=== PATIENT | female | born 1960 | race Hispanic/Latino ===

== ENCOUNTER 2017-02-20 12:07 | Emergency (ER) | payer MEDICARE ==
[2017-02-20 12:29] VITALS: BP 139/80; PULSE 104; RESP 20; TEMP 98.5; O2SAT 95
--- NOTE | 2017-02-20 13:13 | ED PDOC ---
HPI: Abdomen Time Seen by Provider: 02/20/17 12:33 Chief Complaint (Nursing): Fever Chief Complaint (Provider): Abdominal Pain History Per: Patient History/Exam Limitations: no limitations Onset/Duration Of Symptoms: Waxing/Waning (for 2 weeks) Outside of [place] travel?: No Current Symptoms Are (Timing): Gone Now Severity: None Pain Scale Rating Of: 0 Location Of Pain/Discomfort: Other (currently none, but otherwise located at epigastric) Quality Of Discomfort: Sharp Associated Symptoms: Fever, Vomiting, Diarrhea. denies: Chills, Nausea, Urinary Symptoms Alleviating Factors: Other (Morphine, Tylenol, Ibuprofen) Last Bowel Movement: Yesterday Additional Complaint(s): 56 yo F w PMHx of Essential Thrombocythemia, Portal Vein Thrombosis, Anxiety, Trigeminal Neuralgia, and Chronic Migraines presents to ER due to headache and abdominal pain. She had woken up this morning w severe complaints of both, took Morphine, Tylenol, and Ibuprofen to control them, and called her PMD Dr Robins. She was subsequently instructed to head to the [facility], where she now states that her pain has resolved. Two weeks prior to the ER visit, she had seen GI Dr Russell for upper endoscopy and was diagnosed with a stomach ulcer. Following that visit, she has experienced intermittent fevers w Tmax of 101.5F, occasional vomiting, and diarrhea x1 yesterday. On her own accord, she stopped taking her normal regimen of Warfarin and Hydroxyurea in fear of the ulcer and switched to Lovenox. However, the Lovenox was a stockpile that she had a small supply of, and was not observed under any physician's direction. She currently denies any fevers/chills, headaches, aura, blurriness, spots, reduced visual lowery, nausea, or vomiting. She also denies chest pain, SOB, dyspnea, cough, abdominal pain, hematuria, dysuria, or other myalgias. PMD: Dr Robins Hem/Onc: Dr Frazier / Dr Cowart GI: Dr Russell Abnormal Vaginal Bleeding: No Past Medical History Vital Signs: Last Vital Signs Temp 98.5 F 02/20/17 12:25 Pulse 104 H 02/20/17 12:25 Resp 20 02/20/17 12:25 BP 139/80 02/20/17 12:25 Pulse Ox 95 02/20/17 14:54 - Medical History PMH: Denies: Chronic Kidney Disease - Family History Family History: States: Unknown Family Hx - Home Medications Home Medications: Ambulatory Orders Medication Instructions Recorded ALPRAZolam [Xanax] 0.25 mg PO HS 02/02/15 Hydroxyurea [Hydrea] 500 mg PO DAILY 02/02/15 Morphine Sulfate [Msir] 30 mg PO TID 02/02/15 Warfarin Sodium [Coumadin] 4 mg PO DAILY 02/02/15 Amoxicillin/Clavulanate Pota 1 tab PO BID #20 tab 02/03/15 [Augmentin 875 mg-125 mg] Lactulose [Enulose] 20 gm PO DAILY #1 udc 06/28/16 - Allergies Allergies/Adverse Reactions: Allergies Allergy/AdvReac Type Severity Reaction Status Date / Time lansoprazole [From Prevacid] Allergy anxiety, Verified 02/20/17 12:25 shaking ranitidine [From Zantac] Allergy anxiety, Verified 02/20/17 12:25 shaking Review of Systems ROS Statement: Except As Marked, All Systems Reviewed And Found Negative (see HPI) Physical Exam - Reviewed Nursing Documentation Reviewed: Yes Vital Signs Reviewed: Yes - Physical Exam Appears: Positive for: Non-toxic, No Acute Distress Head Exam: Positive for: ATRAUMATIC, NORMOCEPHALIC Skin: Positive for: Normal Color, Warm, Dry Eye Exam: Positive for: Normal appearance, EOMI, PERRL ENT: Positive for: Normal ENT Inspection Neck: Positive for: Normal, Painless ROM, Supple Cardiovascular/Chest: Positive for: Regular Rate, Rhythm. Negative for: Edema Respiratory: Positive for: Normal Breath Sounds. Negative for: Stridor, Wheezing, Respiratory Distress Gastrointestinal/Abdominal: Positive for: Normal Exam, Bowel Sounds, Soft. Negative for: Tenderness (throughout) Extremity: Positive for: Normal ROM. Negative for: Pedal Edema, Calf Tenderness Neurologic/Psych: Positive for: Alert, general store manager II-XII, Oriented - Laboratory Results Result Diagrams: 02/20/17 13:05 02/20/17 13:05 - ECG O2 Sat by Pulse Oximetry: 95 - Progress ED Course And Treament: 56 yo F w PMHx of Essential Thrombocythemia, Portal Vein Thrombosis, Anxiety, Trigeminal Neuralgia, and Chronic Migraines presents to ER due to headache and abdominal pain -When offered, patient denied medication for nausea, vomiting, diarrhea, and her pain -CBC -CMP -PT/PTT -Spoke w Dr Frazier, Hematology, who suggested that the patient see her in the office later today or tomorrow for anticoagulation management. Update: --Upon resulted CBC 40.2 > 13.1/43.8 < 1765 --her Elementary School Music Teacher suggested she be observed to r/o acute infection. Once completed, she should follow up tomorrow at the Elementary School Music Teacher's office. -As per Dr Frazier: ---her platelets were 600 in December and her WBC was 14.5 two weeks prior to today ---resume Hydrea therapy when discharged and follow up w Dr Frazier for anticoagulation management and evaluation for Myeloproliferative Disorder, including a bone marrow aspirate w flow cytometry Update: -No pain appreciated -Blood Cx -Urine Cx -Abdominal U/S -CXR -C Diff Toxin Re-evaluation Time: 13:30 Condition: Re-examined, Unchanged Disposition - Clinical Impression Clinical Impression: Essential thrombocythemia - Disposition Disposition Time: 14:54 Condition: STABLE
[2017-02-20] MEDS ORDERED: Sodium Chloride 0.9% 1,000 ML IV SCH (13:15)
[2017-02-20 13:16] LABS: EOS # 0.4 K/uL (0.0-0.7); LYMPH # 0.9 K/uL (1.0-4.3); MONO # 3.2 K/uL (0.0-0.8)
[2017-02-20 13:24] LABS: PLATELET COUNT 1765 K/uL (130-400); WHITE BLOOD COUNT 40.2 K/uL (4.8-10.8)
[2017-02-20 13:26] LABS: ALB/GLOB RATIO 1.1 (1.0-2.1); ALKALINE PHOSPHATASE 281 U/L (38-126); ALT/SGPT 52 U/L (9-52); AST/SGOT 117 U/L (14-36); BILIRUBIN,TOTAL 1.6 mg/dl (0.2-1.3); BLOOD UREA NITROGEN 12 mg/dl (7-17); CALCIUM 8.9 mg/dL (8.4-10.2); CARBON DIOXIDE 27 mmol/L (22-30); CHLORIDE 103 mmol/L (98-107); GFR AFRICAN-AMERICAN > 60; GLUCOSE,RANDOM 89 mg/dL (65-105); LIPASE 15 U/L (23-300); POTASSIUM 4.4 MMOL/L (3.6-5.0); SODIUM 139 mmol/l (132-148); TOTAL PROTEIN 6.9 G/DL (6.3-8.2)
[2017-02-20 14:01] LABS: BASO # 0.5 K/uL (0.0-0.2); BASO % 1.2 % (0.0-2.0); HEMATOCRIT 43.8 % (34.0-47.0); LYMPH % 2.1 % (20.0-40.0); MEAN CELL VOLUME 93.2 fl (81.0-99.0); MEAN CORPUSCULAR HEMOGLOBIN 27.9 pg (27.0-31.0); MEAN PLATELET VOLUME 10.3 fl (7.2-11.7); MONO % 7.8 % (0.0-10.0); NEUT # 35.7 K/uL (1.8-7.0); NEUT % 87.9 % (50.0-75.0); NRBC % 5.9 % (0.0-0.0); RED CELL DISTRIBUTION WIDTH 22.7 % (11.5-14.5)
[2017-02-20 14:13] LABS: PARTIAL THROMBOPLASTIN TIME 43.8 Seconds (25.6-37.1)
[2017-02-20 14:37] LABS: NEUTROPHIL 96 % (42-75); NUCLEATED RED BLOOD CELL 9 % (0-0); TOTAL CELLS COUNTED 100
--- NOTE | 2017-02-20 15:59 | RAD ---
HISTORY: cough, elevated wbc COMPARISON: 07/29/2014. FINDINGS: LUNGS: No discrete infiltrates. Pulmonary vascular congestion similar to that seen on the prior study. PLEURA: Bilateral pleural effusions again identified CARDIOVASCULAR: Cardiomegaly slack CHF. OSSEOUS STRUCTURES: No significant abnormalities. VISUALIZED UPPER ABDOMEN: Stable postoperative findings, surgical clips left upper quadrant OTHER FINDINGS: None. IMPRESSION: Cardiomegaly, pulmonary vascular congestion/ CHF. No discrete, focal pulmonary infiltrates.
--- NOTE | 2017-02-20 16:44 | US ---
HISTORY: abdominal pain COMPARISON: None. TECHNIQUE: Sonographic evaluation of the abdomen. FINDINGS: LIVER: Measures 16.5 cm. Normal echogenicity of the liver parenchyma. No mass. No intrahepatic bile duct dilatation. GALLBLADDER: Unremarkable. No gallstones. COMMON BILE DUCT: Measures 7 mm. No stones. No dilatation. PANCREAS: Poorly visualized due to overlying bowel gas obscuring the region of interest RIGHT KIDNEY: Measures 12.7cm. Normal echogenicity. No calculus, mass, or hydronephrosis. LEFT KIDNEY: Measures 11.4cm. Normal echogenicity. No calculus, mass, or hydronephrosis. SPLEEN: Status post splenectomy AORTA: No aneurysmal dilatation. IVC: Unremarkable. OTHER FINDINGS: None. IMPRESSION: Status post splenectomy. Pancreas poorly visualized. Otherwise unremarkable examination.
[2017-02-20] MEDS ORDERED: Enoxaparin 60 mg Syringe SC STA (16:51)
[2017-02-20] MEDS ORDERED: Enoxaparin 40 mg Syringe SC STA (16:58)
--- NOTE | 2017-02-20 17:39 | ED PDOC ---
- Laboratory Results Result Diagrams: 02/20/17 13:05 02/20/17 13:05 - ECG O2 Sat by Pulse Oximetry: 95 - Progress ED Course And Treament: [address] Mclean. Pt with known thrombocytosis and noncompliant with meds. Screed Person contacted who reviewed labs and pt to be worked up common infection. If negative, can f/u with power transformer repair supervisor tomorrow. Pending US. 1700 Pt's US unremarkable. Pt given IV morhpine, zofran, and IVF in ER. Dose of lovenox as well. STable for DC and mandatory f/u power transformer repair supervisor in AM Disposition - Clinical Impression Clinical Impression: Essential thrombocythemia, Abdominal pain - POA Present On Arrival: None - Disposition Referrals: Amina Robins MD [Medical Doctor] - Freddie,Zhane Cameron MD [Medical Doctor] - Arjun Russell MD [Staff Provider] - Disposition: Routine/Home Disposition Time: 15:00 Condition: STABLE Additional Instructions: Resulted labs / imaging included w discharge papers. Follow up with Hematology tomorrow morning (Wednesday 02/21) at 10am w Dr Frazier / Dr Cowart. -Patient must resume Hydrea therapy immediately. -Patient will be optimized for Warfarin by Hematology, as per Dr Frazier. -Patient will be monitored for Myeloproliferative Disorder, as per Dr Frazier. Follow up w PMD Dr Robins within 2 - 3 days of discharge. Follow up w GI Dr Russell within 3 - 4 days of discharge. ER precautions discussed and given to patient.
== END 2017-02-20 17:37 | disposition home or self-care (01) ==
LOC: H.ER 12:07
DX: D47.3 Essential (hemorrhagic) thrombocythemia (principal); R50.9 Fever, unspecified; R11.10 Vomiting, unspecified; R19.7 Diarrhea, unspecified
CPT/HCPCS: 71010; 76700; 80053; 83690; 85025; 85610; 85730; 87040; 87086; 96361; 96372; 96374; 96375; 99283; J1650; J2270; J2405; J7040

== ENCOUNTER 2017-03-13 10:54 | Inpatient (IN) | payer MEDICARE ==
[2017-03-13 12:35] LABS: VENOUS BLOOD GAS BASE EXCESS 1.5 mmol/L (0.0-2.0); VENOUS BLOOD GAS PCO2 46 mmHg (40-60); VENOUS BLOOD GAS PO2 29 mm/Hg (30-55); VENOUS BLOOD PH 7.38 (7.32-7.43)
[2017-03-13 12:38] LABS: HEMOGLOBIN 11.9 g/dL (12.0-16.0); MEAN PLATELET VOLUME 10.5 fl (7.2-11.7)
[2017-03-13 12:47] LABS: BASO # 0.3 K/uL (0.0-0.2); BASO % 0.6 % (0.0-2.0); EOS # 0.9 K/uL (0.0-0.7); LYMPH # 0.7 K/uL (1.0-4.3); LYMPH % 1.5 % (20.0-40.0); MEAN CELL VOLUME 91.7 fl (81.0-99.0); MEAN CORPUSCULAR HEMOGLOBIN 26.8 pg (27.0-31.0); MEAN CORPUSCULAR HGB CONC 29.2 g/dL (33.0-37.0); MONO # 1.6 K/uL (0.0-0.8); MONO % 3.7 % (0.0-10.0); NEUT % 92.2 % (50.0-75.0); NRBC % 14.6 % (0.0-0.0); RBC 4.44 Mil/uL (3.80-5.20); RED CELL DISTRIBUTION WIDTH 23.5 % (11.5-14.5)
[2017-03-13 12:55] LABS: PLATELET COUNT 1592 K/uL (130-400); WHITE BLOOD COUNT 44.4 K/uL (4.8-10.8)
[2017-03-13] MEDS ORDERED: Vancomycin 1 g Inj ONE (13:13)
--- NOTE | 2017-03-13 13:13 | ED PDOC ---
HPI: General Adult Time Seen by Provider: 03/13/17 11:05 Chief Complaint (Nursing): Shortness Of Breath History Per: Patient Additional Complaint(s): Pt. states for the month she's been having intermittent chest pain, SOB, and palpitations. Reports symptoms began after she started taking Cipro for an unknown infection started by Dr. Guevara her radiology equipment servicer. Further reports that both her legs have been swollen and red and believes her cellulitis has returned. Swelling and redness began after taking Cipro. Reports a hx of PE in the past. Has also been having intermittent fevers. Denies trauma, hemoptysis, previous CAD, abdominal pain. Past Medical History Reviewed: Historical Data, Nursing Documentation, Vital Signs Vital Signs: Last Vital Signs Temp 98.7 F 03/13/17 18:45 Pulse 108 H 03/13/17 18:45 Resp 20 03/13/17 18:45 BP 155/84 H 03/13/17 18:45 Pulse Ox 97 03/13/17 19:30 - Medical History PMH: Denies: Chronic Kidney Disease Other PMH: Diffuse thromycytosis - Surgical History Other surgeries: spleenectomy - Family History Family History: States: No Known Family Hx - Home Medications Home Medications: Ambulatory Orders Medication Instructions Recorded Hydroxyurea [Hydrea] 1,500 mg PO DAILY 02/02/15 Alprazolam [Xanax] 0.25 mg PO BID PRN 03/13/17 Morphine [Morphine Immediate 30 mg PO TID 03/13/17 Release Tab] Ondansetron HCl [Zofran] 8 mg PO Q12H PRN 03/13/17 Polyethylene Glycol 3350 [Miralax] 17 gm PO DAILY PRN 03/13/17 Warfarin [Coumadin] 4 mg PO Q48H 03/13/17 Warfarin [Coumadin] 5 mg PO Q48H 03/13/17 - Allergies Allergies/Adverse Reactions: Allergies Allergy/AdvReac Type Severity Reaction Status Date / Time lansoprazole [From Prevacid] Allergy anxiety, Verified 03/13/17 10:56 shaking ranitidine [From Zantac] Allergy anxiety, Verified 03/13/17 10:56 shaking Review of Systems ROS Statement: Except As Marked, All Systems Reviewed And Found Negative Cardiovascular: Positive for: Chest Pain, Palpitations Respiratory: Positive for: Shortness of Breath, Pleuritic Pain Musculoskeletal: Positive for: Leg Pain Physical Exam - Reviewed Nursing Documentation Reviewed: Yes Vital Signs Reviewed: Yes - Physical Exam Appears: Positive for: Well, Non-toxic, No Acute Distress Head Exam: Positive for: ATRAUMATIC, NORMAL INSPECTION, NORMOCEPHALIC Skin: Positive for: Normal Color, Warm, DRY Eye Exam: Positive for: EOMI, Normal appearance, PERRL ENT: Positive for: Normal ENT Inspection Neck: Positive for: Normal, Painless ROM Cardiovascular/Chest: Positive for: Regular Rate, Rhythm Respiratory: Positive for: CNT, Normal Breath Sounds Pulses-Dorsalis Pedis (L): 2+ Pulses-Dorsalis Pedis (R): 2+ Gastrointestinal/Abdominal: Positive for: Normal Exam, Bowel Sounds, Soft. Negative for: Tenderness Back: Positive for: Normal Inspection Extremity: Positive for: Normal ROM, Other (b/l lower legs with moderate circumferential erythema and edema ) Neurologic/Psych: Positive for: Alert, Oriented. Negative for: Aphasia, Facial Droop - Laboratory Results Result Diagrams: 03/13/17 12:20 03/13/17 13:46 - ECG O2 Sat by Pulse Oximetry: 97 - Radiology X-Ray: Interpreted by Me (CXR) X-Ray Interpretation: No Acute Disease - Progress ED Course And Treament: Labs ordered. Blood culture x 2 ordered. Zosyn IV, Vancomycin IV given. CTA chest and duplex b/l lower extremities ordered. Case d/w Dr. Kaminski, pt.'s radiology equipment servicer, who states that on 03/06/17 pt. had WBC of 28K. CTA chest: 1. No CT evidence for acute pulmonary embolism. 2. Interstitial pulmonary edema and moderate bilateral pleural effusions, larger on the left in conjunction with mild cardiomegaly are most compatible with congestive heart failure. Duplex b/l lower extremities: negative for DVT. Pt. states she is scheduled to have her daily Morphine. Morphine 4mg IV given. BNP elevated. Repeat BP: 174/104. Lasix 20mg IV given. Case d/w Dr. Chavez and arrangements made for admission. Case d/w Dr. Iverson V, radiology equipment servicer, who agrees with care and will see patient in hospital. Disposition - Clinical Impression Clinical Impression: CHF (congestive heart failure), Cellulitis, Sepsis - Patient ED Disposition Is Patient to be Admitted: Yes - Disposition Disposition Time: 17:45 Condition: STABLE
[2017-03-13] MEDS ORDERED: Piperacillin/Tazobact 3.375 GM in Sodium Chloride 0.9% 100 ML IVPB STA (13:14)
--- NOTE | 2017-03-13 13:21 | RAD ---
HISTORY: chest pain COMPARISON: 02/18/2017. TECHNIQUE: Chest PA and lateral FINDINGS: LUNGS: The lungs are hyperinflated. There is persistent pulmonary venous congestion and pulmonary edema. No focal consolidation. PLEURA: There are small pleural effusions. No pneumothorax. CARDIOVASCULAR: There is persistent mild cardiomegaly and prominent central vasculature OSSEOUS STRUCTURES: No significant abnormalities. VISUALIZED UPPER ABDOMEN: Normal. OTHER FINDINGS: None. IMPRESSION: No significant interval change in mild congestive heart failure. COPD.
--- NOTE | 2017-03-13 13:50 | US ---
PROCEDURE: Bilateral lower extremity venous duplex Doppler. HISTORY: b/l lower leg swelling COMPARISON: None available. TECHNIQUE: Bilateral common femoral, superficial femoral, popliteal and posterior tibial veins were evaluated. Flow was assessed with color Doppler, compressibility, assessment of phasic flow and augmentation response. FINDINGS: COMMON FEMORAL VEIN: Right CFV: Normal flow and compressibility. Left CFV: Normal flow and compressibility. SUPERFICIAL FEMORAL VEIN: Right SFV: Normal flow and compressibility. Left SFV: Normal flow and compressibility. POPLITEAL VEIN: Right Popliteal: Normal flow and compressibility. Left Popliteal: Normal flow and compressibility. POSTERIOR TIBIAL VEIN: Right PTV: Normal flow and compressibility. Left PTV: Normal flow and compressibility. OTHER FINDINGS: None. IMPRESSION: No evidence of deep venous thrombosis.
[2017-03-13 14:06] LABS: URINE BACTERIA RARE (<OCC); URINE BILIRUBIN NEGATIVE (NEGATIVE); URINE BLOOD NEGATIVE (NEGATIVE); URINE CLARITY CLEAR (Clear); URINE COLOR STRAW (YELLOW); URINE GLUCOSE (UA) NEG (Normal); URINE LEUKOCYTE ESTERASE NEG Leu/uL (Negative); URINE NITRATE NEGATIVE (NEGATIVE); URINE PROTEIN 30 mg/dL (NEGATIVE); URINE UROBILINOGEN 0.2-1.0 mg/dL (0.2-1.0)
[2017-03-13 14:23] LABS: ALB/GLOB RATIO 1.1 (1.0-2.1); ALBUMIN 3.8 g/dL (3.5-5.0); ALT/SGPT 46 U/L (9-52); AST/SGOT 80 U/L (14-36); BLOOD UREA NITROGEN 7 mg/dl (7-17); CALCIUM 9.2 mg/dL (8.4-10.2); GFR AFRICAN-AMERICAN > 60; GFR NON-AFRICAN AMERICAN > 60
[2017-03-13 14:28] LABS: BANDS 3 % (0-2); LYMPHOCYTE 3 % (20-50); MONOCYTE 5 % (0-10); NEUTROPHIL 89 % (42-75); NUCLEATED RED BLOOD CELL 13 % (0-0); PLATELET ESTIMATE MARKEDLY INCREASED (NORMAL); TOTAL CELLS COUNTED 100
[2017-03-13 14:29] LABS: ANISOCYTOSIS MODERATE; POIKILOCYTOSIS SLIGHT
[2017-03-13 14:30] LABS: HYPOCHROMIC MODERATE; MICROCYTOSIS SLIGHT; OVALOCYTES MODERATE; TARGET CELLS SLIGHT; TEARDROP CELLS MODERATE
[2017-03-13 14:31] LABS: LARGE PLATELETS PRESENT; PLATELET CLUMPS PRESENT
[2017-03-13 15:01] LABS: INR 1.2 (0.9-1.2); PARTIAL THROMBOPLASTIN TIME 36.5 Seconds (25.6-37.1); PROTHROMBIN TIME 13.9 Seconds (9.8-13.1)
[2017-03-13] MEDS ORDERED: Sodium Chloride 0.9% 50 ML IV ONE (15:20)
[2017-03-13] MEDS ORDERED: Iodixanol 320 MG/ML 100 ML BOTTLE IV ONE (15:20)
--- NOTE | 2017-03-13 16:48 | CT ---
PROCEDURE: CT Chest with contrast (Pulmonary Angiogram) HISTORY: tachycardic, SOB, hx of PE COMPARISON: Plain radiographs performed the same day. TECHNIQUE: Axial computed tomography images were obtained of the chest in the pulmonary arterial phase of enhancement. Coronal and sagittal reformatted images were created and reviewed. Intravenous contrast dose: 75 mL Visipaque 320 Radiation dose: Total exam DLP = 211.54 mGy-cm. This CT exam was performed using one or more of the following dose reduction techniques: Automated exposure control, adjustment of the mA and/or kV according to patient size, and/or use of iterative reconstruction technique. FINDINGS: PULMONARY ARTERIES: There are no filling defects in the pulmonary arteries to suggest acute pulmonary embolism. AORTA: The aorta is normal in caliber. No evidence of aortic aneurysm or dissection. LUNGS: There is mild interlobular septal thickening. There is subsegmental atelectasis in the lingula, medial segment of the right middle lobe and compressive atelectasis in both lower lobes. There is also confluent airspace disease in the posterior basal segment of the left lower lobe. There are no endobronchial lesions. There is mild centrilobular emphysema especially in the posterior lungs. PLEURAL SPACES: There are moderate bilateral pleural effusions, larger on the left. Or pneumothorax. HEART: There is mild cardiomegaly. No pericardial effusion. LYMPH NODES: Subcentimeter mediastinal lymph nodes are likely reactive in etiology. BONES, CHEST WALL: Within normal limits for the patient's age. No fracture or destructive lesion OTHER FINDINGS: Unremarkable. IMPRESSION: 1. No CT evidence for acute pulmonary embolism. 2. Interstitial pulmonary edema and moderate bilateral pleural effusions, larger on the left in conjunction with mild cardiomegaly are most compatible with congestive heart failure.
[2017-03-14 02:48] LABS: ALB/GLOB RATIO 1.1 (1.0-2.1); ALBUMIN 3.4 g/dL (3.5-5.0); ALT/SGPT 46 U/L (9-52); AST/SGOT 59 U/L (14-36); BLOOD UREA NITROGEN 8 mg/dl (7-17); CALCIUM 8.7 mg/dL (8.4-10.2); GFR AFRICAN-AMERICAN > 60; GFR NON-AFRICAN AMERICAN > 60; HDL CHOLESTEROL 31 MG/DL (30-70)
[2017-03-14 02:59] LABS: LDL CHOLESTEROL 87 mg/dL (0-129)
[2017-03-14] MEDS ORDERED: Piperacillin/Tazobact 3.375 GM in Sodium Chloride 0.9% 100 ML IVPB STA (06:48)
[2017-03-14 07:12] LABS: HEMOGLOBIN 10.9 g/dL (12.0-16.0); MEAN CELL VOLUME 91.3 fl (81.0-99.0); MEAN CORPUSCULAR HEMOGLOBIN 26.5 pg (27.0-31.0); RBC 4.1 Mil/uL (3.80-5.20); RED CELL DISTRIBUTION WIDTH 23.9 % (11.5-14.5)
[2017-03-14 08:02] LABS: WHITE BLOOD COUNT 47.9 K/uL (4.8-10.8)
[2017-03-14] MEDS: Enoxaparin 40 mg Syringe SC SCH (08:28)
[2017-03-14] MEDS: Potassium Chloride 20 mEq ER Tab PO SCH ×2 (08:29→16:48)
--- NOTE | 2017-03-14 08:48 | CP.PCM.CON ---
History of Present Illness - History of Present Illness History of Present Illness: This is a 56 yrs old female who was diagnosed with essential thrombosis in 1998. She had been started on hydroxyuerea, and she did well until 2 yrs ago when she started having some leg edema. She was not very regular with the hydrea , and her counts have been a little high. In she was found to have an ulcer in the stomach so she stopped the hydrea for a while. But was then given cipro for an infection, but she doesnt know where. Both her lower extremities got swollen as a reaction, she started to get shortness of breath and was brought to the ER , She had a ct scan which did not show a PE, but she had a pleural effusion with an enlarged heart, She was admitted for CHF. Her WBC however was 44.0 and platelets were 1.5 mill. She has been off the hydrea since 1 month. She had gene testing done and found to be negative for the NICOLE 2 mutation,She was also found to be hypertensive. 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 Past Patient History - Infectious Disease Hx of Infectious Diseases: None - Tetanus Immunizations Tetanus Immunization: Unknown - Past Medical History & Family History Past Medical History?: Yes - Past Social History Smoking Status: Former Smoker - CARDIAC Hx Cardiac Disorders: No - PULMONARY Hx Respiratory Disorders: Yes Hx Emphysema: Yes (per patient "mild emphysema") - NEUROLOGICAL Hx Neurological Disorder: No - HEENT Hx HEENT Problems: No - RENAL Hx Chronic Kidney Disease: No - ENDOCRINE/METABOLIC Hx Endocrine Disorders: No - HEMATOLOGICAL/ONCOLOGICAL Hx Blood Disorders: Yes Other/Comment: Essential Thrombocythemia - INTEGUMENTARY Hx Dermatological Problems: No - MUSCULOSKELETAL/RHEUMATOLOGICAL Hx Musculoskeletal Disorders: No Hx Falls: No - GASTROINTESTINAL Hx Gastrointestinal Disorders: Yes Hx Esophageal Varices: Yes (2003) Other/Comment: PORTAL VEIN HYPERTENSION, PORTAL VEIN THROMBOSES - GENITOURINARY/GYNECOLOGICAL Hx Genitourinary Disorders: No - PSYCHIATRIC Hx Psychophysiologic Disorder: No Hx Substance Use: No - SURGICAL HISTORY Hx Surgeries: Yes Hx Splenectomy: Yes Hx Tonsillectomy: Yes - ANESTHESIA Hx Anesthesia: Yes Hx Anesthesia Reactions: No Meds Allergies/Adverse Reactions: Allergies Allergy/AdvReac Type Severity Reaction Status Date / Time lansoprazole [From Prevacid] Allergy anxiety, Verified 03/13/17 10:56 shaking ranitidine [From Zantac] Allergy anxiety, Verified 03/13/17 10:56 shaking - Medications Medications: Current Medications Acetaminophen (Tylenol 325mg Tab) 650 mg PO Q4 PRN PRN Reason: Fever >100.4 F Alprazolam (Xanax) 0.25 mg PO Q12 PRN PRN Reason: Anxiety Stop: 03/20/17 23:28 Last Admin: 03/14/17 00:23 Dose: 0.25 mg Enoxaparin Sodium (Lovenox) 40 mg SC DAILY [facility] PRN Reason: Protocol Furosemide (Lasix) 40 mg IVP BID [facility] Isosorbide Mononitrate (Imdur) 30 mg PO DAILY [facility] Morphine Sulfate (Morphine) 2 mg IVP Q8 PRN PRN Reason: Pain, severe (8-10) Last Admin: 03/14/17 00:23 Dose: 2 mg Ondansetron HCl (Zofran Inj) 4 mg IVP Q6 PRN PRN Reason: Nausea/Vomiting Last Admin: 03/14/17 01:13 Dose: 4 mg Potassium Chloride (K-Dur 20 Meq Er Tab) 20 meq PO BID [facility] Physical Exam - Additional Findings Additional findings: Physical exam; Pt is alert, well oriented in no acute distress Nech; Supple, no adenopathy Chest; Air entry poor bilaterally, right more viridiana left Heart; RSR, no murmur Abd; Soft, no mass, no hepatomegaly. spleen 1 cm below left costal margin. Lower extremities are swollen and a little red Results - Vital Signs Recent Vital Signs: Last Vital Signs Temp 98.4 F 03/14/17 08:12 Pulse 88 03/14/17 08:12 Resp 20 03/14/17 08:12 BP 107/64 03/14/17 08:12 Pulse Ox 94 L 03/14/17 08:12 - Labs Result Diagrams: 03/14/17 05:05 03/14/17 02:32 Labs: Laboratory Results - last 24 hr 03/14/17 03/14/17 03/14/17 02:32 02:32 05:05 WBC 47.9 H* RBC 4.10 Hgb 10.9 L Hct 37.4 MCV 91.3 MCH 26.5 L MCHC 29.0 L RDW 23.9 H Plt Count 1409 H* Sodium 141 Potassium 3.9 Chloride 107 Carbon Dioxide 21 L Anion Gap 17 BUN 8 Creatinine 0.5 L Est GFR ( Amer) > 60 Est GFR (Non-Af Amer) > 60 Random Glucose 99 Calcium 8.7 Total Bilirubin 0.8 AST 59 H D ALT 46 Alkaline Phosphatase 271 H Troponin I 0.0150 0.0240 Total Protein 6.5 Albumin 3.4 L Globulin 3.0 Albumin/Globulin Ratio 1.1 Triglycerides 113 Cholesterol 157 LDL Cholesterol Direct 87 HDL Cholesterol 31 TSH 3rd Generation 0.91 Assessment & Plan - Assessment and Plan (Free Text) Assessment: Impression; Pt with a h/o essential thrombocytosis is here for Eleveted WBC and platelets.? polycythemia vera. Plan: Plan; Will give her another try with hydroxyurea to rapidly decrease the counts. If she starts to get any side effects will stop will give allopurinol to prevent hyperuricemia. Pt is on lovenox already - Date & Time Date: 03/14/17 Time: 08:57
--- NOTE | 2017-03-14 10:15 | CP.PCM.HP ---
Past Patient History - Infectious Disease Hx of Infectious Diseases: None - Tetanus Immunizations Tetanus Immunization: Unknown - Past Medical History & Family History Past Medical History?: Yes - Past Social History Smoking Status: Former Smoker - CARDIAC Hx Cardiac Disorders: No - PULMONARY Hx Respiratory Disorders: Yes Hx Emphysema: Yes (per patient "mild emphysema") - NEUROLOGICAL Hx Neurological Disorder: No - HEENT Hx HEENT Problems: No - RENAL Hx Chronic Kidney Disease: No - ENDOCRINE/METABOLIC Hx Endocrine Disorders: No - HEMATOLOGICAL/ONCOLOGICAL Hx Blood Disorders: Yes Other/Comment: Essential Thrombocythemia - INTEGUMENTARY Hx Dermatological Problems: No - MUSCULOSKELETAL/RHEUMATOLOGICAL Hx Musculoskeletal Disorders: No Hx Falls: No - GASTROINTESTINAL Hx Gastrointestinal Disorders: Yes Hx Esophageal Varices: Yes (2003) Other/Comment: PORTAL VEIN HYPERTENSION, PORTAL VEIN THROMBOSES - GENITOURINARY/GYNECOLOGICAL Hx Genitourinary Disorders: No - PSYCHIATRIC Hx Psychophysiologic Disorder: No Hx Substance Use: No - SURGICAL HISTORY Hx Surgeries: Yes Hx Splenectomy: Yes Hx Tonsillectomy: Yes - ANESTHESIA Hx Anesthesia: Yes Hx Anesthesia Reactions: No Meds Allergies/Adverse Reactions: Allergies Allergy/AdvReac Type Severity Reaction Status Date / Time lansoprazole [From Prevacid] Allergy anxiety, Verified 03/13/17 10:56 shaking ranitidine [From Zantac] Allergy anxiety, Verified 03/13/17 10:56 shaking Results - Vital Signs Recent Vital Signs: Last Vital Signs Temp 36.9 C 03/14/17 08:12 Pulse 88 03/14/17 09:00 Resp 20 03/14/17 08:12 BP 107/64 03/14/17 08:12 Pulse Ox 94 L 03/14/17 08:12 - Labs Result Diagrams: 03/14/17 05:05 03/14/17 02:32 Labs: Laboratory Results - last 24 hr 03/14/17 03/14/17 03/14/17 02:32 02:32 05:05 WBC 47.9 H* RBC 4.10 Hgb 10.9 L Hct 37.4 MCV 91.3 MCH 26.5 L MCHC 29.0 L RDW 23.9 H Plt Count 1409 H* Sodium 141 Potassium 3.9 Chloride 107 Carbon Dioxide 21 L Anion Gap 17 BUN 8 Creatinine 0.5 L Est GFR ( Amer) > 60 Est GFR (Non-Af Amer) > 60 Random Glucose 99 Calcium 8.7 Total Bilirubin 0.8 AST 59 H D ALT 46 Alkaline Phosphatase 271 H Troponin I 0.0150 0.0240 Total Protein 6.5 Albumin 3.4 L Globulin 3.0 Albumin/Globulin Ratio 1.1 Triglycerides 113 Cholesterol 157 LDL Cholesterol Direct 87 HDL Cholesterol 31 TSH 3rd Generation 0.91
[2017-03-14] MEDS: Morphine 30 mg Immediate Release Tab PO PRN ×2 (12:59→18:41)
--- NOTE | 2017-03-14 14:45 | CP.PCM.CON ---
History of Present Illness - History of Present Illness History of Present Illness: referred for ID eval- leukocytosis r/o infectious etiology - came in with leg swelling , ? cellulitis, r/o CHF 56 yrs old female who was diagnosed with essential thrombosis in 1998. She had been started on hydroxyuerea, and she did well until 2 yrs ago when she started having some leg edema. She was not very regular with the hydrea, and her counts have been a little high. In she was found to have an ulcer in the stomach so she stopped the hydrea for a while. But was then given cipro for an infection, but she doesnt know where. Both her lower extremities got swollen as a reaction , she started to get shortness of breath and was brought to the ER, She had a ct scan which did not show a PE, but she had a pleural effusion with an enlarged heart, She was admitted for CHF. Her WBC however was 44.0 and platelets were 1.5 mill. She has been off the hydrea since 1 month. She had gene testing done and found to be negative for the NICOLE 2 mutation,She was also found to be hypertensive. 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 Review of Systems - Constitutional Constitutional: As Per HPI - EENT Eyes: absent: As Per HPI, Blind Spots, Blurred Vision, Change in Vision, Decreased Night Vision, Diplopia, Discharge, Dry Eye, Exophthalmos, Floaters, Irritation, Itchy Eyes, Loss of Peripheral Vision, Pain, Photophobia, Requires Corrective Lenses, Sees Flashes, Spots in Vision, Tunnel Vision, Other Visual Disturbances, Loss of Vision, Other Ears: absent: As Per HPI, Decreased Hearing, Ear Discharge, Ear Pain, Tinnitus, Abnormal Hearing, Disequilibrium, Dizziness, Other Nose/Mouth/Throat: absent: As Per HPI, Epistaxis, Nasal Congestion, Nasal Discharge, Nasal Obstruction, Nasal Trauma, Nose Pain, Post Nasal Drip, Sinus Pain, Sinus Pressure, Bleeding Gums, Change in Voice, Dental Pain, Dry Mouth, Dysphagia, Halitosis, Hoarsness, Lip Swelling, Mouth Lesions, Mouth Pain, Odynophagia, Sore Throat, Throat Swelling, Tongue Swelling, Facial Pain, Neck Pain, Neck Mass, Other - Breasts Breasts: absent: As Per HPI, Change in Shape, Mass, Pain, Nipple Discharge, Nipple Inversion, Skin Changes, Swelling, Other - Cardiovascular Cardiovascular: absent: As Per HPI, Acrocyanosis, Chest Pain, Chest Pain at Rest , Chest Pain with Activity, Claudication, Diaphoresis, Dyspnea, Dyspnea on Exertion, Edema, Irregular Heart Rhythm, Pain Radiating to Arm/Neck/Jaw, Leg Edema, Leg Ulcers, Lightheadedness, Orthopnea, Palpitations, Paroxysmal Nocturnal Dyspnea, Pedal Edema, Radiating Pain, Rapid Heart Rate, Slow Heart Rate, Syncope, Other - Respiratory Respiratory: As Per HPI, Cough, Dyspnea. absent: Hemoptysis - Gastrointestinal Gastrointestinal: As Per HPI. absent: Abdominal Pain, Belching, Bloating, Change in Bowel Habits, Change in Stool Character, Coffee Ground Emesis, Constipation, Cramping, Diarrhea, Dyspepsia, Dysphagia, Early Satiety, Excessive Flatus, Fecal Incontinence, Heartburn, Hematemesis, Hematochezia, Loose Stools, Melena, Nausea, Odynophagia, Temesmus, Vomiting, Other - Genitourinary Genitourinary: absent: As Per HPI, Change in Urinary Stream, Difficulty Urinating, Dysuria, Flank Pain, Hematuria, Pyuria, Nocturia, Urinary Incontinence, Urinary Frequency, Urinary Hesitance, Urinary Urgency, Voiding Freq/Small Amts, Freq UTI, Hx Renal/Bladder Calculi, Hx /Renal Surgery, Bladder Distension, Other - Reproductive: Female Reproductive:Female: absent: As Per HPI, Amenorrhea, Amenorrhea/ Control, Currently Menstual, Cycle <21 Days, Cycle >35 Days, Cycle Variable, Menses 1-7 Days, Menses >/= 8 Days, Menses Variable, Cycle > 4 Weeks Between, No Menses for 6 Months, Heavy Menses, Light Menses, Normal Menses, Spotting Between Cycles , S/P Hysterectomy, Menopausal, Post Menopausal, Premenarche, Abnormal Vaginal Bleeding, Dysmenorrhea, Dyspareunia, Genital Lesions, Genital Pruritis, Pelvic Pain, Prolapse Symptoms, Sexual Dysfunction, Vaginal Discharge, Vaginal Dryness , Vaginal Odor, Vaginal Pruritis, Other - Menstruation Menstruation: absent: As Per HPI, Amenorrhea, Amenorrhea/ Control, Currently Menstual, Cycle <21 Days, Cycle >35 Days, Cycle Variable, Menses 1-7 Days, Menses >/= 8 Days, Menses Variable, Cycle > 4 Weeks Between, No Menses for 6 Months, Heavy Menses, Light Menses, Normal Menses, Spotting Between Cycles , S/P Hysterectomy, Menopausal, Post Menopausal, Premenarche, Abnormal Vaginal Bleeding, Dysmenorrhea, Other - Musculoskeletal Musculoskeletal: As Per HPI - Integumentary Integumentary: As Per HPI - Neurological Neurological: absent: As Per HPI, Abnormal Gait, Abnormal Hearing, Abnormal Movements, Abnormal Speech, Behavioral Changes, Burning Sensations, Confusion, Convulsions, Disequilibrium, Dizziness, Numbness, Focal Weakness, Frequent Falls , Headaches, Lack of Coordination, Loss of Vision, Memory Loss, Paresthesias, Radicular Pain, Restless Legs, Sensory Deficit, Syncope, Tingling, Tremor, Vertigo, Weakness, Other Visual Disturbances, Other - Psychiatric Psychiatric: absent: As Per HPI, Abnormal Sleep Pattern, Anhedonia, Anxiety, Auditory Hallucinations, Behavioral Changes, Change in Appetite, Change in Libido, Confusion, Depression, Difficulty Concentrating, Hallucinations, Homicidal Ideation, Hopelessness, Irritability, Memory Loss, Mood Swings, Panic Attacks, Paranoia, Suicidal Ideation, Visual Hallucinations, Tactile Hallucinations, Other - Endocrine Endocrine: absent: As Per HPI, Change in Body Appearance, Change in Libido, Cold Intolorance, Deepening of Voice, Excessive Sweating, Fatigue, Flushing, Heat Intolorance, Increase in Ring/Shoe/Hat Size, Palpitations, Polydipsia, Polyphagia, Polyuria, Other - Hematologic/Lymphatic Hematologic: absent: As Per HPI, Easy Bleeding, Easy Bruising, Lymphadenopathy, Other Past Patient History - Infectious Disease Hx of Infectious Diseases: None - Tetanus Immunizations Tetanus Immunization: Unknown - Past Medical History & Family History Past Medical History?: Yes - Past Social History Smoking Status: Former Smoker - CARDIAC Hx Cardiac Disorders: No - PULMONARY Hx Respiratory Disorders: Yes Hx Emphysema: Yes (per patient "mild emphysema") - NEUROLOGICAL Hx Neurological Disorder: No - HEENT Hx HEENT Problems: No - RENAL Hx Chronic Kidney Disease: No - ENDOCRINE/METABOLIC Hx Endocrine Disorders: No - HEMATOLOGICAL/ONCOLOGICAL Hx Blood Disorders: Yes Other/Comment: Essential Thrombocythemia - INTEGUMENTARY Hx Dermatological Problems: No - MUSCULOSKELETAL/RHEUMATOLOGICAL Hx Musculoskeletal Disorders: No Hx Falls: No - GASTROINTESTINAL Hx Gastrointestinal Disorders: Yes Hx Esophageal Varices: Yes (2003) Other/Comment: PORTAL VEIN HYPERTENSION, PORTAL VEIN THROMBOSES - GENITOURINARY/GYNECOLOGICAL Hx Genitourinary Disorders: No - PSYCHIATRIC Hx Psychophysiologic Disorder: No Hx Substance Use: No - SURGICAL HISTORY Hx Surgeries: Yes Hx Splenectomy: Yes Hx Tonsillectomy: Yes - ANESTHESIA Hx Anesthesia: Yes Hx Anesthesia Reactions: No Meds Allergies/Adverse Reactions: Allergies Allergy/AdvReac Type Severity Reaction Status Date / Time lansoprazole [From Prevacid] Allergy anxiety, Verified 03/13/17 10:56 shaking ranitidine [From Zantac] Allergy anxiety, Verified 03/13/17 10:56 shaking - Medications Medications: Current Medications Acetaminophen (Tylenol 325mg Tab) 650 mg PO Q4 PRN PRN Reason: Fever >100.4 F Allopurinol (Zyloprim) 100 mg PO DAILY [facility] Last Admin: 03/14/17 10:50 Dose: 100 mg Alprazolam (Xanax) 0.25 mg PO Q12 PRN PRN Reason: Anxiety Stop: 03/20/17 23:28 Last Admin: 03/14/17 14:31 Dose: 0.25 mg Enoxaparin Sodium (Lovenox) 40 mg SC DAILY [facility] PRN Reason: Protocol Last Admin: 03/14/17 08:28 Dose: 40 mg Furosemide (Lasix) 40 mg IVP BID [facility] Last Admin: 03/14/17 12:34 Dose: 40 mg Hydroxyurea (Hydrea) 500 mg PO TID [facility] Last Admin: 03/14/17 12:35 Dose: 500 mg Isosorbide Mononitrate (Imdur) 30 mg PO DAILY [facility] Last Admin: 03/14/17 08:28 Dose: 30 mg Morphine Sulfate (Morphine) 2 mg IVP Q8 PRN PRN Reason: Pain, severe (8-10) Last Admin: 03/14/17 00:23 Dose: 2 mg Morphine Sulfate (Morphine Immediate Release Tab) 30 mg PO TID PRN PRN Reason: Pain, severe (8-10) Last Admin: 03/14/17 12:59 Dose: 30 mg Ondansetron HCl (Zofran Inj) 4 mg IVP Q6 PRN PRN Reason: Nausea/Vomiting Last Admin: 03/14/17 14:22 Dose: 4 mg Potassium Chloride (K-Dur 20 Meq Er Tab) 20 meq PO BID [facility] Last Admin: 03/14/17 08:29 Dose: 20 meq Physical Exam - Constitutional Appears: Non-toxic, Cachectic, Chronically Ill - Head Exam Head Exam: NORMOCEPHALIC - Eye Exam Eye Exam: PERRL. absent: Scleral icterus - ENT Exam ENT Exam: Mucous Membranes Dry, Normal External Ear Exam - Neck Exam Neck exam: Negative for: Lymphadenopathy - Respiratory Exam Respiratory Exam: Decreased Breath Sounds, Clear to Auscultation Bilateral - Cardiovascular Exam Cardiovascular Exam: REGULAR RHYTHM, +S1, +S2 - GI/Abdominal Exam GI & Abdominal Exam: Diminished Bowel Sounds, Distended, Soft. absent: Tenderness - Rectal Exam Rectal Exam: Deferred - Exam Exam: NORMAL INSPECTION - Extremities Exam Extremities exam: Positive for: pedal edema, pedal pulses present. Negative for : calf tenderness, tenderness - Back Exam Back exam: absent: CVA tenderness (L), CVA tenderness (R) - Neurological Exam Neurological exam: Alert, CN II-XII Intact, Oriented x3, Reflexes Normal - Psychiatric Exam Psychiatric exam: Normal Mood - Skin Skin Exam: Dry, Intact Results - Vital Signs Recent Vital Signs: Last Vital Signs Temp 98.7 F 03/14/17 12:21 Pulse 94 H 03/14/17 12:21 Resp 18 03/14/17 12:21 BP 108/56 L 03/14/17 12:34 Pulse Ox 93 L 03/14/17 12:21 - Labs Result Diagrams: 03/14/17 05:05 03/14/17 02:32 Labs: Laboratory Results - last 24 hr 03/14/17 03/14/17 03/14/17 02:32 02:32 05:05 WBC 47.9 H* RBC 4.10 Hgb 10.9 L Hct 37.4 MCV 91.3 MCH 26.5 L MCHC 29.0 L RDW 23.9 H Plt Count 1409 H* ESR 31 H Sodium 141 Potassium 3.9 Chloride 107 Carbon Dioxide 21 L Anion Gap 17 BUN 8 Creatinine 0.5 L Est GFR ( Amer) > 60 Est GFR (Non-Af Amer) > 60 Random Glucose 99 Calcium 8.7 Total Bilirubin 0.8 AST 59 H D ALT 46 Alkaline Phosphatase 271 H Troponin I 0.0150 0.0240 Total Protein 6.5 Albumin 3.4 L Globulin 3.0 Albumin/Globulin Ratio 1.1 Triglycerides 113 Cholesterol 157 LDL Cholesterol Direct 87 HDL Cholesterol 31 TSH 3rd Generation 0.91 Assessment & Plan - Assessment and Plan (Free Text) Assessment: leukocytosis r/o myeloproliferative disorder hx of thrombocytosis may need BM Bx IV antibiotics pending cultures check echo
[2017-03-14 15:30] VITALS: BMI 22.1
--- NOTE | 2017-03-14 17:01 | CARD ---
APPROVED REPORT EXAM: Two-dimensional and M-mode echocardiogram with Doppler and color Doppler. Other Information Quality : GoodRhythm : NSR INDICATION Congestive Heart Failure 2D DIMENSIONS IVSd0.91 (0.7-1.1cm)LVDd4.76 (3.9-5.9cm) LVOT Diameter1.75 (1.8-2.4cm)PWd0.80 (0.7-1.1cm) IVSs1.07 (0.8-1.2cm)LVDs2.78 (2.5-4.0cm) FS (%) 41.5 %PWs1.55 (0.8-1.2cm) M-Mode DIMENSIONS Left Atrium (MM)4.41 (2.5-4.0cm)IVSd0.85 (0.7-1.1cm) Aortic Root2.56 (2.2-3.7cm)LVDd5.21 (4.0-5.6cm) Aortic Cusp Exc.1.85 (1.5-2.0cm)PWd1.09 (0.7-1.1cm) IVSs1.71 cmFS (%) 46 % LVDs2.82 (2.0-3.8cm)PWs1.50 cm Mitral Valve MV E Vuzwmzlz997.1cm/sMV DECEL [id number] A Nmtvlptf02.4cm/s MV ZRO45mcP/A ratio2.1MVA (PHT)4.11cm2 TDI Lateral E' Peak V11.08cm/sMedial E' Peak V11.65cm/sE/Lateral E'9.5 E/Medial E'9.0 Tricuspid Valve TR Peak Oprzayjf067ch/sRAP [id number] Peak Gr.40mmHg [id number] LEFT VENTRICLE The left ventricle is normal size. There is normal left ventricular wall thickness. The left ventricular function is normal. The left ventricular ejection fraction is 60-65% There is normal LV segmental wall motion. Transmitral Doppler flow pattern is Grade II-pseudonormal filling dynamics. No left ventricle thrombus noted on this study. There is no ventricular septal defect visualized. There is no left ventricular aneurysm. There is no mass noted in the left ventricle. RIGHT VENTRICLE The right ventricle is normal size. There is normal right ventricular wall thickness. The right ventricular systolic function is normal. ATRIA The left atrium is moderately dilated. The right atrium is moderately dilated. The interatrial septum is intact with no evidence for an atrial septal defect. AORTIC VALVE The aortic valve is normal in structure and function. No aortic regurgitation is present. There is no aortic valvular stenosis. There is no aortic valvular vegetation. MITRAL VALVE The mitral valve is normal in structure and function. There is no evidence of mitral valve prolapse. There is no mitral valve stenosis. Mitral regurgitation is moderate. TRICUSPID VALVE The tricuspid valve is normal in structure and function. There is moderate tricuspid regurgitation. Right ventricular systolic pressure is estimated at 30-40 mmHg. There is no tricuspid valve prolapse or vegetation. There is no tricuspid valve stenosis. PULMONIC VALVE The pulmonary valve is normal in structure and function. There is no pulmonic valvular regurgitation. There is no pulmonic valvular stenosis. GREAT VESSELS The aortic root is normal in size. The ascending aorta is normal in size. The IVC is normal in size and collapses >50% with inspiration. PERICARDIAL EFFUSION The pericardium appears normal. There is no pleural effusion. <Conclusion> Normal LV systolic function LVEF 60-65% Moderate Mitral Regurgitation Moderate Tricuspid Regurgitation with normal PAP
--- NOTE | 2017-03-14 17:10 | CARD ---
APPROVED REPORT EKG Measurement Heart [id number] <Conclusion> Normal sinus rhythm Possible Left atrial enlargement Nonspecific T wave abnormality Prolonged QT Abnormal ECG
--- NOTE | 2017-03-14 17:22 | CARD ---
APPROVED REPORT EKG Measurement Heart [id number] <Conclusion> Sinus tachycardia Possible Left atrial enlargement Borderline ECG
[2017-03-14] MEDS ORDERED: POLYETHYLENE GLYCOL 3350 17 GM/Dose PACKET PO PRN (19:38)
[2017-03-14 22:12] LABS: HEPATITIS B SURFACE AG NEGATIVE (NEGATIVE)
[2017-03-14 22:17] LABS: HEPATITIS A IGM NEGATIVE (NEGATIVE)
[2017-03-14 22:18] LABS: HEPATITIS B CORE AB NEGATIVE (NEGATIVE)
[2017-03-14 22:30] LABS: HEPATITIS C ANTIBODY NEGATIVE (NEGATIVE)
[2017-03-15] MEDS: Morphine 30 mg Immediate Release Tab PO PRN ×2 (04:31→14:24)
[2017-03-15 07:33] LABS: BASO # 0.3 K/uL (0.0-0.2); BASO % 0.6 % (0.0-2.0); EOS # 1.1 K/uL (0.0-0.7); EOS % 2.3 % (0.0-4.0); HEMOGLOBIN 11.4 g/dL (12.0-16.0); LYMPH # 1.1 K/uL (1.0-4.3); LYMPH % 2.3 % (20.0-40.0); MEAN CELL VOLUME 90.6 fl (81.0-99.0); MEAN CORPUSCULAR HEMOGLOBIN 26.2 pg (27.0-31.0); MEAN CORPUSCULAR HGB CONC 28.9 g/dL (33.0-37.0); MEAN PLATELET VOLUME 10.5 fl (7.2-11.7); MONO # 1.6 K/uL (0.0-0.8); MONO % 3.3 % (0.0-10.0); NEUT # 43.6 K/uL (1.8-7.0); NEUT % 91.5 % (50.0-75.0); NRBC % 15.3 % (0.0-0.0); RBC 4.37 Mil/uL (3.80-5.20); RED CELL DISTRIBUTION WIDTH 24.3 % (11.5-14.5)
[2017-03-15 07:34] LABS: BLOOD UREA NITROGEN 16 mg/dl (7-17); CALCIUM 8.6 mg/dL (8.4-10.2); GFR AFRICAN-AMERICAN > 60; GFR NON-AFRICAN AMERICAN > 60
[2017-03-15 08:39] LABS: PLATELET COUNT 1502 K/uL (130-400); WHITE BLOOD COUNT 47.7 K/uL (4.8-10.8)
[2017-03-15] MEDS ORDERED: Enoxaparin 40 mg Syringe ONE (09:00)
[2017-03-15] MEDS ORDERED: Morphine 30 mg Immediate Release Tab ONE (09:00)
[2017-03-15] MEDS ORDERED: Potassium Chloride 20 mEq ER Tab PO ONE (09:00)
[2017-03-15] MEDS: Potassium Chloride 20 mEq ER Tab PO SCH ×2 (09:17→20:56)
[2017-03-15] MEDS: Enoxaparin 40 mg Syringe SC SCH (09:17)
--- NOTE | 2017-03-15 09:42 | CP.PCM.PN ---
Subjective - Date & Time of Evaluation Date of Evaluation: 03/15/17 Time of Evaluation: 09:33 - Subjective Subjective: Pt is afebrile in no acute distress. I started her back on hydroxyurea, and it will take another 2 days before we see a change in her count Pt had recently had a bone marrow done by her oncologist who told her that she did not have any shift to the left and there was no sign of leukemia. Since her respiratory status has improved, I feel she can be discharged when cleared by Dr Chavez, and she will continue the hydrea at home, and will see Dr miranda in the office on friday Objective - Vital Signs/Intake and Output Vital Signs (last 24 hours): Temp Pulse Resp BP Pulse Ox 97.8 F 87 18 108/62 92 L 03/15/17 08:00 03/15/17 08:00 03/15/17 08:00 03/15/17 09:18 03/15/17 08:00 - Medications Medications: Current Medications Acetaminophen (Tylenol 325mg Tab) 650 mg PO Q4 PRN PRN Reason: Fever >100.4 F Acetaminophen (Tylenol 325mg Tab) 650 mg PO ONCE ONE Stop: 03/15/17 09:27 Allopurinol (Zyloprim) 100 mg PO DAILY [facility] Last Admin: 03/15/17 09:17 Dose: 100 mg Alprazolam (Xanax) 0.25 mg PO Q12 PRN PRN Reason: Anxiety Stop: 03/20/17 23:28 Last Admin: 03/14/17 14:31 Dose: 0.25 mg Enoxaparin Sodium (Lovenox) 40 mg SC DAILY [facility] PRN Reason: Protocol Last Admin: 03/15/17 09:17 Dose: 40 mg Furosemide (Lasix) 40 mg IVP BID [facility] Last Admin: 03/15/17 09:18 Dose: 40 mg Hydroxyurea (Hydrea) 500 mg PO TID [facility] Last Admin: 03/15/17 09:17 Dose: 500 mg Isosorbide Mononitrate (Imdur) 30 mg PO DAILY [facility] Last Admin: 03/15/17 09:17 Dose: 30 mg Morphine Sulfate (Morphine) 2 mg IVP Q8 PRN PRN Reason: Pain, severe (8-10) Last Admin: 03/14/17 00:23 Dose: 2 mg Morphine Sulfate (Morphine Immediate Release Tab) 30 mg PO TID PRN PRN Reason: Pain, severe (8-10) Last Admin: 03/15/17 04:31 Dose: 30 mg Ondansetron HCl (Zofran Inj) 4 mg IVP Q6 PRN PRN Reason: Nausea/Vomiting Last Admin: 03/14/17 14:22 Dose: 4 mg Polyethylene Glycol (Miralax) 17 gm PO DAILY [facility] PRN Reason: Constipation Potassium Chloride (K-Dur 20 Meq Er Tab) 20 meq PO BID [facility] Last Admin: 03/15/17 09:17 Dose: 20 meq Sucralfate (Carafate Tab) 1 gm PO BID [facility] Warfarin Sodium (Coumadin) 5 mg PO QD5 [facility] PRN Reason: Protocol Stop: 03/15/17 17:01 - Labs Labs: 03/15/17 06:30 03/15/17 06:30 PT 13.9 Seconds (9.8-13.1) H 03/13/17 13:46 INR 1.2 (0.9-1.2) 03/13/17 13:46 APTT 36.5 Seconds (25.6-37.1) 03/13/17 13:46
[2017-03-15 11:33] LABS: BANDS 2 % (0-2); BASOPHIL 1 % (0-2); EOSINOPHIL 1 % (0-7); LYMPHOCYTE 2 % (20-50); MONOCYTE 4 % (0-10); MYELOCYTE 1 % (0-0); NEUTROPHIL 89 % (42-75); NUCLEATED RED BLOOD CELL 24 % (0-0); TOTAL CELLS COUNTED 100
[2017-03-15 11:38] LABS: ANISOCYTOSIS MODERATE; POIKILOCYTOSIS SLIGHT
[2017-03-15 11:43] LABS: LARGE PLATELETS PRESENT
[2017-03-15 11:44] LABS: GIANT PLATELETS PRESENT; HYPOCHROMIC SLIGHT; OVALOCYTES SLIGHT
[2017-03-15 11:46] LABS: PLATELET ESTIMATE MARKEDLY INCREASED (NORMAL)
[2017-03-15 11:48] LABS: TEARDROP CELLS SLIGHT
[2017-03-15 12:10] LABS: INR 1.3 (0.9-1.2); PROTHROMBIN TIME 14.8 Seconds (9.8-13.1)
[2017-03-16] MEDS: Morphine 30 mg Immediate Release Tab PO PRN ×3 (00:26→19:22)
[2017-03-16 08:23] LABS: HEMOGLOBIN 11.2 g/dL (12.0-16.0); MEAN CELL VOLUME 89.9 fl (81.0-99.0); MEAN CORPUSCULAR HEMOGLOBIN 26.4 pg (27.0-31.0); MEAN CORPUSCULAR HGB CONC 29.3 g/dL (33.0-37.0); RBC 4.25 Mil/uL (3.80-5.20); RED CELL DISTRIBUTION WIDTH 23.3 % (11.5-14.5)
[2017-03-16 08:35] LABS: PLATELET COUNT 1409 K/uL (130-400); WHITE BLOOD COUNT 46.3 K/uL (4.8-10.8)
[2017-03-16 08:40] LABS: ALB/GLOB RATIO 1.1 (1.0-2.1); ALBUMIN 3.1 g/dL (3.5-5.0); ALT/SGPT 40 U/L (9-52); AST/SGOT 103 U/L (14-36); BLOOD UREA NITROGEN 17 mg/dl (7-17); CALCIUM 8.7 mg/dL (8.4-10.2); GFR AFRICAN-AMERICAN > 60; GFR NON-AFRICAN AMERICAN > 60
[2017-03-16 08:42] LABS: B-TYPE NATRIURETIC PEPTIDE 684 pg/ml (0-900)
[2017-03-16 08:45] LABS: INR 1.3 (0.9-1.2); PARTIAL THROMBOPLASTIN TIME 35.2 Seconds (25.6-37.1); PROTHROMBIN TIME 14.5 Seconds (9.8-13.1)
[2017-03-16] MEDS: Potassium Chloride 20 mEq ER Tab PO SCH ×2 (09:08→16:29)
[2017-03-16] MEDS: Enoxaparin 40 mg Syringe SC SCH (09:09)
[2017-03-16 09:49] LABS: ANISOCYTOSIS SLIGHT; BANDS 2 % (0-2); EOSINOPHIL 1 % (0-7); LYMPHOCYTE 1 % (20-50); MONOCYTE 4 % (0-10); NEUTROPHIL 92 % (42-75); PLATELET ESTIMATE MARKEDLY INCREASED (NORMAL); TOTAL CELLS COUNTED 100
[2017-03-16 09:50] LABS: GIANT PLATELETS PRESENT; LARGE PLATELETS PRESENT; POIKILOCYTOSIS SLIGHT
[2017-03-16 09:53] LABS: SCHISTOCYTES SLIGHT; TARGET CELLS SLIGHT; TEARDROP CELLS SLIGHT
--- NOTE | 2017-03-16 12:23 | CP.PCM.PN ---
Subjective - Date & Time of Evaluation Date of Evaluation: 03/16/17 Time of Evaluation: 09:00 - Subjective Subjective: events noted cultures and serologies neg Objective - Vital Signs/Intake and Output Vital Signs (last 24 hours): Temp Pulse Resp BP Pulse Ox 98.7 F 94 H 20 135/80 93 L 03/16/17 08:00 03/16/17 08:00 03/16/17 08:00 03/16/17 09:07 03/16/17 08:00 - Medications Medications: Current Medications Acetaminophen (Tylenol 325mg Tab) 650 mg PO Q4 PRN PRN Reason: Fever >100.4 F Allopurinol (Zyloprim) 100 mg PO DAILY [facility] Last Admin: 03/16/17 09:09 Dose: 100 mg Alprazolam (Xanax) 0.25 mg PO Q12 PRN PRN Reason: Anxiety Stop: 03/20/17 23:28 Last Admin: 03/14/17 14:31 Dose: 0.25 mg Enoxaparin Sodium (Lovenox) 40 mg SC DAILY [facility] PRN Reason: Protocol Last Admin: 03/16/17 09:09 Dose: 40 mg Furosemide (Lasix) 40 mg PO BID [facility] Last Admin: 03/16/17 09:07 Dose: 40 mg Hydroxyurea (Hydrea) 500 mg PO TID [facility] Last Admin: 03/16/17 12:10 Dose: 500 mg Isosorbide Mononitrate (Imdur) 30 mg PO DAILY [facility] Last Admin: 03/16/17 09:09 Dose: 30 mg Morphine Sulfate (Morphine) 2 mg IVP Q8 PRN PRN Reason: Pain, severe (8-10) Last Admin: 03/15/17 18:45 Dose: 2 mg Morphine Sulfate (Morphine Immediate Release Tab) 30 mg PO TID PRN PRN Reason: Pain, severe (8-10) Last Admin: 03/16/17 09:18 Dose: 30 mg Ondansetron HCl (Zofran Inj) 4 mg IVP Q6 PRN PRN Reason: Nausea/Vomiting Last Admin: 03/16/17 12:11 Dose: 4 mg Polyethylene Glycol (Miralax) 17 gm PO DAILY PR[facility] PRN Reason: Constipation Last Admin: 03/16/17 09:13 Dose: 17 gm Potassium Chloride (K-Dur 20 Meq Er Tab) 20 meq PO BID [facility] Last Admin: 03/16/17 09:08 Dose: 20 meq Sucralfate (Carafate Tab) 1 gm PO BID [facility] Last Admin: 03/16/17 09:08 Dose: 1 gm - Labs Labs: 03/16/17 06:30 03/16/17 06:30 PT 14.5 Seconds (9.8-13.1) H 03/16/17 06:30 INR 1.3 (0.9-1.2) H 03/16/17 06:30 APTT 35.2 Seconds (25.6-37.1) 03/16/17 06:30 - Constitutional Appears: Non-toxic, Cachectic, Chronically Ill - Head Exam Head Exam: NORMAL INSPECTION, NORMOCEPHALIC - Eye Exam Eye Exam: PERRL. absent: Scleral icterus - ENT Exam ENT Exam: Mucous Membranes Dry, Normal External Ear Exam - Neck Exam Neck Exam: absent: Lymphadenopathy - Respiratory Exam Respiratory Exam: Decreased Breath Sounds, Clear to Ausculation Bilateral - Cardiovascular Exam Cardiovascular Exam: REGULAR RHYTHM - GI/Abdominal Exam GI & Abdominal Exam: Distended, Soft - Rectal Exam Rectal Exam: Deferred - Exam Exam: NORMAL INSPECTION - Extremities Exam Extremities Exam: absent: Pedal Edema - Back Exam Back Exam: absent: CVA tenderness (L), CVA tenderness (R) - Neurological Exam Neurological Exam: Alert, Awake, Oriented x3 Assessment and Plan - Assessment and Plan (Free Text) Plan: follow up with dr matthews as out pt
[2017-03-17] MEDS: Morphine 30 mg Immediate Release Tab PO PRN ×2 (03:50→09:34)
[2017-03-17 05:13] VITALS: RESP 18
[2017-03-17 06:40] LABS: BASO # 0.2 K/uL (0.0-0.2); BASO % 0.5 % (0.0-2.0); EOS # 1.4 K/uL (0.0-0.7); EOS % 2.6 % (0.0-4.0); HEMOGLOBIN 12.3 g/dL (12.0-16.0); LYMPH # 3.5 K/uL (1.0-4.3); LYMPH % 6.8 % (20.0-40.0); MEAN CELL VOLUME 91.3 fl (81.0-99.0); MEAN CORPUSCULAR HEMOGLOBIN 26.2 pg (27.0-31.0); MEAN CORPUSCULAR HGB CONC 28.7 g/dL (33.0-37.0); MEAN PLATELET VOLUME 10.6 fl (7.2-11.7); MONO # 2.6 K/uL (0.0-0.8); NEUT # 43.6 K/uL (1.8-7.0); NEUT % 85.1 % (50.0-75.0); NRBC % 21.1 % (0.0-0.0); RBC 4.67 Mil/uL (3.80-5.20); RED CELL DISTRIBUTION WIDTH 24.1 % (11.5-14.5)
[2017-03-17 06:47] LABS: ALB/GLOB RATIO 1.2 (1.0-2.1); ALBUMIN 3.9 g/dL (3.5-5.0); ALT/SGPT 39 U/L (9-52); AST/SGOT 78 U/L (14-36); BLOOD UREA NITROGEN 19 mg/dl (7-17); CALCIUM 9.5 mg/dL (8.4-10.2); GFR AFRICAN-AMERICAN > 60; GFR NON-AFRICAN AMERICAN > 60; URIC ACID 7.7 mg/Dl (2.2-7.5)
[2017-03-17 07:10] LABS: PROTHROMBIN TIME 16.8 Seconds (9.8-13.1)
[2017-03-17 07:11] LABS: INR 1.5 (0.9-1.2)
[2017-03-17 07:26] LABS: WHITE BLOOD COUNT 51.3 K/uL (4.8-10.8)
[2017-03-17 08:25] VITALS: PULSE 86; TEMP 97.8; O2SAT 95
[2017-03-17] MEDS: Potassium Chloride 20 mEq ER Tab PO SCH (09:18)
[2017-03-17 09:19] VITALS: BP 111/66
[2017-03-17] MEDS ORDERED: Morphine 4 MG/ML VIAL IVP ONE (09:49)
--- NOTE | 2017-03-17 10:13 | CP.PCM.PN ---
Subjective - Date & Time of Evaluation Date of Evaluation: 03/17/17 Time of Evaluation: 10:06 - Subjective Subjective: Pt's WBC and platelets continue to be elevated. I have increased the hydrea to 4 times a day/. She wants to be discharged and will follow with Dr Cowart as an outpatient. Objective - Vital Signs/Intake and Output Vital Signs (last 24 hours): Temp Pulse Resp BP Pulse Ox 97.8 F 86 18 111/66 95 03/17/17 08:00 03/17/17 09:00 03/17/17 08:00 03/17/17 09:18 03/17/17 08:00 Intake and Output: 03/17/17 03/17/17 06:59 18:59 Intake Total 1080 Balance 1080 - Medications Medications: Current Medications Acetaminophen (Tylenol 325mg Tab) 650 mg PO Q4 PRN PRN Reason: Fever >100.4 F Allopurinol (Zyloprim) 100 mg PO DAILY [facility] Last Admin: 03/16/17 09:09 Dose: 100 mg Furosemide (Lasix) 40 mg PO BID [facility] Last Admin: 03/17/17 09:18 Dose: 40 mg Hydroxyurea (Hydrea) 500 mg PO QID [facility] Last Admin: 03/17/17 09:17 Dose: 500 mg Isosorbide Mononitrate (Imdur) 30 mg PO DAILY [facility] Last Admin: 03/17/17 09:17 Dose: 30 mg Morphine Sulfate (Morphine Immediate Release Tab) 30 mg PO TID PRN PRN Reason: Pain, severe (8-10) Last Admin: 03/17/17 09:34 Dose: 30 mg Ondansetron HCl (Zofran Inj) 4 mg IVP Q6 PRN PRN Reason: Nausea/Vomiting Last Admin: 03/17/17 09:39 Dose: 4 mg Polyethylene Glycol (Miralax) 17 gm PO DAILY PRN PRN Reason: Constipation Last Admin: 03/16/17 09:13 Dose: 17 gm Potassium Chloride (K-Dur 20 Meq Er Tab) 20 meq PO BID [facility] Last Admin: 03/17/17 09:18 Dose: 20 meq Sucralfate (Carafate Tab) 1 gm PO BID [facility] Last Admin: 03/17/17 09:16 Dose: 1 gm - Labs Labs: 03/17/17 05:00 03/17/17 05:00 PT 16.8 Seconds (9.8-13.1) H 03/17/17 05:00 INR 1.5 (0.9-1.2) H 03/17/17 05:00 APTT 35.2 Seconds (25.6-37.1) 03/16/17 06:30
--- NOTE | 2017-03-17 12:40 | CP.PCM.PCO ---
Assessment/Plan - Assessment/Plan Assessment (Free Text): Patient seen and examined with Dr Chavez Pt for discharge today, vital signs stable, leg edema has resolved. 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 - Problems Patient Problems: Problem List (Active/Current) Problem Status Onset Code CHF (congestive heart failure) Acute I50.9 Cellulitis Acute L03.90 Leukocytosis Acute D72.829 Sepsis Acute A41.9
--- NOTE | 2017-03-17 13:09 | CP.PCM.PN ---
Subjective - Date & Time of Evaluation Date of Evaluation: 03/17/17 Time of Evaluation: 07:00 - Subjective Subjective: discussed on rounds IV rx to switch to po for cellulitis of legs Objective - Vital Signs/Intake and Output Vital Signs (last 24 hours): Temp Pulse Resp BP Pulse Ox 97.8 F 86 18 111/66 95 03/17/17 08:00 03/17/17 09:00 03/17/17 08:00 03/17/17 09:18 03/17/17 08:00 Intake and Output: 03/17/17 03/17/17 06:59 18:59 Intake Total 1080 Balance 1080 - Medications Medications: Current Medications Acetaminophen (Tylenol 325mg Tab) 650 mg PO Q4 PRN PRN Reason: Fever >100.4 F Allopurinol (Zyloprim) 100 mg PO DAILY [facility] Last Admin: 03/16/17 09:09 Dose: 100 mg Cephalexin Monohydrate (Keflex) 500 mg PO Q6 [facility] Furosemide (Lasix) 40 mg PO BID [facility] Last Admin: 03/17/17 09:18 Dose: 40 mg Hydroxyurea (Hydrea) 500 mg PO QID [facility] Last Admin: 03/17/17 09:17 Dose: 500 mg Isosorbide Mononitrate (Imdur) 30 mg PO DAILY [facility] Last Admin: 03/17/17 09:17 Dose: 30 mg Morphine Sulfate (Morphine Immediate Release Tab) 30 mg PO TID PRN PRN Reason: Pain, severe (8-10) Last Admin: 03/17/17 09:34 Dose: 30 mg Ondansetron HCl (Zofran Inj) 4 mg IVP Q6 PRN PRN Reason: Nausea/Vomiting Last Admin: 03/17/17 09:39 Dose: 4 mg Polyethylene Glycol (Miralax) 17 gm PO DAILY PRN PRN Reason: Constipation Last Admin: 03/16/17 09:13 Dose: 17 gm Potassium Chloride (K-Dur 20 Meq Er Tab) 20 meq PO BID [facility] Last Admin: 03/17/17 09:18 Dose: 20 meq Sucralfate (Carafate Tab) 1 gm PO BID [facility] Last Admin: 03/17/17 09:16 Dose: 1 gm - Labs Labs: 03/17/17 05:00 03/17/17 05:00 PT 16.8 Seconds (9.8-13.1) H 07/03/17 05:00 INR 1.5 (0.9-1.2) H 03/17/17 05:00 APTT 35.2 Seconds (25.6-37.1) 03/16/17 06:30 - Constitutional Appears: Non-toxic - Head Exam Head Exam: NORMOCEPHALIC - Eye Exam Eye Exam: PERRL - ENT Exam ENT Exam: Mucous Membranes Dry - Neck Exam Neck Exam: absent: Lymphadenopathy - Respiratory Exam Respiratory Exam: Decreased Breath Sounds, Clear to Ausculation Bilateral - Cardiovascular Exam Cardiovascular Exam: REGULAR RHYTHM Assessment and Plan - Assessment and Plan (Free Text) Plan: cont keflex po
--- NOTE | 2017-03-17 13:14 | CP.PCM.PN ---
Subjective - Date & Time of Evaluation Date of Evaluation: 03/15/17 Time of Evaluation: 09:40 - Subjective Subjective: Patient has slight SOB but no chest pain She continues to have elevated WBC Hematology was called. Has no fever. Objective - Vital Signs/Intake and Output Vital Signs (last 24 hours): Temp Pulse Resp BP Pulse Ox 97.8 F 86 18 111/66 95 03/17/17 08:00 03/17/17 09:00 03/17/17 08:00 03/17/17 09:18 03/17/17 08:00 Intake and Output: 03/17/17 03/17/17 06:59 18:59 Intake Total 1080 Balance 1080 - Medications Medications: Current Medications Acetaminophen (Tylenol 325mg Tab) 650 mg PO Q4 PRN PRN Reason: Fever >100.4 F Allopurinol (Zyloprim) 100 mg PO DAILY [facility] Last Admin: 03/16/17 09:09 Dose: 100 mg Cephalexin Monohydrate (Keflex) 500 mg PO Q6 [facility] Furosemide (Lasix) 40 mg PO BID [facility] Last Admin: 03/17/17 09:18 Dose: 40 mg Hydroxyurea (Hydrea) 500 mg PO QID [facility] Last Admin: 03/17/17 09:17 Dose: 500 mg Isosorbide Mononitrate (Imdur) 30 mg PO DAILY [facility] Last Admin: 03/17/17 09:17 Dose: 30 mg Morphine Sulfate (Morphine Immediate Release Tab) 30 mg PO TID PRN PRN Reason: Pain, severe (8-10) Last Admin: 03/17/17 09:34 Dose: 30 mg Ondansetron HCl (Zofran Inj) 4 mg IVP Q6 PRN PRN Reason: Nausea/Vomiting Last Admin: 03/17/17 09:39 Dose: 4 mg Polyethylene Glycol (Miralax) 17 gm PO DAILY PRN PRN Reason: Constipation Last Admin: 03/16/17 09:13 Dose: 17 gm Potassium Chloride (K-Dur 20 Meq Er Tab) 20 meq PO BID [facility] Last Admin: 03/17/17 09:18 Dose: 20 meq Sucralfate (Carafate Tab) 1 gm PO BID [facility] Last Admin: 03/17/17 09:16 Dose: 1 gm - Labs Labs: 03/17/17 05:00 03/17/17 05:00 PT 16.8 Seconds (9.8-13.1) H 03/17/17 05:00 INR 1.5 (0.9-1.2) H 03/17/17 05:00 APTT 35.2 Seconds (25.6-37.1) 03/16/17 06:30 - Eye Exam Eye Exam: Normal appearance - ENT Exam ENT Exam: Mucous Membranes Moist - Respiratory Exam Respiratory Exam: Clear to Ausculation Bilateral - Cardiovascular Exam Cardiovascular Exam: REGULAR RHYTHM - GI/Abdominal Exam GI & Abdominal Exam: Normal Bowel Sounds - Neurological Exam Neurological Exam: CN II-XII Intact, Oriented x3 Assessment and Plan (1) Leukocytosis Status: Acute (2) CHF (congestive heart failure) Status: Acute (3) Essential thrombocythemia Status: Acute - Assessment and Plan (Free Text) Plan: contmeds cont monitor cbc lasix low salt diet rechecklabs in am.
--- NOTE | 2017-03-17 13:16 | CP.PCM.PN ---
Subjective - Date & Time of Evaluation Date of Evaluation: 03/16/17 Time of Evaluation: 09:35 - Subjective Subjective: Patient feels a lot better. Still with some pain on the chest wall but tolerable. No SOB Still with elevated WBC. Objective - Vital Signs/Intake and Output Vital Signs (last 24 hours): Temp Pulse Resp BP Pulse Ox 97.8 F 86 18 111/66 95 03/17/17 08:00 03/17/17 09:00 03/17/17 08:00 03/17/17 09:18 03/17/17 08:00 Intake and Output: 03/17/17 03/17/17 06:59 18:59 Intake Total 1080 Balance 1080 - Medications Medications: Current Medications Acetaminophen (Tylenol 325mg Tab) 650 mg PO Q4 PRN PRN Reason: Fever >100.4 F Allopurinol (Zyloprim) 100 mg PO DAILY [facility] Last Admin: 03/16/17 09:09 Dose: 100 mg Cephalexin Monohydrate (Keflex) 500 mg PO Q6 [facility]S AT [facility] Furosemide (Lasix) 40 mg PO BID [facility] 234 B[facility]S AT [facility] Last Admin: 03/17/17 09:18 Dose: 40 mg Hydroxyurea (Hydrea) 500 mg PO QID [facility] 234 B[facility]S AT [facility] Last Admin: 03/17/17 09:17 Dose: 500 mg Isosorbide Mononitrate (Imdur) 30 mg PO DAILY [facility] 234 B[facility]S AT [facility] Last Admin: 03/17/17 09:17 Dose: 30 mg Morphine Sulfate (Morphine Immediate Release Tab) 30 mg PO TID PRN PRN Reason: Pain, severe (8-10) Last Admin: 03/17/17 09:34 Dose: 30 mg Ondansetron HCl (Zofran Inj) 4 mg IVP Q6 PRN PRN Reason: Nausea/Vomiting Last Admin: 03/17/17 09:39 Dose: 4 mg Polyethylene Glycol (Miralax) 17 gm PO DAILY PRN PRN Reason: Constipation Last Admin: 03/16/17 09:13 Dose: 17 gm Potassium Chloride (K-Dur 20 Meq Er Tab) 20 meq PO BID [facility] 234 B[facility]S AT [facility] Last Admin: 03/17/17 09:18 Dose: 20 meq Sucralfate (Carafate Tab) 1 gm PO BID [facility] 234 [facility]S AT [facility] Last Admin: 03/17/17 09:16 Dose: 1 gm - Labs Labs: 03/17/17 05:00 03/17/17 05:00 PT 16.8 Seconds (9.8-13.1) H 03/17/17 05:00 INR 1.5 (0.9-1.2) H 03/17/17 05:00 APTT 35.2 Seconds (25.6-37.1) 03/16/17 06:30 Assessment and Plan (1) Leukocytosis Status: Acute (2) CHF (congestive heart failure) Status: Acute (3) Essential thrombocythemia Status: Acute
--- NOTE | 2017-03-17 13:18 | CP.PCM.DIS ---
Provider - Provider Date of Admission: 03/13/17 17:03 Attending physician: Jesus Alberto Chavez MD Diagnosis - Discharge Diagnosis (1) Leukocytosis Status: Acute (2) CHF (congestive heart failure) Status: Acute (3) Essential thrombocythemia Status: Acute Hospital Course - Lab Results Lab Results: Most Recent Lab Values WBC 51.3 K/uL (4.8-10.8) H* 03/17/17 05:00 RBC 4.67 Mil/uL (3.80-5.20) 03/17/17 05:00 Hgb 12.3 g/dL (12.0-16.0) 03/17/17 05:00 Hct 42.7 % (34.0-47.0) 03/17/17 05:00 MCV 91.3 fl (81.0-99.0) 03/17/17 05:00 MCH 26.2 pg (27.0-31.0) L 03/17/17 05:00 MCHC 28.7 g/dL (33.0-37.0) L 03/17/17 05:00 RDW 24.1 % (11.5-14.5) H 03/17/17 05:00 Plt Count 1439 K/uL (130-400) H* 03/17/17 05:00 MPV 10.6 fl (7.2-11.7) 03/17/17 05:00 Neut % (Auto) 85.1 % (50.0-75.0) H 03/17/17 05:00 Lymph % (Auto) 6.8 % (20.0-40.0) L 03/17/17 05:00 [place] % (Auto) 5.0 % (0.0-10.0) 03/17/17 05:00 Eos % (Auto) 2.6 % (0.0-4.0) 03/17/17 05:00 Baso % (Auto) 0.5 % (0.0-2.0) 03/17/17 05:00 Neut # 43.6 K/uL (1.8-7.0) H 03/17/17 05:00 Lymph # 3.5 K/uL (1.0-4.3) 03/17/17 05:00 [place] # 2.6 K/uL (0.0-0.8) H 03/17/17 05:00 Eos # 1.4 K/uL (0.0-0.7) H 03/17/17 05:00 Baso # 0.2 K/uL (0.0-0.2) 03/17/17 05:00 Neutrophils % (Manual) 92 % (42-75) H 03/16/17 06:30 Band Neutrophils % 2 % (0-2) 03/16/17 06:30 Lymphocytes % (Manual) 1 % (20-50) L 03/16/17 06:30 Monocytes % (Manual) 4 % (0-10) 03/16/17 06:30 Eosinophils % (Manual) 1 % (0-7) 03/16/17 06:30 Basophils % (Manual) 1 % (0-2) 03/15/17 06:30 Myelocytes % 1 % (0-0) H 03/15/17 06:30 Nucleated RBC % 24 % (0-0) H 03/15/17 06:30 Platelet Estimate Markedly increased (NORMAL) H 03/16/17 06:30 Plt Clumps, EDTA Present 03/13/17 12:20 Large Platelets Present 03/16/17 06:30 Giant Platelets Present 03/16/17 06:30 Hypochromasia (manual) Slight 03/15/17 06:30 Poikilocytosis (manual Slight 03/16/17 06:30 Anisocytosis (manual) Slight 03/16/17 06:30 Microcytosis (manual) Slight 03/13/17 12:20 Macrocytosis (manual) Slight 03/16/17 06:30 Target Cells Slight 03/16/17 06:30 Tear Drop Cells Slight 03/16/17 06:30 Ovalocytes Slight 03/15/17 06:30 Schistocytes Slight 03/16/17 06:30 ESR 38 mm/hr (0-30) H 03/17/17 05:00 PT 16.8 Seconds (9.8-13.1) H 03/17/17 05:00 INR 1.5 (0.9-1.2) H 03/17/17 05:00 APTT 35.2 Seconds (25.6-37.1) 03/16/17 06:30 pO2 29 mm/Hg (30-55) L 03/13/17 11:58 VBG pH 7.38 (7.32-7.43) 03/13/17 11:58 VBG pCO2 46 mmHg (40-60) 03/13/17 11:58 VBG HCO3 25.0 mmol/L 03/13/17 11:58 VBG Total CO2 28.6 mmol/L (22-28) H 03/13/17 11:58 VBG O2 Sat (Calc) 59.6 % (40-65) 03/13/17 11:58 VBG Base Excess 1.5 mmol/L (0.0-2.0) 03/13/17 11:58 VBG Potassium 4.3 mmol/L (3.6-5.2) 03/13/17 11:58 A-a O2 Difference 63.0 mm/Hg 03/13/17 11:58 Sodium 139.0 mmol/L (132-148) 03/13/17 11:58 Chloride 106.0 mmol/L (98-107) 03/13/17 11:58 Glucose 99 mg/dL (65-105) 03/13/17 11:58 Lactate 1.2 mmol/L (0.7-2.1) 03/13/17 11:58 FiO2 21.0 % 03/13/17 11:58 Crit Value Called To Dr amrit blankenship 03/13/17 11:58 Crit Value Called By 15 03/13/17 11:58 Crit Value Read Back Y 03/13/17 11:58 Blood Gas Notified Time 1235 03/13/17 11:58 Sodium 140 mmol/l (132-148) 03/17/17 05:00 Potassium 4.4 MMOL/L (3.6-5.0) 03/17/17 05:00 Chloride 98 mmol/L (98-107) 03/17/17 05:00 Carbon Dioxide 35 mmol/L (22-30) H 03/17/17 05:00 Anion Gap 11 (10-20) 03/17/17 05:00 BUN 19 mg/dl (7-17) H 03/17/17 05:00 Creatinine 0.7 mg/dL (0.7-1.2) 03/17/17 05:00 Est GFR ( Amer) > 60 03/17/17 05:00 Est GFR (Non-Af Amer) > 60 03/17/17 05:00 POC Glucose (mg/dL) 91 mg/dL (65-110) 03/15/17 05:28 Random Glucose 107 mg/dL (65-105) H 03/17/17 05:00 Lactic Acid 1.4 MMOL/L (0.7-2.1) 03/14/17 17:15 Uric Acid 7.7 mg/Dl (2.2-7.5) H 03/17/17 05:00 Calcium 9.5 mg/dL (8.4-10.2) 03/17/17 05:00 Total Bilirubin 0.6 mg/dl (0.2-1.3) 03/17/17 05:00 AST 78 U/L (14-36) H D 03/17/17 05:00 ALT 39 U/L (9-52) 03/17/17 05:00 Alkaline Phosphatase 259 U/L (38-126) H 03/17/17 05:00 Troponin I < 0.0120 ng/mL (0.00-0.120) 03/14/17 20:50 NT-Pro-B Natriuret Pep 684 pg/ml (0-900) 03/16/17 06:30 Total Protein 7.2 G/DL (6.3-8.2) 03/17/17 05:00 Albumin 3.9 g/dL (3.5-5.0) 03/17/17 05:00 Globulin 3.3 gm/dL (2.2-3.9) 03/17/17 05:00 Albumin/Globulin Ratio 1.2 (1.0-2.1) 03/17/17 05:00 Triglycerides 113 mg/DL (0-149) 03/14/17 02:32 Cholesterol 157 mg/dL (0-199) 03/14/17 02:32 LDL Cholesterol Direct 87 mg/dL (0-129) 03/14/17 02:32 HDL Cholesterol 31 MG/DL (30-70) 03/14/17 02:32 Procalcitonin 0.54 NG/ML (0.19-0.49) H 03/17/17 05:00 TSH 3rd Generation 9.86 mIU/ML (0.46-4.68) H 03/17/17 05:00 Venous Blood Potassium 4.3 mmol/L (3.6-5.2) 03/13/17 11:58 Urine Color Straw (YELLOW) 03/13/17 13:46 Urine Clarity Clear (Clear) 03/13/17 13:46 Urine pH 6.0 (5.0-8.0) 03/13/17 13:46 Ur Specific [place] 1.006 (1.003-1.030) 03/13/17 13:46 Urine Protein 30 mg/dL (NEGATIVE) 03/13/17 13:46 Urine Glucose (UA) Neg mg/dL (Normal) 03/13/17 13:46 Urine Ketones Trace mg/dL (NEGATIVE) 03/13/17 13:46 Urine Blood Negative (NEGATIVE) 03/13/17 13:46 Urine Nitrate Negative (NEGATIVE) 03/13/17 13:46 Urine Bilirubin Negative (NEGATIVE) 03/13/17 13:46 Urine Urobilinogen 0.2-1.0 mg/dL (0.2-1.0) 03/13/17 13:46 Ur Leukocyte Esterase Neg [place]/uL (Negative) 03/13/17 13:46 Urine RBC (Auto) 1 /hpf (0-3) 03/13/17 13:46 Urine Microscopic WBC 2 /hpf (0-5) 03/13/17 13:46 Urine Bacteria Rare (<OCC) 03/13/17 13:46 C. difficile Ag & Toxin Negative (NEGATIVE) 03/14/17 20:30 Hepatitis A IgM Ab Negative (NEGATIVE) 03/14/17 17:15 Hep Bs Antigen Negative (NEGATIVE) 03/14/17 17:15 Hep B Core IgM Ab Negative (NEGATIVE) 03/14/17 17:15 Hepatitis C Antibody Negative (NEGATIVE) 03/14/17 17:15 HIV 1&2 Antibody Screen Negative (NEGATIVE) 03/14/17 17:15 Blood Type B POSITIVE 03/13/17 13:46 Blood Type Confirm B POSITIVE 03/13/17 14:49 Antibody Screen Negative 03/13/17 13:46 BBK History Checked No verified bt 03/13/17 13:46 - Hospital Course Hospital Course: This is a 56 y/o female admitted for chest wall anderson, SOB and levated WBC. Discharge Exam - Head Exam Head Exam: NORMOCEPHALIC Discharge Plan - Discharge Medications Prescriptions: Cephalexin [Keflex] 500 mg PO Q8 #21 capsule - Follow Up Plan Condition: STABLE Disposition: HOME/ ROUTINE Instructions: Cellulitis (DC)
--- NOTE | 2017-03-17 14:20 | PQF CHF ---
This form is a permanent part of the medical record 03/17/17 Dr. Chavez, Please clarify the type of chf if known under the physician response section. Admitted with intermittent chest pain, sob, palpitations and swelling of the lower extremities. ProBNP 2110 -> 684. CXR no significant change in mild CHF. Echo with an EF of 60-65%, MR and TR. Treated with Lasix IV. Clarification of your documentation is requested to better reflect the severity of illness and intensity of treatment of your patient. Indicators present [x] Diagnosis of CHF and/or history of CHF [x] BNP > 200 [x] Imaging Finding of Pulmonary Edema /Pleural Effusions [] Fluid/Volume Overload [] Pitting edema [] Ejection Fraction < 40% (Indicative of Systolic Heart Failure) [x] Ejection Fraction > 40% (Indicative of Diastolic Heart Failure) [x] Dyspnea / Orthopenea / Paroxysmal Nocturnal Dyspnea [] Other: Location in the medical record that reflects the above clinical findings: [] Treatment Provided: [x] PHYSICIAN'S RESPONSE Based on your medical judgment of the clinical indicators outlined above, are you treating this patient for a known or suspected: [] Acute CHF [] Systolic [] Diastolic [] Combined [] Chronic CHF [] Systolic [] Diastolic [] Combined [] Acute on Chronic CHF []Systolic [] Diastolic [] Combined [] CHF due hypertension [] Acute systolic []Chronic systolic [] Acute/ chronic systolic [] Other, please indicate: [] [] If Unable to Determine, please check the box, sign and date. Present On Admission (POA) Indicator: [] Present at the time of admission [] Not present at the time of admission [] Clinically Undetermined In responding to this query, please exercise your independent professional judgment. The fact that a question is asked does not imply that any particular answer is desired or expected. Thank you for your clarification on this documentation. If you have any questions please call:ext [phone] * Thank you, Jocelyn Goldberg RN CDMP MTDD
== END 2017-03-17 13:55 | disposition home or self-care (01) | DRG 292 ==
LOC: H.ER 10:54 → H.ERHOLD 17:03 → H.TEL 18:23
PROVIDERS: ADMIT Family Medicine; ATTEND Family Medicine
DX: I50.23 Acute on chronic systolic (congestive) heart failure (principal); L03.115 Cellulitis of right lower limb; L03.116 Cellulitis of left lower limb; K76.6 Portal hypertension; J43.9 Emphysema, unspecified; Z79.01 Long term (current) use of anticoagulants; D45 Polycythemia vera; D47.3 Essential (hemorrhagic) thrombocythemia; D72.828 Other elevated white blood cell count; Z86.711 Personal history of pulmonary embolism; Z87.891 Personal history of nicotine dependence; Z87.11 Personal history of peptic ulcer disease; Z90.81 Acquired absence of spleen

== ENCOUNTER 2017-03-26 18:50 | Inpatient (IN) | payer MEDICARE ==
[2017-03-26 18:51] VITALS: BMI 22.1
[2017-03-26] MEDS ORDERED: Sodium Chloride 0.9% 1,000 ML IV STA (19:23)
[2017-03-26 19:30] LABS: ABG ALLEN TEST YES; ARTERIAL BLOOD GAS PCO2 36 mm/Hg (35-45); ARTERIAL BLOOD GAS PH 7.47 (7.35-7.45); ARTERIAL BLOOD GAS PO2 75 mm/Hg (80-100); ARTERIAL BLOOD GAS TCO2 27.3 mmol/L (22-28)
[2017-03-26] MEDS ORDERED: Potassium CL 10mEq/100ml 100 ML IVPB ONE (19:31)
[2017-03-26 19:40] LABS: BASO % 0.2 % (0.0-2.0); EOS # 0.1 K/uL (0.0-0.7); EOS % 0.4 % (0.0-4.0); HEMOGLOBIN 11.5 g/dL (12.0-16.0); LYMPH # 0.8 K/uL (1.0-4.3); LYMPH % 6.2 % (20.0-40.0); MEAN CELL VOLUME 89.8 fl (81.0-99.0); MEAN CORPUSCULAR HEMOGLOBIN 26.8 pg (27.0-31.0); MEAN CORPUSCULAR HGB CONC 29.9 g/dL (33.0-37.0); MEAN PLATELET VOLUME 9.3 fl (7.2-11.7); MONO # 0.6 K/uL (0.0-0.8); MONO % 4.5 % (0.0-10.0); NEUT # 11.9 K/uL (1.8-7.0); NEUT % 88.7 % (50.0-75.0); NRBC % 24.6 % (0.0-0.0); PLATELET COUNT 785 K/uL (130-400); RBC 4.28 Mil/uL (3.80-5.20)
[2017-03-26 19:44] LABS: ALB/GLOB RATIO 1.3 (1.0-2.1); ALBUMIN 4.4 g/dL (3.5-5.0); ALT/SGPT 46 U/L (9-52); AST/SGOT 105 U/L (14-36); BLOOD UREA NITROGEN 14 mg/dl (7-17); CALCIUM 9.1 mg/dL (8.4-10.2); GFR AFRICAN-AMERICAN > 60; GFR NON-AFRICAN AMERICAN > 60
[2017-03-26 19:56] LABS: WHITE BLOOD COUNT 14.3 K/uL (4.8-10.8)
--- NOTE | 2017-03-26 20:27 | ED PDOC ---
HPI: Altered Mental Status Time Seen by Provider: 03/26/17 19:02 Chief Complaint (Nursing): Altered Mental Status Chief Complaint (Provider): unresponsive History/Exam Limitations: Clinical Condition Onset/Duration Of Symptoms: Unknown Current Symptoms Are (Timing): Still Present Description Of Symptoms: Unresponsive Additional Complaint(s): Pt found by visiting health care worker on the floor poorly responsive. Pt reported to EMS that she fell off a ladder last night while trying to make a mark sculpture? She thought she was OK. Pt c/o back pain for which she took her morphine medication. Also reports headache and dizziness. When visited by family they noted that she had kept on passing out and they called ambulance. Denies overdose. History difficult to obtain due to severe lethargy, patient keeps falling asleep. Past Medical History Reviewed: Historical Data, Nursing Documentation, Vital Signs Vital Signs: Last Vital Signs Temp 100.8 F H 03/26/17 18:54 Pulse 96 H 03/26/17 18:54 Resp 16 03/26/17 18:54 BP 142/80 03/26/17 18:54 Pulse Ox 100 03/26/17 18:54 - Medical History PMH: Emphysema (per patient "mild emphysema") Denies: Chronic Kidney Disease - Surgical History Surgical History: Tonsillectomy - Family History Family History: States: Unknown Family Hx - Social History Current smoker - smoking cessation education provided: Yes Drugs: Denies - Home Medications Home Medications: Ambulatory Orders Medication Instructions Recorded Alprazolam [Xanax] 0.25 mg PO BID PRN 03/13/17 Ondansetron HCl [Zofran] 8 mg PO Q12H PRN 03/13/17 Polyethylene Glycol 3350 [Miralax] 17 gm PO DAILY PRN 03/13/17 Warfarin [Coumadin] 4 mg PO Q48H 03/13/17 Warfarin [Coumadin] 5 mg PO Q48H 03/13/17 Cephalexin [Keflex] 500 mg PO Q8 #21 capsule 03/17/17 Furosemide [Lasix] 40 mg PO DAILY tab 03/17/17 Hydroxyurea [Hydrea] 500 mg PO TID #90 cap 03/17/17 Morphine [Morphine Immediate 30 mg PO TID #10 03/17/17 Release Tab] - Allergies Allergies/Adverse Reactions: Allergies Allergy/AdvReac Type Severity Reaction Status Date / Time lansoprazole [From Prevacid] Allergy anxiety, Verified 03/26/17 18:53 shaking ranitidine [From Zantac] Allergy anxiety, Verified 03/26/17 18:53 shaking Review of Systems ROS Statement: Except As Marked, All Systems Reviewed And Found Negative Constitutional: Positive for: Weakness, Malaise. Negative for: Fever, Chills Gastrointestinal: Positive for: Nausea. Negative for: Vomiting Musculoskeletal: Positive for: Neck Pain, Back Pain (chronic) Skin: Positive for: Lesions, Bruising Neurological: Positive for: Headache, Dizziness Physical Exam - Reviewed Nursing Documentation Reviewed: Yes Vital Signs Reviewed: Yes - Physical Exam Appears: Positive for: In Acute Distress (neurologic distress, possible intoxication) Head Exam: Positive for: NORMOCEPHALIC (subtle hematoma forehead and multiple abrasions to LEFT side of face) Skin: Positive for: Warm, Dry Eye Exam: Positive for: EOMI, PERRL ENT: Positive for: Pharynx Is (clear), Other (dry muc membranes) Neck: Positive for: Painless ROM, Supple, Trachea Midline Cardiovascular/Chest: Positive for: Regular Rate, Rhythm, Chest Non Tender. Negative for: Murmur Respiratory: Positive for: Normal Breath Sounds. Negative for: Accessory Muscle Use, Rales, Stridor, Wheezing, Respiratory Distress Gastrointestinal/Abdominal: Positive for: Soft. Negative for: Tenderness Back: Positive for: Normal Inspection. Negative for: Vertebral Tenderness Extremity: Positive for: Normal ROM. Negative for: Deformity Lymphatic: Negative for: Adenopathy Neurologic/Psych: Positive for: Other (responsive to painful stimuli, localizing pain, when awake she is conversive. Moves all extremities equally.). Negative for: Alert, Oriented, Motor/Sensory Deficits - Laboratory Results Result Diagrams: 03/26/17 20:00 03/26/17 19:15 Interpretation Of Abn Labs: Leukocytosis, mild anemia, thrombocytosis (which is improved c/w previous). Anticoagulated INR 1.9 - ECG ECG: Positive for: Interpreted By [place] ECG Rhythm: Positive for: Normal QRS, Normal ST Segment, Sinus Rhythm O2 Sat by Pulse Oximetry: 100 - Radiology X-Ray: Interpreted by [place] X-Ray Interpretation: No Acute Disease - Progress ED Course And Treament: Accession No. 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 no. Patient Name: FINA PERALES Pt. [address]: [address] [place] [address]. Rec #: [id number] [place] [address]: Rogelio BHAGAT, Tasneem Bardales Pt CELL Order Location: [facility] : 1960 Female Age: 56 Order #: [id number] Reason for exam: ams CT Scan HEAD W/O CONTRAST Exam Date: 03/26/17 This imaging exam was performed at [facility] EXAM: CT Head Without Intravenous Contrast CLINICAL HISTORY: 56 years old, female; Injury or trauma; Fall; Initial encounter; Concussion / head injury; Consciousness not specified; Injury details: Stated that patient fell; Patient HX: Patient on pain management; Additional info: Fell off a ladder last night TECHNIQUE: Axial computed tomography images of the head/brain without intravenous contrast. This CT exam was performed using one or more of the following dose reduction techniques: automated exposure control, adjustment of the mA and/or kV according to patient size, and/or use of iterative reconstruction technique. Coronal and sagittal reformatted images were created and reviewed. EXAM DATE/TIME: 03/26/2017 7:13 PM COMPARISON: CT - HEAD SINUS ORBIT FACIAL FX (ADULT) 04/08/2009 11:43:27 AM FINDINGS: Brain: There is a large acute right subdural hematoma. Hematoma extends from the right frontal to the occipital region. Maximal width is approximately 1.8 cm. There is mass effect with 11 mm midline shift to the left at the third ventricle, image 16 series 2. There is partial effacement of the right lateral ventricle. There is mild dilatation of the left temporal horn. There is effacement of sulci and gyri.. No intra-axial hemorrhage is identified. Arias-white differentiation is visualized. Ventricles: See above Bones: Cranial vault is intact. Soft tissues: unremarkable Sinuses: There is no acute sinusitis. Ears and mastoids: Middle ears and mastoids are unremarkable Orbits: Orbital contents are unremarkable. IMPRESSION: Large right subdural hematoma with 11 mm midline shift to the left and uncal herniation Findings were discussed with Tasneem Mosley at 8:44 PM EDT on 03/26/2017. Dictated By: Raghu Wilcox MD, MD Dictated Date/Time: 03/26/172045 Signed By: Raghu Wilcox MD Date Signed: 2045 Transcribed By: DAVIDA Transcribe Date/Time : 03/26/172045 CRISTOBAL/JACEK 845p Paged Dr Murry Neurosurgery upper extremity surgeon ALY Murry. Will possibly operate in AM after reversal of anticoagulation. Recommends Mannitol, HOB 30 degrees. FFP and Vit K. DW Dr Leong for ICU ALY Tierney Med Service ALY Bernabe Hem/Onc Re-evaluation Time: 22:00 Condition: Improving,but remains with symptoms - Critical Care Total Time (In Min): 45 Documented Critical Care: Time excludes all time spent performint seperately billable procedures Disposition - Clinical Impression Clinical Impression: Altered mental status, Subdural hematoma, Thrombocytosis Counseled Patient/Family Regarding: Studies Performed, Diagnosis - Disposition Disposition Time: 20:30 Condition: CRITICAL - Pt Status Changed To: Hospital Disposition Of: Inpatient - Admit Certification Admit to Inpatient:: After my assessment, the patient will require hospitalization for at least two midnights. This is because of the severity of symptoms shown, intensity of services needed, and/or the medical risk in this patient being treated as an outpatient. - POA Present On Arrival: Falls Or Trauma
[2017-03-26 20:38] LABS: INR 1.9 (0.9-1.2); PARTIAL THROMBOPLASTIN TIME 34.6 Seconds (25.6-37.1); PROTHROMBIN TIME 22.2 Seconds (9.8-13.1)
--- NOTE | 2017-03-26 20:46 | CT ---
EXAM: CT Head Without Intravenous Contrast CLINICAL HISTORY: 56 years old, female; Injury or trauma; Fall; Initial encounter; Concussion / head injury; Consciousness not specified; Injury details: Stated that patient fell; Patient HX: Patient on pain management; Additional info: Fell off a ladder last night TECHNIQUE: Axial computed tomography images of the head/brain without intravenous contrast. This CT exam was performed using one or more of the following dose reduction techniques: automated exposure control, adjustment of the mA and/or kV according to patient size, and/or use of iterative reconstruction technique. Coronal and sagittal reformatted images were created and reviewed. EXAM DATE/TIME: 03/26/2017 7:13 PM COMPARISON: CT - HEAD^SINUS ORBIT FACIAL FX (ADULT) 04/08/2009 11:43:27 AM FINDINGS: Brain: There is a large acute right subdural hematoma. Hematoma extends from the right frontal to the occipital region. Maximal width is approximately 1.8 cm. There is mass effect with 11 mm midline shift to the left at the third ventricle, image 16 series 2. There is partial effacement of the right lateral ventricle. There is mild dilatation of the left temporal horn. There is effacement of sulci and gyri.. No intra-axial hemorrhage is identified. Arias-white differentiation is visualized. Ventricles: See above Bones: Cranial vault is intact. Soft tissues: unremarkable Sinuses: There is no acute sinusitis. Ears and mastoids: Middle ears and mastoids are unremarkable Orbits: Orbital contents are unremarkable. IMPRESSION: Large right subdural hematoma with 11 mm midline shift to the left and uncal herniation Findings were discussed with Tasneem Mosley at 8:44 PM EDT on 03/26/2017.
--- NOTE | 2017-03-26 20:51 | CT ---
EXAM: CT Cervical Spine Without Intravenous Contrast CLINICAL HISTORY: 56 years old, female; Injury or trauma; Fall; Initial encounter; Concussion /head injury; Injury details: It was stated that patient fell; Additional info: Fell off a ladder yesterday; large right subdural hematoma TECHNIQUE: Axial computed tomography images of the cervical spine without intravenous contrast. This CT exam was performed using one or more of the following dose reduction techniques: automated exposure control, adjustment of the mA and/or kV according to patient size, and/or use of iterative reconstruction technique. Coronal and sagittal reformatted images were created and reviewed. EXAM DATE/TIME: 03/26/2017 7:23 PM COMPARISON: There are no prior studies for comparison. FINDINGS: Vertebrae: There is mild exaggeration of the cervical lordosis. There is no prevertebral soft tissue swelling. There are no fractures. There are degenerative changes at multiple levels. There is narrowing of the predental space. There is mild posterior disc space narrowing greatest C2-3, C3-4 and C4-5. There is mild narrowing of facet joints. Facet joints align anatomically. Spinous processes align in the expected fashion. Bony structures are osteopenic. Discs/spinal canal/neural foramina: See above. Soft tissues: See above. Thyroid: Thyroid is unremarkable Lung apices: Lung apices are clear IMPRESSION: Degenerative change, no fracture
[2017-03-26 21:13] LABS: LYMPHOCYTE 11 % (20-50); MONOCYTE 7 % (0-10); NEUTROPHIL 82 % (42-75); NUCLEATED RED BLOOD CELL 19 % (0-0); PLATELET ESTIMATE MARKEDLY INCREASED (NORMAL); TOTAL CELLS COUNTED 100
[2017-03-26 21:16] LABS: ANISOCYTOSIS SLIGHT; HYPOCHROMIC SLIGHT; POIKILOCYTOSIS SLIGHT
[2017-03-26 21:17] LABS: LARGE PLATELETS PRESENT
[2017-03-26] MEDS ORDERED: Phytonadione 10 mg/ml Inj (Adult) IV SCH (21:30)
[2017-03-26] MEDS ORDERED: Phytonadione 10 mg/ml Inj (Adult) IVPB SCH (21:30)
[2017-03-26] MEDS ORDERED: Phytonadione 10 MG in Dextrose 5% In Water 50 ML IV ONE (21:45)
--- NOTE | 2017-03-26 22:26 | CP.PCM.CON ---
History of Present Illness - History of Present Illness History of Present Illness: Attending: Stiven Tierney MD PCP: Amina Mcmahon Reason for consult: Critical care management Chief complaint: AMS HPI: The hx is obtained from the EMS and the Medical records as the patient is very lethargic. She is a 56 years old female last admitted on 03/13/17 and discharged on 03/17/17 with dx of cellulitis. She has hx of Essential Thrombocythemia and Portal vein thrombosis, on Coumadin. Apparently she fell from a ladder last PM hitting her head. She was found on the floor by the Police during a wellness visit, in a poorly responsive state. Referring that she fell off the ladder. She took her Morphine for back pain. Time unknown. No other information available. PMH: Essential Thrombocythemia dx 1998; Mild Emphysemia; Portal vein thrombosis and portal vein Hypertension 2001, +ve MTHFR gene; cellulitis; bleeding Esophageal varices; thrombotic ischemia of the left jaw; PSH: Splenectomy 2003; tonsillectomy SH: Former Smoker; no illegal drug use; no alcohol use; FH: unknown family hx Allergies: Lansoprazole; Ranitidine Review of Systems - Review of Systems Systems not reviewed;Unavailable: Altered Mental Status Review of Systems: Review of Systems Limited because the patient tis very lethargic Past Patient History - Infectious Disease Hx of Infectious Diseases: None - Tetanus Immunizations Tetanus Immunization: Unknown - Past Medical History & Family History Past Medical History?: Yes - Past Social History Smoking Status: Former Smoker - CARDIAC Hx Cardiac Disorders: No - PULMONARY Hx Emphysema: Yes (per patient "mild emphysema") - NEUROLOGICAL Hx Neurological Disorder: No - HEENT Hx HEENT Problems: No - RENAL Hx Chronic Kidney Disease: No - ENDOCRINE/METABOLIC Hx Endocrine Disorders: No - HEMATOLOGICAL/ONCOLOGICAL Hx Blood Disorders: Yes Other/Comment: Essential Thrombocythemia - INTEGUMENTARY Hx Dermatological Problems: No - MUSCULOSKELETAL/RHEUMATOLOGICAL Hx Musculoskeletal Disorders: No Hx Falls: No - GASTROINTESTINAL Hx Gastrointestinal Disorders: Yes Hx Esophageal Varices: Yes (2003) Other/Comment: PORTAL VEIN HYPERTENSION, PORTAL VEIN THROMBOSES - GENITOURINARY/GYNECOLOGICAL Hx Genitourinary Disorders: No - PSYCHIATRIC Hx Psychophysiologic Disorder: No Hx Substance Use: No - SURGICAL HISTORY Hx Tonsillectomy: Yes - ANESTHESIA Hx Anesthesia: Yes Hx Anesthesia Reactions: No Meds Allergies/Adverse Reactions: Allergies Allergy/AdvReac Type Severity Reaction Status Date / Time lansoprazole [From Prevacid] Allergy anxiety, Verified 03/26/17 18:53 shaking ranitidine [From Zantac] Allergy anxiety, Verified 03/26/17 18:53 shaking - Medications Medications: Current Medications Phytonadione 10 mg/ Dextrose 51 mls @ 51 mls/hr IV ONCE ONE Stop: 03/26/17 22:44 Mannitol (Mannitol) 50 mls @ 50 mls/hr IVPB ONCE ONE Stop: 03/26/17 22:32 Physical Exam - Constitutional Appears: No Acute Distress Additional comments: .Responds to shaking of the shoulders and to mild sternal rub. - Head Exam Head Exam: NORMOCEPHALIC Additional comments: Hematoma to the left periorbital region, left face and left chin. - Eye Exam Additional comments: Only opening eyes to painful stimuli. No subconjunctival hemorrhage. Pupils equal 2mm and reacting sluggish to light - ENT Exam ENT Exam: Normal External Ear Exam Additional comments: Opening mouth on command but minimally. - Neck Exam Neck exam: Positive for: Normal Inspection - Respiratory Exam Respiratory Exam: Clear to Auscultation Bilateral. absent: Rales, Rhonchi, Wheezes - Cardiovascular Exam Cardiovascular Exam: REGULAR RHYTHM, RRR, +S1, +S2 - GI/Abdominal Exam GI & Abdominal Exam: Normal Bowel Sounds, Soft. absent: Mass, Organomegaly - Rectal Exam Rectal Exam: Deferred - Extremities Exam Extremities exam: Positive for: normal capillary refill, normal inspection. Negative for: joint swelling, pedal edema - Neurological Exam Additional comments: Very lethargic, no facial droop, Moves all extremity on repeated commands. DTR conserved, Motor tone normal, no apparent focal neurological findings. - Skin Skin Exam: Dry, Intact, Normal Color, Warm Results - Vital Signs Recent Vital Signs: Last Vital Signs Temp 100.8 F H 03/26/17 18:54 Pulse 96 H 03/26/17 18:54 Resp 16 03/26/17 18:54 BP 142/80 03/26/17 18:54 Pulse Ox 100 03/26/17 21:15 - Labs Result Diagrams: 03/26/17 20:00 03/26/17 19:15 - EKG Data EKG comments: NSR 96/min - Imaging and Cardiology CT scan - head Status: Image reviewed by me, Report reviewed by me Additional comment: CT - HEAD SINUS ORBIT FACIAL FX (ADULT) 04/08/2009 11:43:27 AM FINDINGS: Brain: There is a large acute right subdural hematoma. Hematoma extends from the right frontal to the occipital region. Maximal width is approximately 1.8 cm. There is mass effect with 11 mm midline shift to the left at the third ventricle, image 16 series 2. There is partial effacement of the right lateral ventricle. There is mild dilatation of the left temporal horn. There is effacement of sulci and gyri.. No intra-axial hemorrhage is identified. Arias-white differentiation is visualized. Ventricles: See above Bones: Cranial vault is intact. Soft tissues: unremarkable Sinuses: There is no acute sinusitis. Ears and mastoids: Middle ears and mastoids are unremarkable Orbits: Orbital contents are unremarkable. IMPRESSION: Large right subdural hematoma with 11 mm midline shift to the left and uncal herniation Chest x-ray Status: Image reviewed by me Additional comment: Increased bronchovascular markings. CT Cervical Spine Additional comment: Degenerative changes with no Fracture. Assessment & Plan - Assessment and Plan (Free Text) Assessment: #. Right Subdural hematoma #. AMS #. Essential Thrombocythemia #. Leukocytosis Plan: 56 years old female last admitted on 03/13/17 and discharged on 03/17/17 with dx of cellulitis. She has hx of Essential Thrombocythemia and Portal vein thrombosis, on Coumadin. Apparently she fell from a ladder last PM hitting her head. She was found on the floor by the Police during a wellness visit, in a poorly responsive state. #. Right Subdural hematoma with midline shift to the left - Neuro-surgery consulted Dr Murry - Admit to ICU - Mannitol IV given - Stop Coumadin - Reverse Coumadin. Patient given Vitamin K in ED - FFP transfusion -NPO - IV Fluid NS #. AMS due to the Subdural Hematoma - Neuro [id number] - Treat the Subdural Hematoma #. Essential Thrombocythemia -Will need Hematology consult #. Leukocytosis reactive and probably associated with the Essential thrombocythemia #. DVT prophylaxis with SCD #. Code Status: Full - Date & Time Date: 03/26/17 Time: 22:26
[2017-03-26] MEDS ORDERED: Sodium Chloride 0.9% 1,000 ML IV SCH (22:45)
[2017-03-27 00:11] LABS: URINE BILIRUBIN NEGATIVE (NEGATIVE); URINE BLOOD NEGATIVE (NEGATIVE); URINE CLARITY CLEAR (Clear); URINE COLOR YELLOW (YELLOW); URINE GLUCOSE (UA) 50 mg/dL (Normal); URINE LEUKOCYTE ESTERASE NEG Leu/uL (Negative); URINE NITRATE NEGATIVE (NEGATIVE); URINE PROTEIN 30 mg/dL (NEGATIVE); URINE UROBILINOGEN 0.2-1.0 mg/dL (0.2-1.0)
[2017-03-27 00:12] LABS: BARBITURATES, UR NEGATIVE (NEGATIVE); BENZODIAZEPINES, UR POSITIVE (NEGATIVE); PHENCYCLIDINE, UR NEGATIVE (NEGATIVE)
[2017-03-27 01:19] LABS: OPIATES, UR POSITIVE (NEGATIVE)
--- NOTE | 2017-03-27 08:10 | CARD ---
APPROVED REPORT EKG Measurement Heart [id number] <Conclusion> Normal sinus rhyth Borderline ECG
[2017-03-27 08:25] LABS: MEAN CORPUSCULAR HEMOGLOBIN 26.8 pg (27.0-31.0); MEAN CORPUSCULAR HGB CONC 30.1 g/dL (33.0-37.0); RBC 3.73 Mil/uL (3.80-5.20); RED CELL DISTRIBUTION WIDTH 24.8 % (11.5-14.5); WHITE BLOOD COUNT 15.8 K/uL (4.8-10.8)
[2017-03-27 08:36] LABS: BLOOD UREA NITROGEN 10 mg/dl (7-17); CALCIUM 9.2 mg/dL (8.4-10.2); GFR AFRICAN-AMERICAN > 60; GFR NON-AFRICAN AMERICAN > 60
[2017-03-27 08:43] LABS: INR 1.4 (0.9-1.2); PARTIAL THROMBOPLASTIN TIME 32.3 Seconds (25.6-37.1); PROTHROMBIN TIME 15.8 Seconds (9.8-13.1)
[2017-03-27] MEDS ORDERED: Propofol 10 mg/ml Inj (20 ML) ONE ×2 (08:58→15:13)
[2017-03-27] MEDS ORDERED: Lidocaine Hydrochloride 5 ML INJ ONE (08:58)
[2017-03-27] MEDS ORDERED: Phytonadione 10 mg/ml Inj (Adult) IV ONE (08:58)
[2017-03-27] MEDS ORDERED: Lidocaine 4% (Laryng-O-Jet) Kit MM ONE (08:58)
[2017-03-27] MEDS ORDERED: Midazolam 2 MG/2 ML VIAL ONE (08:58)
[2017-03-27] MEDS ORDERED: Rocuronium 10 mg/ml (5 ml) ONE ×2 (09:00→15:16)
[2017-03-27] MEDS ORDERED: Phytonadione 10 MG in Sodium Chloride 0.9% 50 ML IV ONE (09:45)
--- NOTE | 2017-03-27 10:52 | RAD ---
HISTORY: ams COMPARISON: 03/13/2017 FINDINGS: LUNGS: There is mild pulmonary venous congestion. The lungs are hyperinflated and there is peribronchial thickening with chronic changes in both lungs. No focal consolidation. PLEURA: No significant pleural effusion identified, no pneumothorax apparent. CARDIOVASCULAR: Normal. OSSEOUS STRUCTURES: No significant abnormalities. VISUALIZED UPPER ABDOMEN: Normal. OTHER FINDINGS: None. IMPRESSION: No active pulmonary disease. COPD.
--- NOTE | 2017-03-27 12:08 | CP.PCM.CON ---
History of Present Illness - History of Present Illness History of Present Illness: 56 year old female with a history of essential thrombocythemia and portal vein thrombosis on coumadin since 2001 admitted s/p fall from a ladder with subdural hematoma, anemia and coagulopathy. The patient is currently in the ICU await subdural evacuation. Her imaging does show midline shift and uncal herniation. On presentation to the ER she was given vitamin K IV and FFP. Her coagulopathy improved with her INR 1.3. She is currently lethargic but arousable and able to communicate. Past medical history: Essential thrombocythemia, portal vein thrombosis on coumadin. Past surgical history: Denies Family history: Denies hematologic and oncologic problems Social history: Denies tobacco, alcohol and illicit drug use. Allergies: Ranitidine, lansoprazole Review of systems: All remaining review of systems including HEENT, cardiovascular, respiratory, gastrointestinal, genitourinary, musculoskeletal, dermatologic, neurologic, and psychiatric are negative unless mentioned in the HPI. Past Patient History - Infectious Disease Hx of Infectious Diseases: None - Tetanus Immunizations Tetanus Immunization: Unknown - Past Medical History & Family History Past Medical History?: Yes - Past Social History Drugs: Denies - CARDIAC Hx Cardiac Disorders: No - PULMONARY Hx Emphysema: Yes (per patient "mild emphysema") - NEUROLOGICAL Hx Neurological Disorder: No - HEENT Hx HEENT Problems: No - RENAL Hx Chronic Kidney Disease: No - ENDOCRINE/METABOLIC Hx Endocrine Disorders: No - HEMATOLOGICAL/ONCOLOGICAL Hx Blood Disorders: Yes Other/Comment: Essential Thrombocythemia - INTEGUMENTARY Hx Dermatological Problems: No - MUSCULOSKELETAL/RHEUMATOLOGICAL Hx Musculoskeletal Disorders: No Hx Falls: No - GASTROINTESTINAL Hx Gastrointestinal Disorders: Yes Hx Esophageal Varices: Yes (2003) Other/Comment: PORTAL VEIN HYPERTENSION, PORTAL VEIN THROMBOSES - GENITOURINARY/GYNECOLOGICAL Hx Genitourinary Disorders: No - PSYCHIATRIC Hx Psychophysiologic Disorder: No Hx Substance Use: No - SURGICAL HISTORY Hx Tonsillectomy: Yes - ANESTHESIA Hx Anesthesia: Yes Hx Anesthesia Reactions: No Meds Allergies/Adverse Reactions: Allergies Allergy/AdvReac Type Severity Reaction Status Date / Time lansoprazole [From Prevacid] Allergy anxiety, Verified 03/26/17 18:53 shaking ranitidine [From Zantac] Allergy anxiety, Verified 03/26/17 18:53 shaking - Medications Medications: Current Medications Sodium Chloride (Sodium Chloride 0.9%) 1,000 mls @ 75 mls/hr IV .[id number] DENIS Stop: 03/27/17 22:33 Last Admin: 03/26/17 23:56 Dose: 75 mls/hr Physical Exam - Head Exam Head Exam: ATRAUMATIC - Eye Exam Eye Exam: Normal appearance - ENT Exam ENT Exam: Mucous Membranes Dry - Respiratory Exam Respiratory Exam: NORMAL BREATHING PATTERN - Cardiovascular Exam Cardiovascular Exam: +S1, +S2 - GI/Abdominal Exam GI & Abdominal Exam: Normal Bowel Sounds - Extremities Exam Extremities exam: Positive for: normal inspection - Neurological Exam Neurological exam: Altered Results - Vital Signs Recent Vital Signs: Last Vital Signs Temp 98.5 F 03/27/17 08:21 Pulse 92 H 03/27/17 10:00 Resp 23 03/27/17 10:00 BP 143/71 03/27/17 10:00 Pulse Ox 100 03/27/17 10:00 - Labs Result Diagrams: 03/27/17 08:00 03/27/17 08:00 Labs: Laboratory Results - last 24 hr 03/26/17 03/26/17 03/27/17 23:52 23:52 08:00 WBC 15.8 H RBC 3.73 L Hgb 10.0 L Hct 33.2 L MCV 89.0 MCH 26.8 L MCHC 30.1 L RDW 24.8 H Plt Count 651 H D PT INR APTT Sodium Potassium Chloride Carbon Dioxide Anion Gap BUN Creatinine Est GFR ( Amer) Est GFR (Non-Af Amer) Random Glucose Calcium Urine Color Yellow Urine Clarity Clear Urine pH 7.0 Ur Specific [place] 1.015 Urine Protein 30 Urine Glucose (UA) 50 Urine Ketones 80 Urine Blood Negative Urine Nitrate Negative Urine Bilirubin Negative Urine Urobilinogen 0.2-1.0 Ur Leukocyte Esterase Neg Urine RBC (Auto) 1 Urine Microscopic WBC 1 Urine Opiates Screen Positive H Urine Methadone Screen Negative Ur Barbiturates Screen Negative Ur Phencyclidine Scrn Negative Ur Amphetamines Screen Negative U Benzodiazepines Scrn Positive H U Oth Cocaine Metabols Negative U Cannabinoids Screen Negative 03/27/17 03/27/17 08:00 08:20 WBC RBC Hgb Hct MCV MCH MCHC RDW Plt Count PT 15.8 H D INR 1.4 H D APTT 32.3 Sodium 142 Potassium 3.3 L Chloride 108 H Carbon Dioxide 26 Anion Gap 11 BUN 10 Creatinine 0.5 L Est GFR ( Amer) > 60 Est GFR (Non-Af Amer) > 60 Random Glucose 116 H Calcium 9.2 Urine Color Urine Clarity Urine pH Ur Specific [place] Urine Protein Urine Glucose (UA) Urine Ketones Urine Blood Urine Nitrate Urine Bilirubin Urine Urobilinogen Ur Leukocyte Esterase Urine RBC (Auto) Urine Microscopic WBC Urine Opiates Screen Urine Methadone Screen Ur Barbiturates Screen Ur Phencyclidine Scrn Ur Amphetamines Screen U Benzodiazepines Scrn U Oth Cocaine Metabols U Cannabinoids Screen Assessment & Plan (1) Subdural hematoma Assessment and Plan: secondary to traumatic fall neurosurgery for evacuation s/p vit k and ffp Status: Acute Priority: High (2) Coagulopathy Assessment and Plan: secondary to coumadin s/p vit K and FFP with improvement in INR Status: Acute (3) Anemia Assessment and Plan: will check iron, b12, folate stores Status: Acute (4) Essential thrombocythemia Assessment and Plan: complicated by portal vein thrombosis on therapeutic coumadin; now on hold for subdural hematoma will use hydroxyurea to control plt count while off anticoagulation Status: Acute
[2017-03-27 12:55] LABS: INR 1.3 (0.9-1.2); PROTHROMBIN TIME 14.6 Seconds (9.8-13.1)
[2017-03-27] MEDS ORDERED: Lactated Ringer's 1,000 ML IV ONE (14:23)
[2017-03-27] MEDS ORDERED: Sodium Chloride 0.9% 500 ML IV ONE (14:25)
--- NOTE | 2017-03-27 14:28 | CP.PCM.HP ---
History of Present Illness - History of Present Illness History of Present Illness: CC: Fell. 56 y/o F, brought by EMS to ED [facility], [place] to be evaluated on 03/26/17 due to fall at home, onset day [employer] with no relief of pain. Pt was seen in ED c/o of headache, pain was moaning, moderate intensity 5:10, associated to fall on day [employer], As per family, Pt fell down from ladder to the floor hitting her head and after she took a morphine for back pain, eventually she called her family that noticed She had kept on passing out and they called 911 and was taken to ED [facility]. for evaluation and Tx. Worsening symptom: Noticed with change in mental status by family, found unresponsive by the police. CT showing: Large R Subdural Hematoma. Aggravated factor: Pt unable to ambulate. No: LOC, chills, n/v/d, abdominal pain, CP, SOB, cough, urinary symptoms, sick contact, recent travel. PMHx: Essential Thrombocythemia in 1998, Portal vein Thrombosis in 1999 (on Coumadin), Portal vein HTN, Mild Emphysema, legs Cellulites ([facility] 6-29 to 7-3) , Esophageal varices. CXR: No active pulmonary disease. Haed CT: Large R subdural Hematoma with 11mm Midline shift to the left an uncal herniation. CT Cervical Spine: Degenerative changes, no Fx. Present on Admission - Present on Admission Any Indicators Present on Admission: No Review of Systems - Review of Systems Systems not reviewed;Unavailable: Acuity of Condition (Poor responsive state.) Past Patient History - Infectious Disease Hx of Infectious Diseases: None - Tetanus Immunizations Tetanus Immunization: Unknown - Past Medical History & Family History Past Medical History?: Yes Pertinent Family History: Unknown. - Past Social History Smoking Status: Former Smoker Drugs: Denies Home Situation {Lives}: Alone - CARDIAC Hx Cardiac Disorders: No - PULMONARY Hx Respiratory Disorders: Yes Hx Emphysema: Yes (per patient "mild emphysema") - NEUROLOGICAL Hx Neurological Disorder: No - HEENT Hx HEENT Problems: No - RENAL Hx Chronic Kidney Disease: No - ENDOCRINE/METABOLIC Hx Endocrine Disorders: No - HEMATOLOGICAL/ONCOLOGICAL Hx Blood Disorders: Yes Other/Comment: Essential Thrombocythemia - INTEGUMENTARY Hx Dermatological Problems: No - MUSCULOSKELETAL/RHEUMATOLOGICAL Hx Musculoskeletal Disorders: No Hx Back Pain: Yes Hx Falls: No - GASTROINTESTINAL Hx Gastrointestinal Disorders: Yes Hx Esophageal Varices: Yes (2003) Other/Comment: PORTAL VEIN HYPERTENSION, PORTAL VEIN THROMBOSES - GENITOURINARY/GYNECOLOGICAL Hx Genitourinary Disorders: No - PSYCHIATRIC Hx Psychophysiologic Disorder: No Hx Substance Use: No - SURGICAL HISTORY Hx Tonsillectomy: Yes - ANESTHESIA Hx Anesthesia: Yes Hx Anesthesia Reactions: No Meds Home Medications: Home Medication List Medication Instructions Recorded Confirmed Type Acetaminophen [Tylenol 325mg tab] 650 mg PO Q6 PRN tab 04/01/17 Rx Furosemide [Lasix] 40 mg PO DAILY tab 04/01/17 Rx Hydroxyurea [Hydrea] 500 mg PO TID cap 04/01/17 Rx Lactulose [Enulose] 20 gm PO DAILY 04/01/17 Rx Allergies/Adverse Reactions: Allergies Allergy/AdvReac Type Severity Reaction Status Date / Time lansoprazole [From Prevacid] Allergy anxiety, Verified 04/01/17 23:10 shaking ranitidine [From Zantac] Allergy anxiety, Verified 04/01/17 23:10 shaking Physical Exam - Constitutional Appears: In Acute Distress - Head Exam Additional comments: Hematoma forehead. - Eye Exam Eye Exam: PERRL Additional comments: Bruces in her left upper and lower eye and chin areas. - ENT Exam Additional comments: Ecchymosis L face. - Neck Exam Neck exam: Positive for: Normal Inspection - Respiratory Exam Respiratory Exam: NORMAL BREATHING PATTERN - Cardiovascular Exam Cardiovascular Exam: REGULAR RHYTHM - GI/Abdominal Exam GI & Abdominal Exam: Normal Bowel Sounds, Soft - Extremities Exam Additional comments: Hematoma L hip. - Neurological Exam Additional comments: Confused, moves all extremities, responsive to verbal stimuli, obey commands. - Psychiatric Exam Additional comments: Calm. - Skin Skin Exam: Warm Results - Vital Signs Recent Vital Signs: Last Vital Signs Temp 98.6 F 03/27/17 13:50 Pulse 93 H 03/27/17 13:50 Resp 22 03/27/17 13:50 BP 140/65 03/27/17 13:50 Pulse Ox 100 03/27/17 13:50 reviewed Amber - Labs Result Diagrams: 04/01/17 04:30 04/01/17 04:30 Labs: Laboratory Results - last 24 hr 03/26/17 03/26/17 03/27/17 23:52 23:52 08:00 WBC 15.8 H RBC 3.73 L Hgb 10.0 L Hct 33.2 L MCV 89.0 MCH 26.8 L MCHC 30.1 L RDW 24.8 H Plt Count 651 H D PT INR APTT Sodium Potassium Chloride Carbon Dioxide Anion Gap BUN Creatinine Est GFR ( Amer) Est GFR (Non-Af Amer) Random Glucose Calcium Urine Color Yellow Urine Clarity Clear Urine pH 7.0 Ur Specific [place] 1.015 Urine Protein 30 Urine Glucose (UA) 50 Urine Ketones 80 Urine Blood Negative Urine Nitrate Negative Urine Bilirubin Negative Urine Urobilinogen 0.2-1.0 Ur Leukocyte Esterase Neg Urine RBC (Auto) 1 Urine Microscopic WBC 1 Urine Opiates Screen Positive H Urine Methadone Screen Negative Ur Barbiturates Screen Negative Ur Phencyclidine Scrn Negative Ur Amphetamines Screen Negative U Benzodiazepines Scrn Positive H U Oth Cocaine Metabols Negative U Cannabinoids Screen Negative 03/27/17 03/27/17 03/27/17 08:00 08:20 12:44 WBC RBC Hgb Hct MCV MCH MCHC RDW Plt Count PT 15.8 H D 14.6 H INR 1.4 H D 1.3 H APTT 32.3 Sodium 142 Potassium 3.3 L Chloride 108 H Carbon Dioxide 26 Anion Gap 11 BUN 10 Creatinine 0.5 L Est GFR ( Amer) > 60 Est GFR (Non-Af Amer) > 60 Random Glucose 116 H Calcium 9.2 Urine Color Urine Clarity Urine pH Ur Specific [place] Urine Protein Urine Glucose (UA) Urine Ketones Urine Blood Urine Nitrate Urine Bilirubin Urine Urobilinogen Ur Leukocyte Esterase Urine RBC (Auto) Urine Microscopic WBC Urine Opiates Screen Urine Methadone Screen Ur Barbiturates Screen Ur Phencyclidine Scrn Ur Amphetamines Screen U Benzodiazepines Scrn U Oth Cocaine Metabols U Cannabinoids Screen reviewed J.P. - EKG Data EKG comments: reviewed J.P. - Imaging and Cardiology Chest x-ray Status: Report reviewed by me (Amber) CT scan - head Status: Report reviewed by me ([email or web address]) Additional comment: CT Cervical Spine Reviewed J.P. Assessment & Plan (1) Status post fall Status: Acute Priority: High (2) Subdural hematoma Status: Acute Priority: High (3) Thrombocytosis Status: Acute Priority: High (4) Altered mental status Status: Acute Priority: High - Assessment and Plan (Free Text) Plan: Pt having FFP, and Vit.K, OR in the evening for according to PT INR. f/u Hematology consult ICU Time: 70 min. - Date & Time Date: 03/27/17 Time: 11:00
[2017-03-27] MEDS ORDERED: cefTRIAXone (Rocephin) 1 gm Inj IM ONE (14:45)
[2017-03-27] MEDS ORDERED: Lidocaine 2% w Epi 1:200,000 Pf Inj IJ ONE (14:53)
[2017-03-27] MEDS ORDERED: Thrombin Topical 5,000 IU Spray Kit TOP ONE (15:20)
[2017-03-27] MEDS ORDERED: Absorbable Gelatin Sponge Size 100 TP ONE (15:20)
[2017-03-27] MEDS ORDERED: HEMOSTATIC MATRIX 10 ML DIS.NEEDLE TOP ONE ×2 (15:21)
[2017-03-27] MEDS ORDERED: Neostigmine Methylsulfate 3mg/3ml Syringe IV ONE (15:45)
[2017-03-27] MEDS ORDERED: Dexamethasone 4 mg/1 ml ONE (15:59)
[2017-03-27] MEDS: HYDROmorphone 0.5 mg/0.5 ml ISec IVP PRN ×2 (16:58→17:37)
--- NOTE | 2017-03-27 17:08 | CP.CCUPN ---
CCU Subjective - Physician Review Subjective (Free Text): Discussed with Neurosurgeon and Anesthesiologist: Just returned from OR s/p Right sided SDH evacuation. Eyes closed and lethargic , but easily arousable to verbal stimuli, moving all extremities. EBL reported as 75 ml, recd 900c crystalloid and urine output of 25 Ml. Given additional 1 unit FFP to the 2 doses of Vit K and 4 units FFP given pre-op overnight and this AM. Hemodynamics stable, SPO2 100% on nasal oxygen. ROS: as above, other 10+ system review did not reveal any new pertinent negs or positives. Other PMSFH: All recent nursing and physician documentation reviewed and no new information noted relevant to current problems. CCU Objective - Vital Signs / Intake & Output Vital Signs (Last 4 hours): Vital Signs Temp Pulse Resp BP Pulse Ox 03/27/17 17:02 102 H 17 156/86 H 96 03/27/17 16:40 98.3 F 110 H 19 150/80 98 03/27/17 16:00 97.6 F 70 25 H 97/46 L 100 03/27/17 13:50 98.6 F 93 H 22 140/65 100 03/27/17 13:34 98.3 F 110 H 20 139/73 100 Intake and Output (Last 8hrs): Intake & Output 03/27/17 03/27/17 03/27/17 06:59 14:59 22:59 Intake Total 1025 2027 Output Total 1000 Balance 25 2026 Intake: IV 725 1200 Intake, Piggyback 50 Blood Product 300 777 Output: Urine 1000 Urethral (Child) 1000 - Physical Exam Head: Positive for: Other (Right sided temporal dressings intact, drain intact and minimal serous fluid drainage noted.) Pupils: Positive for: PERRL Extroacular Muscles: Positive for: EOMI Conjunctiva: Positive for: Normal. Negative for: Icteric Mouth: Positive for: Moist Mucous Membranes Pharnyx: Positive for: Normal Neck: Positive for: Normal Range of Motion. Negative for: JVD Respiratory/Chest: Positive for: Clear to Auscultation. Negative for: Accessory Muscle Use Cardiovascular: Positive for: Regular Rate and Rhythm, Tachycardic Abdomen: Positive for: Normal Bowel Sounds. Negative for: Tenderness, Distention Lower Extremity: Positive for: Normal Inspection, NORMAL PULSES. Negative for: Edema, CALF TENDERNESS Neurological: Positive for: GCS=15, CN II-XII Intact, Speech Normal, Motor Func Grossly Intact Skin: Positive for: Warm. Negative for: Rashes - Medications Active Medications: Active Medications Generic Name Dose Route Start Last Admin Trade Name Freq PRN Reason Stop Dose Admin Famotidine 20 mg 03/27/17 13:00 Pepcid IVP Q12 DENIS Hydromorphone HCl 0.5 mg 03/27/17 16:43 03/27/17 16:58 Dilaudid IVP 03/27/17 18:43 0.5 mg Q10M PRN Administration Pain, moderate (4-7) Sodium Chloride 1,000 mls @ 75 mls/hr 03/26/17 22:45 03/26/17 23:56 Sodium Chloride 0.9% IV 03/27/17 22:33 75 mls/hr .[id number] DENIS Administration Sodium Chloride 1,000 mls @ 75 mls/hr 03/27/17 16:45 Sodium Chloride 0.9% IV .[id number] DENIS Ondansetron HCl 4 mg 03/27/17 16:43 Zofran Inj IVP 03/27/17 18:44 ONCE PRN Nausea/Vomiting - Patient Studies Lab Studies: Lab Studies 03/27/17 03/27/17 03/27/17 Range/Units 12:44 08:20 08:00 WBC (4.8-10.8) K/uL RBC (3.80-5.20) Mil/uL Hgb (12.0-16.0) g/dL Hct (34.0-47.0) % MCV (81.0-99.0) fl MCH (27.0-31.0) pg MCHC (33.0-37.0) g/dL RDW (11.5-14.5) % Plt Count (130-400) K/uL PT 14.6 H 15.8 H D (9.8-13.1) Seconds INR 1.3 H 1.4 H D (0.9-1.2) APTT 32.3 (25.6-37.1) Seconds Sodium 142 (132-148) mmol/l Potassium 3.3 L (3.6-5.0) MMOL/L Chloride 108 H (98-107) mmol/L Carbon Dioxide 26 (22-30) mmol/L Anion Gap 11 (10-20) BUN 10 (7-17) mg/dl Creatinine 0.5 L (0.7-1.2) mg/dL Est GFR ( Amer) > 60 Est GFR (Non-Af Amer) > 60 Random Glucose 116 H (65-105) mg/dL Calcium 9.2 (8.4-10.2) mg/dL Urine Color (YELLOW) Urine Clarity (Clear) Urine pH (5.0-8.0) Ur Specific [place] (1.003-1.030) Urine Protein (NEGATIVE) mg/dL Urine Glucose (UA) (Normal) mg/dL Urine Ketones (NEGATIVE) mg/dL Urine Blood (NEGATIVE) Urine Nitrate (NEGATIVE) Urine Bilirubin (NEGATIVE) Urine Urobilinogen (0.2-1.0) mg/dL Ur Leukocyte Esterase (Negative) Jameson/uL Urine RBC (Auto) (0-3) /hpf Urine Microscopic WBC (0-5) /hpf Urine Opiates Screen (NEGATIVE) Urine Methadone Screen (NEGATIVE) Ur Barbiturates Screen (NEGATIVE) Ur Phencyclidine Scrn (NEGATIVE) Ur Amphetamines Screen (NEGATIVE) U Benzodiazepines Scrn (NEGATIVE) U Oth Cocaine Metabols (NEGATIVE) U Cannabinoids Screen (NEGATIVE) 03/27/17 03/26/17 03/26/17 Range/Units 08:00 23:52 23:52 WBC 15.8 H (4.8-10.8) K/uL RBC 3.73 L (3.80-5.20) Mil/uL Hgb 10.0 L (12.0-16.0) g/dL Hct 33.2 L (34.0-47.0) % MCV 89.0 (81.0-99.0) fl MCH 26.8 L (27.0-31.0) pg MCHC 30.1 L (33.0-37.0) g/dL RDW 24.8 H (11.5-14.5) % Plt Count 651 H D (130-400) K/uL PT (9.8-13.1) Seconds INR (0.9-1.2) APTT (25.6-37.1) Seconds Sodium (132-148) mmol/l Potassium (3.6-5.0) MMOL/L Chloride (98-107) mmol/L Carbon Dioxide (22-30) mmol/L Anion Gap (10-20) BUN (7-17) mg/dl Creatinine (0.7-1.2) mg/dL Est GFR ( Amer) Est GFR (Non-Af Amer) Random Glucose (65-105) mg/dL Calcium (8.4-10.2) mg/dL Urine Color Yellow (YELLOW) Urine Clarity Clear (Clear) Urine pH 7.0 (5.0-8.0) Ur Specific [place] 1.015 (1.003-1.030) Urine Protein 30 (NEGATIVE) mg/dL Urine Glucose (UA) 50 (Normal) mg/dL Urine Ketones 80 (NEGATIVE) mg/dL Urine Blood Negative (NEGATIVE) Urine Nitrate Negative (NEGATIVE) Urine Bilirubin Negative (NEGATIVE) Urine Urobilinogen 0.2-1.0 (0.2-1.0) mg/dL Ur Leukocyte Esterase Neg (Negative) Jameson/uL Urine RBC (Auto) 1 (0-3) /hpf Urine Microscopic WBC 1 (0-5) /hpf Urine Opiates Screen Positive H (NEGATIVE) Urine Methadone Screen Negative (NEGATIVE) Ur Barbiturates Screen Negative (NEGATIVE) Ur Phencyclidine Scrn Negative (NEGATIVE) Ur Amphetamines Screen Negative (NEGATIVE) U Benzodiazepines Scrn Positive H (NEGATIVE) U Oth Cocaine Metabols Negative (NEGATIVE) U Cannabinoids Screen Negative (NEGATIVE) Laboratory Results - last 24 hr 03/26/17 03/26/17 03/27/17 23:52 23:52 08:00 WBC 15.8 H RBC 3.73 L Hgb 10.0 L Hct 33.2 L MCV 89.0 MCH 26.8 L MCHC 30.1 L RDW 24.8 H Plt Count 651 H D PT INR APTT Sodium Potassium Chloride Carbon Dioxide Anion Gap BUN Creatinine Est GFR ( Amer) Est GFR (Non-Af Amer) Random Glucose Calcium Urine Color Yellow Urine Clarity Clear Urine pH 7.0 Ur Specific [place] 1.015 Urine Protein 30 Urine Glucose (UA) 50 Urine Ketones 80 Urine Blood Negative Urine Nitrate Negative Urine Bilirubin Negative Urine Urobilinogen 0.2-1.0 Ur Leukocyte Esterase Neg Urine RBC (Auto) 1 Urine Microscopic WBC 1 Urine Opiates Screen Positive H Urine Methadone Screen Negative Ur Barbiturates Screen Negative Ur Phencyclidine Scrn Negative Ur Amphetamines Screen Negative U Benzodiazepines Scrn Positive H U Oth Cocaine Metabols Negative U Cannabinoids Screen Negative 03/27/17 03/27/17 03/27/17 08:00 08:20 12:44 WBC RBC Hgb Hct MCV MCH MCHC RDW Plt Count PT 15.8 H D 14.6 H INR 1.4 H D 1.3 H APTT 32.3 Sodium 142 Potassium 3.3 L Chloride 108 H Carbon Dioxide 26 Anion Gap 11 BUN 10 Creatinine 0.5 L Est GFR ( Amer) > 60 Est GFR (Non-Af Amer) > 60 Random Glucose 116 H Calcium 9.2 Urine Color Urine Clarity Urine pH Ur Specific [place] Urine Protein Urine Glucose (UA) Urine Ketones Urine Blood Urine Nitrate Urine Bilirubin Urine Urobilinogen Ur Leukocyte Esterase Urine RBC (Auto) Urine Microscopic WBC Urine Opiates Screen Urine Methadone Screen Ur Barbiturates Screen Ur Phencyclidine Scrn Ur Amphetamines Screen U Benzodiazepines Scrn U Oth Cocaine Metabols U Cannabinoids Screen Fingerstick Blood Sugar Results: 147 Critical Care Progress Note - Extremities/Vascular Does the Patient have a Central Venous Catheter?: No Does the Patient need a Central Venous Catheter?: No Does the Patient have a Child Catheter?: Yes Does the Patient need a Child Catheter?: Yes Catheter Insertion Criteria: Need for accurate measurement of output in critically ill patient - Prophylaxis GI Prophylaxis GI: Pepsid - Prophylaxis DVT Prophylaxis DVT: SCDs - Nutrition Nutrition: Nutrition Category Date Time Status NPO Diet [DIET] Diets 03/26/17 Dinner Active Assessment/Plan - Assessment and Plan (Free Text) Assessment: MAJOR PROBLEMS: 1. S/p Fall at Home 2 days prior to hospital Admission with resultant R SDH and midline shift. 2. h/o Thrombocythemia with thromboses, on AC with near-therapeutic INR on admission, exacerbating SDH. 3. Chronic Disease Anemia 4. Mild Hyperkalemia on Admission, now Hypokalemic Plan: PLAN: 1. Stable post-op status; continue close neuro observation in ICU for now. HOB elevation, seizure precautions. 2. SCDs for DVT prophylaxis, start Pepcid fro Stress Ulcer prx. 3. IVF hydration with NSS 4. Keep Systolic BPs below 140-150 range. Labetalol ordered PRN. 5. Hold AC for now post-op, check serial PT, INR, PTT. 6. Watch Platelet counts, Hematology eval noted, possible Hydroxyurea to keep counts low for now until Warfarin can be safely resumed weeks later or as directed by NeuroSurg. 7. K replacment ordered, check repeat levels with mag and Phos levels.
[2017-03-27] MEDS: Potassium CL 10mEq/100ml 100 ML IVPB SCH ×2 (17:22→18:09)
[2017-03-27] MEDS: Sodium Chloride 0.9% 1,000 ML IV SCH (20:04)
[2017-03-28] MEDS: Sodium Chloride 0.9% 1,000 ML IV SCH (06:00)
[2017-03-28] MEDS ORDERED: HYDROmorphone 0.5 mg/0.5 ml ISec IVP PRN ×2 (07:54→16:09)
--- NOTE | 2017-03-28 10:14 | CP.PCM.PN ---
Subjective - Date & Time of Evaluation Date of Evaluation: 03/28/17 Time of Evaluation: 10:13 - Subjective Subjective: POD 1 a,a, o x 3 ms appropriate jauregui well 75 cc sd drainage p chech ct am Objective - Vital Signs/Intake and Output Vital Signs (last 24 hours): Temp Pulse Resp BP Pulse Ox 99.9 F H 97 H 20 150/82 99 03/28/17 08:00 03/28/17 09:00 03/28/17 09:00 03/28/17 09:00 03/28/17 09:00 Intake and Output: 03/28/17 03/28/17 06:59 18:59 Intake Total 1185 15 Output Total 800 Balance 385 15 - Medications Medications: Current Medications Acetaminophen (Tylenol 325mg Tab) 325 mg PO Q6 PRN PRN Reason: Pain, moderate (4-7) Last Admin: 03/28/17 09:29 Dose: 325 mg Famotidine (Pepcid) 20 mg IVP Q12 DENIS Last Admin: 03/28/17 08:35 Dose: 20 mg Hydromorphone HCl (Dilaudid) 1 mg IVP Q6 PRN PRN Reason: Pain, moderate (4-7) Last Admin: 03/28/17 07:59 Dose: 1 mg Sodium Chloride (Sodium Chloride 0.9%) 1,000 mls @ 75 mls/hr IV .[id number] DENIS Last Admin: 03/28/17 06:00 Dose: 75 mls/hr - Labs Labs: 03/27/17 08:00 03/27/17 08:00 PT 14.6 Seconds (9.8-13.1) H 03/27/17 12:44 INR 1.3 (0.9-1.2) H 03/27/17 12:44 APTT 32.3 Seconds (25.6-37.1) 03/27/17 08:20
[2017-03-28 10:22] LABS: BASO # 0.1 K/uL (0.0-0.2); BASO % 0.4 % (0.0-2.0); EOS # 0.2 K/uL (0.0-0.7); EOS % 1.2 % (0.0-4.0); HEMOGLOBIN 9.2 g/dL (12.0-16.0); LYMPH # 1.1 K/uL (1.0-4.3); LYMPH % 5.9 % (20.0-40.0); MEAN CELL VOLUME 92.1 fl (81.0-99.0); MEAN CORPUSCULAR HEMOGLOBIN 27.4 pg (27.0-31.0); MEAN CORPUSCULAR HGB CONC 29.7 g/dL (33.0-37.0); MEAN PLATELET VOLUME 9.3 fl (7.2-11.7); MONO # 0.8 K/uL (0.0-0.8); MONO % 4.6 % (0.0-10.0); NEUT # 15.8 K/uL (1.8-7.0); NEUT % 87.9 % (50.0-75.0); NRBC % 11.6 % (0.0-0.0); RBC 3.38 Mil/uL (3.80-5.20); RED CELL DISTRIBUTION WIDTH 24.1 % (11.5-14.5)
[2017-03-28 10:32] LABS: BLOOD UREA NITROGEN 11 mg/dl (7-17); CALCIUM 8.7 mg/dL (8.4-10.2); GFR AFRICAN-AMERICAN > 60; GFR NON-AFRICAN AMERICAN > 60
[2017-03-28] MEDS ORDERED: HYDROmorphone 0.5 mg/0.5 ml ISec IVP SCH (13:00)
--- NOTE | 2017-03-28 14:46 | CP.CCUPN ---
CCU Subjective - Physician Review Subjective (Free Text): Awake and alert, c/o this AM of increasing headache, ordered Dilaudid for post- op analgesia, denies any CP, SOB, has +nausea, no vomiting noted, no fever spikes. ROS: as above, other 10+ system review did not reveal any new pertinent negs or positives. Other PMSFH: All recent nursing and physician documentation reviewed and no new information noted relevant to current problems. CCU Objective - Vital Signs / Intake & Output Vital Signs (Last 4 hours): Vital Signs Temp Pulse Resp BP Pulse Ox 03/28/17 14:00 98 H 25 H 152/88 H 96 03/28/17 12:59 98 H 19 154/82 H 96 03/28/17 12:00 99.1 F 100 H 17 154/93 H 95 03/28/17 11:00 88 19 149/82 97 Intake and Output (Last 8hrs): Intake & Output 03/27/17 03/28/17 03/28/17 22:59 06:59 14:59 Intake Total 595 840 615 Output Total 375 800 400 Balance 220 40 215 Intake: IV 375 600 350 Intake, Piggyback 100 25 Oral 120 240 240 Output: Urine 375 800 400 Urethral (Child) 375 800 400 - Physical Exam Head: Positive for: Other (Right sided temporal dressings intact, drain intact and only approx 30 ml serous fluid drainage noted since placement. ) Pupils: Positive for: PERRL Extroacular Muscles: Positive for: EOMI Conjunctiva: Positive for: Normal. Negative for: Icteric Mouth: Positive for: Moist Mucous Membranes Pharnyx: Positive for: Normal Neck: Positive for: Normal Range of Motion. Negative for: JVD Respiratory/Chest: Positive for: Clear to Auscultation. Negative for: Accessory Muscle Use Cardiovascular: Positive for: Regular Rate and Rhythm, Tachycardic Abdomen: Positive for: Normal Bowel Sounds. Negative for: Tenderness, Distention Lower Extremity: Positive for: Normal Inspection, NORMAL PULSES. Negative for: Edema, CALF TENDERNESS Neurological: Positive for: GCS=15, CN II-XII Intact, Speech Normal, Motor Func Grossly Intact Skin: Positive for: Warm. Negative for: Rashes - Medications Active Medications: Active Medications Generic Name Dose Route Start Last Admin Trade Name Freq PRN Reason Stop Dose Admin Acetaminophen 325 mg 03/28/17 01:19 03/28/17 09:29 Tylenol 325mg Tab PO 325 mg Q6 PRN Administration Pain, moderate (4-7) Famotidine 20 mg 03/27/17 13:00 03/28/17 08:35 Pepcid IVP 20 mg Q12 DENIS Administration Hydromorphone HCl 1 mg 03/28/17 13:00 03/28/17 12:29 Dilaudid IVP 1 mg Q4 DENIS Administration Hydroxyurea 500 mg 03/28/17 17:00 Hydrea PO TID DENIS Morphine Sulfate 30 mg 03/28/17 17:00 Morphine Immediate Release Tab PO TID [facility] Ondansetron HCl 4 mg 03/28/17 10:33 03/28/17 11:02 Zofran Inj IVP 4 mg Q6 PRN Administration Nausea/Vomiting Polyethylene Glycol 17 gm 03/29/17 09:00 Miralax PO DAILY [facility] - Patient Studies Lab Studies: Lab Studies 03/28/17 03/28/17 Range/Units 09:45 09:45 WBC 18.0 H (4.8-10.8) K/uL RBC 3.38 L (3.80-5.20) Mil/uL Hgb 9.2 L (12.0-16.0) g/dL Hct 31.1 L (34.0-47.0) % MCV 92.1 D (81.0-99.0) fl MCH 27.4 (27.0-31.0) pg MCHC 29.7 L (33.0-37.0) g/dL RDW 24.1 H (11.5-14.5) % Plt Count 462 H D (130-400) K/uL MPV 9.3 (7.2-11.7) fl Neut % (Auto) 87.9 H (50.0-75.0) % Lymph % (Auto) 5.9 L (20.0-40.0) % [place] % (Auto) 4.6 (0.0-10.0) % Eos % (Auto) 1.2 (0.0-4.0) % Baso % (Auto) 0.4 (0.0-2.0) % Neut # 15.8 H (1.8-7.0) K/uL Lymph # 1.1 (1.0-4.3) K/uL [place] # 0.8 (0.0-0.8) K/uL Eos # 0.2 (0.0-0.7) K/uL Baso # 0.1 (0.0-0.2) K/uL Sodium 141 (132-148) mmol/l Potassium 3.7 (3.6-5.0) MMOL/L Chloride 112 H (98-107) mmol/L Carbon Dioxide 19 L (22-30) mmol/L Anion Gap 14 (10-20) BUN 11 (7-17) mg/dl Creatinine 0.4 L (0.7-1.2) mg/dL Est GFR ( Amer) > 60 Est GFR (Non-Af Amer) > 60 Random Glucose 93 (65-105) mg/dL Calcium 8.7 (8.4-10.2) mg/dL Laboratory Results - last 24 hr 03/28/17 03/28/17 09:45 09:45 WBC 18.0 H RBC 3.38 L Hgb 9.2 L Hct 31.1 L MCV 92.1 D MCH 27.4 MCHC 29.7 L RDW 24.1 H Plt Count 462 H D MPV 9.3 Neut % (Auto) 87.9 H Lymph % (Auto) 5.9 L [place] % (Auto) 4.6 Eos % (Auto) 1.2 Baso % (Auto) 0.4 Neut # 15.8 H Lymph # 1.1 [place] # 0.8 Eos # 0.2 Baso # 0.1 Sodium 141 Potassium 3.7 Chloride 112 H Carbon Dioxide 19 L Anion Gap 14 BUN 11 Creatinine 0.4 L Est GFR ( Amer) > 60 Est GFR (Non-Af Amer) > 60 Random Glucose 93 Calcium 8.7 Fingerstick Blood Sugar Results: 147 Critical Care Progress Note - Nutrition Nutrition: Nutrition Category Date Time Status Heart Healthy Diet [DIET] Diets 03/28/17 Lunch Active Assessment/Plan - Assessment and Plan (Free Text) Assessment: 1. S/p Fall at Home 2 days prior to hospital admission with resultant R SDH and midline shift, underwent SDH evacuation yesterday. 2. 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 3. Chronic Disease Anemia 4. Mild Hyperkalemia on Admission Plan: 1. Stable post-op status; continue Neuro observation in ICU. HOB elevation, seizure precautions. 2. SCDs for DVT prophylaxis, start Pepcid fro Stress Ulcer prx. 3. IVF hydration with NSS 4. Keep Systolic BPs below 140-150 range. Labetalol ordered PRN. 5. Hold AC for now post-op, check serial PT, INR, PTT. 6. Watch Platelet counts, Hematology eval noted, possible Hydroxyurea to keep counts low for now until Warfarin can be safely resumed weeks later or as directed by NeuroSurg.
--- NOTE | 2017-03-28 15:43 | CP.PCM.PN ---
Subjective - Date & Time of Evaluation Date of Evaluation: 03/28/17 Time of Evaluation: 12:30 - Subjective Subjective: F/U S/P Right side SHD evacuation. Pt awake, stable post op, no A/D, c/o of R facial pain. Objective - Vital Signs/Intake and Output Vital Signs (last 24 hours): Temp Pulse Resp BP Pulse Ox 99.1 F 95 H 21 149/91 H 96 03/28/17 12:00 03/28/17 15:00 03/28/17 15:00 03/28/17 15:00 03/28/17 15:00 Intake and Output: 03/28/17 03/28/17 06:59 18:59 Intake Total 1185 615 Output Total 800 400 Balance 385 215 - Medications Medications: Current Medications Acetaminophen (Tylenol 325mg Tab) 325 mg PO Q6 PRN PRN Reason: Pain, moderate (4-7) Last Admin: 03/28/17 09:29 Dose: 325 mg Famotidine (Pepcid) 20 mg IVP Q12 DENIS Last Admin: 03/28/17 08:35 Dose: 20 mg Hydromorphone HCl (Dilaudid) 1 mg IVP Q4 DENIS Last Admin: 03/28/17 12:29 Dose: 1 mg Hydroxyurea (Hydrea) 500 mg PO TID DENIS Morphine Sulfate (Morphine Immediate Release Tab) 30 mg PO TID DENIS Ondansetron HCl (Zofran Inj) 4 mg IVP Q6 PRN PRN Reason: Nausea/Vomiting Last Admin: 03/28/17 11:02 Dose: 4 mg Polyethylene Glycol (Miralax) 17 gm PO DAILY DENIS - Labs Labs: 03/28/17 09:45 03/28/17 09:45 PT 14.6 Seconds (9.8-13.1) H 03/27/17 12:44 INR 1.3 (0.9-1.2) H 03/27/17 12:44 APTT 32.3 Seconds (25.6-37.1) 03/27/17 08:20 - Constitutional Appears: No Acute Distress - Head Exam Additional comments: R sided temporal dressing in place. - Eye Exam Eye Exam: PERRL Additional comments: Bal in left upper and lower eye and chin - ENT Exam Additional comments: Ecchymosis L face. - Neck Exam Neck Exam: Normal Inspection - Respiratory Exam Respiratory Exam: NORMAL BREATHING PATTERN - Cardiovascular Exam Cardiovascular Exam: REGULAR RHYTHM - GI/Abdominal Exam GI & Abdominal Exam: Soft, Normal Bowel Sounds - Extremities Exam Additional comments: Hematoma L hip - Neurological Exam Additional comments: Confused, moves all extremities, responsive to verbal stimuli, obey commands - Psychiatric Exam Psychiatric exam: Normal Mood - Skin Skin Exam: Warm Assessment and Plan (1) S/P evacuation of subdural hematoma Assessment & Plan: R sided. Status: Acute (2) Status post fall Status: Acute (3) Thrombocytosis Status: Acute (4) Altered mental status Status: Acute - Assessment and Plan (Free Text) Plan: Begins Hydrea 500 mg po tid, Morphine 30mg tid, Coumadin has to be on hold x 2 weeks according to Neurosurgeon ICU Time: 40 min.
[2017-03-28] MEDS: Morphine 15 mg Immediate Release Tab PO SCH ×2 (16:30→20:55)
--- NOTE | 2017-03-28 17:47 | OP ---
PROCEDURE DATE: 03/27/2017 PREOPERATIVE DIAGNOSIS: Large right hemispheric acute subdural hematoma. POSTOPERATIVE DIAGNOSIS: Large right hemispheric acute subdural hematoma. PROCEDURE: Right frontotemporal craniotomy and evacuation of subdural hematoma. SURGEON: Bebeto Murry MD TYPE OF ANESTHESIA: General endotracheal. ESTIMATED BLOOD LOSS: 75 mL. COMPLICATIONS: None. JUSTIFICATION: The patient is a 56-year-old lady, on Coumadin, who fell off a ladder, struck her head, was found unresponsive, brought to the [facility], was found to have an enormous right hemispheric subdural with significant mass effect and midline shift. Unfortunately, her INR was 2 and required multiple rounds of vitamin K and 4 units of FFP to correct her down to an INR of 1.3, which was still not optimal, but too much time had gone by, and it was recommended to the patient and family that she undergo operative evacuation of the subdural. The nature of this procedure, the rationale behind it, potential risks, complications, and chance of success were discussed with them at length. All questions were answered. They fully understood to the above and agreed to proceed. DESCRIPTION OF PROCEDURE: The patient was taken to the operating room. She was intubated, anesthetized, placed on the OR table in the supine position. The head placed on the donut and elevated and turned maximally to the left. The right side of the patient's head was hair clipped, scrubbed, prepped and draped in the usual sterile manner. A typical trauma flap (?) incision was traced out, just above the tragus, heading somewhat posteriorly, then superiorly and medially towards the frontal region. This was insufflated with lidocaine. The incision was made with a 10-bladed knife and carried down to the level of the calvarium and the temporalis fascia. Skin bleeding was controlled with bipolar cautery and then Franc clips. The Bovie was then used to incise the temporalis and the periosteum and take down the myocutaneous flap anteriorly, which was fixated in place with towel clips, rubber bands and Allis'. The technical communication teacher was used to place 4 ash holes in the periphery. The dura was reflected off the inner table. The craniotome was then used to elevate this flap. A rongeur was then used to remove some of the inferior temporal bone. Bleeding was controlled with bone wax and thrombinated Gelfoam. The dura was then opened in a curvilinear fashion and flapped inferiorly. *------* was huge solid clot. This was then evacuated using [place]an forceps with suction and irrigation. Significant amount of clot had to be removed under the surrounding calvarium in all directions, heading all the way to the anterior frontal region, then down towards the temporal floor posteriorly towards the occipital region, and superiorly towards the midline. When all clot was removed, the entire area was copiously irrigated with antibiotic solution which returned clear. A couple of small ballooning points were noted along the cortex. At this point, a red rubber catheter with some additional holes cut into it was then placed in the subdural space, tunneled out through one of the posterior ash holes, a separate stab incision. Then, the dura was reapproximated using interrupted 4-0 Ethilon, several attacking sutures were placed direct to the surrounding calvarium to prevent epidural hematoma. A layer of FloSeal surrounded the edges and followed by placement of a solid piece of Gelfoam in the epidural space. The bone flap was then reapproximated using 4 CranioFix type plates. It was ensured that the subdural catheter was free in the ash hole and could be passed to and fro easily. That ash hole was then filled with Gelfoam. The temporalis was then reapproximated using interrupted 2-0 Vicryl, the galea was closed using inverted interrupted 3-0 Vicryl, and the skin closed with yocasta. Bacitracin ointment and a self-adhering dressing was placed. The subdural drain was then connected to a passive Child drainage system. The patient was then aroused from anesthesia, extubated without difficulty with following commands and moving all [address] back to the ICU. All counts were correct. No complications. Bebeto Murry MD
--- NOTE | 2017-03-29 06:01 | CT ---
EXAM: CT Head Without Intravenous Contrast CLINICAL HISTORY: 56 years old, female; Condition or disease; Other: Follow up; Prior surgery; Surgery date: Post-operative (0-2 days); Additional info: F/u sdh TECHNIQUE: Axial computed tomography images of the head/brain without intravenous contrast. This CT exam was performed using one or more of the following dose reduction techniques: automated exposure control, adjustment of the mA and/or kV according to patient size, and/or use of iterative reconstruction technique. Coronal and sagittal reformatted images were created and reviewed. COMPARISON: CT - HEAD W/O CONTRAST 03/26/2017 7:45:00 PM FINDINGS: Brain: Postoperative change is identified within the right cerebral hemisphere, with post craniotomy findings, pneumocephalus, and increased attenuation within a subdural position. Midline shift is again identified without uncal herniation. A single drain is coiled beneath the cranium, along with skin yocasta in the overlying scalp. Marked edema persists, with mass effect on the right lateral ventricle. The largest subdural focus of increased attenuation measures 11 mm (series 4, image 41). Ventricles: As above. Bones: As above. Sinuses: Unremarkable as visualized. No acute sinusitis. Mastoid air cells: Unremarkable as visualized. No mastoid effusion. IMPRESSION: Postoperative change, as detailed above.
[2017-03-29] MEDS ORDERED: Povidone Iodine Topical 10% Sol ONE (07:07)
[2017-03-29 07:20] LABS: BASO # 0.1 K/uL (0.0-0.2); BASO % 0.8 % (0.0-2.0); EOS # 0.2 K/uL (0.0-0.7); EOS % 1.1 % (0.0-4.0); HEMOGLOBIN 9.1 g/dL (12.0-16.0); LYMPH # 1.3 K/uL (1.0-4.3); LYMPH % 7.6 % (20.0-40.0); MEAN CELL VOLUME 90.5 fl (81.0-99.0); MEAN CORPUSCULAR HEMOGLOBIN 26.9 pg (27.0-31.0); MEAN CORPUSCULAR HGB CONC 29.7 g/dL (33.0-37.0); MEAN PLATELET VOLUME 9.7 fl (7.2-11.7); MONO # 1.1 K/uL (0.0-0.8); MONO % 6.3 % (0.0-10.0); NEUT # 14.8 K/uL (1.8-7.0); NEUT % 84.2 % (50.0-75.0); NRBC % 10.1 % (0.0-0.0); RBC 3.37 Mil/uL (3.80-5.20); RED CELL DISTRIBUTION WIDTH 24.4 % (11.5-14.5); WHITE BLOOD COUNT 17.6 K/uL (4.8-10.8)
[2017-03-29] MEDS ORDERED: Bacitracin OINT 15GM TOP ONE (07:23)
[2017-03-29 07:25] LABS: BLOOD UREA NITROGEN 12 mg/dl (7-17); CALCIUM 8.7 mg/dL (8.4-10.2); GFR AFRICAN-AMERICAN > 60; GFR NON-AFRICAN AMERICAN > 60
[2017-03-29] MEDS: HYDROmorphone 0.5 mg/0.5 ml ISec IVP PRN (07:47)
[2017-03-29] MEDS: POLYETHYLENE GLYCOL 3350 17 GM/Dose PACKET PO SCH (08:49)
[2017-03-29] MEDS ORDERED: Potassium Chloride 20 mEq ER Tab PO ONE (11:44)
[2017-03-29] MEDS: Morphine 15 mg Immediate Release Tab PO SCH ×3 (15:57→21:04)
--- NOTE | 2017-03-29 21:38 | CP.PCM.PN ---
Subjective - Date & Time of Evaluation Date of Evaluation: 03/29/17 Time of Evaluation: 11:00 - Subjective Subjective: S/P R Frontotemporal Craniotomy Reported by nurse, Pt answering questions most of the time but at times confused , Therapist mention Pt still unstable may require PT also Pt c/o now of headache in b/l side of head. ICU Time: 38 min. Objective - Vital Signs/Intake and Output Vital Signs (last 24 hours): Temp Pulse Resp BP Pulse Ox 99.9 F H 76 21 144/78 96 03/29/17 16:00 03/29/17 18:00 03/29/17 18:00 03/29/17 18:00 03/29/17 18:00 Intake and Output: 03/29/17 03/30/17 18:59 06:59 Intake Total 490 Output Total 250 Balance 240 - Medications Medications: Current Medications Acetaminophen (Tylenol 325mg Tab) 650 mg PO Q6 PRN PRN Reason: Pain, moderate (4-7) Last Admin: 03/29/17 20:21 Dose: 650 mg Famotidine (Pepcid) 20 mg IVP Q12 [facility] Last Admin: 03/29/17 21:05 Dose: 20 mg Hydromorphone HCl (Dilaudid) 1 mg IVP Q4 PRN PRN Reason: Pain, severe (8-10) Last Admin: 03/29/17 07:47 Dose: 1 mg Hydroxyurea (Hydrea) 500 mg PO TID [facility] Last Admin: 03/29/17 16:37 Dose: 500 mg Morphine Sulfate (Morphine Immediate Release Tab) 30 mg PO TID@0900,1700,2100 [facility] Last Admin: 03/29/17 21:04 Dose: 30 mg Ondansetron HCl (Zofran Inj) 4 mg IVP Q6 PRN PRN Reason: Nausea/Vomiting Last Admin: 03/29/17 05:13 Dose: 4 mg Polyethylene Glycol (Miralax) 17 gm PO DAILY [facility] Last Admin: 03/29/17 08:49 Dose: 17 gm - Labs Labs: 03/29/17 05:30 03/29/17 05:30 PT 14.6 Seconds (9.8-13.1) H 03/27/17 12:44 INR 1.3 (0.9-1.2) H 03/27/17 12:44 APTT 32.3 Seconds (25.6-37.1) 03/27/17 08:20 - Constitutional Appears: No Acute Distress - Head Exam Additional comments: R side temporal dressing in place - Eye Exam Eye Exam: EOMI, PERRL - ENT Exam ENT Exam: Normal Oropharynx - Neck Exam Neck Exam: Normal Inspection - Respiratory Exam Respiratory Exam: NORMAL BREATHING PATTERN - Cardiovascular Exam Cardiovascular Exam: REGULAR RHYTHM - GI/Abdominal Exam GI & Abdominal Exam: Soft, Normal Bowel Sounds - Extremities Exam Additional comments: Hematoma L hip - Neurological Exam Neurological Exam: Awake, Oriented x3 Additional comments: No focal deficit. - Psychiatric Exam Psychiatric exam: Normal Mood (Calm.) - Skin Skin Exam: Warm Assessment and Plan (1) S/P evacuation of subdural hematoma Status: Acute (2) Status post fall Status: Acute (3) Thrombocytosis Status: Acute (4) Altered mental status Status: Acute - Assessment and Plan (Free Text) Plan: Neurosurgeon clear Pt for discharge, WBC still elevated, Physical condition is unstable, may need ANTOINETTE.
[2017-03-30] MEDS: HYDROmorphone 0.5 mg/0.5 ml ISec IVP PRN ×2 (05:24→15:13)
[2017-03-30] MEDS: POLYETHYLENE GLYCOL 3350 17 GM/Dose PACKET PO SCH (08:18)
[2017-03-30] MEDS: Morphine 15 mg Immediate Release Tab PO SCH ×3 (08:20→20:40)
[2017-03-30 08:22] LABS: MEAN CELL VOLUME 90.9 fl (81.0-99.0); MEAN CORPUSCULAR HGB CONC 29.7 g/dL (33.0-37.0); RBC 3.72 Mil/uL (3.80-5.20); RED CELL DISTRIBUTION WIDTH 25.5 % (11.5-14.5); WHITE BLOOD COUNT 14.6 K/uL (4.8-10.8)
[2017-03-30 08:42] LABS: INR 1.1 (0.9-1.2); PARTIAL THROMBOPLASTIN TIME 19.1 Seconds (25.6-37.1); PROTHROMBIN TIME 12.5 Seconds (9.8-13.1)
[2017-03-30 08:54] LABS: BLOOD UREA NITROGEN 10 mg/dl (7-17); CALCIUM 8.5 mg/dL (8.4-10.2); GFR AFRICAN-AMERICAN > 60; GFR NON-AFRICAN AMERICAN > 60
--- NOTE | 2017-03-30 15:47 | CP.CCUPN ---
CCU Subjective - Physician Review Events Since Last Encounter (Free Text): Awake and alert, c/o intermittent headache, on Morphine PO ( home dose) and Dilaudid prn, c/o constipation, no abdominal pain, no vomiting; denies any CP, SOB, no fever spikes. ROS: as above, other 10+ system review did not reveal any new pertinent negs or positives. Other PMSFH: All recent nursing and physician documentation reviewed and no new information noted relevant to current problems. Assessment: 1. S/p Fall at Home 2 days prior to hospital admission with resultant R SDH and midline shift, underwent SDH evacuation, POD # 4 2. h/o Thrombocythemia with thromboses, was on AC, now on hold due to STUDIO HAND Bleed. 3. Chronic Disease Anemia 4. Mild Hyperkalemia on Admission Plan: 1. Stable post-op status; continue Neuro observation in ICU. HOB elevation, seizure precautions. Reepat CT Head done yesterday results reviewed. 2. Off IVFs, resume PO Lasix. 3. Keep Systolic BPs below 140-150 range. Labetalol ordered PRN. 4. AC held for now post-op, check serial PT, INR, PTT. 5. Watch Platelet counts, Hematology eval noted, possible Hydroxyurea to keep counts low for now until Warfarin can be safely resumed weeks later or as directed by NeuroSurg. CCU Objective - Vital Signs / Intake & Output Vital Signs (Last 4 hours): Vital Signs Temp Pulse Resp BP Pulse Ox 03/30/17 14:00 77 18 165/95 H 96 03/30/17 12:00 99 F 70 18 155/89 H 96 Intake and Output (Last 8hrs): Intake & Output 03/30/17 03/30/17 03/30/17 06:59 14:59 22:59 Intake Total 220 240 Output Total 400 Balance -180 240 Intake: IV 0 Oral 220 240 Output: Urine 400 Urine, Voided 400 Other: # Voids Urine, Voided 1 - Physical Exam Head: Positive for: Other (Right sided temporal dressings intact, drain intact.) Pupils: Positive for: PERRL Extroacular Muscles: Positive for: EOMI Conjunctiva: Positive for: Normal. Negative for: Icteric Mouth: Positive for: Moist Mucous Membranes Pharnyx: Positive for: Normal Neck: Positive for: Normal Range of Motion. Negative for: JVD Respiratory/Chest: Positive for: Clear to Auscultation. Negative for: Accessory Muscle Use Cardiovascular: Positive for: Regular Rate and Rhythm, Tachycardic Abdomen: Positive for: Normal Bowel Sounds. Negative for: Tenderness, Distention Lower Extremity: Positive for: Normal Inspection, NORMAL PULSES. Negative for: Edema, CALF TENDERNESS Neurological: Positive for: GCS=15, CN II-XII Intact, Speech Normal, Motor Func Grossly Intact Skin: Positive for: Warm. Negative for: Rashes Psychiatric: Positive for: Alert, Oriented x 3, Normal Insight, Normal Concentration, Normal Affect - Medications Active Medications: Active Medications Generic Name Dose Route Start Last Admin Trade Name Freq PRN Reason Stop Dose Admin Acetaminophen 650 mg 03/28/17 21:05 03/30/17 07:00 Tylenol 325mg Tab PO 650 mg Q6 PRN Administration Pain, moderate (4-7) Famotidine 20 mg 03/27/17 13:00 03/30/17 08:22 Pepcid IVP 20 mg Q12 DENIS Administration Furosemide 40 mg 03/30/17 15:45 Lasix PO DAILY DENIS Hydromorphone HCl 1 mg 03/28/17 16:09 03/30/17 15:13 Dilaudid IVP 1 mg Q4 PRN Administration Pain, severe (8-10) Hydroxyurea 500 mg 03/28/17 17:00 03/30/17 12:16 Hydrea PO 500 mg TID DENIS Administration Lactulose 20 gm 03/30/17 11:15 03/30/17 12:15 Enulose PO 20 gm DAILY DENIS Administration Morphine Sulfate 30 mg 03/29/17 09:00 03/30/17 08:20 Morphine Immediate Release Tab PO 30 mg TID@0900,1700,2100 DENIS Administration Ondansetron HCl 4 mg 03/28/17 10:33 03/30/17 13:14 Zofran Inj IVP 4 mg Q6 PRN Administration Nausea/Vomiting - Patient Studies Lab Studies: Lab Studies 03/30/17 03/30/17 03/30/17 Range/Units 05:30 05:30 05:30 WBC 14.6 H (4.8-10.8) K/uL RBC 3.72 L (3.80-5.20) Mil/uL Hgb 10.0 L (12.0-16.0) g/dL Hct 33.8 L (34.0-47.0) % MCV 90.9 (81.0-99.0) fl MCH 27.0 (27.0-31.0) pg MCHC 29.7 L (33.0-37.0) g/dL RDW 25.5 H (11.5-14.5) % Plt Count 376 (130-400) K/uL PT 12.5 (9.8-13.1) Seconds INR 1.1 (0.9-1.2) APTT 19.1 L D (25.6-37.1) Seconds Sodium 142 (132-148) mmol/l Potassium 3.5 L (3.6-5.0) MMOL/L Chloride 110 H (98-107) mmol/L Carbon Dioxide 24 (22-30) mmol/L Anion Gap 12 (10-20) BUN 10 (7-17) mg/dl Creatinine 0.4 L (0.7-1.2) mg/dL Est GFR ( Amer) > 60 Est GFR (Non-Af Amer) > 60 Random Glucose 94 (65-105) mg/dL Calcium 8.5 (8.4-10.2) mg/dL Laboratory Results - last 24 hr 03/30/17 03/30/17 03/30/17 05:30 05:30 05:30 WBC 14.6 H RBC 3.72 L Hgb 10.0 L Hct 33.8 L MCV 90.9 MCH 27.0 MCHC 29.7 L RDW 25.5 H Plt Count 376 PT 12.5 INR 1.1 APTT 19.1 L D Sodium 142 Potassium 3.5 L Chloride 110 H Carbon Dioxide 24 Anion Gap 12 BUN 10 Creatinine 0.4 L Est GFR ( Amer) > 60 Est GFR (Non-Af Amer) > 60 Random Glucose 94 Calcium 8.5 Fingerstick Blood Sugar Results: 147 Review of Systems - Review of Systems Review of Systems: As stated above. Critical Care Progress Note - Nutrition Nutrition: Nutrition Category Date Time Status Heart Healthy Diet [DIET] Diets 03/28/17 Lunch Active
--- NOTE | 2017-03-30 16:18 | CP.PCM.PN ---
Subjective - Date & Time of Evaluation Date of Evaluation: 03/30/17 Time of Evaluation: 14:00 - Subjective Subjective: S/P R frontatemporal Craniotomy. Pt c/o of generalized headache and minimal R facial pain Objective - Vital Signs/Intake and Output Vital Signs (last 24 hours): Temp Pulse Resp BP Pulse Ox 99 F 77 18 165/95 H 96 03/30/17 12:00 03/30/17 14:00 03/30/17 14:00 03/30/17 14:00 03/30/17 14:00 Intake and Output: 03/30/17 03/30/17 06:59 18:59 Intake Total 580 240 Output Total 700 Balance -120 240 - Medications Medications: Current Medications Acetaminophen (Tylenol 325mg Tab) 650 mg PO Q6 PRN PRN Reason: Pain, moderate (4-7) Last Admin: 03/30/17 07:00 Dose: 650 mg Famotidine (Pepcid) 20 mg IVP Q12 [facility] Last Admin: 03/30/17 08:22 Dose: 20 mg Furosemide (Lasix) 40 mg PO DAILY [facility] Hydroxyurea (Hydrea) 500 mg PO TID [facility] Last Admin: 03/30/17 12:16 Dose: 500 mg Lactulose (Enulose) 20 gm PO DAILY [facility] Last Admin: 03/30/17 12:15 Dose: 20 gm Morphine Sulfate (Morphine Immediate Release Tab) 30 mg PO TID@0900,1700,2100 [facility] Last Admin: 03/30/17 08:20 Dose: 30 mg Ondansetron HCl (Zofran Inj) 4 mg IVP Q6 PRN PRN Reason: Nausea/Vomiting Last Admin: 03/30/17 13:14 Dose: 4 mg Oxycodone/Acetaminophen (Percocet 5/325 Mg Tab) 2 tab PO Q6 PRN PRN Reason: Pain, moderate (4-7) Stop: 04/02/17 15:58 - Labs Labs: 03/30/17 05:30 03/30/17 05:30 PT 12.5 Seconds (9.8-13.1) 03/30/17 05:30 INR 1.1 (0.9-1.2) 03/30/17 05:30 APTT 19.1 Seconds (25.6-37.1) L D 03/30/17 05:30 - Constitutional Appears: No Acute Distress - Head Exam Additional comments: R side temporal area dressing in place. - Eye Exam Eye Exam: EOMI, PERRL - ENT Exam ENT Exam: Normal Oropharynx - Neck Exam Neck Exam: Normal Inspection - Respiratory Exam Respiratory Exam: NORMAL BREATHING PATTERN - Cardiovascular Exam Cardiovascular Exam: REGULAR RHYTHM - GI/Abdominal Exam GI & Abdominal Exam: Soft, Normal Bowel Sounds - Extremities Exam Additional comments: Hematoma L hip - Neurological Exam Neurological Exam: Alert, Oriented x3 Additional comments: No focal motor sensory deficit. - Psychiatric Exam Psychiatric exam: Normal Mood - Skin Skin Exam: Warm Assessment and Plan (1) S/P evacuation of subdural hematoma Status: Acute (2) Status post fall Status: Acute (3) Thrombocytosis Status: Acute (4) Altered mental status Status: Acute - Assessment and Plan (Free Text) Plan: Continue Morphine, Tylenol, Dilaudid and rest of Tx. ICU Time: 40 min.
--- NOTE | 2017-03-31 02:19 | CP.PCM.PN ---
Subjective - Date & Time of Evaluation Date of Evaluation: 03/28/17 Time of Evaluation: 17:00 - Subjective Subjective: Has some headache s/p SDH evacuation Objective - Vital Signs/Intake and Output Vital Signs (last 24 hours): Temp Pulse Resp BP Pulse Ox 99.5 F 60 15 133/72 92 L 03/31/17 00:00 03/31/17 02:00 03/31/17 02:00 03/31/17 02:00 03/31/17 02:00 Intake and Output: 03/30/17 03/31/17 18:59 06:59 Intake Total 240 460 Output Total 400 1650 Balance -160 -1190 - Medications Medications: Current Medications Acetaminophen (Tylenol 325mg Tab) 650 mg PO Q6 PRN PRN Reason: Pain, moderate (4-7) Last Admin: 03/31/17 00:59 Dose: 650 mg Famotidine (Pepcid) 20 mg IVP Q12 [facility] Last Admin: 03/30/17 20:42 Dose: 20 mg Furosemide (Lasix) 40 mg PO DAILY [facility] Last Admin: 03/30/17 16:45 Dose: 40 mg Hydroxyurea (Hydrea) 500 mg PO TID [facility] Last Admin: 03/30/17 16:44 Dose: 500 mg Lactulose (Enulose) 20 gm PO DAILY [facility] Last Admin: 03/30/17 12:15 Dose: 20 gm Morphine Sulfate (Morphine Immediate Release Tab) 30 mg PO TID@0900,1700,2100 [facility] Last Admin: 03/30/17 20:40 Dose: 30 mg Ondansetron HCl (Zofran Inj) 4 mg IVP Q6 PRN PRN Reason: Nausea/Vomiting Last Admin: 03/30/17 13:14 Dose: 4 mg Oxycodone/Acetaminophen (Percocet 5/325 Mg Tab) 2 tab PO Q6 PRN PRN Reason: Pain, moderate (4-7) Stop: 04/02/17 15:58 - Labs Labs: 03/30/17 05:30 03/30/17 05:30 PT 12.5 Seconds (9.8-13.1) 03/30/17 05:30 INR 1.1 (0.9-1.2) 03/30/17 05:30 APTT 19.1 Seconds (25.6-37.1) L D 03/30/17 05:30 - Eye Exam Eye Exam: Normal appearance - ENT Exam ENT Exam: Mucous Membranes Dry - Respiratory Exam Respiratory Exam: NORMAL BREATHING PATTERN - Cardiovascular Exam Cardiovascular Exam: +S1, +S2 - GI/Abdominal Exam GI & Abdominal Exam: Normal Bowel Sounds - Extremities Exam Extremities Exam: Normal Inspection Assessment and Plan (1) Subdural hematoma Assessment & Plan: s/p evacuation Status: Deleted (2) Coagulopathy Assessment & Plan: secondary to coumadin s/p vit k and ffp Status: Acute (3) Anemia Assessment & Plan: mild on hydrea Status: Acute (4) Essential thrombocythemia Assessment & Plan: on hydrea anticogulation on hold Status: Acute
--- NOTE | 2017-03-31 02:20 | CP.PCM.PN ---
Subjective - Date & Time of Evaluation Date of Evaluation: 03/29/17 Time of Evaluation: 18:00 - Subjective Subjective: Feeling better, less headache Objective - Vital Signs/Intake and Output Vital Signs (last 24 hours): Temp Pulse Resp BP Pulse Ox 99.5 F 60 15 133/72 92 L 03/31/17 00:00 03/31/17 02:00 03/31/17 02:00 03/31/17 02:00 03/31/17 02:00 Intake and Output: 03/30/17 03/31/17 18:59 06:59 Intake Total 240 460 Output Total 400 1650 Balance -160 -1190 - Medications Medications: Current Medications Acetaminophen (Tylenol 325mg Tab) 650 mg PO Q6 PRN PRN Reason: Pain, moderate (4-7) Last Admin: 03/31/17 00:59 Dose: 650 mg Famotidine (Pepcid) 20 mg IVP Q12 [facility] Last Admin: 03/30/17 20:42 Dose: 20 mg Furosemide (Lasix) 40 mg PO DAILY [facility] Last Admin: 03/30/17 16:45 Dose: 40 mg Hydroxyurea (Hydrea) 500 mg PO TID [facility] Last Admin: 03/30/17 16:44 Dose: 500 mg Lactulose (Enulose) 20 gm PO DAILY [facility] Last Admin: 03/30/17 12:15 Dose: 20 gm Morphine Sulfate (Morphine Immediate Release Tab) 30 mg PO TID@0900,1700,2100 [facility] Last Admin: 03/30/17 20:40 Dose: 30 mg Ondansetron HCl (Zofran Inj) 4 mg IVP Q6 PRN PRN Reason: Nausea/Vomiting Last Admin: 03/30/17 13:14 Dose: 4 mg Oxycodone/Acetaminophen (Percocet 5/325 Mg Tab) 2 tab PO Q6 PRN PRN Reason: Pain, moderate (4-7) Stop: 04/02/17 15:58 - Labs Labs: 03/30/17 05:30 03/30/17 05:30 PT 12.5 Seconds (9.8-13.1) 03/30/17 05:30 INR 1.1 (0.9-1.2) 03/30/17 05:30 APTT 19.1 Seconds (25.6-37.1) L D 03/30/17 05:30 - Eye Exam Eye Exam: Normal appearance - ENT Exam ENT Exam: Mucous Membranes Dry - Respiratory Exam Respiratory Exam: NORMAL BREATHING PATTERN - Cardiovascular Exam Cardiovascular Exam: +S1, +S2 - GI/Abdominal Exam GI & Abdominal Exam: Normal Bowel Sounds - Extremities Exam Extremities Exam: Normal Inspection Assessment and Plan (1) Subdural hematoma Assessment & Plan: s/p evacuation Status: Deleted (2) Coagulopathy Assessment & Plan: secondary to anticoagulation s/p vit K and ffp Status: Acute (3) Anemia Assessment & Plan: mild on hydrea Status: Acute (4) Essential thrombocythemia Assessment & Plan: on hydrea anticoagulation on hold Status: Acute
[2017-03-31 05:25] LABS: HEMOGLOBIN 11.1 g/dL (12.0-16.0); MEAN CORPUSCULAR HGB CONC 30.2 g/dL (33.0-37.0); RBC 4.1 Mil/uL (3.80-5.20); RED CELL DISTRIBUTION WIDTH 24.7 % (11.5-14.5)
[2017-03-31 05:40] LABS: WHITE BLOOD COUNT 17.3 K/uL (4.8-10.8)
[2017-03-31 05:41] LABS: MEAN CELL VOLUME 89.5 fl (81.0-99.0)
[2017-03-31 05:49] LABS: BLOOD UREA NITROGEN 6 mg/dl (7-17); CALCIUM 9.2 mg/dL (8.4-10.2); GFR AFRICAN-AMERICAN > 60; GFR NON-AFRICAN AMERICAN > 60
[2017-03-31] MEDS ORDERED: Potassium Chloride 20 mEq ER Tab PO ONE (08:43)
[2017-03-31] MEDS: Morphine 15 mg Immediate Release Tab PO SCH ×3 (09:02→22:55)
--- NOTE | 2017-03-31 09:34 | CP.CCUPN ---
CCU Subjective - Physician Review Events Since Last Encounter (Free Text): 03/31/17 10:44 The patient was Seen/interviewed and examined by me at the bedside during ICU round, Medical records reviewed and Management issues were discussed and formulated with the house staff. 56 years old female with PMHx of Essential Thrombocythemia and Portal vein thrombosis, on Coumadin and recent admission for cellulitis, who was admitted after a fall from a ladder at home hitting her head, she found to have R SDH and midline shift, She underwent R frontatemporal Craniotomy and SDH evacuation 03/27. Pt Awake and alert, Comfortable, NAD, Only c/o intermittent headache, controlled with IV toradol and Tylenol, she is also on percocet. No other new complains Neurologically stable for transfer out of ICU. 03/31/17 11:01 Seen by physical therapy, ambulated with a walker. CCU Objective - Vital Signs / Intake & Output Vital Signs (Last 4 hours): Vital Signs Temp Pulse Resp BP Pulse Ox 03/31/17 09:03 145/84 03/31/17 08:00 98.9 F 61 14 141/75 96 03/31/17 06:00 68 22 149/76 95 Intake and Output (Last 8hrs): Intake & Output 03/30/17 03/31/17 03/31/17 22:59 06:59 14:59 Intake Total 360 100 Output Total 2050 300 Balance -1690 -200 Intake: IV 0 Oral 360 100 Output: Urine 2050 300 Urine, Voided 2050 300 Other: # Voids Urine, Voided 1 1 # Bowel Movements 1 - Physical Exam Head: Positive for: Other (Right sided temporal dressings intact, drain intact.) Pupils: Positive for: PERRL Extroacular Muscles: Positive for: EOMI Conjunctiva: Positive for: Normal. Negative for: Icteric Mouth: Positive for: Moist Mucous Membranes Pharnyx: Positive for: Normal Neck: Positive for: Normal Range of Motion. Negative for: JVD Respiratory/Chest: Positive for: Clear to Auscultation. Negative for: Accessory Muscle Use Cardiovascular: Positive for: Regular Rate and Rhythm, Tachycardic Abdomen: Positive for: Normal Bowel Sounds. Negative for: Tenderness, Distention Lower Extremity: Positive for: Normal Inspection, NORMAL PULSES. Negative for: Edema, CALF TENDERNESS Neurological: Positive for: GCS=15, CN II-XII Intact, Speech Normal, Motor Func Grossly Intact Skin: Positive for: Warm. Negative for: Rashes Psychiatric: Positive for: Alert, Oriented x 3, Normal Insight, Normal Concentration, Normal Affect - Medications Active Medications: Active Medications Generic Name Dose Route Start Last Admin Trade Name Freq PRN Reason Stop Dose Admin Acetaminophen 650 mg 03/28/17 21:05 03/31/17 00:59 Tylenol 325mg Tab PO 650 mg Q6 PRN Administration Pain, moderate (4-7) Famotidine 20 mg 03/27/17 13:00 03/31/17 09:08 Pepcid IVP 20 mg Q12 DENIS Administration Furosemide 40 mg 03/30/17 15:45 03/31/17 09:03 Lasix PO 40 mg DAILY DENIS Administration Hydroxyurea 500 mg 03/28/17 17:00 03/31/17 09:06 Hydrea PO 500 mg TID DENIS Administration Lactulose 20 gm 03/30/17 11:15 03/31/17 09:25 Enulose PO Not Given DAILY DENIS Morphine Sulfate 30 mg 03/29/17 09:00 03/31/17 09:02 Morphine Immediate Release Tab PO 30 mg TID@0900,1700,2100 DEN[facility] Administration Ondansetron HCl 4 mg 03/28/17 10:33 03/30/17 13:14 Zofran Inj IVP 4 mg Q6 PRN Administration Nausea/Vomiting Oxycodone/Acetaminophen 2 tab 03/30/17 15:57 Percocet 5/325 Mg Tab PO 04/02/17 15:58 Q6 PRN Pain, moderate (4-7) - Patient Studies Lab Studies: Lab Studies 03/31/17 03/31/17 Range/Units 04:35 04:35 WBC 17.3 H (4.8-10.8) K/uL RBC 4.10 (3.80-5.20) Mil/uL Hgb 11.1 L (12.0-16.0) g/dL Hct 36.7 (34.0-47.0) % MCV 89.5 (81.0-99.0) fl MCH 27.0 (27.0-31.0) pg MCHC 30.2 L (33.0-37.0) g/dL RDW 24.7 H (11.5-14.5) % Plt Count 393 (130-400) K/uL Sodium 140 (132-148) mmol/l Potassium 3.2 L (3.6-5.0) MMOL/L Chloride 102 (98-107) mmol/L Carbon Dioxide 31 H (22-30) mmol/L Anion Gap 10 (10-20) BUN 6 L (7-17) mg/dl Creatinine 0.5 L (0.7-1.2) mg/dL Est GFR ( Amer) > 60 Est GFR (Non-Af Amer) > 60 Random Glucose 97 (65-105) mg/dL Calcium 9.2 (8.4-10.2) mg/dL Laboratory Results - last 24 hr 03/31/17 03/31/17 04:35 04:35 WBC 17.3 H RBC 4.10 Hgb 11.1 L Hct 36.7 MCV 89.5 MCH 27.0 MCHC 30.2 L RDW 24.7 H Plt Count 393 Sodium 140 Potassium 3.2 L Chloride 102 Carbon Dioxide 31 H Anion Gap 10 BUN 6 L Creatinine 0.5 L Est GFR ( Amer) > 60 Est GFR (Non-Af Amer) > 60 Random Glucose 97 Calcium 9.2 Fingerstick Blood Sugar Results: 147 Critical Care Progress Note - Nutrition Nutrition: Nutrition Category Date Time Status Heart Healthy Diet [DIET] Diets 03/28/17 Lunch Active Assessment/Plan (1) S/P evacuation of subdural hematoma Current Visit: Yes Status: Acute (2) Status post fall Current Visit: Yes Status: Acute Priority: High Comment: Seen by physical therapy, ambulated with a walker. (3) Subdural hematoma Current Visit: Yes Status: Acute Priority: High Comment: She underwent R frontatemporal Craniotomy and SDH evacuation 03/27. (4) Essential thrombocythemia Current Visit: No Status: Acute Comment: continue Hydroxyurea 500mg PO TID hold Coumadin due to SDH INR: 1.1 (5) DVT prophylaxis Current Visit: No Status: Acute Comment: Coumadin on hold because of supratherapeutic INR
[2017-03-31] MEDS: Oxycodone/Acetaminophen 5/325 mg Tab PO PRN (12:38)
--- NOTE | 2017-03-31 16:35 | CP.PCM.PN ---
Subjective - Date & Time of Evaluation Date of Evaluation: 03/31/17 Time of Evaluation: 10:00 - Subjective Subjective: F/U S/P Frontotemporal Craniotomy. Pt with headache improved, minor R facial pain. ICU Time:40 min. Objective - Vital Signs/Intake and Output Vital Signs (last 24 hours): Temp Pulse Resp BP Pulse Ox 98.1 F 69 12 121/72 97 03/31/17 16:00 03/31/17 16:00 03/31/17 16:00 03/31/17 16:00 03/31/17 16:00 Intake and Output: 03/31/17 03/31/17 06:59 18:59 Intake Total 460 165 Output Total 1950 350 Balance -1490 -185 - Medications Medications: Current Medications Acetaminophen (Tylenol 325mg Tab) 650 mg PO Q6 PRN PRN Reason: Pain, moderate (4-7) Last Admin: 03/31/17 00:59 Dose: 650 mg Famotidine (Pepcid) 20 mg IVP Q12 [facility] Last Admin: 03/31/17 09:08 Dose: 20 mg Furosemide (Lasix) 40 mg PO DAILY [facility] Last Admin: 03/31/17 09:03 Dose: 40 mg Hydroxyurea (Hydrea) 500 mg PO TID [facility] Last Admin: 03/31/17 09:06 Dose: 500 mg Lactulose (Enulose) 20 gm PO DAILY [facility] Last Admin: 03/31/17 09:25 Dose: Not Given Morphine Sulfate (Morphine Immediate Release Tab) 30 mg PO TID@0900,1700,2100 [facility] Last Admin: 03/31/17 09:02 Dose: 30 mg Ondansetron HCl (Zofran Inj) 4 mg IVP Q6 PRN PRN Reason: Nausea/Vomiting Last Admin: 03/30/17 13:14 Dose: 4 mg Oxycodone/Acetaminophen (Percocet 5/325 Mg Tab) 2 tab PO Q6 PRN PRN Reason: Pain, moderate (4-7) Stop: 04/02/17 15:58 Last Admin: 03/31/17 12:38 Dose: 2 tab - Labs Labs: 03/31/17 04:35 03/31/17 04:35 PT 12.5 Seconds (9.8-13.1) 03/30/17 05:30 INR 1.1 (0.9-1.2) 03/30/17 05:30 APTT 19.1 Seconds (25.6-37.1) L D 03/30/17 05:30 - Constitutional Appears: No Acute Distress - Head Exam Additional comments: R side Temporal area dressing in place - Eye Exam Eye Exam: EOMI, PERRL - ENT Exam ENT Exam: Normal Oropharynx - Neck Exam Neck Exam: Normal Inspection - Respiratory Exam Respiratory Exam: NORMAL BREATHING PATTERN - Cardiovascular Exam Cardiovascular Exam: REGULAR RHYTHM - GI/Abdominal Exam GI & Abdominal Exam: Soft, Normal Bowel Sounds - Extremities Exam Additional comments: Hematoma L hip. - Back Exam Back Exam: NORMAL INSPECTION - Neurological Exam Neurological Exam: Alert, Oriented x3 Additional comments: No focal motor sensory deficit. - Psychiatric Exam Psychiatric exam: Normal Mood - Skin Skin Exam: Warm Assessment and Plan (1) S/P evacuation of subdural hematoma Status: Acute (2) Status post fall Status: Acute (3) Thrombocytosis Status: Acute (4) Altered mental status Status: Acute - Assessment and Plan (Free Text) Plan: Ambulating with walker and PT, Continue Percocet, Morphine,Hydroxyurea , to be transferred out of ICU
--- NOTE | 2017-03-31 18:05 | PN ---
DATE: SUBJECTIVE: Postop day 2. Patient is doing exceptionally well. She has absolutely no problems or complaints at all. She is bright, awake, and alert. Mental status and speech are entirely normal. Moving all extremities. No neurological deficits at all. CT of the brain showed excellent resolution of the acute component of her subdural hematoma. There are some mild vestiges remaining with continued mass effect and shift. I removed her drain without event. My recommendation would be to transfer her up to the floor, physiotherapy, out of bed, ambulation. As soon as she is ambulating decently, she can be discharged from my standpoint. I will see her back in my office in 7 to 10 days. Bebeto Murry MD DT: 03/30/2017 13:22:25
[2017-04-01 05:16] LABS: BASO # 0.2 K/uL (0.0-0.2); BASO % 0.9 % (0.0-2.0); EOS # 1.1 K/uL (0.0-0.7); HEMOGLOBIN 10.3 g/dL (12.0-16.0); LYMPH # 0.5 K/uL (1.0-4.3); LYMPH % 2.8 % (20.0-40.0); MEAN CORPUSCULAR HEMOGLOBIN 26.7 pg (27.0-31.0); MEAN PLATELET VOLUME 9.3 fl (7.2-11.7); MONO # 2.1 K/uL (0.0-0.8); MONO % 11.1 % (0.0-10.0); NEUT # 14.6 K/uL (1.8-7.0); NEUT % 79.2 % (50.0-75.0); NRBC % 5.7 % (0.0-0.0); PLATELET COUNT 331 K/uL (130-400); RBC 3.88 Mil/uL (3.80-5.20); RED CELL DISTRIBUTION WIDTH 24.6 % (11.5-14.5); WHITE BLOOD COUNT 18.4 K/uL (4.8-10.8)
[2017-04-01 05:30] LABS: ALB/GLOB RATIO 1.1 (1.0-2.1); ALBUMIN 3.1 g/dL (3.5-5.0); ALT/SGPT 42 U/L (9-52); AST/SGOT 28 U/L (14-36); BLOOD UREA NITROGEN 12 mg/dl (7-17); GFR AFRICAN-AMERICAN > 60; GFR NON-AFRICAN AMERICAN > 60
[2017-04-01] MEDS: Morphine 15 mg Immediate Release Tab PO SCH ×3 (08:24→20:50)
[2017-04-01 09:49] LABS: BASOPHIL 2 % (0-2); EOSINOPHIL 3 % (0-7); LYMPHOCYTE 11 % (20-50); MONOCYTE 7 % (0-10); NEUTROPHIL 77 % (42-75); NUCLEATED RED BLOOD CELL 11 % (0-0); PLATELET ESTIMATE NORMAL (NORMAL); TOTAL CELLS COUNTED 100
[2017-04-01 09:50] LABS: ANISOCYTOSIS MARKED; HYPOCHROMIC MODERATE; OVALOCYTES SLIGHT; TARGET CELLS MODERATE
[2017-04-01 09:51] LABS: LARGE PLATELETS PRESENT; SCHISTOCYTES SLIGHT; TEARDROP CELLS SLIGHT
--- NOTE | 2017-04-01 12:45 | CP.CCUPN ---
CCU Subjective - Physician Review Events Since Last Encounter (Free Text): 04/01/17 12:42 The patient was Seen/interviewed and examined by me at the bedside during ICU round, Medical records reviewed and Management issues were discussed and formulated with the house staff. 56 years old female with PMHx of Essential Thrombocythemia and Portal vein thrombosis, on Coumadin and recent admission for cellulitis, who was admitted after a fall from a ladder at home hitting her head, she found to have R SDH and midline shift, She underwent R frontatemporal Craniotomy and SDH evacuation 03/27. Pt Awake and alert, Comfortable, NAD, Only c/o intermittent headache, controlled with IV toradol and Tylenol, she is also on percocet. No other new complains Seen by physical therapy, ambulated with a walker. Neurologically stable for transfer out of ICU. CCU Objective - Vital Signs / Intake & Output Intake and Output (Last 8hrs): Intake & Output 03/31/17 04/01/17 04/01/17 22:59 06:59 14:59 Intake Total 640 0 Output Total 301 Balance 339 0 Intake: IV 0 Oral 640 Output: Urine 301 Urine, Voided 301 Other: # Voids Urine, Voided 150 - Physical Exam Head: Positive for: Other (Right sided temporal dressings intact, drain intact.) Pupils: Positive for: PERRL Extroacular Muscles: Positive for: EOMI Conjunctiva: Positive for: Normal. Negative for: Icteric Mouth: Positive for: Moist Mucous Membranes Pharnyx: Positive for: Normal Neck: Positive for: Normal Range of Motion. Negative for: JVD Respiratory/Chest: Positive for: Clear to Auscultation. Negative for: Accessory Muscle Use Cardiovascular: Positive for: Regular Rate and Rhythm, Tachycardic Abdomen: Positive for: Normal Bowel Sounds. Negative for: Tenderness, Distention Lower Extremity: Positive for: Normal Inspection, NORMAL PULSES. Negative for: Edema, CALF TENDERNESS Neurological: Positive for: GCS=15, CN II-XII Intact, Speech Normal, Motor Func Grossly Intact Skin: Positive for: Warm. Negative for: Rashes Psychiatric: Positive for: Alert, Oriented x 3, Normal Insight, Normal Concentration, Normal Affect - Medications Active Medications: Active Medications Generic Name Dose Route Start Last Admin Trade Name Freq PRN Reason Stop Dose Admin Acetaminophen 650 mg 03/28/17 21:05 04/01/17 08:25 Tylenol 325mg Tab PO 650 mg Q6 PRN Administration Pain, moderate (4-7) Famotidine 20 mg 03/27/17 13:00 04/01/17 08:32 Pepcid IVP 20 mg Q12 DENIS Administration Furosemide 40 mg 03/30/17 15:45 04/01/17 08:29 Lasix PO 40 mg DAILY DENIS Administration Hydroxyurea 500 mg 03/28/17 17:00 04/01/17 08:29 Hydrea PO 500 mg TID DENIS Administration Lactulose 20 gm 03/30/17 11:15 04/01/17 08:26 Enulose PO 20 gm DAILY DENIS Administration Morphine Sulfate 30 mg 03/29/17 09:00 04/01/17 08:24 Morphine Immediate Release Tab PO 30 mg TID@0900,1700,2100 DENIS Administration Ondansetron HCl 4 mg 03/28/17 10:33 04/01/17 08:32 Zofran Inj IVP 4 mg Q6 PRN Administration Nausea/Vomiting Oxycodone/Acetaminophen 2 tab 03/30/17 15:57 03/31/17 12:38 Percocet 5/325 Mg Tab PO 04/02/17 15:58 2 tab Q6 PRN Administration Pain, moderate (4-7) - Patient Studies Lab Studies: Lab Studies 04/01/17 04/01/17 Range/Units 04:30 04:30 WBC 18.4 H (4.8-10.8) K/uL RBC 3.88 (3.80-5.20) Mil/uL Hgb 10.3 L (12.0-16.0) g/dL Hct 34.5 (34.0-47.0) % MCV 89.0 (81.0-99.0) fl MCH 26.7 L (27.0-31.0) pg MCHC 30.0 L (33.0-37.0) g/dL RDW 24.6 H (11.5-14.5) % Plt Count 331 (130-400) K/uL MPV 9.3 (7.2-11.7) fl Neut % (Auto) 79.2 H (50.0-75.0) % Lymph % (Auto) 2.8 L (20.0-40.0) % [place] % (Auto) 11.1 H (0.0-10.0) % Eos % (Auto) 6.0 H (0.0-4.0) % Baso % (Auto) 0.9 (0.0-2.0) % Neut # 14.6 H (1.8-7.0) K/uL Lymph # 0.5 L (1.0-4.3) K/uL [place] # 2.1 H (0.0-0.8) K/uL Eos # 1.1 H (0.0-0.7) K/uL Baso # 0.2 (0.0-0.2) K/uL Neutrophils % (Manual) 77 H (42-75) % Lymphocytes % (Manual) 11 L (20-50) % Monocytes % (Manual) 7 (0-10) % Eosinophils % (Manual) 3 (0-7) % Basophils % (Manual) 2 (0-2) % Nucleated RBC % 11 H (0-0) % Platelet Estimate Normal (NORMAL) Large Platelets Present Hypochromasia (manual) Moderate Anisocytosis (manual) Marked Target Cells Moderate Tear Drop Cells Slight Ovalocytes Slight Schistocytes Slight Sodium 138 (132-148) mmol/l Potassium 4.0 (3.6-5.0) MMOL/L Chloride 102 (98-107) mmol/L Carbon Dioxide 30 (22-30) mmol/L Anion Gap 10 (10-20) BUN 12 (7-17) mg/dl Creatinine 0.5 L (0.7-1.2) mg/dL Est GFR ( Amer) > 60 Est GFR (Non-Af Amer) > 60 Random Glucose 96 (65-105) mg/dL Calcium 9.0 (8.4-10.2) mg/dL Total Bilirubin 0.5 (0.2-1.3) mg/dl AST 28 (14-36) U/L ALT 42 (9-52) U/L Alkaline Phosphatase 128 H D (38-126) U/L Total Protein 6.0 L (6.3-8.2) G/DL Albumin 3.1 L D (3.5-5.0) g/dL Globulin 2.9 (2.2-3.9) gm/dL Albumin/Globulin Ratio 1.1 (1.0-2.1) Laboratory Results - last 24 hr 04/01/17 04/01/17 04:30 04:30 WBC 18.4 H RBC 3.88 Hgb 10.3 L Hct 34.5 MCV 89.0 MCH 26.7 L MCHC 30.0 L RDW 24.6 H Plt Count 331 MPV 9.3 Neut % (Auto) 79.2 H Lymph % (Auto) 2.8 L [place] % (Auto) 11.1 H Eos % (Auto) 6.0 H Baso % (Auto) 0.9 Neut # 14.6 H Lymph # 0.5 L [place] # 2.1 H Eos # 1.1 H Baso # 0.2 Neutrophils % (Manual) 77 H Lymphocytes % (Manual) 11 L Monocytes % (Manual) 7 Eosinophils % (Manual) 3 Basophils % (Manual) 2 Nucleated RBC % 11 H Platelet Estimate Normal Large Platelets Present Hypochromasia (manual) Moderate Anisocytosis (manual) Marked Target Cells Moderate Tear Drop Cells Slight Ovalocytes Slight Schistocytes Slight Sodium 138 Potassium 4.0 Chloride 102 Carbon Dioxide 30 Anion Gap 10 BUN 12 Creatinine 0.5 L Est GFR ( Amer) > 60 Est GFR (Non-Af Amer) > 60 Random Glucose 96 Calcium 9.0 Total Bilirubin 0.5 AST 28 ALT 42 Alkaline Phosphatase 128 H D Total Protein 6.0 L Albumin 3.1 L D Globulin 2.9 Albumin/Globulin Ratio 1.1 Fingerstick Blood Sugar Results: 147 Critical Care Progress Note - Nutrition Nutrition: Nutrition Category Date Time Status Heart Healthy Diet [DIET] Diets 03/28/17 Lunch Active Assessment/Plan (1) S/P evacuation of subdural hematoma Current Visit: Yes Status: Acute (2) Status post fall Current Visit: Yes Status: Acute Priority: High Comment: Seen by physical therapy, ambulated with a walker. (3) Subdural hematoma Current Visit: Yes Status: Acute Priority: High Comment: She underwent R frontatemporal Craniotomy and SDH evacuation 03/27. (4) Essential thrombocythemia Current Visit: No Status: Acute Comment: continue Hydroxyurea 500mg PO TID hold Coumadin due to SDH INR: 1.1 (5) DVT prophylaxis Current Visit: No Status: Acute Comment: Coumadin on hold because of supratherapeutic INR
[2017-04-01] MEDS: Oxycodone/Acetaminophen 5/325 mg Tab PO PRN (13:47)
--- NOTE | 2017-04-01 14:16 | CP.PCM.PN ---
Subjective - Date & Time of Evaluation Date of Evaluation: 04/01/17 Time of Evaluation: 09:30 - Subjective Subjective: F/U R frontatemporal Craniotomy Pt awake, no A/D, alert, oriented, minimal R facial pain. Objective - Vital Signs/Intake and Output Vital Signs (last 24 hours): Temp Pulse Resp BP Pulse Ox 97.7 F 71 21 140/80 99 04/01/17 08:25 04/01/17 08:25 04/01/17 08:25 04/01/17 08:29 04/01/17 08:25 Intake and Output: 04/01/17 04/01/17 06:59 18:59 Intake Total 340 Output Total 300 Balance 40 - Medications Medications: Current Medications Acetaminophen (Tylenol 325mg Tab) 650 mg PO Q6 PRN PRN Reason: Pain, moderate (4-7) Last Admin: 04/01/17 13:46 Dose: 650 mg Famotidine (Pepcid) 20 mg IVP Q12 [facility] Last Admin: 04/01/17 08:32 Dose: 20 mg Furosemide (Lasix) 40 mg PO DAILY [facility] Last Admin: 04/01/17 08:29 Dose: 40 mg Hydroxyurea (Hydrea) 500 mg PO TID [facility] Last Admin: 04/01/17 13:54 Dose: 500 mg Lactulose (Enulose) 20 gm PO DAILY [facility] Last Admin: 04/01/17 08:26 Dose: 20 gm Morphine Sulfate (Morphine Immediate Release Tab) 30 mg PO TID@0900,1700,2100 [facility] Last Admin: 04/01/17 08:24 Dose: 30 mg Ondansetron HCl (Zofran Inj) 4 mg IVP Q6 PRN PRN Reason: Nausea/Vomiting Last Admin: 04/01/17 08:32 Dose: 4 mg Oxycodone/Acetaminophen (Percocet 5/325 Mg Tab) 2 tab PO Q6 PRN PRN Reason: Pain, moderate (4-7) Stop: 04/02/17 15:58 Last Admin: 04/01/17 13:47 Dose: 2 tab - Labs Labs: 04/01/17 04:30 04/01/17 04:30 PT 12.5 Seconds (9.8-13.1) 03/30/17 05:30 INR 1.1 (0.9-1.2) 03/30/17 05:30 APTT 19.1 Seconds (25.6-37.1) L D 03/30/17 05:30 - Constitutional Appears: No Acute Distress - Head Exam Additional comments: R side Temporal area dressing in place. - Eye Exam Eye Exam: EOMI, PERRL - ENT Exam ENT Exam: Normal Oropharynx - Neck Exam Neck Exam: Normal Inspection - Respiratory Exam Respiratory Exam: NORMAL BREATHING PATTERN - Cardiovascular Exam Cardiovascular Exam: REGULAR RHYTHM - GI/Abdominal Exam GI & Abdominal Exam: Soft, Normal Bowel Sounds - Extremities Exam Additional comments: Hematoma L hip - Neurological Exam Neurological Exam: Alert, Oriented x3 Additional comments: No focal motor sensory deficit. - Psychiatric Exam Psychiatric exam: Normal Mood - Skin Skin Exam: Warm Assessment and Plan (1) S/P evacuation of subdural hematoma Status: Acute (2) Status post fall Status: Acute (3) Thrombocytosis Status: Acute (4) Altered mental status Status: Acute - Assessment and Plan (Free Text) Plan: Transfer to acute rehab today.
--- NOTE | 2017-04-01 16:07 | CP.PCM.PN ---
Subjective - Date & Time of Evaluation Date of Evaluation: 04/01/17 Time of Evaluation: 11:00 - Subjective Subjective: Feeling better Objective - Vital Signs/Intake and Output Vital Signs (last 24 hours): Temp Pulse Resp BP Pulse Ox 97.7 F 71 21 140/80 99 04/01/17 08:25 04/01/17 08:25 04/01/17 08:25 04/01/17 08:29 04/01/17 08:25 Intake and Output: 04/01/17 04/01/17 06:59 18:59 Intake Total 340 Output Total 300 Balance 40 - Medications Medications: Current Medications Acetaminophen (Tylenol 325mg Tab) 650 mg PO Q6 PRN PRN Reason: Pain, moderate (4-7) Last Admin: 04/01/17 13:46 Dose: 650 mg Famotidine (Pepcid) 20 mg IVP Q12 [facility] Last Admin: 04/01/17 08:32 Dose: 20 mg Furosemide (Lasix) 40 mg PO DAILY [facility] Last Admin: 04/01/17 08:29 Dose: 40 mg Hydroxyurea (Hydrea) 500 mg PO TID [facility] Last Admin: 04/01/17 16:03 Dose: 500 mg Lactulose (Enulose) 20 gm PO DAILY [facility] Last Admin: 04/01/17 08:26 Dose: 20 gm Morphine Sulfate (Morphine Immediate Release Tab) 30 mg PO TID@0900,1700,2100 [facility] Last Admin: 04/01/17 16:05 Dose: 30 mg Ondansetron HCl (Zofran Inj) 4 mg IVP Q6 PRN PRN Reason: Nausea/Vomiting Last Admin: 04/01/17 08:32 Dose: 4 mg Oxycodone/Acetaminophen (Percocet 5/325 Mg Tab) 2 tab PO Q6 PRN PRN Reason: Pain, moderate (4-7) Stop: 04/02/17 15:58 Last Admin: 04/01/17 13:47 Dose: 2 tab - Labs Labs: 04/01/17 04:30 04/01/17 04:30 PT 12.5 Seconds (9.8-13.1) 03/30/17 05:30 INR 1.1 (0.9-1.2) 03/30/17 05:30 APTT 19.1 Seconds (25.6-37.1) L D 03/30/17 05:30 - Eye Exam Eye Exam: Normal appearance - ENT Exam ENT Exam: Mucous Membranes Dry - Respiratory Exam Respiratory Exam: NORMAL BREATHING PATTERN - Cardiovascular Exam Cardiovascular Exam: +S1, +S2 - GI/Abdominal Exam GI & Abdominal Exam: Normal Bowel Sounds - Extremities Exam Extremities Exam: Normal Inspection Assessment and Plan (1) Subdural hematoma Assessment & Plan: s/p neurosurgical evacuation Status: Acute (2) Coagulopathy Assessment & Plan: s/p vit k and FFP Status: Acute (3) Anemia Assessment & Plan: mild Status: Acute (4) Essential thrombocythemia Assessment & Plan: on hydrea coumadin on hold due to subdural hematoma Status: Acute
[2017-04-01] MEDS ORDERED: Oxycodone/Acetaminophen 5/325 mg Tab PO PRN (20:48)
[2017-04-01] MEDS ORDERED: Morphine 30 mg Immediate Release Tab PO SCH (21:00)
[2017-04-01 21:29] VITALS: BP 128/72; PULSE 95; RESP 15; TEMP 98.9; O2SAT 95
--- NOTE | 2017-04-02 11:12 | PN ---
SUBJECTIVE: Postop day 2, the patient is doing exceptionally well. She has absolutely no problems or complaints at all. She is bright, awake, and alert. Her mental status and speech are entirely normal and moving all extremities. No neurological deficits at all. LABORATORY DATA: CT of the brain showed excellent resolution of the acute component of her subdural hematoma. There were some mild vestiges remaining with continued mass effect and shift. ASSESSMENT AND PLAN: I removed her drain without event. My recommendation would be to transfer her up to the floor, physiotherapy, out of bed, and ambulation. As soon as she is ambulating decently, she can be discharged from my standpoint. I will see her back in my office in 7 to 10 days. Bebeto Murry MD
--- NOTE | 2017-04-02 16:19 | PN ---
Critical Care Note Pt is in the ICU in bed 433, and the time spent with the pt has been 35 min. She has been seen and evaluated at her bedside since she was admitted and the clinical course has been reviewed. On the pts second day s/p of a right sided subdural hematoma sustained secondary to a fall at home. Throughout the night she was afebrile, normotensive, and she had NSR. This morning, she is alert, awake and follows commands appropriately. Pt denies any headaches, chest pain, palpitations, abdominal pain, diarrhea, or dysuria. Medications: Tylenol [6 q 6 prn] Pepcid 20 IV Q diluted 1 mg IV Q 4 prn Hydroxyurea 5 ml po 3x daily Morphine 30 PO TID Miralax 17 g PO x daily PE: Temp:98.8 BP:139/76 Hr:60 RR:60 O2 sat 97% on room air HEENT: Pupils 2-3 mm, reactive, conjunctiva pink, sclera white, no nystagmus Dressings in place Chest: Bilateral breath sounds, clear to auscultation Heart: RRR Abdomen: Bowel sounds present, soft, liver spleen nonpalpable, bladder nondistended Extrem: No clubbing, cyanosis, edema Neuro: GCS:15, no neural deficit, speech normal, no[151.2-151.3 ] ,plantar flexion. Lab Data: CBC: 17 Hemoglobin:9.1 Hemtocrit: 30.5 Platelet Count:418 [202.8-209.1] Pt:14.6 [Cyano]: 1.3 SMA:7 NA:140 K:3.4 Chloride:110 CO2:23 Urine:12 Creatinine: .05 Random Glucose: 93 UA: Neg Tox screen: Positive for Benzodiazepine Impression: Neuro: S/p fall at home sustained RT subdural hematoma w/ midline shift s/p evacuation Operative course on uneventful HEENT:Remains alert awake, follows commands jose carlos, no further CLAY reported Cardiac: stable, in sr, normotensive Pulmonary: Saturating 100% on room air Hx of thrombocytosis on hydroxyurea commonly known [301.8] secondary to subdural hematoma. Pain followed by pain specialist on morphine 30 mg 3x daily Constipation on Miralax Powder Infectious disease glucose cytosis noted, likely reactive monitor of antibiotics DDx: Anemia, chronic dizziness,[364.7-365.1], acute blood loss Plan: The pt remains clinically hemodynamically stable, we will closely monitor any further drops in hemoglobin, keep her head elevated at 40 degrees up DVT prophylaxis, and maintain regular diet. Coy Arana MD
== END 2017-04-01 22:01 | DRG 25 ==
LOC: H.ER 18:50 → H.ERHOLD 21:19 → H.ICU/CCU 22:52
PROVIDERS: ADMIT Internal Medicine Pulmonary Disease; ATTEND Internal Medicine Pulmonary Disease
PROC: 00C40ZZ Extirpation of Matter from Intracranial Subdural Space, Open Approach (ICD-10-PCS; principal; 2017-03-27 09:00)
DX: S06.5X9A Traumatic subdural hemorrhage with loss of consciousness of unspecified duration, initial encounter (principal); G93.5 Compression of brain; K76.6 Portal hypertension; E87.5 Hyperkalemia; D47.3 Essential (hemorrhagic) thrombocythemia; W11.XXXA Fall on and from ladder, initial encounter; Y92.009 Unspecified place in unspecified non-institutional (private) residence as the place of occurrence of the external cause; Y93.9 Activity, unspecified; Y99.9 Unspecified external cause status; D63.8 Anemia in other chronic diseases classified elsewhere; D72.829 Elevated white blood cell count, unspecified; D75.89 Other specified diseases of blood and blood-forming organs; E87.6 Hypokalemia; F17.200 Nicotine dependence, unspecified, uncomplicated; Z86.718 Personal history of other venous thrombosis and embolism; Z79.01 Long term (current) use of anticoagulants; J43.9 Emphysema, unspecified; K59.00 Constipation, unspecified; T45.515A Adverse effect of anticoagulants, initial encounter; M54.9 Dorsalgia, unspecified
CPT/HCPCS: C1713

== ENCOUNTER 2017-04-01 13:29 | Inpatient (IN) | payer MEDICARE ==
[2017-04-01 16:09] VITALS: BMI 25.4
[2017-04-02] MEDS: Oxycodone/Acetaminophen 5/325 mg Tab PO PRN ×2 (06:57→20:20)
[2017-04-02 07:38] LABS: HEMOGLOBIN 10.6 g/dL (12.0-16.0); MEAN CELL VOLUME 89.4 fl (81.0-99.0); MEAN CORPUSCULAR HEMOGLOBIN 26.7 pg (27.0-31.0); MEAN CORPUSCULAR HGB CONC 29.9 g/dL (33.0-37.0); RBC 3.98 Mil/uL (3.80-5.20); WHITE BLOOD COUNT 19.7 K/uL (4.8-10.8)
[2017-04-02 07:49] LABS: BLOOD UREA NITROGEN 12 mg/dl (7-17); CALCIUM 9.2 mg/dL (8.4-10.2); GFR AFRICAN-AMERICAN > 60; GFR NON-AFRICAN AMERICAN > 60
[2017-04-02] MEDS: Morphine 30 mg Immediate Release Tab PO SCH ×3 (08:46→22:08)
[2017-04-02 11:21] LABS: SQUAMOUS EPITHIAL < 1 /hpf (0-5); URINE BILIRUBIN NEGATIVE (NEGATIVE); URINE BLOOD NEGATIVE (NEGATIVE); URINE CLARITY CLEAR (Clear); URINE COLOR YELLOW (YELLOW); URINE GLUCOSE (UA) NEG (Normal); URINE LEUKOCYTE ESTERASE NEG Leu/uL (Negative); URINE NITRATE NEGATIVE (NEGATIVE); URINE PROTEIN 30 mg/dL (NEGATIVE); URINE UROBILINOGEN 0.2-1.0 mg/dL (0.2-1.0)
--- NOTE | 2017-04-02 12:23 | PSY.TMCNF ---
Nursing - Vital Signs Vital Signs (Last 8 hours): Vital Signs 04/02/17 04/02/17 08:37 08:47 Temperature 98.1 F Pulse Rate 73 Respiratory 20 Rate Blood Pressure 115/61 115/61 O2 Sat by Pulse 97 Oximetry Pain: 8 - Precautions: Isolation: Contact - Medications/Other Issues Comment: to follow as per nutrition - Skin Incision Site: right temporal incision Incision: Howell Intact - Bladder Management Bladder Pattern: Hesitancy Voiding Method: Toilet, Bedpan - Bowel Management Bowel Pattern: Normal, Constipated Physical Therapy - Pain Management Techniques: Medication - Provider License Number: [id number] Occupational Therapy - Arousal/Attention/Orientation Patient Orientation: Person, Place, Time, Appropriate to Age, Appropriate to Situation - Pain Alleviating Techniques: Medication - Provider Therapist: Jimy Nutrition - Current Diet Current Diet/ Supplement/ Feedings: heart healthy - Appetite Percent Meal Consumed: 50-74% - Assessment/Goals/Time Frame Assessment/Goals/Time Frame: to follow as per nutrition - Provider Provider: Margarita Reilly RD Case Management - Discharge Plan Discharge Plan: Home alone Rehabilitation Plan - Treatment Plan Treatment Plan: Physical Therapy, Occupational Therapy, Speech, Dietary, Patient /Family Education - Recommendation Recommendation: Physical Therapy, Occupational Therapy, Speech, Patient/Family Education - Discharge Plan Discharge to: Home (eval by Dr Iverson regrading increase white count.)
--- NOTE | 2017-04-02 14:49 | CP.PCM.CON ---
History of Present Illness - History of Present Illness History of Present Illness: patient is a 56 freindly white female status post subdural heamatoma status post craniotomy Review of Systems - Musculoskeletal Musculoskeletal: Abnormal Gait - Neurological Neurological: Abnormal Gait, Lack of Coordination Past Patient History - Infectious Disease Hx of Infectious Diseases: None - Tetanus Immunizations Tetanus Immunization: Unknown - Past Medical History & Family History Past Medical History?: Yes - Past Social History Smoking Status: Former Smoker - CARDIAC Hx Cardiac Disorders: No - PULMONARY Hx Respiratory Disorders: Yes Hx Emphysema: Yes (per patient "mild emphysema") - NEUROLOGICAL Hx Neurological Disorder: No - HEENT Hx HEENT Problems: No - RENAL Hx Chronic Kidney Disease: No - ENDOCRINE/METABOLIC Hx Endocrine Disorders: No - HEMATOLOGICAL/ONCOLOGICAL Hx Blood Disorders: Yes Other/Comment: Essential Thrombocythemia - INTEGUMENTARY Hx Dermatological Problems: No - MUSCULOSKELETAL/RHEUMATOLOGICAL Hx Falls: Yes - GASTROINTESTINAL Hx Gastrointestinal Disorders: Yes Hx Esophageal Varices: Yes (2003) Other/Comment: PORTAL VEIN HYPERTENSION, PORTAL VEIN THROMBOSES - GENITOURINARY/GYNECOLOGICAL Hx Genitourinary Disorders: No - PSYCHIATRIC Hx Substance Use: No - SURGICAL HISTORY Hx Tonsillectomy: Yes - ANESTHESIA Hx Anesthesia: Yes Hx Anesthesia Reactions: No Meds Allergies/Adverse Reactions: Allergies Allergy/AdvReac Type Severity Reaction Status Date / Time lansoprazole [From Prevacid] Allergy anxiety, Verified 04/01/17 23:10 shaking ranitidine [From Zantac] Allergy anxiety, Verified 04/01/17 23:10 shaking - Medications Medications: Current Medications Acetaminophen (Tylenol 325mg Tab) 650 mg PO Q6 PRN PRN Reason: Pain, moderate (4-7) Last Admin: 04/02/17 13:08 Dose: 650 mg Famotidine (Pepcid) 20 mg PO Q12 [facility] Last Admin: 04/02/17 08:48 Dose: 20 mg Furosemide (Lasix) 40 mg PO DAILY [facility] Last Admin: 04/02/17 08:47 Dose: 40 mg Hydroxyurea (Hydrea) 500 mg PO TID [facility] Last Admin: 04/02/17 13:02 Dose: 500 mg Lactulose (Enulose) 20 gm PO DAILY [facility] Last Admin: 04/02/17 08:48 Dose: 20 gm Morphine Sulfate (Morphine Immediate Release Tab) 30 mg PO 0900,1700,2100 [facility] Last Admin: 04/02/17 08:46 Dose: 30 mg Ondansetron HCl (Zofran Tab) 4 mg PO Q6 PRN PRN Reason: Nausea/Vomiting Last Admin: 04/02/17 09:10 Dose: 4 mg Oxycodone/Acetaminophen (Percocet 5/325 Mg Tab) 2 tab PO Q6 PRN PRN Reason: Pain, severe (8-10) Stop: 04/04/17 23:28 Last Admin: 04/02/17 06:57 Dose: 2 tab Physical Exam - Head Exam Head Exam: ATRAUMATIC, NORMAL INSPECTION, NORMOCEPHALIC - Eye Exam Eye Exam: EOMI, Normal appearance, PERRL Pupil Exam: NORMAL ACCOMODATION - ENT Exam ENT Exam: Mucous Membranes Moist, Normal Exam - Neck Exam Neck exam: Positive for: Normal Inspection Additional comments: status post craniotomy area with yocasta - Respiratory Exam Respiratory Exam: NORMAL BREATHING PATTERN - Cardiovascular Exam Cardiovascular Exam: REGULAR RHYTHM - GI/Abdominal Exam GI & Abdominal Exam: Normal Bowel Sounds - Rectal Exam Rectal Exam: NORMAL INSPECTION - Exam External exam: NORMAL EXTERNAL EXAM - Neurological Exam Neurological exam: Alert, Normal Gait - Psychiatric Exam Psychiatric exam: Normal Affect, Normal Mood - Skin Skin Exam: Dry, Intact, Normal Color Results - Vital Signs Recent Vital Signs: Last Vital Signs Temp 98.1 F 04/02/17 08:37 Pulse 73 04/02/17 08:37 Resp 20 04/02/17 08:37 BP 115/61 04/02/17 08:47 Pulse Ox 97 04/02/17 08:37 - Labs Result Diagrams: 04/02/17 05:20 04/02/17 05:20 Labs: Laboratory Results - last 24 hr 04/02/17 04/02/17 04/02/17 05:20 05:20 10:55 WBC 19.7 H RBC 3.98 Hgb 10.6 L Hct 35.5 MCV 89.4 MCH 26.7 L MCHC 29.9 L RDW 25.0 H Plt Count 387 Sodium 140 Potassium 4.0 Chloride 101 Carbon Dioxide 33 H Anion Gap 10 BUN 12 Creatinine 0.5 L Est GFR ( Amer) > 60 Est GFR (Non-Af Amer) > 60 Random Glucose 84 Calcium 9.2 Urine Color Yellow Urine Clarity Clear Urine pH 6.0 Ur Specific [place] 1.015 Urine Protein 30 Urine Glucose (UA) Neg Urine Ketones Negative Urine Blood Negative Urine Nitrate Negative Urine Bilirubin Negative Urine Urobilinogen 0.2-1.0 Ur Leukocyte Esterase Neg Urine RBC (Auto) 2 Urine Microscopic WBC 2 Ur Squamous Epith Cells < 1 Assessment & Plan (1) Abdominal pain Status: Acute (2) Altered mental status Status: Acute Priority: High (3) Anemia Status: Acute (4) CHF (congestive heart failure) Status: Acute (5) Cellulitis Status: Acute (6) Cellulitis Status: Acute (7) Coagulopathy Status: Acute (8) DVT prophylaxis Status: Acute - Assessment and Plan (Free Text) Assessment: subdural heamatome status post craniotomy plan for physical, ocupational, rec therapy consults for Dr bucio for high white count, Neurology followyp, speech eval and pyluigi for anxiety
--- NOTE | 2017-04-02 15:44 | RAD ---
HISTORY: elevated WBC COMPARISON: No prior. TECHNIQUE: Chest PA and lateral FINDINGS: LUNGS: No active pulmonary disease. PLEURA: No significant pleural effusion identified. No pneumothorax apparent. CARDIOVASCULAR: Normal. OSSEOUS STRUCTURES: No significant abnormalities. VISUALIZED UPPER ABDOMEN: Normal. OTHER FINDINGS: None. IMPRESSION: No active disease.
[2017-04-02] MEDS: Lactobacillus Acidophilus 500 MU Cap PO SCH (16:53)
[2017-04-02] MEDS: Bacitracin OINT 15GM TOP SCH (16:53)
--- NOTE | 2017-04-02 18:17 | CP.PCM.CON ---
History of Present Illness - History of Present Illness History of Present Illness: Mrs. Varela is a 56-year-old woman who was previously on coumadin for portal vein thrombus in 2001 (managed by hematology, Dr. Chris Cowart), and had fallen off a ladder, struck her head, lost consciousness and developed a large right subdural hematoma with midline shift requiring craniectomy and evacuation on . She is now in acute rehab and is stable. Neurology was consulted to assist with the management and care. The patient is sitting up in her chair when I see her. She is pleasant, but complains of headache. Review of Systems - Review of Systems All systems: reviewed and no additional remarkable complaints except Past Patient History - Infectious Disease Hx of Infectious Diseases: None - Tetanus Immunizations Tetanus Immunization: Unknown - Past Medical History & Family History Past Medical History?: Yes - Past Social History Smoking Status: Former Smoker - CARDIAC Hx Cardiac Disorders: No - PULMONARY Hx Respiratory Disorders: Yes Hx Emphysema: Yes (per patient "mild emphysema") - NEUROLOGICAL Hx Neurological Disorder: No - HEENT Hx HEENT Problems: No - RENAL Hx Chronic Kidney Disease: No - ENDOCRINE/METABOLIC Hx Endocrine Disorders: No - HEMATOLOGICAL/ONCOLOGICAL Hx Blood Disorders: Yes Other/Comment: Essential Thrombocythemia - INTEGUMENTARY Hx Dermatological Problems: No - MUSCULOSKELETAL/RHEUMATOLOGICAL Hx Falls: Yes - GASTROINTESTINAL Hx Gastrointestinal Disorders: Yes Hx Esophageal Varices: Yes (2003) Other/Comment: PORTAL VEIN HYPERTENSION, PORTAL VEIN THROMBOSES - GENITOURINARY/GYNECOLOGICAL Hx Genitourinary Disorders: No - PSYCHIATRIC Hx Substance Use: No - SURGICAL HISTORY Hx Tonsillectomy: Yes - ANESTHESIA Hx Anesthesia: Yes Hx Anesthesia Reactions: No Meds Allergies/Adverse Reactions: Allergies Allergy/AdvReac Type Severity Reaction Status Date / Time lansoprazole [From Prevacid] Allergy anxiety, Verified 04/01/17 23:10 shaking ranitidine [From Zantac] Allergy anxiety, Verified 04/01/17 23:10 shaking - Medications Medications: Current Medications Acetaminophen (Tylenol 325mg Tab) 650 mg PO Q6 PRN PRN Reason: Pain, moderate (4-7) Last Admin: 04/02/17 13:08 Dose: 650 mg Bacitracin (Bacitracin Oint) 1 applic TOP BID [facility] Last Admin: 04/02/17 16:53 Dose: 1 applic Famotidine (Pepcid) 20 mg PO Q12 [facility] Last Admin: 04/02/17 08:48 Dose: 20 mg Furosemide (Lasix) 40 mg PO DAILY [facility] Last Admin: 04/02/17 08:47 Dose: 40 mg Hydroxyurea (Hydrea) 500 mg PO TID [facility] Last Admin: 04/02/17 16:54 Dose: 500 mg Ceftriaxone Sodium 1 gm/ (Sodium Chloride) 100 mls @ 100 mls/hr IVPB DAILY [facility] Stop: 04/08/17 23:59 Lactobacillus Acidophilus (Bacid Acidophilus) 1 cap PO BID [facility] Stop: 04/08/17 23:59 Last Admin: 04/02/17 16:53 Dose: 1 cap Lactulose (Enulose) 20 gm PO DAILY [facility] Last Admin: 04/02/17 08:48 Dose: 20 gm Morphine Sulfate (Morphine Immediate Release Tab) 30 mg PO 0900,1700,2100 [facility] Last Admin: 04/02/17 16:47 Dose: 30 mg Ondansetron HCl (Zofran Tab) 4 mg PO Q6 PRN PRN Reason: Nausea/Vomiting Last Admin: 04/02/17 09:10 Dose: 4 mg Oxycodone/Acetaminophen (Percocet 5/325 Mg Tab) 2 tab PO Q6 PRN PRN Reason: Pain, severe (8-10) Stop: 04/04/17 23:28 Last Admin: 04/02/17 06:57 Dose: 2 tab Physical Exam - Constitutional Appears: Well - Head Exam Additional comments: Incision site of right craniectomy appears C/D/I with some old residual blood products. - Eye Exam Eye Exam: EOMI, Normal appearance, PERRL - ENT Exam ENT Exam: Mucous Membranes Moist, Normal Exam - Neck Exam Neck exam: Positive for: Normal Inspection - Respiratory Exam Respiratory Exam: Clear to Auscultation Bilateral, NORMAL BREATHING PATTERN - Cardiovascular Exam Cardiovascular Exam: REGULAR RHYTHM, +S1, +S2 - GI/Abdominal Exam GI & Abdominal Exam: Normal Bowel Sounds, Soft. absent: Tenderness - Rectal Exam Rectal Exam: Deferred - Extremities Exam Extremities exam: Positive for: normal inspection - Back Exam Back exam: NORMAL INSPECTION - Neurological Exam Neurological exam: Abnormal Gait, CN II-XII Intact Additional comments: Left side is slightly weaker than right with brisk reflexes. Sensation is intact throughout. Gait is wide-based and requires slight assistance with standing. Romberg is negative. Plantar response is equivocal on the left. - Psychiatric Exam Psychiatric exam: Normal Affect, Normal Mood - Skin Additional comments: Multiple areas of bruising and echymosis from fall. Results - Vital Signs Recent Vital Signs: Last Vital Signs Temp 98.1 F 04/02/17 08:37 Pulse 73 04/02/17 08:37 Resp 20 04/02/17 08:37 BP 115/61 04/02/17 08:47 Pulse Ox 97 04/02/17 08:37 - Labs Result Diagrams: 04/02/17 05:20 04/02/17 05:20 Labs: Laboratory Results - last 24 hr 04/02/17 04/02/17 04/02/17 05:20 05:20 10:55 WBC 19.7 H RBC 3.98 Hgb 10.6 L Hct 35.5 MCV 89.4 MCH 26.7 L MCHC 29.9 L RDW 25.0 H Plt Count 387 Sodium 140 Potassium 4.0 Chloride 101 Carbon Dioxide 33 H Anion Gap 10 BUN 12 Creatinine 0.5 L Est GFR ( Amer) > 60 Est GFR (Non-Af Amer) > 60 Random Glucose 84 Calcium 9.2 Urine Color Yellow Urine Clarity Clear Urine pH 6.0 Ur Specific [place] 1.015 Urine Protein 30 Urine Glucose (UA) Neg Urine Ketones Negative Urine Blood Negative Urine Nitrate Negative Urine Bilirubin Negative Urine Urobilinogen 0.2-1.0 Ur Leukocyte Esterase Neg Urine RBC (Auto) 2 Urine Microscopic WBC 2 Ur Squamous Epith Cells < 1 - Imaging and Cardiology CT scan - head Status: Image reviewed by me, Report reviewed by me (S/P right craniectomy for decompression of right SDH. Residual blood products and air bubbles noted. Midline shift appeared improved.) Assessment & Plan (1) S/P evacuation of subdural hematoma Assessment and Plan: Continue conservative management with PT/OT and treat headache with Tylenol or oxycodone per neurosurgery. No need for seizure prophylaxis at this time since the patient has not had any seizures since her injury. Thank you. Status: Acute Priority: Medium
--- NOTE | 2017-04-02 19:37 | PN ---
DATE: 04/02/2017 OVERALL PLAN OF CARE SUBJECTIVE: The patient is a 56-year-old female admitted with subdural hematoma status post craniotomy,ICD code of 01.1; also history of thrombocytopenia; partial vein thrombosis; hypertension; emphysema. The patient's admission date is 04/01/2017. Estimated length of stay for this patient is 2-3 weeks. Rehab impairment *------*decreased strength, decreased mobility, gait, ambulation and cognitive issues. Etiological diagnosis of subdural hematoma status post craniotomy, ICD code of 01.1; thrombocytopenia. Rehab prognosis is fair. Interventions for physical therapy, occupational therapy, recreational therapy, speech therapy. Goals are for modified independence for bed mobility, transfers, ambulation, and gait training. Functional outcome is good. No acute barriers noted for discharge. DISCHARGE DISPOSITION: To be discharged home with supportive services. Further consults to be ordered as needed; for example, hematology, oncology, or neurology and psychology. Jose Farah MD
--- NOTE | 2017-04-02 21:19 | CP.PCM.HP ---
History of Present Illness - History of Present Illness History of Present Illness: CC: S/P Craniotomy 56 y/o F, admitted from ICU to [facility] on 04/01/17 for S/P Craniotomy and evacuation of subdural hematoma on 03/27/17. Pt was admitted to Hospital on 03/26/17 after she fell from ladder at home on [place]. Pt sustained several injuries but the worse was a large R subdural hematoma, subsequently, Pt underwent head surgery for SDH evacuation. PT denied: Fever, chills, n/v/d, abdominal pain, CP, palpitations, SOB, cough, sick contact. Pt awake, alert, c/o of R facial pain and headache, VS Normal. Present on Admission - Present on Admission Any Indicators Present on Admission: No Review of Systems - Constitutional Constitutional: Headache, Weakness - EENT Eyes: Requires Corrective Lenses Ears: Other (negative) Nose/Mouth/Throat: Other (negative) - Cardiovascular Cardiovascular: Other (negative) - Respiratory Respiratory: Other (negative) - Gastrointestinal Gastrointestinal: Other (negative) - Genitourinary Genitourinary: Other (negative) - Musculoskeletal Musculoskeletal: Other (face pain) - Integumentary Integumentary: Rash (face and R chest.) - Neurological Neurological: Other (negative) - Psychiatric Psychiatric: Other (negative) - Endocrine Endocrine: Other (negative) - Hematologic/Lymphatic Hematologic: Other (anemia.) Past Patient History - Infectious Disease Hx of Infectious Diseases: None - Tetanus Immunizations Tetanus Immunization: Unknown - Past Medical History & Family History Past Medical History?: Yes Pertinent Family History: Unknown - Past Social History Smoking Status: Former Smoker Alcohol: None Drugs: Denies Home Situation {Lives}: Alone - CARDIAC Hx Cardiac Disorders: No - PULMONARY Hx Respiratory Disorders: Yes Hx Emphysema: Yes (per patient "mild emphysema") - NEUROLOGICAL Hx Neurological Disorder: No - HEENT Hx HEENT Problems: No - RENAL Hx Chronic Kidney Disease: No - ENDOCRINE/METABOLIC Hx Endocrine Disorders: No - HEMATOLOGICAL/ONCOLOGICAL Hx Blood Disorders: Yes Other/Comment: Essential Thrombocythemia - INTEGUMENTARY Hx Dermatological Problems: No - MUSCULOSKELETAL/RHEUMATOLOGICAL Hx Musculoskeletal Disorders: Yes Hx Falls: Yes - GASTROINTESTINAL Hx Gastrointestinal Disorders: Yes Hx Esophageal Varices: Yes (2003) Other/Comment: PORTAL VEIN HYPERTENSION, PORTAL VEIN THROMBOSES - GENITOURINARY/GYNECOLOGICAL Hx Genitourinary Disorders: No - PSYCHIATRIC Hx Psychophysiologic Disorder: No Hx Substance Use: No - SURGICAL HISTORY Hx Surgeries: Yes Hx Tonsillectomy: Yes - ANESTHESIA Hx Anesthesia: Yes Hx Anesthesia Reactions: No Meds Allergies/Adverse Reactions: Allergies Allergy/AdvReac Type Severity Reaction Status Date / Time lansoprazole [From Prevacid] Allergy anxiety, Verified 04/01/17 23:10 shaking ranitidine [From Zantac] Allergy anxiety, Verified 04/01/17 23:10 shaking Physical Exam - Constitutional Appears: No Acute Distress, Chronically Ill - Head Exam Additional comments: S/P Craniotomy, yocasta in place. R face with rash. - Eye Exam Eye Exam: PERRL - ENT Exam ENT Exam: Normal Oropharynx - Neck Exam Neck exam: Positive for: Normal Inspection - Respiratory Exam Respiratory Exam: NORMAL BREATHING PATTERN Additional comments: Rah in R chest. - Cardiovascular Exam Cardiovascular Exam: REGULAR RHYTHM - GI/Abdominal Exam GI & Abdominal Exam: Normal Bowel Sounds, Soft - Extremities Exam Extremities exam: Positive for: normal inspection - Back Exam Back exam: NORMAL INSPECTION - Neurological Exam Neurological exam: Alert, Oriented x3 Additional comments: No focal motor sensory deficit. - Psychiatric Exam Psychiatric exam: Normal Mood - Skin Skin Exam: Warm Results - Vital Signs Recent Vital Signs: Last Vital Signs Temp 97.4 F L 04/02/17 20:10 Pulse 70 04/02/17 20:10 Resp 20 04/02/17 20:10 BP 127/75 04/02/17 20:10 Pulse Ox 97 04/02/17 20:10 reviewed Amber - Labs Result Diagrams: 04/04/17 05:30 04/02/17 05:20 Labs: Laboratory Results - last 24 hr 04/02/17 04/02/17 04/02/17 05:20 05:20 10:55 WBC 19.7 H RBC 3.98 Hgb 10.6 L Hct 35.5 MCV 89.4 MCH 26.7 L MCHC 29.9 L RDW 25.0 H Plt Count 387 Sodium 140 Potassium 4.0 Chloride 101 Carbon Dioxide 33 H Anion Gap 10 BUN 12 Creatinine 0.5 L Est GFR ( Amer) > 60 Est GFR (Non-Af Amer) > 60 Random Glucose 84 Calcium 9.2 Urine Color Yellow Urine Clarity Clear Urine pH 6.0 Ur Specific [place] 1.015 Urine Protein 30 Urine Glucose (UA) Neg Urine Ketones Negative Urine Blood Negative Urine Nitrate Negative Urine Bilirubin Negative Urine Urobilinogen 0.2-1.0 Ur Leukocyte Esterase Neg Urine RBC (Auto) 2 Urine Microscopic WBC 2 Ur Squamous Epith Cells < 1 reviewed J.P. Assessment & Plan (1) S/P evacuation of subdural hematoma Status: Acute Priority: High (2) Essential thrombocythemia Status: Acute Priority: High (3) Leukocytosis Status: Acute Priority: High (4) Status post fall Status: Acute Priority: High - Assessment and Plan (Free Text) Plan: Continue Vanco, Ceftriaxone, Percocet and rest of Tx, PT, OT , ID and Hematology consult, Neurology and Chief Administrative Officer consult appreciated. - Date & Time Date: 04/02/17 Time: 20:00
[2017-04-03] MEDS: Oxycodone/Acetaminophen 5/325 mg Tab PO PRN ×2 (06:04→21:21)
[2017-04-03] MEDS: Morphine 30 mg Immediate Release Tab PO SCH (08:44)
[2017-04-03] MEDS: Lactobacillus Acidophilus 500 MU Cap PO SCH ×2 (08:45→17:35)
[2017-04-03] MEDS: Bacitracin OINT 15GM TOP SCH ×2 (08:47→17:35)
--- NOTE | 2017-04-03 12:08 | CP.PCM.CON ---
History of Present Illness - History of Present Illness History of Present Illness: Infectious Disease Consultation Note- asked to see this patient at the request of for leukocytosis. HPI- Patient is a 56 year old female with pmh of essential thrombocytosis and portal vein thrombosis who is f/u by parking lot attendant as outpatient and states has been on hydroxyurea and coumadin and aspirin who fell off a ladder 2 weeks ago and sustained right subdural hematoma with midline shift and is s/p craniectomy adn evacuation on 03/27/2017 who is now in getting PT in acute rehab unit and i' m asked to evaluate bc of leukocytosis. Pt. explains that she has spoken with her parking lot attendant and since she has been off the hydroxyurea they think the rise in platelets is also increasing her wbc and pt. explains few weeks ago she was inpatient here for CHF symptoms and she had elevated wbc on that admission as well. She also mentions that few months ago she was given cipro for some reason and she developed rash like lesions across her chest and face . upon further reviewing pt's medical records i see that on 03/17/2017 she had wbc of 50,000 and very high plt . pt. currently denies any fever or chills, denies any cough, denies any SOB, denies any n/v, denies any dysurea, denies any diarrhea and states her only complaints is CLAY which she has had since post craniectomy. she denies any visual problems. pt. was apparently started on ceftriaxone and vanco as per her primary doc here but no source of infection has been identified at this time. Review of Systems - Review of Systems Review of Systems: ROS- denies any fever or chills, denies any cough, denies any sob, denies any chest pain, denies any n/v, denies any abd pain, denies any diarrhea, denies any dysurea, CLAY intermittently post her brain surgery denies any visual problems Past Patient History - Infectious Disease Hx of Infectious Diseases: None - Tetanus Immunizations Tetanus Immunization: Unknown - Past Medical History & Family History Past Medical History?: Yes - Past Social History Smoking Status: Former Smoker Alcohol: None Drugs: Denies - CARDIAC Hx Cardiac Disorders: No - PULMONARY Hx Respiratory Disorders: Yes Hx Emphysema: Yes (per patient "mild emphysema") - NEUROLOGICAL Hx Neurological Disorder: No - HEENT Hx HEENT Problems: No - RENAL Hx Chronic Kidney Disease: No - ENDOCRINE/METABOLIC Hx Endocrine Disorders: No - HEMATOLOGICAL/ONCOLOGICAL Hx Blood Disorders: Yes Other/Comment: Essential Thrombocythemia - INTEGUMENTARY Hx Dermatological Problems: No - MUSCULOSKELETAL/RHEUMATOLOGICAL Hx Falls: Yes - GASTROINTESTINAL Hx Gastrointestinal Disorders: Yes Hx Esophageal Varices: Yes (2003) Other/Comment: PORTAL VEIN HYPERTENSION, PORTAL VEIN THROMBOSES - GENITOURINARY/GYNECOLOGICAL Hx Genitourinary Disorders: No - PSYCHIATRIC Hx Substance Use: No - SURGICAL HISTORY Hx Tonsillectomy: Yes - ANESTHESIA Hx Anesthesia: Yes Hx Anesthesia Reactions: No Meds Allergies/Adverse Reactions: Allergies Allergy/AdvReac Type Severity Reaction Status Date / Time lansoprazole [From Prevacid] Allergy anxiety, Verified 04/01/17 23:10 shaking ranitidine [From Zantac] Allergy anxiety, Verified 04/01/17 23:10 shaking - Medications Medications: Current Medications Acetaminophen (Tylenol 325mg Tab) 650 mg PO Q6 PRN PRN Reason: Pain, moderate (4-7) Last Admin: 04/02/17 13:08 Dose: 650 mg Bacitracin (Bacitracin Oint) 1 applic TOP BID [facility] Last Admin: 04/03/17 08:47 Dose: 1 applic Famotidine (Pepcid) 20 mg PO Q12 [facility] Last Admin: 04/03/17 08:47 Dose: 20 mg Furosemide (Lasix) 40 mg PO DAILY [facility] Last Admin: 04/03/17 08:47 Dose: 40 mg Hydroxyurea (Hydrea) 500 mg PO TID [facility] Last Admin: 04/03/17 08:46 Dose: 500 mg Vancomycin HCl 1 gm/ Sodium (Chloride) 250 mls @ 166.667 mls/hr IVPB Q12@0600, 1800 [facility] Last Admin: 04/03/17 05:52 Dose: 166.667 mls/hr Ceftriaxone Sodium 1 gm/ (Sodium Chloride) 100 mls @ 100 mls/hr IVPB Q12 [facility] Stop: 04/09/17 21:01 Last Admin: 04/03/17 08:49 Dose: Not Given Lactobacillus Acidophilus (Bacid Acidophilus) 1 cap PO BID [facility] Stop: 04/08/17 23:59 Last Admin: 04/03/17 08:45 Dose: 1 cap Lactulose (Enulose) 20 gm PO DAILY [facility] Last Admin: 04/03/17 08:46 Dose: 20 gm Morphine Sulfate (Morphine Immediate Release Tab) 30 mg PO 0900,1700,2100 [facility] Last Admin: 04/03/17 08:44 Dose: 30 mg Ondansetron HCl (Zofran Tab) 4 mg PO Q6 PRN PRN Reason: Nausea/Vomiting Last Admin: 04/03/17 11:47 Dose: 4 mg Oxycodone/Acetaminophen (Percocet 5/325 Mg Tab) 2 tab PO Q6 PRN PRN Reason: Pain, severe (8-10) Stop: 04/04/17 23:28 Last Admin: 04/03/17 06:04 Dose: 2 tab Physical Exam - Constitutional Appears: Non-toxic, No Acute Distress - Head Exam Additional comments: right cranial lateral-posterior scalp surgical site with yocasta in place clean/dry/intact no erythema - Eye Exam Eye Exam: EOMI - ENT Exam ENT Exam: Normal Oropharynx - Neck Exam Neck exam: Positive for: Full Rom - Respiratory Exam Respiratory Exam: Clear to Auscultation Bilateral, NORMAL BREATHING PATTERN - Cardiovascular Exam Cardiovascular Exam: RRR, +S1, +S2 - GI/Abdominal Exam GI & Abdominal Exam: Normal Bowel Sounds, Soft Additional comments: NT, ND - Extremities Exam Additional comments: no edema b/l no erythema - Neurological Exam Neurological exam: Alert, Oriented x3 - Skin Additional comments: round macular like rash on the right mid facial region similar type lesion with slightly raised borders on her right chest region above the right collar bone ( pt. denies having any central lines in this region) no open wounds no surrounding erythema Results - Vital Signs Recent Vital Signs: Last Vital Signs Temp 97.6 F 04/03/17 08:27 Pulse 85 04/03/17 08:27 Resp 19 04/03/17 08:27 BP 109/60 04/03/17 08:47 Pulse Ox 99 04/03/17 08:27 - Labs Result Diagrams: 04/03/17 13:58 04/02/17 05:20 Labs: Laboratory Results - last 72 hr 04/02/17 04/02/17 04/02/17 05:20 05:20 10:55 WBC 19.7 H RBC 3.98 Hgb 10.6 L Hct 35.5 MCV 89.4 MCH 26.7 L MCHC 29.9 L RDW 25.0 H Plt Count 387 Sodium 140 Potassium 4.0 Chloride 101 Carbon Dioxide 33 H Anion Gap 10 BUN 12 Creatinine 0.5 L Est GFR ( Amer) > 60 Est GFR (Non-Af Amer) > 60 Random Glucose 84 Calcium 9.2 Urine Color Yellow Urine Clarity Clear Urine pH 6.0 Ur Specific [place] 1.015 Urine Protein 30 Urine Glucose (UA) Neg Urine Ketones Negative Urine Blood Negative Urine Nitrate Negative Urine Bilirubin Negative Urine Urobilinogen 0.2-1.0 Ur Leukocyte Esterase Neg Urine RBC (Auto) 2 Urine Microscopic WBC 2 Ur Squamous Epith Cells < 1 04/03/17 13:58 WBC 21.1 H RBC 4.13 Hgb 11.0 L Hct 37.0 MCV 89.5 MCH 26.5 L MCHC 29.6 L RDW 25.7 H Plt Count 518 H D Sodium Potassium Chloride Carbon Dioxide Anion Gap BUN Creatinine Est GFR ( Amer) Est GFR (Non-Af Amer) Random Glucose Calcium Urine Color Urine Clarity Urine pH Ur Specific [place] Urine Protein Urine Glucose (UA) Urine Ketones Urine Blood Urine Nitrate Urine Bilirubin Urine Urobilinogen Ur Leukocyte Esterase Urine RBC (Auto) Urine Microscopic WBC Ur Squamous Epith Cells Accession No. : [id number] Patient Name / ID : DIAZ HARDEN A / [id number] Exam Date : 04/02/2017 14:50:04 ( Approved ) Study Comment : Sex / Age : F / 56Y Creator : Edilson Hong MD Dictator : Edilson Hong MD Chair And Couch Maker : Fruit Packer : Edilson Hong MD Approver2 : Report Date : 04/02/2017 15:42:19 My Comment : HISTORY: elevated WBC COMPARISON: No prior. TECHNIQUE: Chest PA and lateral FINDINGS: LUNGS: No active pulmonary disease. PLEURA: No significant pleural effusion identified. No pneumothorax apparent. CARDIOVASCULAR: Normal. OSSEOUS STRUCTURES: No significant abnormalities. VISUALIZED UPPER ABDOMEN: Normal. OTHER FINDINGS: None. IMPRESSION: No active disease. Microbiology 03/26/17 Unknown Urine,Catheterized Urine Culture - Final No Growth (<1,000 CFU/ML) 03/26/17 19:15 Blood-Venous Blood Culture - Final 03/26/17 19:15 Blood-Venous Gram Stain - Final NO GROWTH AFTER 5 DAYS TEST NOT PERFORMED 03/13/17 13:46 Urine,Clean Catch Urine Culture - Final No Growth (<1,000 CFU/ML) 03/13/17 12:30 Blood-Venous Blood Culture - Final 03/13/17 12:30 Blood-Venous Gram Stain - Final NO GROWTH AFTER 5 DAYS TEST NOT PERFORMED 03/13/17 12:18 Blood-Venous Blood Culture - Final 03/13/17 12:18 Blood-Venous Gram Stain - Final NO GROWTH AFTER 5 DAYS TEST NOT PERFORMED Assessment & Plan (1) Essential thrombocythemia Status: Acute (2) S/P evacuation of subdural hematoma Status: Acute Priority: Medium (3) Leukocytosis Status: Acute - Assessment and Plan (Free Text) Assessment: A/P- 56 year old female with essential thrombocytosis, portal vein thrombosis and recent subdural hematoma post craniectomya nd evacuation with peristent leukocytosis. no sign of Infectious process at this time based on her exam and hre labs and imaging. her leukocytosis could be secondary to her essential thrombocytosis as well. inflammation from the recent hematoma and surgery is also a possibility . her leukocytosis is not new and based on med records she has had leukocytosis and even much higher in the previous few admissions. all cultures have been negative. her CXR from last night is also negative. she is afebrile. plan- advise to d/c both empiric abx at this time since there is no infectious source at this time. await repeat blood cx and Urine cx from this admission. most likely secondary to her ET and pt. not being on her hydroxyurea. advise to get parking lot attendant's input regarding resuming hydroxyurea. consider gallium scan if all ID w/u is negative. as for the 2 lesions on her face and chest advise to get derm eval and perhaps bx of the lesions if they do not resolve. Thank you for allowing me to take part in the care of this patient. will f/u while inpatient.
[2017-04-03 14:04] LABS: MEAN CELL VOLUME 89.5 fl (81.0-99.0); MEAN CORPUSCULAR HEMOGLOBIN 26.5 pg (27.0-31.0); MEAN CORPUSCULAR HGB CONC 29.6 g/dL (33.0-37.0); RBC 4.13 Mil/uL (3.80-5.20); RED CELL DISTRIBUTION WIDTH 25.7 % (11.5-14.5); WHITE BLOOD COUNT 21.1 K/uL (4.8-10.8)
--- NOTE | 2017-04-03 15:48 | CP.PCM.PN ---
Subjective - Date & Time of Evaluation Date of Evaluation: 04/03/17 Time of Evaluation: 13:20 - Subjective Subjective: F/U S/P R Craniotomy. Pt c/o of headache, nursereprts some nausea during PT, maybe 2nd to Morphine. Minimal R facial pain. Objective - Vital Signs/Intake and Output Vital Signs (last 24 hours): Temp Pulse Resp BP Pulse Ox 97.6 F 85 19 109/60 99 04/03/17 08:27 04/03/17 08:27 04/03/17 08:27 04/03/17 08:47 04/03/17 08:27 - Medications Medications: Current Medications Acetaminophen (Tylenol 325mg Tab) 650 mg PO Q6 PRN PRN Reason: Pain, moderate (4-7) Last Admin: 04/03/17 13:18 Dose: 650 mg Bacitracin (Bacitracin Oint) 1 applic TOP BID [facility] Last Admin: 04/03/17 08:47 Dose: 1 applic Famotidine (Pepcid) 20 mg PO Q12 [facility] Last Admin: 04/03/17 08:47 Dose: 20 mg Furosemide (Lasix) 40 mg PO DAILY [facility] Last Admin: 04/03/17 08:47 Dose: 40 mg Hydroxyurea (Hydrea) 500 mg PO TID [facility] Last Admin: 04/03/17 12:21 Dose: 500 mg Lactobacillus Acidophilus (Bacid Acidophilus) 1 cap PO BID [facility] Stop: 04/08/17 23:59 Last Admin: 04/03/17 08:45 Dose: 1 cap Lactulose (Enulose) 20 gm PO DAILY [facility] Last Admin: 04/03/17 08:46 Dose: 20 gm Ondansetron HCl (Zofran Tab) 4 mg PO Q6 PRN PRN Reason: Nausea/Vomiting Last Admin: 04/03/17 11:47 Dose: 4 mg Oxycodone/Acetaminophen (Percocet 5/325 Mg Tab) 2 tab PO Q6 PRN PRN Reason: Pain, severe (8-10) Stop: 04/04/17 23:28 Last Admin: 04/03/17 06:04 Dose: 2 tab - Labs Labs: 04/03/17 13:58 04/02/17 05:20 - Constitutional Appears: No Acute Distress, Chronically Ill - Head Exam Head Exam: NORMAL INSPECTION Additional comments: S/P R craniotomy, yocasta in place. Rash in R face - Eye Exam Eye Exam: PERRL - ENT Exam ENT Exam: Normal Oropharynx - Neck Exam Neck Exam: Normal Inspection - Respiratory Exam Respiratory Exam: NORMAL BREATHING PATTERN Additional comments: R chest with rash. - Cardiovascular Exam Cardiovascular Exam: REGULAR RHYTHM - GI/Abdominal Exam GI & Abdominal Exam: Soft, Normal Bowel Sounds - Extremities Exam Extremities Exam: Normal Inspection - Back Exam Back Exam: NORMAL INSPECTION - Neurological Exam Neurological Exam: Alert, Oriented x3 Additional comments: No focal motor sensory deficit. - Psychiatric Exam Psychiatric exam: Normal Mood - Skin Skin Exam: Warm Assessment and Plan (1) S/P evacuation of subdural hematoma Status: Acute (2) Essential thrombocythemia Status: Acute (3) Leukocytosis Status: Acute (4) Status post fall Status: Acute - Assessment and Plan (Free Text) Plan: Pt refused abx yesterday, DC Morphine, f/u ID, f/u stat CBC.
--- NOTE | 2017-04-03 18:47 | CP.PCM.CON ---
History of Present Illness - History of Present Illness History of Present Illness: 56 year old female with a history of essential thrombocythemia on hydroxyurea complicated by portal vein thrombosis on coumadin, recently admitted with subdural hematoma s/p neurosurgical evacuation, admitted to rehab. The patient fell off a ladder and struck her head which led to a subdural hematoma. She was brought to the hospital and underwent reversal of her coumadin coagulpathy and neurosurgical evacuation. Her coumadin is to be held a minimum of 2 weeks and she has been continued on hydroxyurea. She currently notes she is better but has a headache related to her recent surgery. Past medical history: essential thrombocythemia, portal venin thrombososi Past surgical history: Subdural hematoma evacuation Family history: Denies hematologic and oncologic problems Social history: Denies tobacco, alcohol, and illicit drug use. Allergies: Lansoprazole, ranitidine Review of systems: All remaining review of systems including HEENT, cardiovascular, respiratory, gastrointestinal, genitourinary, musculoskeletal, dermatologic, neurologic, and psychiatric are negative unless mentioned in the HPI. Past Patient History - Infectious Disease Hx of Infectious Diseases: None - Tetanus Immunizations Tetanus Immunization: Unknown - Past Medical History & Family History Past Medical History?: Yes - Past Social History Smoking Status: Former Smoker Alcohol: None Drugs: Denies - CARDIAC Hx Cardiac Disorders: No - PULMONARY Hx Respiratory Disorders: Yes Hx Emphysema: Yes (per patient "mild emphysema") - NEUROLOGICAL Hx Neurological Disorder: No - HEENT Hx HEENT Problems: No - RENAL Hx Chronic Kidney Disease: No - ENDOCRINE/METABOLIC Hx Endocrine Disorders: No - HEMATOLOGICAL/ONCOLOGICAL Hx Blood Disorders: Yes Other/Comment: Essential Thrombocythemia - INTEGUMENTARY Hx Dermatological Problems: No - MUSCULOSKELETAL/RHEUMATOLOGICAL Hx Falls: Yes - GASTROINTESTINAL Hx Gastrointestinal Disorders: Yes Hx Esophageal Varices: Yes (2003) Other/Comment: PORTAL VEIN HYPERTENSION, PORTAL VEIN THROMBOSES - GENITOURINARY/GYNECOLOGICAL Hx Genitourinary Disorders: No - PSYCHIATRIC Hx Substance Use: No - SURGICAL HISTORY Hx Tonsillectomy: Yes - ANESTHESIA Hx Anesthesia: Yes Hx Anesthesia Reactions: No Meds Allergies/Adverse Reactions: Allergies Allergy/AdvReac Type Severity Reaction Status Date / Time lansoprazole [From Prevacid] Allergy anxiety, Verified 04/01/17 23:10 shaking ranitidine [From Zantac] Allergy anxiety, Verified 04/01/17 23:10 shaking - Medications Medications: Current Medications Acetaminophen (Tylenol 325mg Tab) 650 mg PO Q6 PRN PRN Reason: Pain, moderate (4-7) Last Admin: 04/03/17 13:18 Dose: 650 mg Bacitracin (Bacitracin Oint) 1 applic TOP BID [facility] Last Admin: 04/03/17 17:35 Dose: 1 applic Famotidine (Pepcid) 20 mg PO Q12 [facility] Last Admin: 04/03/17 08:47 Dose: 20 mg Furosemide (Lasix) 40 mg PO DAILY [facility] Last Admin: 04/03/17 08:47 Dose: 40 mg Hydroxyurea (Hydrea) 500 mg PO TID [facility] Last Admin: 04/03/17 17:35 Dose: 500 mg Lactobacillus Acidophilus (Bacid Acidophilus) 1 cap PO BID [facility] Stop: 04/08/17 23:59 Last Admin: 04/03/17 17:35 Dose: 1 cap Lactulose (Enulose) 20 gm PO DAILY [facility] Last Admin: 04/03/17 08:46 Dose: 20 gm Ondansetron HCl (Zofran Tab) 4 mg PO Q6 PRN PRN Reason: Nausea/Vomiting Last Admin: 04/03/17 11:47 Dose: 4 mg Oxycodone/Acetaminophen (Percocet 5/325 Mg Tab) 2 tab PO Q6 PRN PRN Reason: Pain, severe (8-10) Stop: 04/04/17 23:28 Last Admin: 04/03/17 06:04 Dose: 2 tab Physical Exam - Head Exam Additional comments: right surgical scar - ENT Exam ENT Exam: Mucous Membranes Dry - Respiratory Exam Respiratory Exam: NORMAL BREATHING PATTERN - Cardiovascular Exam Cardiovascular Exam: +S1, +S2 - GI/Abdominal Exam GI & Abdominal Exam: Normal Bowel Sounds - Extremities Exam Extremities exam: Positive for: normal inspection - Neurological Exam Neurological exam: Oriented x3 - Psychiatric Exam Psychiatric exam: Normal Affect, Normal Mood - Skin Skin Exam: Warm Results - Vital Signs Recent Vital Signs: Last Vital Signs Temp 97.6 F 04/03/17 08:27 Pulse 85 04/03/17 08:27 Resp 19 04/03/17 08:27 BP 109/60 04/03/17 08:47 Pulse Ox 99 04/03/17 08:27 - Labs Result Diagrams: 04/04/17 05:30 04/02/17 05:20 Labs: Laboratory Results - last 24 hr 04/03/17 13:58 WBC 21.1 H RBC 4.13 Hgb 11.0 L Hct 37.0 MCV 89.5 MCH 26.5 L MCHC 29.6 L RDW 25.7 H Plt Count 518 H D Assessment & Plan (1) Essential thrombocythemia Assessment and Plan: elevated plt count on hydroxyurea 500mg TID Coumadin on hold due to recent subdural hematoma outpatient f/u with primary oncologist to discuss restarting coumadin minimum in 2 weeks Status: Acute (2) Leukocytosis Assessment and Plan: s/p antibiotics of note, can have elevated WBC count in essential thrombocythemia Status: Acute (3) Anemia Assessment and Plan: improved Thank you for this interesting consult. Status: Acute
[2017-04-04] MEDS: Oxycodone/Acetaminophen 5/325 mg Tab PO PRN ×2 (05:07→21:22)
[2017-04-04 07:12] LABS: BASO # 0.2 K/uL (0.0-0.2); BASO % 0.7 % (0.0-2.0); EOS # 1.2 K/uL (0.0-0.7); EOS % 4.7 % (0.0-4.0); HEMOGLOBIN 11.4 g/dL (12.0-16.0); LYMPH # 2.5 K/uL (1.0-4.3); LYMPH % 10.2 % (20.0-40.0); MEAN CORPUSCULAR HEMOGLOBIN 26.7 pg (27.0-31.0); MEAN CORPUSCULAR HGB CONC 29.3 g/dL (33.0-37.0); MEAN PLATELET VOLUME 10.5 fl (7.2-11.7); MONO # 1.6 K/uL (0.0-0.8); MONO % 6.5 % (0.0-10.0); NEUT # 19.3 K/uL (1.8-7.0); NEUT % 77.9 % (50.0-75.0); NRBC % 9.7 % (0.0-0.0); RBC 4.27 Mil/uL (3.80-5.20); RED CELL DISTRIBUTION WIDTH 26.3 % (11.5-14.5); WHITE BLOOD COUNT 24.8 K/uL (4.8-10.8)
[2017-04-04] MEDS: Bacitracin OINT 15GM TOP SCH ×2 (09:02→16:58)
[2017-04-04] MEDS: POLYETHYLENE GLYCOL 3350 17 GM/Dose PACKET PO SCH ×2 (09:02→16:58)
[2017-04-04] MEDS: Lactobacillus Acidophilus 500 MU Cap PO SCH ×2 (09:02→16:57)
--- NOTE | 2017-04-04 10:18 | CP.PCM.CON ---
History of Present Illness - History of Present Illness History of Present Illness: Pt is a 56 year old female admitted to the rehab unit and referred to the script writer for evaluation. See medical record for med history and medications. She reported falling off a ladder when adjusting her cat's toy. Pt reported a history of chronic pain and current intervention with a pain management MD in the community. Psych- Pt also reported current counseling. she denied a hx of medications prescribed. Social hx: pt lives alone. she never and has no children. she reported a strong support network with friends and family. 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 Pt spoke of her greatest priority right now as her pain managment needs. she denied depression or anxiety. MSE: Pt alert, relevant/coherent, no psychosis, affect constricted, mood dysphoric due to "Pain", no si no hi ideation. Dx: Depression Reccurent per history plan: continued sup therapy Past Patient History - Infectious Disease Hx of Infectious Diseases: None - Tetanus Immunizations Tetanus Immunization: Unknown - Past Medical History & Family History Past Medical History?: Yes - Past Social History Smoking Status: Former Smoker Alcohol: None Drugs: Denies - CARDIAC Hx Cardiac Disorders: No - PULMONARY Hx Respiratory Disorders: Yes Hx Emphysema: Yes (per patient "mild emphysema") - NEUROLOGICAL Hx Neurological Disorder: No - HEENT Hx HEENT Problems: No - RENAL Hx Chronic Kidney Disease: No - ENDOCRINE/METABOLIC Hx Endocrine Disorders: No - HEMATOLOGICAL/ONCOLOGICAL Hx Blood Disorders: Yes Other/Comment: Essential Thrombocythemia - INTEGUMENTARY Hx Dermatological Problems: No - MUSCULOSKELETAL/RHEUMATOLOGICAL Hx Falls: Yes - GASTROINTESTINAL Hx Gastrointestinal Disorders: Yes Hx Esophageal Varices: Yes (2003) Other/Comment: PORTAL VEIN HYPERTENSION, PORTAL VEIN THROMBOSES - GENITOURINARY/GYNECOLOGICAL Hx Genitourinary Disorders: No - PSYCHIATRIC Hx Substance Use: No - SURGICAL HISTORY Hx Tonsillectomy: Yes - ANESTHESIA Hx Anesthesia: Yes Hx Anesthesia Reactions: No Meds Allergies/Adverse Reactions: Allergies Allergy/AdvReac Type Severity Reaction Status Date / Time lansoprazole [From Prevacid] Allergy anxiety, Verified 04/01/17 23:10 shaking ranitidine [From Zantac] Allergy anxiety, Verified 04/01/17 23:10 shaking - Medications Medications: Current Medications Acetaminophen (Tylenol 325mg Tab) 650 mg PO Q6 PRN PRN Reason: Pain, moderate (4-7) Last Admin: 04/03/17 13:18 Dose: 650 mg Bacitracin (Bacitracin Oint) 1 applic TOP BID [facility] Last Admin: 04/04/17 09:02 Dose: 1 applic Famotidine (Pepcid) 20 mg PO Q12 [facility] Last Admin: 04/04/17 09:03 Dose: 20 mg Furosemide (Lasix) 40 mg PO DAILY [facility] Last Admin: 04/04/17 09:02 Dose: 40 mg Hydroxyurea (Hydrea) 500 mg PO TID [facility] Last Admin: 04/04/17 09:02 Dose: 500 mg Lactobacillus Acidophilus (Bacid Acidophilus) 1 cap PO BID [facility] Stop: 04/08/17 23:59 Last Admin: 04/04/17 09:02 Dose: 1 cap Lactulose (Enulose) 20 gm PO DAILY [facility] Last Admin: 04/04/17 09:02 Dose: 20 gm Ondansetron HCl (Zofran Tab) 4 mg PO Q6 PRN PRN Reason: Nausea/Vomiting Last Admin: 04/03/17 11:47 Dose: 4 mg Oxycodone/Acetaminophen (Percocet 5/325 Mg Tab) 2 tab PO Q6 PRN PRN Reason: Pain, severe (8-10) Stop: 04/04/17 23:28 Last Admin: 04/04/17 05:07 Dose: 2 tab Polyethylene Glycol (Miralax) 17 gm PO BID [facility] Last Admin: 04/04/17 09:02 Dose: 17 gm Results - Vital Signs Recent Vital Signs: Last Vital Signs Temp 98.0 F 04/04/17 08:43 Pulse 85 04/04/17 08:43 Resp 19 04/04/17 08:43 BP 107/60 04/04/17 09:02 Pulse Ox 97 04/04/17 08:43 - Labs Result Diagrams: 04/04/17 05:30 04/02/17 05:20 Labs: Laboratory Results - last 24 hr 04/03/17 04/04/17 13:58 05:30 WBC 21.1 H 24.8 H RBC 4.13 4.27 Hgb 11.0 L 11.4 L Hct 37.0 38.9 MCV 89.5 91.0 MCH 26.5 L 26.7 L MCHC 29.6 L 29.3 L RDW 25.7 H 26.3 H Plt Count 518 H D 593 H MPV 10.5 Neut % (Auto) 77.9 H Lymph % (Auto) 10.2 L Branch % (Auto) 6.5 Eos % (Auto) 4.7 H Baso % (Auto) 0.7 Neut # 19.3 H Lymph # 2.5 Branch # 1.6 H Eos # 1.2 H Baso # 0.2
--- NOTE | 2017-04-04 14:10 | CP.PCM.PN ---
Subjective - Date & Time of Evaluation Date of Evaluation: 04/04/17 Time of Evaluation: 10:00 - Subjective Subjective: patinet with complaints of constipation, no other complaints at present Objective - Vital Signs/Intake and Output Vital Signs (last 24 hours): Temp Pulse Resp BP Pulse Ox 98.0 F 85 19 107/60 97 04/04/17 08:43 04/04/17 08:43 04/04/17 08:43 04/04/17 09:02 04/04/17 08:43 - Medications Medications: Current Medications Acetaminophen (Tylenol 325mg Tab) 650 mg PO Q6 PRN PRN Reason: Pain, moderate (4-7) Last Admin: 04/04/17 11:22 Dose: 650 mg Bacitracin (Bacitracin Oint) 1 applic TOP BID [facility] Last Admin: 04/04/17 09:02 Dose: 1 applic Famotidine (Pepcid) 20 mg PO Q12 [facility] Last Admin: 04/04/17 09:03 Dose: 20 mg Furosemide (Lasix) 40 mg PO DAILY [facility] Last Admin: 04/04/17 09:02 Dose: 40 mg Hydroxyurea (Hydrea) 500 mg PO TID [facility] Last Admin: 04/04/17 12:23 Dose: 500 mg Lactobacillus Acidophilus (Bacid Acidophilus) 1 cap PO BID [facility] Stop: 04/08/17 23:59 Last Admin: 04/04/17 09:02 Dose: 1 cap Lactulose (Enulose) 20 gm PO DAILY [facility] Last Admin: 04/04/17 09:02 Dose: 20 gm Ondansetron HCl (Zofran Tab) 4 mg PO Q6 PRN PRN Reason: Nausea/Vomiting Last Admin: 04/03/17 11:47 Dose: 4 mg Oxycodone/Acetaminophen (Percocet 5/325 Mg Tab) 2 tab PO Q6 PRN PRN Reason: Pain, severe (8-10) Stop: 04/07/17 14:00 Polyethylene Glycol (Miralax) 17 gm PO BID [facility] Last Admin: 04/04/17 09:02 Dose: 17 gm Sodium Phosphate (Fleet Enema) [address] ONCE ONE Stop: 04/04/17 17:01 - Labs Labs: 04/04/17 05:30 04/02/17 05:20 - Head Exam Head Exam: ATRAUMATIC, NORMAL INSPECTION, NORMOCEPHALIC - Eye Exam Eye Exam: EOMI, Normal appearance, PERRL Pupil Exam: NORMAL ACCOMODATION - ENT Exam ENT Exam: Mucous Membranes Moist, Normal Exam - Neck Exam Neck Exam: Full ROM - Respiratory Exam Respiratory Exam: NORMAL BREATHING PATTERN - Cardiovascular Exam Cardiovascular Exam: REGULAR RHYTHM - GI/Abdominal Exam GI & Abdominal Exam: Soft - Rectal Exam Rectal Exam: NORMAL INSPECTION - Exam External exam: NORMAL EXTERNAL EXAM - Extremities Exam Extremities Exam: Normal Inspection - Back Exam Back Exam: NORMAL INSPECTION - Neurological Exam Neurological Exam: Alert, Awake Neuro motor strength exam: Left Upper Extremity: 3, Right Upper Extremity: 3, Left Lower Extremity: 3, Right Lower Extremity: 3 - Psychiatric Exam Psychiatric exam: Normal Affect, Normal Mood - Skin Skin Exam: Dry, Intact Assessment and Plan (1) Abdominal pain Status: Acute (2) Altered mental status Status: Acute (3) Anemia Status: Acute (4) CHF (congestive heart failure) Status: Acute (5) Cellulitis Status: Acute (6) Cellulitis Status: Acute (7) Coagulopathy Status: Acute (8) DVT prophylaxis Status: Acute (9) Subdural hematoma Assessment & Plan: status post craiotomy, History of SUbdural physical, occupational, rec therapy Range of motion, stregnthening transfers and gait training possible Dc for 04/13 Status: Acute
--- NOTE | 2017-04-04 14:24 | CP.PCM.PN ---
Subjective - Date & Time of Evaluation Date of Evaluation: 04/03/17 Time of Evaluation: 17:00 - Subjective Subjective: patient with problems of constipation no other complaints at present Objective - Vital Signs/Intake and Output Vital Signs (last 24 hours): Temp Pulse Resp BP Pulse Ox 98.0 F 85 19 107/60 97 04/04/17 08:43 04/04/17 08:43 04/04/17 08:43 04/04/17 09:02 04/04/17 08:43 - Medications Medications: Current Medications Acetaminophen (Tylenol 325mg Tab) 650 mg PO Q6 PRN PRN Reason: Pain, moderate (4-7) Last Admin: 04/04/17 11:22 Dose: 650 mg Bacitracin (Bacitracin Oint) 1 applic TOP BID [facility] Last Admin: 04/04/17 09:02 Dose: 1 applic Famotidine (Pepcid) 20 mg PO Q12 [facility] Last Admin: 04/04/17 09:03 Dose: 20 mg Furosemide (Lasix) 40 mg PO DAILY [facility] Last Admin: 04/04/17 09:02 Dose: 40 mg Hydroxyurea (Hydrea) 500 mg PO TID [facility] Last Admin: 04/04/17 12:23 Dose: 500 mg Lactobacillus Acidophilus (Bacid Acidophilus) 1 cap PO BID [facility] Stop: 04/08/17 23:59 Last Admin: 04/04/17 09:02 Dose: 1 cap Lactulose (Enulose) 20 gm PO DAILY [facility] Last Admin: 04/04/17 09:02 Dose: 20 gm Ondansetron HCl (Zofran Tab) 4 mg PO Q6 PRN PRN Reason: Nausea/Vomiting Last Admin: 04/03/17 11:47 Dose: 4 mg Oxycodone/Acetaminophen (Percocet 5/325 Mg Tab) 2 tab PO Q6 PRN PRN Reason: Pain, severe (8-10) Stop: 04/07/17 14:00 Polyethylene Glycol (Miralax) 17 gm PO BID [facility] Last Admin: 04/04/17 09:02 Dose: 17 gm Sodium Phosphate (Fleet Enema) 135 ml [place] ONCE ONE Stop: 04/04/17 17:01 - Labs Labs: 04/04/17 05:30 04/02/17 05:20 - Head Exam Head Exam: ATRAUMATIC, NORMAL INSPECTION, NORMOCEPHALIC - Eye Exam Eye Exam: EOMI, Normal appearance, PERRL Pupil Exam: NORMAL ACCOMODATION - ENT Exam ENT Exam: Mucous Membranes Moist, Normal Exam - Neck Exam Neck Exam: Normal Inspection - Respiratory Exam Respiratory Exam: NORMAL BREATHING PATTERN - Cardiovascular Exam Cardiovascular Exam: REGULAR RHYTHM - GI/Abdominal Exam GI & Abdominal Exam: Normal Bowel Sounds - Exam External exam: NORMAL EXTERNAL EXAM - Neurological Exam Neurological Exam: Alert, Awake Neuro motor strength exam: Left Upper Extremity: 3, Right Upper Extremity: 3, Left Lower Extremity: 3, Right Lower Extremity: 3 - Psychiatric Exam Psychiatric exam: Normal Affect, Normal Mood Assessment and Plan (1) Abdominal pain Status: Acute (2) Altered mental status Status: Acute (3) Anemia Status: Acute (4) CHF (congestive heart failure) Status: Acute (5) Cellulitis Status: Acute (6) Cellulitis Status: Acute (7) Coagulopathy Status: Acute (8) DVT prophylaxis Status: Acute (9) Subdural hematoma Assessment & Plan: plan to continue to monitor cognition, bowels and bladder, physical, occupationla and rec therapy Status: Acute
--- NOTE | 2017-04-04 15:30 | CP.PCM.PN ---
Subjective - Date & Time of Evaluation Date of Evaluation: 04/04/17 Time of Evaluation: 15:10 - Subjective Subjective: F/U S/P Evacuation Subdural Hematoma. Objective - Vital Signs/Intake and Output Vital Signs (last 24 hours): Temp Pulse Resp BP Pulse Ox 98.0 F 85 19 107/60 97 04/04/17 08:43 04/04/17 08:43 04/04/17 08:43 04/04/17 09:02 04/04/17 08:43 - Medications Medications: Current Medications Acetaminophen (Tylenol 325mg Tab) 650 mg PO Q6 PRN PRN Reason: Pain, moderate (4-7) Last Admin: 04/04/17 11:22 Dose: 650 mg Bacitracin (Bacitracin Oint) 1 applic TOP BID [facility] Last Admin: 04/04/17 09:02 Dose: 1 applic Famotidine (Pepcid) 20 mg PO Q12 [facility] Last Admin: 04/04/17 09:03 Dose: 20 mg Furosemide (Lasix) 40 mg PO DAILY [facility] Last Admin: 04/04/17 09:02 Dose: 40 mg Hydroxyurea (Hydrea) 500 mg PO TID [facility] Last Admin: 04/04/17 12:23 Dose: 500 mg Lactobacillus Acidophilus (Bacid Acidophilus) 1 cap PO BID [facility] Stop: 04/08/17 23:59 Last Admin: 04/04/17 09:02 Dose: 1 cap Lactulose (Enulose) 20 gm PO DAILY [facility] Last Admin: 04/04/17 09:02 Dose: 20 gm Ondansetron HCl (Zofran Tab) 4 mg PO Q6 PRN PRN Reason: Nausea/Vomiting Last Admin: 04/03/17 11:47 Dose: 4 mg Oxycodone/Acetaminophen (Percocet 5/325 Mg Tab) 2 tab PO Q6 PRN PRN Reason: Pain, severe (8-10) Stop: 04/07/17 14:00 Polyethylene Glycol (Miralax) 17 gm PO BID [facility] Last Admin: 04/04/17 09:02 Dose: 17 gm Sodium Phosphate (Fleet Enema) 135 ml [place] ONCE ONE Stop: 04/04/17 17:01 - Labs Labs: 04/04/17 05:30 04/02/17 05:20 - Constitutional Appears: No Acute Distress, Chronically Ill - Head Exam Additional comments: R Craniotomy, yocasta in place. R Face rash. - Eye Exam Eye Exam: PERRL - ENT Exam ENT Exam: Normal Oropharynx - Neck Exam Neck Exam: Normal Inspection - Respiratory Exam Respiratory Exam: NORMAL BREATHING PATTERN Additional comments: R chest rash - Cardiovascular Exam Cardiovascular Exam: REGULAR RHYTHM - GI/Abdominal Exam GI & Abdominal Exam: Soft, Normal Bowel Sounds - Extremities Exam Extremities Exam: Normal Inspection - Back Exam Back Exam: NORMAL INSPECTION - Neurological Exam Neurological Exam: Alert, Oriented x3 Additional comments: No focal motor sensory deficit. - Psychiatric Exam Psychiatric exam: Normal Mood - Skin Skin Exam: Warm Assessment and Plan (1) S/P evacuation of subdural hematoma Status: Acute (2) Essential thrombocythemia Status: Acute (3) Leukocytosis Status: Acute (4) Status post fall Status: Acute
[2017-04-05] MEDS: Oxycodone/Acetaminophen 5/325 mg Tab PO PRN ×2 (07:08→16:51)
[2017-04-05] MEDS: Bacitracin OINT 15GM TOP SCH ×2 (08:59→16:51)
[2017-04-05] MEDS: POLYETHYLENE GLYCOL 3350 17 GM/Dose PACKET PO SCH ×2 (08:59→16:51)
[2017-04-05] MEDS: Lactobacillus Acidophilus 500 MU Cap PO SCH ×2 (08:59→16:51)
--- NOTE | 2017-04-05 15:44 | CP.PCM.PN ---
Subjective - Date & Time of Evaluation Date of Evaluation: 04/05/17 Time of Evaluation: 14:50 - Subjective Subjective: S/P Evacuation Subdural Hematoma. Pt c/o of headache, R craniotomy incision healing well, with yocasta. Objective - Vital Signs/Intake and Output Vital Signs (last 24 hours): Temp Pulse Resp BP Pulse Ox 98.6 F 88 20 128/79 96 04/05/17 07:43 04/05/17 07:43 04/05/17 07:43 04/05/17 08:59 04/05/17 07:43 - Medications Medications: Current Medications Acetaminophen (Tylenol 325mg Tab) 650 mg PO Q6 PRN PRN Reason: Pain, moderate (4-7) Last Admin: 04/05/17 12:50 Dose: 650 mg Bacitracin (Bacitracin Oint) 1 applic TOP BID [facility] Last Admin: 04/05/17 08:59 Dose: 1 applic Famotidine (Pepcid) 20 mg PO Q12 [facility] Last Admin: 04/05/17 08:59 Dose: 20 mg Furosemide (Lasix) 40 mg PO DAILY [facility] Last Admin: 04/05/17 08:59 Dose: 40 mg Hydroxyurea (Hydrea) 500 mg PO TID [facility] Last Admin: 04/05/17 12:50 Dose: 500 mg Lactobacillus Acidophilus (Bacid Acidophilus) 1 cap PO BID [facility] Stop: 04/08/17 23:59 Last Admin: 04/05/17 08:59 Dose: 1 cap Lactulose (Enulose) 20 gm PO DAILY [facility] Last Admin: 04/05/17 08:59 Dose: 20 gm Ondansetron HCl (Zofran Tab) 4 mg PO Q6 PRN PRN Reason: Nausea/Vomiting Last Admin: 04/03/17 11:47 Dose: 4 mg Oxycodone/Acetaminophen (Percocet 5/325 Mg Tab) 2 tab PO Q6 PRN PRN Reason: Pain, severe (8-10) Stop: 04/07/17 14:00 Last Admin: 04/05/17 07:08 Dose: 2 tab Polyethylene Glycol (Miralax) 17 gm PO BID [facility] Last Admin: 04/05/17 08:59 Dose: 17 gm - Labs Labs: 04/04/17 05:30 04/02/17 05:20 - Constitutional Appears: No Acute Distress, Chronically Ill - Head Exam Additional comments: R Craniotomy, yocasta in place. Minimal R facial pain - Eye Exam Eye Exam: PERRL - ENT Exam ENT Exam: Normal Oropharynx - Neck Exam Neck Exam: Normal Inspection - Respiratory Exam Respiratory Exam: NORMAL BREATHING PATTERN Additional comments: Rash in R cheat - Cardiovascular Exam Cardiovascular Exam: REGULAR RHYTHM - GI/Abdominal Exam GI & Abdominal Exam: Soft, Normal Bowel Sounds - Extremities Exam Extremities Exam: Normal Inspection - Back Exam Back Exam: NORMAL INSPECTION - Neurological Exam Neurological Exam: Alert, Oriented x3 Additional comments: No focal motor sensory deficit. - Psychiatric Exam Psychiatric exam: Normal Mood - Skin Skin Exam: Warm Assessment and Plan (1) S/P evacuation of subdural hematoma Status: Acute (2) Essential thrombocythemia Status: Acute (3) Leukocytosis Status: Acute (4) Status post fall Status: Acute - Assessment and Plan (Free Text) Plan: Continue Percocet and rest of Tx , PT, OT.
--- NOTE | 2017-04-05 21:58 | CP.PCM.PN ---
Subjective - Date & Time of Evaluation Date of Evaluation: 04/05/17 Time of Evaluation: 14:00 - Subjective Subjective: patient with no acute complaints of pain, generalized weakness Objective - Vital Signs/Intake and Output Vital Signs (last 24 hours): Temp Pulse Resp BP Pulse Ox 98.6 F 84 20 129/72 96 04/05/17 20:30 04/05/17 20:30 04/05/17 20:30 04/05/17 20:30 04/05/17 20:30 - Medications Medications: Current Medications Acetaminophen (Tylenol 325mg Tab) 650 mg PO Q6 PRN PRN Reason: Pain, moderate (4-7) Last Admin: 04/05/17 12:50 Dose: 650 mg Bacitracin (Bacitracin Oint) 1 applic TOP BID [facility] Last Admin: 04/05/17 16:51 Dose: 1 applic Famotidine (Pepcid) 20 mg PO Q12 [facility] Last Admin: 04/05/17 21:01 Dose: 20 mg Furosemide (Lasix) 40 mg PO DAILY [facility] Last Admin: 04/05/17 08:59 Dose: 40 mg Hydroxyurea (Hydrea) 500 mg PO TID [facility] Last Admin: 04/05/17 16:51 Dose: 500 mg Lactobacillus Acidophilus (Bacid Acidophilus) 1 cap PO BID [facility] Stop: 04/08/17 23:59 Last Admin: 04/05/17 16:51 Dose: 1 cap Lactulose (Enulose) 20 gm PO DAILY [facility] Last Admin: 04/05/17 08:59 Dose: 20 gm Ondansetron HCl (Zofran Tab) 4 mg PO Q6 PRN PRN Reason: Nausea/Vomiting Last Admin: 04/03/17 11:47 Dose: 4 mg Oxycodone/Acetaminophen (Percocet 5/325 Mg Tab) 2 tab PO Q6 PRN PRN Reason: Pain, severe (8-10) Stop: 04/07/17 14:00 Last Admin: 04/05/17 16:51 Dose: 2 tab Polyethylene Glycol (Miralax) 17 gm PO BID [facility] Last Admin: 04/05/17 16:51 Dose: 17 gm - Labs Labs: 04/04/17 05:30 04/02/17 05:20 - Head Exam Head Exam: ATRAUMATIC, NORMAL INSPECTION, NORMOCEPHALIC - Eye Exam Eye Exam: EOMI, Normal appearance Pupil Exam: NORMAL ACCOMODATION - ENT Exam ENT Exam: Mucous Membranes Moist, Normal Exam - Neck Exam Neck Exam: Full ROM, Normal Inspection - Respiratory Exam Respiratory Exam: Clear to Ausculation Bilateral, NORMAL BREATHING PATTERN - Cardiovascular Exam Cardiovascular Exam: REGULAR RHYTHM - Rectal Exam Rectal Exam: NORMAL INSPECTION - Exam External exam: NORMAL EXTERNAL EXAM - Extremities Exam Extremities Exam: Normal Capillary Refill - Back Exam Back Exam: NORMAL INSPECTION - Neurological Exam Neurological Exam: Alert, Awake Neuro motor strength exam: Left Upper Extremity: 3, Right Upper Extremity: 3, Left Lower Extremity: 3, Right Lower Extremity: 3 - Psychiatric Exam Psychiatric exam: Normal Mood - Skin Skin Exam: Normal Color Additional comments: area of craniotomy site healing Assessment and Plan (1) Abdominal pain Status: Acute (2) Altered mental status Status: Acute (3) Anemia Status: Acute (4) CHF (congestive heart failure) Status: Acute (5) Cellulitis Status: Acute (6) Cellulitis Status: Acute (7) Coagulopathy Status: Acute (8) DVT prophylaxis Status: Acute (9) Subdural hematoma Assessment & Plan: plan to continue with acute rehab physical, occupationa, speech and rec therapy neurology and haem consult for follow up moniotr skin, bowels and pain management Status: Acute
--- NOTE | 2017-04-05 22:12 | CP.PCM.PN ---
Subjective - Date & Time of Evaluation Date of Evaluation: 04/02/17 Time of Evaluation: 15:00 - Subjective Subjective: no acute complaints noted Objective - Vital Signs/Intake and Output Vital Signs (last 24 hours): Temp Pulse Resp BP Pulse Ox 98.6 F 84 20 129/72 96 04/05/17 20:30 04/05/17 20:30 04/05/17 20:30 04/05/17 20:30 04/05/17 20:30 - Medications Medications: Current Medications Acetaminophen (Tylenol 325mg Tab) 650 mg PO Q6 PRN PRN Reason: Pain, moderate (4-7) Last Admin: 04/05/17 12:50 Dose: 650 mg Bacitracin (Bacitracin Oint) 1 applic TOP BID [facility] Last Admin: 04/05/17 16:51 Dose: 1 applic Famotidine (Pepcid) 20 mg PO Q12 [facility] Last Admin: 04/05/17 21:01 Dose: 20 mg Furosemide (Lasix) 40 mg PO DAILY [facility] Last Admin: 04/05/17 08:59 Dose: 40 mg Hydroxyurea (Hydrea) 500 mg PO TID [facility] Last Admin: 04/05/17 16:51 Dose: 500 mg Lactobacillus Acidophilus (Bacid Acidophilus) 1 cap PO BID [facility] Stop: 04/08/17 23:59 Last Admin: 04/05/17 16:51 Dose: 1 cap Lactulose (Enulose) 20 gm PO DAILY [facility] Last Admin: 04/05/17 08:59 Dose: 20 gm Ondansetron HCl (Zofran Tab) 4 mg PO Q6 PRN PRN Reason: Nausea/Vomiting Last Admin: 04/03/17 11:47 Dose: 4 mg Oxycodone/Acetaminophen (Percocet 5/325 Mg Tab) 2 tab PO Q6 PRN PRN Reason: Pain, severe (8-10) Stop: 04/07/17 14:00 Last Admin: 04/05/17 16:51 Dose: 2 tab Polyethylene Glycol (Miralax) 17 gm PO BID [facility] Last Admin: 04/05/17 16:51 Dose: 17 gm - Labs Labs: 04/04/17 05:30 04/02/17 05:20 - Head Exam Head Exam: ATRAUMATIC, NORMAL INSPECTION, NORMOCEPHALIC - Eye Exam Eye Exam: Normal appearance Pupil Exam: NORMAL ACCOMODATION - ENT Exam ENT Exam: Mucous Membranes Moist - Respiratory Exam Respiratory Exam: Clear to Ausculation Bilateral - Cardiovascular Exam Cardiovascular Exam: REGULAR RHYTHM - GI/Abdominal Exam GI & Abdominal Exam: Normal Bowel Sounds - Rectal Exam Rectal Exam: NORMAL INSPECTION - Exam External exam: NORMAL EXTERNAL EXAM - Extremities Exam Extremities Exam: Normal Inspection - Neurological Exam Neurological Exam: Alert, Awake Neuro motor strength exam: Left Upper Extremity: 3, Right Upper Extremity: 3, Left Lower Extremity: 3, Right Lower Extremity: 3 - Psychiatric Exam Psychiatric exam: Normal Affect - Skin Skin Exam: Normal Color Assessment and Plan (1) Abdominal pain Status: Acute (2) Altered mental status Status: Acute (3) Anemia Status: Acute (4) CHF (congestive heart failure) Status: Acute (5) Cellulitis Status: Acute (6) Cellulitis Status: Acute (7) Coagulopathy Status: Acute (8) DVT prophylaxis Status: Acute (9) Subdural hematoma Assessment & Plan: Physical , occupational, rec therapy Status: Acute Physiatry Overall Plan of Care - Overall Plan of Care Estimated Length of Stay in Weeks: 3 (weeks) Rehab Impairment: Mobility, Gait, Cognition, Speech, Balance, Coordination, Other Etiologic Diagnosis: Other Rehab/Medical Prognosis: Fair - Anticipated Interventions Physical Therapy:: Yes Occupational Therapy:: Yes Speech Therapy:: Yes Recreational Therapy:: Yes - Therapy Goals Bed Mobility: Independent Ambulation: Independent - Functional Outcomes Functional Outcomes: good - Discharge Plan Identification of Barriers to Discharge: Family Discharge Destination: Home
[2017-04-06] MEDS: Oxycodone/Acetaminophen 5/325 mg Tab PO PRN ×3 (04:50→20:39)
[2017-04-06] MEDS: Bacitracin OINT 15GM TOP SCH ×2 (08:58→16:58)
[2017-04-06] MEDS: Lactobacillus Acidophilus 500 MU Cap PO SCH ×2 (08:58→17:00)
[2017-04-06] MEDS: POLYETHYLENE GLYCOL 3350 17 GM/Dose PACKET PO SCH ×2 (08:58→16:58)
--- NOTE | 2017-04-06 10:49 | CP.PCM.PN ---
Subjective - Date & Time of Evaluation Date of Evaluation: 04/06/17 Time of Evaluation: 10:46 - Subjective Subjective: Mrs. Varela was seen and examined today at bedside. She continues to complain of headache. Physically, she is doing well and was ambulating without assistance and on her cell phone. Objective - Vital Signs/Intake and Output Vital Signs (last 24 hours): Temp Pulse Resp BP Pulse Ox 97.5 F L 80 18 119/68 96 04/06/17 07:53 04/06/17 07:53 04/06/17 07:53 04/06/17 08:58 04/06/17 07:53 - Medications Medications: Current Medications Acetaminophen (Tylenol 325mg Tab) 650 mg PO Q6 PRN PRN Reason: Pain, moderate (4-7) Last Admin: 04/05/17 12:50 Dose: 650 mg Bacitracin (Bacitracin Oint) 1 applic TOP BID [facility] Last Admin: 04/06/17 08:58 Dose: 1 applic Famotidine (Pepcid) 20 mg PO Q12 [facility] Last Admin: 04/06/17 08:58 Dose: 20 mg Furosemide (Lasix) 40 mg PO DAILY [facility] Last Admin: 04/06/17 08:58 Dose: 40 mg Hydroxyurea (Hydrea) 500 mg PO TID [facility] Last Admin: 04/06/17 08:58 Dose: 500 mg Lactobacillus Acidophilus (Bacid Acidophilus) 1 cap PO BID [facility] Stop: 04/08/17 23:59 Last Admin: 04/06/17 08:58 Dose: 1 cap Lactulose (Enulose) 20 gm PO DAILY [facility] Last Admin: 04/06/17 08:58 Dose: 20 gm Magnesium Oxide (Mag-Ox) 400 mg PO BID [facility] Ondansetron HCl (Zofran Tab) 4 mg PO Q6 PRN PRN Reason: Nausea/Vomiting Last Admin: 04/03/17 11:47 Dose: 4 mg Oxycodone/Acetaminophen (Percocet 5/325 Mg Tab) 2 tab PO Q6 PRN PRN Reason: Pain, severe (8-10) Stop: 04/07/17 14:00 Last Admin: 04/06/17 04:50 Dose: 2 tab Polyethylene Glycol (Miralax) 17 gm PO BID [facility] Last Admin: 04/06/17 08:58 Dose: 17 gm - Labs Labs: 04/04/17 05:30 04/02/17 05:20 - Neurological Exam Neurological Exam: Awake, CN II-XII Intact, Normal Gait Neuro motor strength exam: Left Upper Extremity: 4, Right Upper Extremity: 4, Left Lower Extremity: 4, Right Lower Extremity: 4 Assessment and Plan (1) S/P evacuation of subdural hematoma Assessment & Plan: Will start magnesium oxide 400 mg BID for the headaches and this will also help combat some of the constipation she is having from the opiates. Continue PT/OT per the primary team plan. Status: Acute
[2017-04-06] MEDS: Magnesium Oxide 400 mg Tab UD PO SCH ×2 (11:35→16:58)
--- NOTE | 2017-04-06 14:49 | CP.PCM.PN ---
Subjective - Date & Time of Evaluation Date of Evaluation: 04/05/17 Time of Evaluation: 15:00 - Subjective Subjective: Feeling better, headache improved Objective - Vital Signs/Intake and Output Vital Signs (last 24 hours): Temp Pulse Resp BP Pulse Ox 97.5 F L 80 18 119/68 96 04/06/17 07:53 04/06/17 07:53 04/06/17 07:53 04/06/17 08:58 04/06/17 07:53 - Medications Medications: Current Medications Acetaminophen (Tylenol 325mg Tab) 650 mg PO Q6 PRN PRN Reason: Pain, moderate (4-7) Last Admin: 04/05/17 12:50 Dose: 650 mg Bacitracin (Bacitracin Oint) 1 applic TOP BID [facility] Last Admin: 04/06/17 08:58 Dose: 1 applic Famotidine (Pepcid) 20 mg PO Q12 [facility] Last Admin: 04/06/17 08:58 Dose: 20 mg Furosemide (Lasix) 40 mg PO DAILY [facility] Last Admin: 04/06/17 08:58 Dose: 40 mg Hydroxyurea (Hydrea) 500 mg PO TID [facility] Last Admin: 04/06/17 13:11 Dose: 500 mg Lactobacillus Acidophilus (Bacid Acidophilus) 1 cap PO BID [facility] Stop: 04/08/17 23:59 Last Admin: 04/06/17 08:58 Dose: 1 cap Lactulose (Enulose) 20 gm PO DAILY [facility] Last Admin: 04/06/17 08:58 Dose: 20 gm Magnesium Oxide (Mag-Ox) 400 mg PO BID [facility] Last Admin: 04/06/17 11:35 Dose: 400 mg Ondansetron HCl (Zofran Tab) 4 mg PO Q6 PRN PRN Reason: Nausea/Vomiting Last Admin: 04/03/17 11:47 Dose: 4 mg Oxycodone/Acetaminophen (Percocet 5/325 Mg Tab) 2 tab PO Q6 PRN PRN Reason: Pain, severe (8-10) Stop: 04/07/17 14:00 Last Admin: 04/06/17 13:38 Dose: 2 tab Polyethylene Glycol (Miralax) 17 gm PO BID [facility] Last Admin: 04/06/17 08:58 Dose: 17 gm - Labs Labs: 04/04/17 05:30 07/19/17 05:20 - Eye Exam Eye Exam: Normal appearance - ENT Exam ENT Exam: Mucous Membranes Dry - Respiratory Exam Respiratory Exam: NORMAL BREATHING PATTERN - Cardiovascular Exam Cardiovascular Exam: +S1, +S2 - GI/Abdominal Exam GI & Abdominal Exam: Normal Bowel Sounds - Extremities Exam Extremities Exam: Normal Inspection Assessment and Plan (1) Essential thrombocythemia Assessment & Plan: on hydroxyurea Status: Acute (2) Leukocytosis Assessment & Plan: likely from essential thrombocythemia Status: Acute (3) Anemia Assessment & Plan: mild, improving Status: Acute
--- NOTE | 2017-04-06 15:44 | CP.PCM.PN ---
Subjective - Date & Time of Evaluation Date of Evaluation: 04/06/17 Time of Evaluation: 14:20 - Subjective Subjective: F/U S/P R Subdural hematoma evacuation. Complains of Headache,minimal R facial pain Objective - Vital Signs/Intake and Output Vital Signs (last 24 hours): Temp Pulse Resp BP Pulse Ox 97.5 F L 80 18 119/68 96 04/06/17 07:53 04/06/17 07:53 04/06/17 07:53 04/06/17 08:58 04/06/17 07:53 - Medications Medications: Current Medications Acetaminophen (Tylenol 325mg Tab) 650 mg PO Q6 PRN PRN Reason: Pain, moderate (4-7) Last Admin: 04/05/17 12:50 Dose: 650 mg Bacitracin (Bacitracin Oint) 1 applic TOP BID [facility] Last Admin: 04/06/17 08:58 Dose: 1 applic Famotidine (Pepcid) 20 mg PO Q12 [facility] Last Admin: 04/06/17 08:58 Dose: 20 mg Furosemide (Lasix) 40 mg PO DAILY [facility] Last Admin: 04/06/17 08:58 Dose: 40 mg Hydroxyurea (Hydrea) 500 mg PO TID [facility] Last Admin: 04/06/17 13:11 Dose: 500 mg Lactobacillus Acidophilus (Bacid Acidophilus) 1 cap PO BID [facility] Stop: 04/08/17 23:59 Last Admin: 04/06/17 08:58 Dose: 1 cap Lactulose (Enulose) 20 gm PO DAILY [facility] Last Admin: 04/06/17 08:58 Dose: 20 gm Magnesium Oxide (Mag-Ox) 400 mg PO BID [facility] Last Admin: 04/06/17 11:35 Dose: 400 mg Ondansetron HCl (Zofran Tab) 4 mg PO Q6 PRN PRN Reason: Nausea/Vomiting Last Admin: 04/03/17 11:47 Dose: 4 mg Oxycodone/Acetaminophen (Percocet 5/325 Mg Tab) 2 tab PO Q6 PRN PRN Reason: Pain, severe (8-10) Stop: 04/07/17 14:00 Last Admin: 04/06/17 13:38 Dose: 2 tab Polyethylene Glycol (Miralax) 17 gm PO BID [facility] Last Admin: 04/06/17 08:58 Dose: 17 gm - Labs Labs: 04/04/17 05:30 04/02/17 05:20 - Constitutional Appears: No Acute Distress, Chronically Ill - Head Exam Additional comments: S/P R Craniotomy, yocasta in place. - Eye Exam Eye Exam: PERRL - ENT Exam ENT Exam: Normal Oropharynx - Respiratory Exam Respiratory Exam: NORMAL BREATHING PATTERN Additional comments: R chest with rash - Cardiovascular Exam Cardiovascular Exam: REGULAR RHYTHM - GI/Abdominal Exam GI & Abdominal Exam: Soft, Normal Bowel Sounds - Extremities Exam Extremities Exam: Normal Inspection - Back Exam Back Exam: NORMAL INSPECTION - Neurological Exam Neurological Exam: Alert, Oriented x3 Additional comments: No focal motor sensory deficit - Psychiatric Exam Psychiatric exam: Normal Mood - Skin Skin Exam: Warm Assessment and Plan (1) S/P evacuation of subdural hematoma Status: Acute (2) Essential thrombocythemia Status: Acute (3) Leukocytosis Status: Acute (4) Status post fall Status: Acute - Assessment and Plan (Free Text) Plan: Patient requesting Percocet 2 tab q 6 hs for Headache,Neurology f/u appreciated , Mg added foer head ache control, f/u CBC and Platelets , Patient on Hydroxyurea
[2017-04-07] MEDS: Oxycodone/Acetaminophen 5/325 mg Tab PO PRN ×2 (06:18→12:48)
[2017-04-07] MEDS: Bacitracin OINT 15GM TOP SCH ×2 (08:36→16:55)
[2017-04-07] MEDS: Lactobacillus Acidophilus 500 MU Cap PO SCH ×2 (08:36→16:54)
[2017-04-07] MEDS: Magnesium Oxide 400 mg Tab UD PO SCH ×2 (08:37→16:55)
[2017-04-07] MEDS: POLYETHYLENE GLYCOL 3350 17 GM/Dose PACKET PO SCH ×2 (08:37→16:54)
--- NOTE | 2017-04-07 11:49 | CP.PCM.PN ---
Subjective - Date & Time of Evaluation Date of Evaluation: 04/07/17 Time of Evaluation: 12:00 - Subjective Subjective: ID Note- Pt. seen and examined today. Pt. sitting in chair eating her lunch. she denies any fever or chills, denies any cough, denies any chest pain, denies any sob, denies any abd. pain, denies any dysurea, denies any n/v states wants to go home to her cat Objective - Vital Signs/Intake and Output Vital Signs (last 24 hours): Temp Pulse Resp BP Pulse Ox 98.3 F 78 22 109/64 97 04/07/17 08:42 04/07/17 08:42 04/07/17 08:42 04/07/17 08:42 04/07/17 08:42 - Medications Medications: Current Medications Acetaminophen (Tylenol 325mg Tab) 650 mg PO Q6 PRN PRN Reason: Pain, moderate (4-7) Last Admin: 04/07/17 08:38 Dose: 650 mg Bacitracin (Bacitracin Oint) 1 applic TOP BID [facility] Last Admin: 04/07/17 08:36 Dose: 1 applic Famotidine (Pepcid) 20 mg PO Q12 [facility] Last Admin: 04/07/17 08:38 Dose: 20 mg Furosemide (Lasix) 40 mg PO DAILY [facility] Last Admin: 04/07/17 08:37 Dose: 40 mg Hydroxyurea (Hydrea) 500 mg PO TID [facility] Last Admin: 04/07/17 08:36 Dose: 500 mg Lactobacillus Acidophilus (Bacid Acidophilus) 1 cap PO BID [facility] Stop: 04/08/17 23:59 Last Admin: 04/07/17 08:36 Dose: 1 cap Lactulose (Enulose) 20 gm PO DAILY [facility] Last Admin: 04/07/17 08:36 Dose: 20 gm Magnesium Oxide (Mag-Ox) 400 mg PO BID [facility] Last Admin: 04/07/17 08:37 Dose: 400 mg Ondansetron HCl (Zofran Tab) 4 mg PO Q6 PRN PRN Reason: Nausea/Vomiting Last Admin: 04/07/17 09:05 Dose: 4 mg Oxycodone/Acetaminophen (Percocet 5/325 Mg Tab) 2 tab PO Q6 PRN PRN Reason: Pain, severe (8-10) Stop: 04/07/17 14:00 Last Admin: 04/07/17 06:18 Dose: 2 tab Polyethylene Glycol (Miralax) 17 gm PO BID [facility] Last Admin: 04/07/17 08:37 Dose: 17 gm - Labs Labs: - Additional Findings Additional findings: - Constitutional Appears: Non-toxic, No Acute Distress - Head Exam Additional comments: right cranial lateral-posterior scalp surgical site with yocasta in place clean/dry/intact no erythema - Eye Exam Eye Exam: EOMI - ENT Exam ENT Exam: Normal Oropharynx - Neck Exam Neck exam: Positive for: Full Rom - Respiratory Exam Respiratory Exam: Clear to Auscultation Bilateral, NORMAL BREATHING PATTERN - Cardiovascular Exam Cardiovascular Exam: RRR, +S1, +S2 - GI/Abdominal Exam GI & Abdominal Exam: Normal Bowel Sounds, Soft Additional comments: NT, ND - Extremities Exam Additional comments: no edema b/l no erythema - Neurological Exam Neurological exam: Alert, Oriented x 3 Laboratory Results - last 72 hr 04/07/17 14:54 WBC 37.9 H* D RBC 5.10 Hgb 13.6 D Hct 46.8 MCV 91.6 MCH 26.6 L MCHC 29.1 L RDW 27.7 H Plt Count 1262 H* D Microbiology 04/02/17 20:22 Blood Blood Culture - Preliminary NO GROWTH AFTER 3 DAYS 04/02/17 20:00 Blood Blood Culture - Preliminary NO GROWTH AFTER 3 DAYS 04/02/17 10:35 Urine,Clean Catch Urine Culture - Final No Growth (<1,000 CFU/ML) Assessment and Plan (1) Essential thrombocythemia Status: Acute (2) S/P evacuation of subdural hematoma Status: Acute (3) Leukocytosis Status: Acute - Assessment and Plan (Free Text) Assessment: A/P- 56 year old female with essential thrombocytosis, portal vein thrombosis and recent subdural hematoma post craniectomya nd evacuation with peristent leukocytosis. remains afebrile her leukocytosis most likely secondary to her essential thrombocytosis. both wbc and platelts are substantially elevated today. inflammation from the recent hematoma and surgery is also a possibility . her leukocytosis is not new and based on med records she has had leukocytosis and even much higher in the previous few admissions. all cultures have been negative. her CXR from last night is also negative. she is afebrile. blood cx- neg x 2 urine cx- neg plan- hold off on any abx at this time since there is no evidence of infection. advise to repeat another blood cx and UA and urine cx in light of rise in wbc , however, most likely her leukocytosi secondary to her Essential thrombocytosis as her plt are also on the rise. d/w as well and seek his input since sig rise in platelets and wbc today and to see if any other meds for her essential thrombocytosis should be started. advise to also get CT of abd/chest and head for completion of work up of the leukocytosis.
[2017-04-07 14:59] LABS: HEMOGLOBIN 13.6 g/dL (12.0-16.0); MEAN CELL VOLUME 91.6 fl (81.0-99.0); MEAN CORPUSCULAR HEMOGLOBIN 26.6 pg (27.0-31.0); MEAN CORPUSCULAR HGB CONC 29.1 g/dL (33.0-37.0); RBC 5.1 Mil/uL (3.80-5.20); RED CELL DISTRIBUTION WIDTH 27.7 % (11.5-14.5)
[2017-04-07 15:02] LABS: WHITE BLOOD COUNT 37.9 K/uL (4.8-10.8)
[2017-04-07 15:19] LABS: ALB/GLOB RATIO 1.2 (1.0-2.1); ALBUMIN 4.6 g/dL (3.5-5.0); AST/SGOT 159 U/L (14-36); BLOOD UREA NITROGEN 19 mg/dl (7-17); CALCIUM 9.6 mg/dL (8.4-10.2); GFR AFRICAN-AMERICAN > 60; GFR NON-AFRICAN AMERICAN > 60
[2017-04-07 15:28] LABS: ALT/SGPT < 6 U/L (9-52)
--- NOTE | 2017-04-07 16:38 | CP.PCM.PN ---
Subjective - Date & Time of Evaluation Date of Evaluation: 04/07/17 Time of Evaluation: 10:00 - Subjective Subjective: F/U R subdural hematoma evacuation Pt c/o of headache, minimal R facial pain ,requesting pain medication for headache and Fleet edema for constipatiton . Objective - Vital Signs/Intake and Output Vital Signs (last 24 hours): Temp Pulse Resp BP Pulse Ox 98.3 F 93 H 22 109/64 97 04/07/17 08:42 04/07/17 14:29 04/07/17 08:42 04/07/17 08:42 04/07/17 08:42 - Medications Medications: Current Medications Acetaminophen (Tylenol 325mg Tab) 650 mg PO Q6 PRN PRN Reason: Pain, moderate (4-7) Last Admin: 04/07/17 08:38 Dose: 650 mg Bacitracin (Bacitracin Oint) 1 applic TOP BID [facility] Last Admin: 04/07/17 08:36 Dose: 1 applic Famotidine (Pepcid) 20 mg PO Q12 [facility] Last Admin: 04/07/17 08:38 Dose: 20 mg Furosemide (Lasix) 40 mg PO DAILY [facility] Last Admin: 04/07/17 08:37 Dose: 40 mg Hydroxyurea (Hydrea) 500 mg PO TID [facility] Last Admin: 04/07/17 12:48 Dose: 500 mg Lactobacillus Acidophilus (Bacid Acidophilus) 1 cap PO BID [facility] Stop: 04/08/17 23:59 Last Admin: 04/07/17 08:36 Dose: 1 cap Lactulose (Enulose) 20 gm PO DAILY [facility] Last Admin: 04/07/17 08:36 Dose: 20 gm Magnesium Oxide (Mag-Ox) 400 mg PO BID [facility] Last Admin: 04/07/17 08:37 Dose: 400 mg Ondansetron HCl (Zofran Tab) 4 mg PO Q6 PRN PRN Reason: Nausea/Vomiting Last Admin: 04/07/17 09:05 Dose: 4 mg Polyethylene Glycol (Miralax) 17 gm PO BID [facility] Last Admin: 04/07/17 08:37 Dose: 17 gm Sodium Phosphate (Fleet Enema) 135 ml [place] DAILY PRN PRN Reason: Constipation - Labs Labs: 04/07/17 14:54 04/07/17 14:54 - Constitutional Appears: No Acute Distress, Chronically Ill - Head Exam Additional comments: R Craniotomy incision healing well with yocasta in place. R face rash. - Eye Exam Eye Exam: PERRL - ENT Exam ENT Exam: Normal Oropharynx - Neck Exam Neck Exam: Normal Inspection - Respiratory Exam Respiratory Exam: NORMAL BREATHING PATTERN Additional comments: R chest with rash - Cardiovascular Exam Cardiovascular Exam: REGULAR RHYTHM - GI/Abdominal Exam GI & Abdominal Exam: Soft, Normal Bowel Sounds - Extremities Exam Extremities Exam: Normal Inspection - Back Exam Back Exam: NORMAL INSPECTION - Neurological Exam Neurological Exam: Alert, Oriented x3 Additional comments: No focal motor sensory deficit. - Psychiatric Exam Psychiatric exam: Normal Mood - Skin Skin Exam: Warm Assessment and Plan (1) S/P evacuation of subdural hematoma Status: Acute (2) Essential thrombocythemia Status: Acute (3) Leukocytosis Status: Acute (4) Status post fall Status: Acute - Assessment and Plan (Free Text) Plan: Discussed with ID water resource consultant, no sings of acute infection, WBC 37.9 , Platelets 1262 2nd to essential Thrombocytosis, ID water resource consultant advice hematology f/u as out Pt. Yocasta to be DC 2 weeks after surgery next 04-10, Patient requesting Percocet 2 tab q 6 hs, f/u Pain Management , continue Hydroxyurea and rest of Tx.
[2017-04-08 07:48] LABS: HEMOGLOBIN 12.3 g/dL (12.0-16.0); MEAN CELL VOLUME 91.3 fl (81.0-99.0); MEAN CORPUSCULAR HGB CONC 29.6 g/dL (33.0-37.0); RBC 4.54 Mil/uL (3.80-5.20); RED CELL DISTRIBUTION WIDTH 27.5 % (11.5-14.5); WHITE BLOOD COUNT 36.9 K/uL (4.8-10.8)
[2017-04-08 07:59] LABS: SQUAMOUS EPITHIAL < 1 /hpf (0-5); URINE BACTERIA RARE (<OCC); URINE BILIRUBIN NEGATIVE (NEGATIVE); URINE BLOOD NEGATIVE (NEGATIVE); URINE CLARITY SLIGHTY-CLOUDY (Clear); URINE COLOR YELLOW (YELLOW); URINE GLUCOSE (UA) NEG (Normal); URINE LEUKOCYTE ESTERASE NEG Leu/uL (Negative); URINE NITRATE NEGATIVE (NEGATIVE); URINE PROTEIN 30 mg/dL (NEGATIVE); URINE UROBILINOGEN 0.2-1.0 mg/dL (0.2-1.0)
[2017-04-08 08:15] LABS: ALB/GLOB RATIO 1.1 (1.0-2.1); ALT/SGPT 20 U/L (9-52); AST/SGOT 43 U/L (14-36); BLOOD UREA NITROGEN 15 mg/dl (7-17)
[2017-04-08 08:16] LABS: CALCIUM 9.7 mg/dL (8.4-10.2)
[2017-04-08] MEDS: Lactobacillus Acidophilus 500 MU Cap PO SCH ×2 (09:03→16:53)
[2017-04-08] MEDS: Oxycodone/Acetaminophen 5/325 mg Tab PO PRN ×3 (09:03→21:34)
[2017-04-08] MEDS: Bacitracin OINT 15GM TOP SCH ×2 (09:03→16:53)
[2017-04-08] MEDS: POLYETHYLENE GLYCOL 3350 17 GM/Dose PACKET PO SCH ×2 (09:04→16:54)
[2017-04-08 09:05] LABS: GFR AFRICAN-AMERICAN > 60; GFR NON-AFRICAN AMERICAN > 60
[2017-04-08] MEDS: Magnesium Oxide 400 mg Tab UD PO SCH ×2 (09:05→16:53)
--- NOTE | 2017-04-08 13:33 | CP.PCM.PN ---
Subjective - Date & Time of Evaluation Date of Evaluation: 04/07/17 Time of Evaluation: 11:00 - Subjective Subjective: Patient is in the ICU in bed 433, and the time spent with the pt has been 35 min. She was seen and evaluated at her bedside. Events since admission and clinical course have been reviewed. Postop day two S/P evacuation of RT subdural hematoma sustained secondary to a fall at home. Overnight afebrile, normotensive, telemetry NSR. This morning, she is alert, awake and follows commands appropriately. Patient denies any headaches, chest pain, palpitations, abdominal pain, diarrhea, or dysuria. Objective - Vital Signs/Intake and Output Vital Signs (last 24 hours): Temp Pulse Resp BP Pulse Ox 97.9 F 107 H 21 124/54 L 99 04/08/17 08:55 04/08/17 10:00 04/08/17 08:55 04/08/17 09:06 04/08/17 10:00 - Medications Medications: Current Medications Acetaminophen (Tylenol 325mg Tab) 650 mg PO Q6 PRN PRN Reason: Pain, moderate (4-7) Last Admin: 04/07/17 08:38 Dose: 650 mg Bacitracin (Bacitracin Oint) 1 applic TOP BID [facility] Last Admin: 04/08/17 09:03 Dose: 1 applic Famotidine (Pepcid) 20 mg PO Q12 [facility] Last Admin: 04/08/17 09:06 Dose: 20 mg Furosemide (Lasix) 40 mg PO DAILY [facility] Last Admin: 04/08/17 09:06 Dose: 40 mg Hydroxyurea (Hydrea) 500 mg PO TID [facility] Last Admin: 04/08/17 12:29 Dose: 500 mg Lactobacillus Acidophilus (Bacid Acidophilus) 1 cap PO BID [facility] Stop: 04/08/17 23:59 Last Admin: 04/08/17 09:03 Dose: 1 cap Lactulose (Enulose) 20 gm PO DAILY [facility] Last Admin: 04/08/17 09:03 Dose: 20 gm Magnesium Oxide (Mag-Ox) 400 mg PO BID [facility] Last Admin: 04/08/17 09:05 Dose: 400 mg Ondansetron HCl (Zofran Tab) 4 mg PO Q6 PRN PRN Reason: Nausea/Vomiting Last Admin: 04/07/17 09:05 Dose: 4 mg Oxycodone/Acetaminophen (Percocet 5/325 Mg Tab) 2 tab PO Q6 PRN PRN Reason: Pain, severe (8-10) Stop: 04/10/17 21:33 Last Admin: 04/08/17 09:03 Dose: 2 tab Polyethylene Glycol (Miralax) 17 gm PO BID [facility] Last Admin: 04/08/17 09:04 Dose: 17 gm Sodium Phosphate (Fleet Enema) 135 ml [place] DAILY PRN PRN Reason: Constipation - Labs Labs: 04/08/17 06:20 04/08/17 06:20 WBC: 17 Hemoglobin: 9.1 Hematocrit: 30.5 Platelet Count: 418 Neutrophils: 84 Lymphocytes: 7.6 Monocytes: 6.3 PT: 14.6 INR: 1.3 Na :140 K: 3.4 Chloride: 110 CO2: 23 BUN: 12 Creatinine: 0.5 Random Glucose: 93 UA: Negative Tox screen: Positive for Benzodiazepine - Additional Findings Additional findings: Temp: 98.8 BP: 139/76 HR: 62-87, regular RR: 60, thoracoabdominal O2 sat: 97% on room air HEENT: Pupils 2-3 mm, reactive, conjunctiva pink, sclera white, no nystagmus Dressings in place Chest: Bilateral breath sounds, clear to auscultation Heart: RRR Abdomen: Bowel sounds present, soft, liver and spleen nonpalpable, bladder nondistended Extrem: No clubbing, cyanosis, edema Neuro: GCS=15, no CN deficit, speech normal, no motor deficits on plantar flexion Assessment and Plan - Assessment and Plan (Free Text) Assessment: 1. Neuro: S/P fall at home, sustained RT subdural hematoma with midline shift S/ P evacuation. Operative course uneventful. Postop remains alert, awake, follows commands appropriately. No further CLAY reported. 2. Cardiac: Stable, in sinus rhythm, normotensive. 3. Pulmonary: Saturating 100% on room air. 4. Hx of thrombocytosis on hydroxyurea commonly known hole secondary to subdural hematoma. 5. Chronic pain followed by pain specialist. On morphine sub-q 30 mg 3x daily. 6. Constipation on Miralax Powder. 7. Infectious disease: Leukocytosis noted, likely reactive monitor of antibiotics. 8. Hematology: Anemia, chronic disease. Supraimposed acute blood loss. Rremains clinically hemodynamically stable. Plan: We will closely monitor for any further drops in hemoglobin. Keep head of bed elevated at 40 degrees. DVT prophylaxis. Maintain regular diet.
--- NOTE | 2017-04-08 14:30 | CP.PCM.PN ---
Subjective - Date & Time of Evaluation Date of Evaluation: 04/08/17 Time of Evaluation: 11:20 - Subjective Subjective: F/U S/P Craniotomy Pt c/o of headache, R minimal facial pain. Objective - Vital Signs/Intake and Output Vital Signs (last 24 hours): Temp Pulse Resp BP Pulse Ox 97.9 F 107 H 21 124/54 L 99 04/08/17 08:55 04/08/17 10:00 04/08/17 08:55 04/08/17 09:06 04/08/17 10:00 - Medications Medications: Current Medications Acetaminophen (Tylenol 325mg Tab) 650 mg PO Q6 PRN PRN Reason: Pain, moderate (4-7) Last Admin: 04/07/17 08:38 Dose: 650 mg Bacitracin (Bacitracin Oint) 1 applic TOP BID [facility] Last Admin: 04/08/17 09:03 Dose: 1 applic Famotidine (Pepcid) 20 mg PO Q12 [facility] Last Admin: 04/08/17 09:06 Dose: 20 mg Furosemide (Lasix) 40 mg PO DAILY [facility] Last Admin: 04/08/17 09:06 Dose: 40 mg Hydroxyurea (Hydrea) 500 mg PO TID [facility] Last Admin: 04/08/17 12:29 Dose: 500 mg Lactobacillus Acidophilus (Bacid Acidophilus) 1 cap PO BID [facility] Stop: 04/08/17 23:59 Last Admin: 04/08/17 09:03 Dose: 1 cap Lactulose (Enulose) 20 gm PO DAILY [facility] Last Admin: 04/08/17 09:03 Dose: 20 gm Magnesium Oxide (Mag-Ox) 400 mg PO BID [facility] Last Admin: 04/08/17 09:05 Dose: 400 mg Ondansetron HCl (Zofran Tab) 4 mg PO Q6 PRN PRN Reason: Nausea/Vomiting Last Admin: 04/07/17 09:05 Dose: 4 mg Oxycodone/Acetaminophen (Percocet 5/325 Mg Tab) 2 tab PO Q6 PRN PRN Reason: Pain, severe (8-10) Stop: 04/10/17 21:33 Last Admin: 04/08/17 09:03 Dose: 2 tab Polyethylene Glycol (Miralax) 17 gm PO BID [facility] Last Admin: 04/08/17 09:04 Dose: 17 gm Sodium Phosphate (Fleet Enema) 135 ml [place] DAILY PRN PRN Reason: Constipation - Labs Labs: 04/08/17 06:20 04/08/17 06:20 - Constitutional Appears: No Acute Distress, Chronically Ill - Head Exam Additional comments: R Craniotomy, incision healing well with yocasta in place. - Eye Exam Eye Exam: PERRL - ENT Exam ENT Exam: Normal Oropharynx - Neck Exam Neck Exam: Normal Inspection - Respiratory Exam Respiratory Exam: NORMAL BREATHING PATTERN Additional comments: Rash R chest - Cardiovascular Exam Cardiovascular Exam: REGULAR RHYTHM - GI/Abdominal Exam GI & Abdominal Exam: Soft, Normal Bowel Sounds - Extremities Exam Extremities Exam: Normal Inspection - Back Exam Back Exam: NORMAL INSPECTION - Neurological Exam Neurological Exam: Alert, Oriented x3 Additional comments: No focal motor sensory deficit. - Psychiatric Exam Psychiatric exam: Normal Mood - Skin Skin Exam: Warm Assessment and Plan (1) S/P evacuation of subdural hematoma Status: Acute (2) Essential thrombocythemia Status: Acute (3) Leukocytosis Status: Acute (4) Status post fall Status: Acute - Assessment and Plan (Free Text) Plan: Continue Percocet, Lasix, Hydrea and rest of Tx.
--- NOTE | 2017-04-08 19:42 | CP.PCM.PN ---
Subjective - Date & Time of Evaluation Date of Evaluation: 04/08/17 Time of Evaluation: 16:15 - Subjective Subjective: Has some headache Elevated plt count noted, will give one dose of an additional 1000mg of hydroxyurea today Objective - Vital Signs/Intake and Output Vital Signs (last 24 hours): Temp Pulse Resp BP Pulse Ox 97.9 F 107 H 21 124/54 L 99 04/08/17 08:55 04/08/17 10:00 04/08/17 08:55 04/08/17 09:06 04/08/17 10:00 - Medications Medications: Current Medications Acetaminophen (Tylenol 325mg Tab) 650 mg PO Q6 PRN PRN Reason: Pain, moderate (4-7) Last Admin: 04/07/17 08:38 Dose: 650 mg Bacitracin (Bacitracin Oint) 1 applic TOP BID [facility] Last Admin: 04/08/17 16:53 Dose: 1 applic Famotidine (Pepcid) 20 mg PO Q12 [facility] Last Admin: 04/08/17 09:06 Dose: 20 mg Furosemide (Lasix) 40 mg PO DAILY [facility] Last Admin: 04/08/17 09:06 Dose: 40 mg Hydroxyurea (Hydrea) 500 mg PO TID [facility] Last Admin: 04/08/17 16:53 Dose: 500 mg Hydroxyurea (Hydrea) 1,000 mg PO ONCE ONE Stop: 04/08/17 19:41 Lactobacillus Acidophilus (Bacid Acidophilus) 1 cap PO BID [facility] Stop: 04/08/17 23:59 Last Admin: 04/08/17 16:53 Dose: 1 cap Lactulose (Enulose) 20 gm PO DAILY [facility] Last Admin: 04/08/17 09:03 Dose: 20 gm Magnesium Oxide (Mag-Ox) 400 mg PO BID [facility] Last Admin: 04/08/17 16:53 Dose: 400 mg Ondansetron HCl (Zofran Tab) 4 mg PO Q6 PRN PRN Reason: Nausea/Vomiting Last Admin: 04/07/17 09:05 Dose: 4 mg Oxycodone/Acetaminophen (Percocet 5/325 Mg Tab) 2 tab PO Q6 PRN PRN Reason: Pain, severe (8-10) Stop: 04/10/17 21:33 Last Admin: 04/08/17 15:21 Dose: 2 tab Polyethylene Glycol (Miralax) 17 gm PO BID [facility] Last Admin: 04/08/17 16:54 Dose: Not Given Sodium Phosphate (Fleet Enema) 135 ml [place] DAILY PRN PRN Reason: Constipation Last Admin: 04/08/17 15:26 Dose: 135 ml - Labs Labs: 04/08/17 06:20 04/08/17 06:20 - Head Exam Head Exam: ATRAUMATIC - Eye Exam Eye Exam: Normal appearance - ENT Exam ENT Exam: Mucous Membranes Dry - Respiratory Exam Respiratory Exam: NORMAL BREATHING PATTERN - Cardiovascular Exam Cardiovascular Exam: +S1, +S2 - GI/Abdominal Exam GI & Abdominal Exam: Normal Bowel Sounds - Extremities Exam Extremities Exam: Normal Inspection Assessment and Plan (1) Essential thrombocythemia Assessment & Plan: on hydrea will give an addition 1000mg today given rising plt count Status: Acute (2) Leukocytosis Assessment & Plan: secondary to essential thrombocythemia Status: Acute
[2017-04-09] MEDS ORDERED: Oxycodone/Acetaminophen 5/325 mg Tab ONE (03:39)
[2017-04-09] MEDS: POLYETHYLENE GLYCOL 3350 17 GM/Dose PACKET PO SCH ×2 (09:23→16:41)
[2017-04-09] MEDS: Magnesium Oxide 400 mg Tab UD PO SCH ×2 (09:23→16:41)
[2017-04-09] MEDS: Bacitracin OINT 15GM TOP SCH ×2 (09:23→16:41)
[2017-04-09] MEDS: Oxycodone/Acetaminophen 5/325 mg Tab PO PRN ×2 (09:35→15:59)
--- NOTE | 2017-04-09 12:24 | PSY.TMCNF ---
Nursing - Vital Signs Vital Signs (Last 8 hours): Vital Signs 04/09/17 04/09/17 04/09/17 08:28 09:00 09:23 Temperature 97.9 F 97.9 F Pulse Rate 91 H 91 H Respiratory 20 20 Rate Blood Pressure 122/65 122/65 122/65 O2 Sat by Pulse 96 Oximetry Pain: 0 - Precautions: Precautions: Fall Prevention - Medications/Other Issues Comment: pain management. - Consults Comment: DR. JANE ,taper/finisher. DR. ANTHONY, neurologist -coming polo. . DR. Escalante - Skin Incision Site: Right frontal temporal Dressing Status: Clean, Dry, Intact Incision: Healing Well, [place] Intact Incision Line Treatment: Bacitracin, ASHOK - Toileting Toileting: Contact Guard - Bladder Management Bladder Pattern: Normal Voiding Method: Toilet Bladder Management: Supervision - Bowel Management Bowel Pattern: Constipated Comment: on lactulose , Miralax, fleet enema Bowel Management: Supervision Frequency of Accidents: none - Transfers Transfers: Contact Guard - ADL's ADL's: Minimal Assistance - Pain Management Comments: percocet5/325mg 2 tabs Q4h PRN - Patient/Family Teaching Comments: Safety, Pain management - Goals/Time Frame Comments: Per IPOC Physical Therapy - Bed Mobility Bed Mobility: Supervision, Verbal Cues - Transfers Wheelchair to Mat: Supervision Sit to Stand: Supervision - Ambulation Level of Assistance: Supervision Distance (ft.): 200 Assistive Devices: Rolling Walker - Stair Negotiation Stairs: Level of Assistance: Supervision Number of Stairs: 6 Handrails: Bilateral - Standing Balance Static Stand: Supervision Dynamic Stand: Contact Guard Assist - Pain Management Techniques: Medication, Ice, Relaxation Techniques - Insight/Carryover Insight/Carryover: Poor - Patient/Family Education Comment: Role of OT and rehab, plan of care, safety, fall prevention, compensatory strategies for ADLs and safe use of walker with functional mobility , pt with poor insight and memory and requires continued education - Assessment/Plan Assessment: Pt requires maximal coaxing to participate in OT session, Pt with poor insight to deficits and impact on functional performance and safety in home environment. Extensive education regarding role of OT/Rehab and decreasing falls risk in order to return home safely. Pt unable to comprehend and is focused on receiving pain medication and sleeping. Pt requires skilled services in order to maximize independence with ADLs, IADLs and functional mobility - Goals Timeframe: 1 week Goals: MOD I ADLs. MOD I ADL transfers. S with IADLs - Provider License Number: [id number] Occupational Therapy - Arousal/Attention/Orientation Patient Orientation: Person, Time - ADL/IADL Self Feeding: Independent Grooming: Supervision, Verbal Cues, Set-up Help Bathing-Upper Extremity: Supervision, Verbal Cues, Set-up Help Bathing-Lower Extremity: Supervision, Verbal Cues, Set-up Help Dressing-Upper Extremity: Supervision, Verbal Cues, Set-up Help Dressing-Lower Extremity: Supervision, Verbal Cues, Set-up Help - Sitting Balance Static Sitting: Independent with upper extremity support Dynamic Sitting: Requires supervision - Transfers Wheelchair to Bed Transfers: Supervision, Verbal Cues, Set-up Help Toilet Transfers: Supervision, Verbal Cues, Set-up Help - Upper Extremity Status Right Upper Extremity Comment: ROM WFL, shoulder 4-/5 Left Upper Extremity Comment: ROM WFL shoulder 4-/5 - Pain Alleviating Techniques: Medication, Ice, Relaxation Techniques - Insight/Carryover Insight/Carryover: Poor - Patient/Family Education Comment: Role of OT and rehab, plan of care, safety, fall prevention, compensatory strategies for ADLs and safe use of walker with functional mobility , pt with poor insight and memory and requires continued education - Assessment/Plan Assessment: Pt requires maximal coaxing to participate in OT session, Pt with poor insight to deficits and impact on functional performance and safety in home environment. Extensive education regarding role of OT/Rehab and decreasing falls risk in order to return home safely. Pt unable to comprehend and is focused on receiving pain medication and sleeping. Pt requires skilled services in order to maximize independence with ADLs, IADLs and functional mobility - Goals Timeframe: 1 week Goals: MOD I ADLs. MOD I ADL transfers. S with IADLs - Provider Therapist: Mar Dale License Number: [id number] Speech Therapy - Consult Information Patient on Program: Yes Medical Diagnosis: R SDH Treatment Diagnosis: mild-moderate cognitive deficits - Assessment Problem Solving Impairment: Moderate Comment: mild-moderate Memory Impairment: Moderate - Plan Assessment: Pt requires maximal coaxing to participate in OT session, Pt with poor insight to deficits and impact on functional performance and safety in home environment. Extensive education regarding role of OT/Rehab and decreasing falls risk in order to return home safely. Pt unable to comprehend and is focused on receiving pain medication and sleeping. Pt requires skilled services in order to maximize independence with ADLs, IADLs and functional mobility - Provider Therapist: Oma Martinez License Number: [id number] Recreational Therapy - Participation Participation: Participates in Individual and/or Group Sessions, Monitors His/ Her Own Leisure Time - Attendance Attendance: Daily - Activities Leisure Activities: Television - Socialization Level of Socialization: Initiates/interacts freely with care givers and peer - Diversional Time Diversional Time: drawing, television - Assessment Assessment/Plan: Pt requires maximal coaxing to participate in OT session, Pt with poor insight to deficits and impact on functional performance and safety in home environment. Extensive education regarding role of OT/Rehab and decreasing falls risk in order to return home safely. Pt unable to comprehend and is focused on receiving pain medication and sleeping. Pt requires skilled services in order to maximize independence with ADLs, IADLs and functional mobility - Provider Therapist: Maria Victoria Knox, [employer] #[id number] Nutrition - Current Diet Current Diet/ Supplement/ Feedings: heart healthy - Appetite Percent Meal Consumed: 50-74% - Comments Comments: Safety, Pain management - Assessment/Goals/Time Frame Assessment/Goals/Time Frame: pain management. - Provider Provider: Margarita Reilly RD Case Management - Psychosocial Assessment Support Systems: Minnie Varela (mother)- [phone] Psychological Interventions/Needs: Patient is alert and oriented x2, slow to respond. Patient anxious about her cat at home, requesting to go home sooner rather than later. Discharge Concerns: Patient lives alone, patient with elevated WBC Patient/Family Meeting: CM met with patient and rehab team Intervention/Goal/Outcome:: 1. Goal: Mod I overall. 2. Plan: home with skilled services? 3. DME needs. 4. f/u appts. 5. continued emotional support. 6. caregiver training? 7. patient to be reteamed next week for most appropriate discharge date and plan. 8. - Discharge Plan Discharge Plan: Home with services Home Services: [facility]? - Provider Provider: LAUREN Devries, PROCESS CONTROL SPECIALIST License Number: [id number]
--- NOTE | 2017-04-09 15:02 | CT ---
PROCEDURE: CT HEAD WITHOUT CONTRAST. HISTORY: post Craniotomy follow-up COMPARISON: 03/29/[address] without contrast. TECHNIQUE: Axial computed tomography images were obtained through the head/brain without intravenous contrast. Radiation dose: Total exam DLP = 53 mGy-cm. This CT exam was performed using one or more of the following dose reduction techniques: Automated exposure control, adjustment of the mA and/or kV according to patient size, and/or use of iterative reconstruction technique. FINDINGS: HEMORRHAGE: No intracranial hemorrhageResidual right cerebral convexity subdural hematoma is diminished in density with increase in peripheral lucency reflecting degradation of blood products here. It measures approximate 8 mm thickness (diminished from 11 mm) and exerts a 1.5 cm midline shift toward the left, not significantly changed in the interval. No new intracranial hemorrhage is identified this time. BRAIN: Prior right frontotemporal craniotomy is again seen with right sided train and now removed. Diminishing insert intracranial emphysematous changes seen at the operative site with limited residual subdural hematoma remaining at the posterior right temporal subdural space also measure approximately 8 mm. VENTRICLES: Near-complete effacing the right lateral ventricle body is not significantly changed with a stable appearance to the left lateral ventricle, 3rd and 4th ventricles. No prominent hydrocephalus. CALVARIUM: Prior craniotomy noted above. PARANASAL SINUSES: Unremarkable as visualized. No significant inflammatory changes. MASTOID AIR CELLS: Unremarkable as visualized. No inflammatory changes. OTHER FINDINGS: None. IMPRESSION: Prior right frontotemporal craniotomy again appreciated with diminishing right cerebral convexity subdural hematoma identified up to 8 mm currently, diminished from 11 mm previously. Leftward midline shift is unchanged at 1.5 cm. Diminishing extra-axial gas is seen along the craniotomy site with prior drain now removed. Continues CT and clinical follow-up are advised.
--- NOTE | 2017-04-09 20:40 | CP.PCM.PN ---
Subjective - Date & Time of Evaluation Date of Evaluation: 04/09/17 Time of Evaluation: 15:00 - Subjective Subjective: F/U S/P Craniotomy. Pt c/o of increased headache, R facial pain. Objective - Vital Signs/Intake and Output Vital Signs (last 24 hours): Temp Pulse Resp BP Pulse Ox 97.7 F 100 H 20 125/60 99 04/09/17 20:22 04/09/17 20:22 04/09/17 20:22 04/09/17 20:22 04/09/17 20:22 - Medications Medications: Current Medications Acetaminophen (Tylenol 325mg Tab) 650 mg PO Q6 PRN PRN Reason: Pain, moderate (4-7) Last Admin: 04/07/17 08:38 Dose: 650 mg Bacitracin (Bacitracin Oint) 1 applic TOP BID [facility] Last Admin: 04/09/17 16:41 Dose: 1 applic Famotidine (Pepcid) 20 mg PO Q12 [facility] Last Admin: 04/09/17 09:24 Dose: 20 mg Furosemide (Lasix) 40 mg PO DAILY [facility] Last Admin: 04/09/17 09:23 Dose: 40 mg Hydroxyurea (Hydrea) 500 mg PO TID [facility] Last Admin: 04/09/17 16:41 Dose: 500 mg Lactulose (Enulose) 20 gm PO DAILY [facility] Last Admin: 04/09/17 09:23 Dose: 20 gm Magnesium Oxide (Mag-Ox) 400 mg PO BID [facility] Last Admin: 04/09/17 16:41 Dose: 400 mg Ondansetron HCl (Zofran Tab) 4 mg PO Q6 PRN PRN Reason: Nausea/Vomiting Last Admin: 04/07/17 09:05 Dose: 4 mg Oxycodone/Acetaminophen (Percocet 5/325 Mg Tab) 2 tab PO Q6 PRN PRN Reason: Pain, severe (8-10) Stop: 04/10/17 21:33 Last Admin: 04/09/17 15:59 Dose: 2 tab Polyethylene Glycol (Miralax) 17 gm PO BID [facility] Last Admin: 04/09/17 16:41 Dose: 17 gm Sodium Phosphate (Fleet Enema) 135 ml [place] DAILY PRN PRN Reason: Constipation Last Admin: 04/08/17 15:26 Dose: 135 ml - Labs Labs: 04/08/17 06:20 04/08/17 06:20 - Constitutional Appears: No Acute Distress, Chronically Ill - Head Exam Additional comments: R Craniotomy incision healing well. - Eye Exam Eye Exam: Normal appearance - ENT Exam ENT Exam: Normal Oropharynx - Neck Exam Neck Exam: Normal Inspection - Respiratory Exam Respiratory Exam: NORMAL BREATHING PATTERN Additional comments: Rash R chest - Cardiovascular Exam Cardiovascular Exam: REGULAR RHYTHM - GI/Abdominal Exam GI & Abdominal Exam: Soft, Normal Bowel Sounds - Extremities Exam Extremities Exam: Normal Inspection - Back Exam Back Exam: NORMAL INSPECTION - Neurological Exam Neurological Exam: Alert, Oriented x3 Additional comments: No focal motor sensory deficit. - Psychiatric Exam Psychiatric exam: Normal Mood - Skin Skin Exam: Warm Assessment and Plan (1) S/P evacuation of subdural hematoma Status: Acute (2) Essential thrombocythemia Status: Acute (3) Leukocytosis Status: Acute (4) Status post fall Status: Acute - Assessment and Plan (Free Text) Plan: Continue Percocet, Lasix, Hydrea and rest of Tx, f/u Pain Management.
[2017-04-10] MEDS: Oxycodone/Acetaminophen 5/325 mg Tab PO PRN ×2 (02:21→08:22)
[2017-04-10 06:20] LABS: BASO # 0.2 K/uL (0.0-0.2); BASO % 0.6 % (0.0-2.0); EOS # 0.9 K/uL (0.0-0.7); EOS % 2.4 % (0.0-4.0); HEMOGLOBIN 11.1 g/dL (12.0-16.0); LYMPH # 1.1 K/uL (1.0-4.3); LYMPH % 2.9 % (20.0-40.0); MEAN CELL VOLUME 91.4 fl (81.0-99.0); MEAN CORPUSCULAR HEMOGLOBIN 26.7 pg (27.0-31.0); MEAN CORPUSCULAR HGB CONC 29.2 g/dL (33.0-37.0); MEAN PLATELET VOLUME 9.7 fl (7.2-11.7); MONO % 2.9 % (0.0-10.0); NEUT # 32.8 K/uL (1.8-7.0); NEUT % 91.2 % (50.0-75.0); NRBC % 13.4 % (0.0-0.0); RBC 4.15 Mil/uL (3.80-5.20); RED CELL DISTRIBUTION WIDTH 27.8 % (11.5-14.5)
[2017-04-10 06:33] LABS: PLATELET COUNT 1599 K/uL (130-400)
[2017-04-10] MEDS: Magnesium Oxide 400 mg Tab UD PO SCH ×2 (08:23→16:42)
[2017-04-10] MEDS: POLYETHYLENE GLYCOL 3350 17 GM/Dose PACKET PO SCH ×2 (08:23→16:42)
[2017-04-10] MEDS: Bacitracin OINT 15GM TOP SCH ×2 (08:24→16:42)
--- NOTE | 2017-04-10 10:55 | CP.PCM.CON ---
History of Present Illness - History of Present Illness History of Present Illness: 56 yo woman w/ chronic pain s/p craniotomy for subdural hematoma is referred for pain management. Chart reviewed/patient examined. Prior to this admission, patient had had chronic pain for approx. 10 years and had been under the care of a chronic pain specialist, Dr. Poole in [place]. Her pain involved mostly her intra-oral regions, where she had nerve pain after surgeries, and was treated with MSIR 30mg q6-8h PRN. The regimen had been fairly steady until recently there was talk to wean her down to q8h PRN, which she tolerated well. After surgery, she was mostly treated with Percocet, which she admits is not as effective as morphine. According to the staff, her mentation has been at baseline. She was alert and oriented during my history-taking and was understanding of the plan. Plan was relayed to the staff. Past Patient History - Infectious Disease Hx of Infectious Diseases: None - Tetanus Immunizations Tetanus Immunization: Unknown - Past Medical History & Family History Past Medical History?: Yes - Past Social History Smoking Status: Former Smoker Alcohol: None Drugs: Denies Home Situation {Lives}: Alone - CARDIAC Hx Cardiac Disorders: No - PULMONARY Hx Respiratory Disorders: Yes Hx Emphysema: Yes (per patient "mild emphysema") - NEUROLOGICAL Hx Neurological Disorder: No - HEENT Hx HEENT Problems: No - RENAL Hx Chronic Kidney Disease: No - ENDOCRINE/METABOLIC Hx Endocrine Disorders: No - HEMATOLOGICAL/ONCOLOGICAL Hx Blood Disorders: Yes Other/Comment: Essential Thrombocythemia - INTEGUMENTARY Hx Dermatological Problems: No - MUSCULOSKELETAL/RHEUMATOLOGICAL Hx Musculoskeletal Disorders: Yes Hx Falls: Yes - GASTROINTESTINAL Hx Gastrointestinal Disorders: Yes Hx Esophageal Varices: Yes (2003) Other/Comment: PORTAL VEIN HYPERTENSION, PORTAL VEIN THROMBOSES - GENITOURINARY/GYNECOLOGICAL Hx Genitourinary Disorders: No - PSYCHIATRIC Hx Psychophysiologic Disorder: No Hx Substance Use: No - SURGICAL HISTORY Hx Surgeries: Yes Hx Tonsillectomy: Yes - ANESTHESIA Hx Anesthesia: Yes Hx Anesthesia Reactions: No Meds Allergies/Adverse Reactions: Allergies Allergy/AdvReac Type Severity Reaction Status Date / Time lansoprazole [From Prevacid] Allergy anxiety, Verified 04/01/17 23:10 shaking ranitidine [From Zantac] Allergy anxiety, Verified 04/01/17 23:10 shaking - Medications Medications: Current Medications Acetaminophen (Tylenol 325mg Tab) 650 mg PO Q6 PRN PRN Reason: Pain, moderate (4-7) Last Admin: 04/07/17 08:38 Dose: 650 mg Bacitracin (Bacitracin Oint) 1 applic TOP BID [facility] Last Admin: 04/10/17 08:24 Dose: 1 applic Famotidine (Pepcid) 20 mg PO Q12 [facility] Last Admin: 04/10/17 08:23 Dose: 20 mg Furosemide (Lasix) 40 mg PO DAILY [facility] Last Admin: 04/10/17 08:24 Dose: 40 mg Hydroxyurea (Hydrea) 500 mg PO TID [facility] Last Admin: 04/10/17 08:23 Dose: 500 mg Lactulose (Enulose) 20 gm PO DAILY [facility] Last Admin: 04/10/17 08:23 Dose: 20 gm Magnesium Oxide (Mag-Ox) 400 mg PO BID [facility] Last Admin: 04/10/17 08:23 Dose: 400 mg Morphine Sulfate (Morphine Immediate Release Tab) 15 mg PO Q4 PRN PRN Reason: Pain, severe (8-10) Ondansetron HCl (Zofran Tab) 4 mg PO Q6 PRN PRN Reason: Nausea/Vomiting Last Admin: 04/07/17 09:05 Dose: 4 mg Polyethylene Glycol (Miralax) 17 gm PO BID [facility] Last Admin: 04/10/17 08:23 Dose: 17 gm Sodium Phosphate (Fleet Enema) 135 ml CO DAILY PRN PRN Reason: Constipation Last Admin: 04/08/17 15:26 Dose: 135 ml Physical Exam - Head Exam Additional comments: Head covered by clothing. Patient holding an ice pack to right gum during interview. Results - Vital Signs Recent Vital Signs: Last Vital Signs Temp 97.9 F 04/10/17 08:20 Pulse 110 H 04/10/17 08:20 Resp 18 04/10/17 08:20 BP 120/75 04/10/17 08:24 Pulse Ox 96 04/10/17 08:20 - Labs Result Diagrams: 04/10/17 05:55 04/08/17 06:20 Labs: Laboratory Results - last 24 hr 04/10/17 05:55 WBC 36.0 H RBC 4.15 Hgb 11.1 L Hct 37.9 MCV 91.4 MCH 26.7 L MCHC 29.2 L RDW 27.8 H Plt Count 1599 H* MPV 9.7 Neut % (Auto) 91.2 H Lymph % (Auto) 2.9 L Butler % (Auto) 2.9 Eos % (Auto) 2.4 Baso % (Auto) 0.6 Neut # 32.8 H Lymph # 1.1 Butler # 1.0 H Eos # 0.9 H Baso # 0.2 Assessment & Plan (1) Subdural hematoma Assessment and Plan: 56 yo woman s/p crani for SDH has chronic pain. Pain regimen has been scaled back understandably due to need for neuro checks after craniotomy. At this point patient appears to be at baseline neurologically. 15mg of Morphine is equivalent to 10mg of Percocet which the patient is taking currently. As she strongly prefers morphine, I will change her regimen to morphine. - d/c Percocet - start MSIR 15mg q4h PRN, if insufficient, can consider increasing to her home dosage of 30mg, but at q6h PRN - would suggest looking into neuropathic medications given the nature of her pain - please re-consult if necessary, thank you Status: Acute
[2017-04-10] MEDS: Morphine 15 mg Immediate Release Tab PO PRN ×3 (11:00→19:35)
[2017-04-10 11:22] LABS: ANISOCYTOSIS MARKED; EOSINOPHIL 3 % (0-7); LYMPHOCYTE 6 % (20-50); MONOCYTE 4 % (0-10); NEUTROPHIL 87 % (42-75); NUCLEATED RED BLOOD CELL 15 % (0-0); PLATELET ESTIMATE MARKEDLY INCREASED (NORMAL); POIKILOCYTOSIS SLIGHT; TOTAL CELLS COUNTED 100
[2017-04-10 11:23] LABS: HYPOCHROMIC SLIGHT; OVALOCYTES SLIGHT; SCHISTOCYTES SLIGHT; TARGET CELLS SLIGHT; TEARDROP CELLS SLIGHT
[2017-04-10 11:25] LABS: GIANT PLATELETS PRESENT; LARGE PLATELETS PRESENT
--- NOTE | 2017-04-10 14:02 | CP.PCM.PN ---
Subjective - Date & Time of Evaluation Date of Evaluation: 04/10/17 Time of Evaluation: 09:00 - Subjective Subjective: F/U R Craniotomy. Pt c/o of increased R facial pain and throbbing headache Objective - Vital Signs/Intake and Output Vital Signs (last 24 hours): Temp Pulse Resp BP Pulse Ox 97.9 F 110 H 18 120/75 96 04/10/17 08:20 04/10/17 08:20 04/10/17 08:20 04/10/17 08:24 04/10/17 08:20 - Medications Medications: Current Medications Acetaminophen (Tylenol 325mg Tab) 650 mg PO Q6 PRN PRN Reason: Pain, moderate (4-7) Last Admin: 04/07/17 08:38 Dose: 650 mg Bacitracin (Bacitracin Oint) 1 applic TOP BID [facility] Last Admin: 04/10/17 08:24 Dose: 1 applic Famotidine (Pepcid) 20 mg PO Q12 [facility] Last Admin: 04/10/17 08:23 Dose: 20 mg Furosemide (Lasix) 40 mg PO DAILY [facility] Last Admin: 04/10/17 08:24 Dose: 40 mg Hydroxyurea (Hydrea) 500 mg PO TID [facility] Last Admin: 04/10/17 12:22 Dose: 500 mg Lactulose (Enulose) 20 gm PO DAILY [facility] Last Admin: 04/10/17 08:23 Dose: 20 gm Magnesium Oxide (Mag-Ox) 400 mg PO BID [facility] Last Admin: 04/10/17 08:23 Dose: 400 mg Morphine Sulfate (Morphine Immediate Release Tab) 15 mg PO Q4 PRN PRN Reason: Pain, severe (8-10) Last Admin: 04/10/17 11:00 Dose: 15 mg Ondansetron HCl (Zofran Tab) 4 mg PO Q6 PRN PRN Reason: Nausea/Vomiting Last Admin: 04/07/17 09:05 Dose: 4 mg Polyethylene Glycol (Miralax) 17 gm PO BID [facility] Last Admin: 04/10/17 08:23 Dose: 17 gm Sodium Phosphate (Fleet Enema) 135 ml [place] DAILY PRN PRN Reason: Constipation Last Admin: 04/08/17 15:26 Dose: 135 ml - Labs Labs: 04/10/17 05:55 04/08/17 06:20 - Constitutional Appears: No Acute Distress, Chronically Ill - Head Exam Additional comments: R Craniotomy healing well, yocasta in place. - Eye Exam Eye Exam: PERRL - ENT Exam ENT Exam: Normal Oropharynx - Neck Exam Neck Exam: Normal Inspection - Respiratory Exam Respiratory Exam: NORMAL BREATHING PATTERN Additional comments: Rash R chest - Cardiovascular Exam Cardiovascular Exam: REGULAR RHYTHM - GI/Abdominal Exam GI & Abdominal Exam: Soft, Normal Bowel Sounds - Extremities Exam Extremities Exam: Normal Inspection - Back Exam Back Exam: NORMAL INSPECTION - Neurological Exam Neurological Exam: Alert, Oriented x3 Additional comments: No focal motor sensory deficit - Psychiatric Exam Psychiatric exam: Normal Mood - Skin Skin Exam: Warm Assessment and Plan (1) S/P evacuation of subdural hematoma Status: Acute (2) Essential thrombocythemia Status: Acute (3) Leukocytosis Status: Acute (4) Status post fall Status: Acute - Assessment and Plan (Free Text) Plan: Neurosurgeon planning to take out the yocasta tomorrow, seen by pain management , on Morphine 15 mg q 4, continue rest of Tx and PT.
--- NOTE | 2017-04-10 15:04 | CP.PCM.CON ---
History of Present Illness - History of Present Illness History of Present Illness: psychiatry consult ordered by dr. marie reason: depression/anxiety cc: i want to go home hpi: pt is 56, s/p head-injury with craniotomy. she is on rehab floor. pt has been reporting feeling depressed. she states she has a history of depression and has an outpatient therapist she sees in [place]. she has been hospitalized in the past and states she has not been responsive to medications- states her symptoms worsened when tried on antidepressants. she states her depression is doing well with her current therapy. she reports she is anxious about being in the hospital. she is aware of her need for treatment and observed participating in the treatment today. she denies any suicidal thoughts. she is asking for xanax to help her sleep and states her pcp gives her xanax at home prn. past psych: states she was hospitalized in the past once, for severe depression. 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 she denies any substance abuse or ongoing trauma mse: alert, oriented x 3. speech is appropriate. mood is anxious. affect constricted. denies si/hi. denies a/v hallucinations. memory intact. fair i/j assessment: major depression recurrent moderate recommendation: xanax 0.25mg prn for insomnia can follow up with outpt providers after discharge pt interested in homet physical therapy services Past Patient History - Infectious Disease Hx of Infectious Diseases: None - Tetanus Immunizations Tetanus Immunization: Unknown - Past Medical History & Family History Past Medical History?: Yes - Past Social History Smoking Status: Former Smoker Alcohol: None Drugs: Denies Home Situation {Lives}: Alone - CARDIAC Hx Cardiac Disorders: No - PULMONARY Hx Respiratory Disorders: Yes Hx Emphysema: Yes (per patient "mild emphysema") - NEUROLOGICAL Hx Neurological Disorder: No - HEENT Hx HEENT Problems: No - RENAL Hx Chronic Kidney Disease: No - ENDOCRINE/METABOLIC Hx Endocrine Disorders: No - HEMATOLOGICAL/ONCOLOGICAL Hx Blood Disorders: Yes Other/Comment: Essential Thrombocythemia - INTEGUMENTARY Hx Dermatological Problems: No - MUSCULOSKELETAL/RHEUMATOLOGICAL Hx Musculoskeletal Disorders: Yes Hx Falls: Yes - GASTROINTESTINAL Hx Gastrointestinal Disorders: Yes Hx Esophageal Varices: Yes (2003) Other/Comment: PORTAL VEIN HYPERTENSION, PORTAL VEIN THROMBOSES - GENITOURINARY/GYNECOLOGICAL Hx Genitourinary Disorders: No - PSYCHIATRIC Hx Psychophysiologic Disorder: No Hx Substance Use: No - SURGICAL HISTORY Hx Surgeries: Yes Hx Tonsillectomy: Yes - ANESTHESIA Hx Anesthesia: Yes Hx Anesthesia Reactions: No Meds Allergies/Adverse Reactions: Allergies Allergy/AdvReac Type Severity Reaction Status Date / Time lansoprazole [From Prevacid] Allergy anxiety, Verified 04/01/17 23:10 shaking ranitidine [From Zantac] Allergy anxiety, Verified 04/01/17 23:10 shaking - Medications Medications: Current Medications Acetaminophen (Tylenol 325mg Tab) 650 mg PO Q6 PRN PRN Reason: Pain, moderate (4-7) Last Admin: 04/07/17 08:38 Dose: 650 mg Alprazolam (Xanax) 0.25 mg PO HS PRN PRN Reason: Insomnia Stop: 04/17/17 14:51 Bacitracin (Bacitracin Oint) 1 applic TOP BID [facility] Last Admin: 04/10/17 08:24 Dose: 1 applic Famotidine (Pepcid) 20 mg PO Q12 [facility] Last Admin: 04/10/17 08:23 Dose: 20 mg Furosemide (Lasix) 40 mg PO DAILY [facility] Last Admin: 04/10/17 08:24 Dose: 40 mg Hydroxyurea (Hydrea) 500 mg PO TID [facility] Last Admin: 04/10/17 12:22 Dose: 500 mg Lactulose (Enulose) 20 gm PO DAILY [facility] Last Admin: 04/10/17 08:23 Dose: 20 gm Magnesium Oxide (Mag-Ox) 400 mg PO BID [facility] Last Admin: 04/10/17 08:23 Dose: 400 mg Morphine Sulfate (Morphine Immediate Release Tab) 15 mg PO Q4 PRN PRN Reason: Pain, severe (8-10) Last Admin: 04/10/17 11:00 Dose: 15 mg Ondansetron HCl (Zofran Tab) 4 mg PO Q6 PRN PRN Reason: Nausea/Vomiting Last Admin: 04/07/17 09:05 Dose: 4 mg Polyethylene Glycol (Miralax) 17 gm PO BID [facility] Last Admin: 04/10/17 08:23 Dose: 17 gm Sodium Phosphate (Fleet Enema) 135 ml MD DAILY PRN PRN Reason: Constipation Last Admin: 04/08/17 15:26 Dose: 135 ml Results - Vital Signs Recent Vital Signs: Last Vital Signs Temp 97.9 F 04/10/17 08:20 Pulse 110 H 04/10/17 08:20 Resp 18 04/10/17 08:20 BP 120/75 04/10/17 08:24 Pulse Ox 96 04/10/17 08:20 - Labs Result Diagrams: 04/10/17 05:55 04/08/17 06:20 Labs: Laboratory Results - last 24 hr 04/10/17 05:55 WBC 36.0 H RBC 4.15 Hgb 11.1 L Hct 37.9 MCV 91.4 MCH 26.7 L MCHC 29.2 L RDW 27.8 H Plt Count 1599 H* MPV 9.7 Neut % (Auto) 91.2 H Lymph % (Auto) 2.9 L Wolfe % (Auto) 2.9 Eos % (Auto) 2.4 Baso % (Auto) 0.6 Neut # 32.8 H Lymph # 1.1 Wolfe # 1.0 H Eos # 0.9 H Baso # 0.2 Neutrophils % (Manual) 87 H Lymphocytes % (Manual) 6 L Monocytes % (Manual) 4 Eosinophils % (Manual) 3 Nucleated RBC % 15 H Platelet Estimate Markedly increased H Large Platelets Present Giant Platelets Present Hypochromasia (manual) Slight Poikilocytosis (manual Slight Anisocytosis (manual) Marked Target Cells Slight Tear Drop Cells Slight Ovalocytes Slight Schistocytes Slight
--- NOTE | 2017-04-10 21:00 | CP.PCM.PN ---
Subjective - Date & Time of Evaluation Date of Evaluation: 04/09/17 Time of Evaluation: 12:00 - Subjective Subjective: patient lying in bed, generalized weakness, tired no particular complaints Objective - Vital Signs/Intake and Output Vital Signs (last 24 hours): Temp Pulse Resp BP Pulse Ox 97.4 F L 100 H 20 122/77 97 04/10/17 20:47 04/10/17 20:47 04/10/17 20:47 04/10/17 20:47 04/10/17 20:47 - Medications Medications: Current Medications Acetaminophen (Tylenol 325mg Tab) 650 mg PO Q6 PRN PRN Reason: Pain, moderate (4-7) Last Admin: 04/07/17 08:38 Dose: 650 mg Alprazolam (Xanax) 0.25 mg PO HS PRN PRN Reason: Insomnia Stop: 04/17/17 14:51 Last Admin: 04/10/17 20:40 Dose: 0.25 mg Bacitracin (Bacitracin Oint) 1 applic TOP BID [facility] Last Admin: 04/10/17 16:42 Dose: 1 applic Famotidine (Pepcid) 20 mg PO Q12 [facility] Last Admin: 04/10/17 20:41 Dose: 20 mg Furosemide (Lasix) 40 mg PO DAILY [facility] Last Admin: 04/10/17 08:24 Dose: 40 mg Hydroxyurea (Hydrea) 500 mg PO TID [facility] Last Admin: 04/10/17 16:42 Dose: 500 mg Lactulose (Enulose) 20 gm PO DAILY [facility] Last Admin: 04/10/17 08:23 Dose: 20 gm Magnesium Oxide (Mag-Ox) 400 mg PO BID [facility] Last Admin: 04/10/17 16:42 Dose: 400 mg Morphine Sulfate (Morphine Immediate Release Tab) 15 mg PO Q4 PRN PRN Reason: Pain, severe (8-10) Last Admin: 04/10/17 19:35 Dose: 15 mg Ondansetron HCl (Zofran Tab) 4 mg PO Q6 PRN PRN Reason: Nausea/Vomiting Last Admin: 04/07/17 09:05 Dose: 4 mg Polyethylene Glycol (Miralax) 17 gm PO BID [facility] Last Admin: 04/10/17 16:42 Dose: 17 gm Sodium Phosphate (Fleet Enema) 135 ml SD DAILY PRN PRN Reason: Constipation Last Admin: 04/08/17 15:26 Dose: 135 ml - Labs Labs: 04/10/17 05:55 04/08/17 06:20 - Head Exam Head Exam: ATRAUMATIC, NORMAL INSPECTION, NORMOCEPHALIC - Eye Exam Eye Exam: EOMI, Normal appearance Pupil Exam: NORMAL ACCOMODATION, PERRL - Neck Exam Neck Exam: Normal Inspection - Respiratory Exam Respiratory Exam: Clear to Ausculation Bilateral - Cardiovascular Exam Cardiovascular Exam: REGULAR RHYTHM - GI/Abdominal Exam GI & Abdominal Exam: Soft, Normal Bowel Sounds - Rectal Exam Rectal Exam: NORMAL INSPECTION - Exam External exam: NORMAL EXTERNAL EXAM - Extremities Exam Extremities Exam: Normal Capillary Refill, Normal Inspection - Back Exam Back Exam: NORMAL INSPECTION - Neurological Exam Neurological Exam: Alert, Awake Neuro motor strength exam: Left Upper Extremity: 3, Right Upper Extremity: 3, Left Lower Extremity: 3, Right Lower Extremity: 3 Additional comments: problems with balance, cognitionand falling backwards - Psychiatric Exam Psychiatric exam: Normal Affect - Skin Skin Exam: Intact, Normal Color, Warm - Additional Findings Additional findings: scalp healing with yocasta Assessment and Plan (1) Abdominal pain Status: Acute (2) Altered mental status Status: Acute (3) Anemia Status: Acute (4) CHF (congestive heart failure) Status: Acute (5) Cellulitis Status: Acute (6) Cellulitis Status: Acute (7) Coagulopathy Status: Acute (8) DVT prophylaxis Status: Acute (9) Subdural hematoma Assessment & Plan: discussed patient at length with mother and sister as well. discussed need, asked pain management to follow up, patient also followed with with Dr Bernabe for increased white count, and problems with platelets [facility] consult for cognition,? bipolar ?, discussed with neurologist asked for repeat Ct scan. Discussed with patient, need to stay off too much pain medication if able to tolerate less meds ( magnesium and percoset). Patient now recommended for subacute rehab instead of going home secondary to multiple issues Status: Acute
[2017-04-11] MEDS: Morphine 15 mg Immediate Release Tab PO PRN ×4 (07:30→20:56)
[2017-04-11 07:49] LABS: HEMOGLOBIN 11.2 g/dL (12.0-16.0); MEAN CELL VOLUME 91.4 fl (81.0-99.0); MEAN CORPUSCULAR HEMOGLOBIN 26.4 pg (27.0-31.0); MEAN CORPUSCULAR HGB CONC 28.9 g/dL (33.0-37.0); RBC 4.25 Mil/uL (3.80-5.20); RED CELL DISTRIBUTION WIDTH 27.7 % (11.5-14.5); WHITE BLOOD COUNT 33.2 K/uL (4.8-10.8)
[2017-04-11] MEDS: POLYETHYLENE GLYCOL 3350 17 GM/Dose PACKET PO SCH ×2 (08:28→16:30)
[2017-04-11] MEDS: Magnesium Oxide 400 mg Tab UD PO SCH ×2 (08:30→16:31)
[2017-04-11] MEDS: Bacitracin OINT 15GM TOP SCH ×2 (08:30→16:31)
--- NOTE | 2017-04-11 09:27 | CP.PCM.CON ---
History of Present Illness - History of Present Illness History of Present Illness: Pt seen for supportive therapy. Pt spoke of resumption of pain medication and increased comfort. Pt spoke of desire to return home to mother and animals. Tearful over separation, pt was able to discuss gains made thus far, desire for continued recovery and return to home. Support provided and strategies for coping. 7:20-7:40. Plan: Continued Sup therapy Past Patient History - Infectious Disease Hx of Infectious Diseases: None - Tetanus Immunizations Tetanus Immunization: Unknown - Past Medical History & Family History Past Medical History?: Yes - Past Social History Smoking Status: Former Smoker Alcohol: None Drugs: Denies Home Situation {Lives}: Alone - CARDIAC Hx Cardiac Disorders: No - PULMONARY Hx Respiratory Disorders: Yes Hx Emphysema: Yes (per patient "mild emphysema") - NEUROLOGICAL Hx Neurological Disorder: No - HEENT Hx HEENT Problems: No - RENAL Hx Chronic Kidney Disease: No - ENDOCRINE/METABOLIC Hx Endocrine Disorders: No - HEMATOLOGICAL/ONCOLOGICAL Hx Blood Disorders: Yes Other/Comment: Essential Thrombocythemia - INTEGUMENTARY Hx Dermatological Problems: No - MUSCULOSKELETAL/RHEUMATOLOGICAL Hx Musculoskeletal Disorders: Yes Hx Falls: Yes - GASTROINTESTINAL Hx Gastrointestinal Disorders: Yes Hx Esophageal Varices: Yes (2003) Other/Comment: PORTAL VEIN HYPERTENSION, PORTAL VEIN THROMBOSES - GENITOURINARY/GYNECOLOGICAL Hx Genitourinary Disorders: No - PSYCHIATRIC Hx Psychophysiologic Disorder: No Hx Substance Use: No - SURGICAL HISTORY Hx Surgeries: Yes Hx Tonsillectomy: Yes - ANESTHESIA Hx Anesthesia: Yes Hx Anesthesia Reactions: No Meds Allergies/Adverse Reactions: Allergies Allergy/AdvReac Type Severity Reaction Status Date / Time lansoprazole [From Prevacid] Allergy anxiety, Verified 04/01/17 23:10 shaking ranitidine [From Zantac] Allergy anxiety, Verified 04/01/17 23:10 shaking - Medications Medications: Current Medications Acetaminophen (Tylenol 325mg Tab) 650 mg PO Q6 PRN PRN Reason: Pain, moderate (4-7) Last Admin: 04/07/17 08:38 Dose: 650 mg Alprazolam (Xanax) 0.25 mg PO HS PRN PRN Reason: Insomnia Stop: 04/17/17 14:51 Last Admin: 04/10/17 20:40 Dose: 0.25 mg Bacitracin (Bacitracin Oint) 1 applic TOP BID [facility] Last Admin: 04/11/17 08:30 Dose: 1 applic Famotidine (Pepcid) 20 mg PO Q12 [facility] Last Admin: 04/11/17 08:30 Dose: 20 mg Furosemide (Lasix) 40 mg PO DAILY [facility] Last Admin: 04/11/17 08:30 Dose: 40 mg Hydroxyurea (Hydrea) 500 mg PO TID [facility] Last Admin: 04/11/17 08:30 Dose: 500 mg Lactulose (Enulose) 20 gm PO DAILY [facility] Last Admin: 04/11/17 08:28 Dose: Not Given Magnesium Oxide (Mag-Ox) 400 mg PO BID [facility] Last Admin: 04/11/17 08:30 Dose: 400 mg Morphine Sulfate (Morphine Immediate Release Tab) 15 mg PO Q4 PRN PRN Reason: Pain, severe (8-10) Last Admin: 04/11/17 07:30 Dose: 15 mg Ondansetron HCl (Zofran Tab) 4 mg PO Q6 PRN PRN Reason: Nausea/Vomiting Last Admin: 04/07/17 09:05 Dose: 4 mg Polyethylene Glycol (Miralax) 17 gm PO BID [facility] Last Admin: 04/11/17 08:28 Dose: Not Given Sodium Phosphate (Fleet Enema) 135 ml IN DAILY PRN PRN Reason: Constipation Last Admin: 04/08/17 15:26 Dose: 135 ml Results - Vital Signs Recent Vital Signs: Last Vital Signs Temp 97.3 F L 04/11/17 07:57 Pulse 107 H 04/11/17 07:57 Resp 22 04/11/17 07:57 BP 131/74 04/11/17 08:30 Pulse Ox 95 04/11/17 07:57 - Labs Result Diagrams: 04/11/17 07:10 04/08/17 06:20 Labs: Laboratory Results - last 24 hr 04/10/17 04/11/17 05:55 07:10 WBC 33.2 H RBC 4.25 Hgb 11.2 L Hct 38.8 MCV 91.4 MCH 26.4 L MCHC 28.9 L RDW 27.7 H Plt Count 1721 H* Neutrophils % (Manual) 87 H Lymphocytes % (Manual) 6 L Monocytes % (Manual) 4 Eosinophils % (Manual) 3 Nucleated RBC % 15 H Platelet Estimate Markedly increased H Large Platelets Present Giant Platelets Present Hypochromasia (manual) Slight Poikilocytosis (manual Slight Anisocytosis (manual) Marked Target Cells Slight Tear Drop Cells Slight Ovalocytes Slight Schistocytes Slight
--- NOTE | 2017-04-11 11:12 | CP.PCM.PN ---
Subjective - Date & Time of Evaluation Date of Evaluation: 04/11/17 Time of Evaluation: 11:00 - Subjective Subjective: no acute complaints of pain, wanted to take a shower Objective - Vital Signs/Intake and Output Vital Signs (last 24 hours): Temp Pulse Resp BP Pulse Ox 97.3 F L 107 H 22 131/74 95 04/11/17 07:57 04/11/17 07:57 04/11/17 07:57 04/11/17 08:30 04/11/17 07:57 - Medications Medications: Current Medications Acetaminophen (Tylenol 325mg Tab) 650 mg PO Q6 PRN PRN Reason: Pain, moderate (4-7) Last Admin: 04/11/17 11:00 Dose: 650 mg Alprazolam (Xanax) 0.25 mg PO HS PRN PRN Reason: Insomnia Stop: 04/17/17 14:51 Last Admin: 04/10/17 20:40 Dose: 0.25 mg Bacitracin (Bacitracin Oint) 1 applic TOP BID [facility] Last Admin: 04/11/17 08:30 Dose: 1 applic Famotidine (Pepcid) 20 mg PO Q12 [facility] Last Admin: 04/11/17 08:30 Dose: 20 mg Furosemide (Lasix) 40 mg PO DAILY [facility] Last Admin: 04/11/17 08:30 Dose: 40 mg Hydroxyurea (Hydrea) 500 mg PO TID [facility] Last Admin: 04/11/17 08:30 Dose: 500 mg Lactulose (Enulose) 20 gm PO DAILY [facility] Last Admin: 04/11/17 08:28 Dose: Not Given Magnesium Oxide (Mag-Ox) 400 mg PO BID [facility] Last Admin: 04/11/17 08:30 Dose: 400 mg Morphine Sulfate (Morphine Immediate Release Tab) 15 mg PO Q4 PRN PRN Reason: Pain, severe (8-10) Last Admin: 04/11/17 07:30 Dose: 15 mg Ondansetron HCl (Zofran Tab) 4 mg PO Q6 PRN PRN Reason: Nausea/Vomiting Last Admin: 04/07/17 09:05 Dose: 4 mg Polyethylene Glycol (Miralax) 17 gm PO BID [facility] Last Admin: 04/11/17 08:28 Dose: Not Given Sodium Phosphate (Fleet Enema) 135 ml [place] DAILY PRN PRN Reason: Constipation Last Admin: 04/08/17 15:26 Dose: 135 ml - Labs Labs: 04/11/17 07:10 04/08/17 06:20 - Head Exam Head Exam: ATRAUMATIC, NORMAL INSPECTION, NORMOCEPHALIC - Eye Exam Eye Exam: EOMI, Normal appearance, PERRL Pupil Exam: NORMAL ACCOMODATION - ENT Exam ENT Exam: Mucous Membranes Moist, Normal Exam - Neck Exam Neck Exam: Normal Inspection - Respiratory Exam Respiratory Exam: NORMAL BREATHING PATTERN - Cardiovascular Exam Cardiovascular Exam: REGULAR RHYTHM - GI/Abdominal Exam GI & Abdominal Exam: Normal Bowel Sounds - Rectal Exam Rectal Exam: NORMAL INSPECTION - Exam External exam: NORMAL EXTERNAL EXAM - Extremities Exam Extremities Exam: Normal Capillary Refill - Back Exam Back Exam: NORMAL INSPECTION - Neurological Exam Neurological Exam: Alert, Awake Neuro motor strength exam: Left Upper Extremity: 3, Right Upper Extremity: 4, Left Lower Extremity: 3, Right Lower Extremity: 4 - Psychiatric Exam Psychiatric exam: Normal Affect, Normal Mood - Skin Skin Exam: Intact, Normal Color Assessment and Plan (1) Abdominal pain Status: Acute (2) Altered mental status Status: Acute (3) Anemia Status: Acute (4) CHF (congestive heart failure) Status: Acute (5) Cellulitis Status: Acute (6) Cellulitis Status: Acute (7) Coagulopathy Status: Acute (8) DVT prophylaxis Status: Acute (9) Subdural hematoma Assessment & Plan: plan for Pt, Ot , Rec therapy removed yocasta and sutures from the head for skin rash try lotrimin Status: Acute
--- NOTE | 2017-04-11 11:30 | CP.PCM.PN ---
Subjective - Date & Time of Evaluation Date of Evaluation: 04/10/17 Time of Evaluation: 14:00 - Subjective Subjective: patinet with generalized wekaness, no other complaints at present Objective - Vital Signs/Intake and Output Vital Signs (last 24 hours): Temp Pulse Resp BP Pulse Ox 97.3 F L 107 H 22 131/74 95 04/11/17 07:57 04/11/17 07:57 04/11/17 07:57 04/11/17 08:30 04/11/17 07:57 - Medications Medications: Current Medications Acetaminophen (Tylenol 325mg Tab) 650 mg PO Q6 PRN PRN Reason: Pain, moderate (4-7) Last Admin: 04/11/17 11:00 Dose: 650 mg Alprazolam (Xanax) 0.25 mg PO HS PRN PRN Reason: Insomnia Stop: 04/17/17 14:51 Last Admin: 04/10/17 20:40 Dose: 0.25 mg Bacitracin (Bacitracin Oint) 1 applic TOP BID [facility] Last Admin: 04/11/17 08:30 Dose: 1 applic Famotidine (Pepcid) 20 mg PO Q12 [facility] Last Admin: 04/11/17 08:30 Dose: 20 mg Furosemide (Lasix) 40 mg PO DAILY [facility] Last Admin: 04/11/17 08:30 Dose: 40 mg Hydroxyurea (Hydrea) 500 mg PO TID [facility] Last Admin: 04/11/17 08:30 Dose: 500 mg Lactulose (Enulose) 20 gm PO DAILY [facility] Last Admin: 04/11/17 08:28 Dose: Not Given Magnesium Oxide (Mag-Ox) 400 mg PO BID [facility] Last Admin: 04/11/17 08:30 Dose: 400 mg Morphine Sulfate (Morphine Immediate Release Tab) 15 mg PO Q4 PRN PRN Reason: Pain, severe (8-10) Last Admin: 04/11/17 07:30 Dose: 15 mg Ondansetron HCl (Zofran Tab) 4 mg PO Q6 PRN PRN Reason: Nausea/Vomiting Last Admin: 04/07/17 09:05 Dose: 4 mg Polyethylene Glycol (Miralax) 17 gm PO BID [facility] Last Admin: 04/11/17 08:28 Dose: Not Given Sodium Phosphate (Fleet Enema) 135 ml [place] DAILY PRN PRN Reason: Constipation Last Admin: 04/08/17 15:26 Dose: 135 ml - Labs Labs: 04/11/17 07:10 04/08/17 06:20 - Head Exam Head Exam: ATRAUMATIC Additional comments: scapl heling with yocasta and stirristrips - Eye Exam Eye Exam: EOMI, Normal appearance, PERRL Pupil Exam: NORMAL ACCOMODATION - ENT Exam ENT Exam: Mucous Membranes Moist, Normal Exam - Neck Exam Neck Exam: Normal Inspection - Respiratory Exam Respiratory Exam: NORMAL BREATHING PATTERN - Cardiovascular Exam Cardiovascular Exam: REGULAR RHYTHM - GI/Abdominal Exam GI & Abdominal Exam: Normal Bowel Sounds - Exam External exam: NORMAL EXTERNAL EXAM - Extremities Exam Extremities Exam: Normal Capillary Refill, Normal Inspection - Back Exam Back Exam: NORMAL INSPECTION - Neurological Exam Neurological Exam: Alert, Awake Neuro motor strength exam: Left Upper Extremity: 3, Right Upper Extremity: 4, Left Lower Extremity: 3, Right Lower Extremity: 4 - Psychiatric Exam Psychiatric exam: Normal Affect, Normal Mood - Skin Skin Exam: Dry, Intact Assessment and Plan (1) Abdominal pain Status: Acute (2) Altered mental status Status: Acute (3) Anemia Status: Acute (4) CHF (congestive heart failure) Status: Acute (5) Cellulitis Status: Acute (6) Cellulitis Status: Acute (7) Coagulopathy Status: Acute (8) DVT prophylaxis Status: Acute (9) Subdural hematoma Assessment & Plan: continue to monitor healing, different consultants on the case, follow up for removal of yocasta one area is healed Status: Acute
--- NOTE | 2017-04-11 16:19 | CP.PCM.PN ---
Subjective - Date & Time of Evaluation Date of Evaluation: 04/11/17 Time of Evaluation: 13:00 - Subjective Subjective: ID Note- pt. seen and examined today. Pt. states her yocasta were removed yesterday and she feels much betetr since they were removed and her CLAY is much less. denies any fever or chills, denies any diarrhea, denies any dysurea states the lesions that she has had on her chest and face are itchy but denies any new ones. Objective - Vital Signs/Intake and Output Vital Signs (last 24 hours): Temp Pulse Resp BP Pulse Ox 97.3 F L 107 H 22 131/74 95 04/11/17 07:57 04/11/17 07:57 04/11/17 07:57 04/11/17 08:30 04/11/17 07:57 - Medications Medications: Current Medications Acetaminophen (Tylenol 325mg Tab) 650 mg PO Q6 PRN PRN Reason: Pain, moderate (4-7) Last Admin: 04/11/17 11:00 Dose: 650 mg Alprazolam (Xanax) 0.25 mg PO HS PRN PRN Reason: Insomnia Stop: 04/17/17 14:51 Last Admin: 04/10/17 20:40 Dose: 0.25 mg Bacitracin (Bacitracin Oint) 1 applic TOP BID [facility] Last Admin: 04/11/17 08:30 Dose: 1 applic Clotrimazole (Lotrimin 1% Cream) 1 applic TOP DAILY [facility] Famotidine (Pepcid) 20 mg PO Q12 [facility] Last Admin: 04/11/17 08:30 Dose: 20 mg Furosemide (Lasix) 40 mg PO DAILY [facility] Last Admin: 04/11/17 08:30 Dose: 40 mg Hydroxyurea (Hydrea) 500 mg PO TID [facility] Last Admin: 04/11/17 12:27 Dose: 500 mg Lactulose (Enulose) 20 gm PO DAILY [facility] Last Admin: 04/11/17 08:28 Dose: Not Given Magnesium Oxide (Mag-Ox) 400 mg PO BID [facility] Last Admin: 04/11/17 08:30 Dose: 400 mg Morphine Sulfate (Morphine Immediate Release Tab) 15 mg PO Q4 PRN PRN Reason: Pain, severe (8-10) Last Admin: 04/11/17 12:32 Dose: 15 mg Ondansetron HCl (Zofran Tab) 4 mg PO Q6 PRN PRN Reason: Nausea/Vomiting Last Admin: 04/07/17 09:05 Dose: 4 mg Polyethylene Glycol (Miralax) 17 gm PO BID [facility] Last Admin: 04/11/17 08:28 Dose: Not Given Sodium Phosphate (Fleet Enema) 135 ml [place] DAILY PRN PRN Reason: Constipation Last Admin: 04/08/17 15:26 Dose: 135 ml - Labs Labs: - Skin Additional comments: one round tinea like lesion on right cheek and one on her right chest region with slightly raised borders and one on her abdomen, all have tinea like shape no erythema - Additional Findings Additional findings: - Constitutional Appears: Non-toxic, No Acute Distress - Head Exam Additional comments: right cranial lateral-posterior scalp surgical site clean/dry/intact no erythema - Eye Exam Eye Exam: EOMI - ENT Exam ENT Exam: Normal Oropharynx - Neck Exam Neck exam: Positive for: Full Rom - Respiratory Exam Respiratory Exam: Clear to Auscultation Bilateral, NORMAL BREATHING PATTERN - Cardiovascular Exam Cardiovascular Exam: RRR, +S1, +S2 - GI/Abdominal Exam GI & Abdominal Exam: Normal Bowel Sounds, Soft Additional comments: NT, ND - Extremities Exam Additional comments: no edema b/l no erythema - Neurological Exam Neurological exam: Alert, Oriented x 3 Laboratory Results - last 72 hr 04/10/17 04/11/17 05:55 07:10 WBC 36.0 H 33.2 H RBC 4.15 4.25 Hgb 11.1 L 11.2 L Hct 37.9 38.8 MCV 91.4 91.4 MCH 26.7 L 26.4 L MCHC 29.2 L 28.9 L RDW 27.8 H 27.7 H Plt Count 1599 H* 1721 H* MPV 9.7 Neut % (Auto) 91.2 H Lymph % (Auto) 2.9 L [place] % (Auto) 2.9 Eos % (Auto) 2.4 Baso % (Auto) 0.6 Neut # 32.8 H Lymph # 1.1 [place] # 1.0 H Eos # 0.9 H Baso # 0.2 Neutrophils % (Manual) 87 H Lymphocytes % (Manual) 6 L Monocytes % (Manual) 4 Eosinophils % (Manual) 3 Nucleated RBC % 15 H Platelet Estimate Markedly increased H Large Platelets Present Giant Platelets Present Hypochromasia (manual) Slight Poikilocytosis (manual Slight Anisocytosis (manual) Marked Target Cells Slight Tear Drop Cells Slight Ovalocytes Slight Schistocytes Slight Microbiology 04/08/17 08:55 Blood-Venous Blood Culture - Preliminary NO GROWTH AFTER 3 DAYS 04/08/17 06:20 Blood-Venous Blood Culture - Preliminary NO GROWTH AFTER 3 DAYS 04/02/17 20:22 Blood Blood Culture - Final NO GROWTH AFTER 5 DAYS 04/02/17 20:22 Blood Gram Stain - Final TEST NOT PERFORMED 04/02/17 20:00 Blood Blood Culture - Final NO GROWTH AFTER 5 DAYS 04/02/17 20:00 Blood Gram Stain - Final TEST NOT PERFORMED 04/02/17 10:35 Urine,Clean Catch Urine Culture - Final No Growth (<1,000 CFU/ML) Assessment and Plan (1) Essential thrombocythemia Status: Acute (2) S/P evacuation of subdural hematoma Status: Acute (3) Leukocytosis Status: Acute - Assessment and Plan (Free Text) Assessment: A/P- 56 year old female with essential thrombocytosis, portal vein thrombosis and recent subdural hematoma post craniectomya nd evacuation with peristent leukocytosis. remains afebrile her leukocytosis most likely secondary to her essential thrombocytosis. 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 received one extra hydrea dose) all cultures have been negative. her CXR is also negative. she is afebrile. blood cx- neg x 2 urine cx- neg plan- hold off on any abx at this time since there is no evidence of infection. her leukocytosi secondary to her Essential thrombocytosis as her plt are also on the rise. ET treatment as per auto body shop manager advise to also get CT of abd/chest and head for completion of work up of the leukocytosis. advise lotrimin cream to be applied to the tinea like lesions and see if they improve and if no improvement pt. 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 all above d/w pt. and she verbalizes full understanding of all above and agrees with above plan of care.
[2017-04-12] MEDS: Morphine 15 mg Immediate Release Tab PO PRN ×3 (07:34→18:32)
[2017-04-12] MEDS: Bacitracin OINT 15GM TOP SCH ×2 (09:03→17:00)
[2017-04-12] MEDS: Magnesium Oxide 400 mg Tab UD PO SCH ×2 (09:06→17:00)
[2017-04-12] MEDS: POLYETHYLENE GLYCOL 3350 17 GM/Dose PACKET PO SCH ×2 (09:07→17:01)
--- NOTE | 2017-04-12 11:43 | CT ---
PROCEDURE: CT Chest, Abdomen and Pelvis without intravenous contrast HISTORY: leukocytosis COMPARISON: None. TECHNIQUE: Radiation dose: Total exam DLP = 423 mGy-cm. This CT exam was performed using one or more of the following dose reduction techniques: Automated exposure control, adjustment of the mA and/or kV according to patient size, and/or use of iterative reconstruction technique. FINDINGS: CT CHEST WITHOUT CONTRAST: LUNGS: Minimal discoid atelectasis at the bases.. No nodule, mass or consolidation. MEDIASTINUM: Unremarkable. Normal caliber aorta and pulmonary arterial trunk. Normal size heart. LYMPH NODES: Unremarkable. PLEURA: Unremarkable. No pneumothorax. No pleural fluid. BONES: Unremarkable. OTHER FINDINGS: None. CT ABDOMEN AND PELVIS: LIVER: Unremarkable. No gross lesion or ductal dilatation. GALLBLADDER AND BILE DUCTS: Unremarkable. PANCREAS: Unremarkable. No gross lesion or ductal dilatation. SPLEEN: Unremarkable. ADRENALS: Unremarkable. No mass. KIDNEYS AND URETERS: Unremarkable. No hydronephrosis. No solid mass. VASCULATURE: Unremarkable. No aortic aneurysm. BOWEL: Unremarkable. No obstruction. No gross mural thickening. APPENDIX: Normal appendix. PERITONEUM: Unremarkable. No free fluid. No free air. LYMPH NODES: Unremarkable. No enlarged lymph nodes. BLADDER: Unremarkable. REPRODUCTIVE: Unremarkable. BONES: No acute fracture. OTHER FINDINGS: Surgical clips in the left mid abdomen.. IMPRESSION: No acute pathology.
--- NOTE | 2017-04-12 13:10 | CP.PCM.PN ---
Subjective - Date & Time of Evaluation Date of Evaluation: 04/11/17 Time of Evaluation: 18:30 - Subjective Subjective: Has intermittent headaches and skin rash Given extra 1000mg of hydrea to her current regimen with cont. elevation of plt Objective - Vital Signs/Intake and Output Vital Signs (last 24 hours): Temp Pulse Resp BP Pulse Ox 97.5 F L 97 H 18 118/70 99 04/12/17 08:52 04/12/17 08:52 04/12/17 08:52 04/12/17 09:05 04/12/17 08:52 - Medications Medications: Current Medications Acetaminophen (Tylenol 325mg Tab) 650 mg PO Q6 PRN PRN Reason: Pain, moderate (4-7) Last Admin: 04/11/17 11:00 Dose: 650 mg Alprazolam (Xanax) 0.25 mg PO HS PRN PRN Reason: Insomnia Stop: 04/17/17 14:51 Last Admin: 04/11/17 22:09 Dose: 0.25 mg Bacitracin (Bacitracin Oint) 1 applic TOP BID [facility] Last Admin: 04/12/17 09:03 Dose: 1 applic Clotrimazole (Lotrimin 1% Cream) 1 applic TOP DAILY [facility] Last Admin: 04/12/17 09:06 Dose: 1 applic Famotidine (Pepcid) 20 mg PO Q12 [facility] Last Admin: 04/12/17 09:08 Dose: 20 mg Furosemide (Lasix) 40 mg PO DAILY [facility] Last Admin: 04/12/17 09:05 Dose: 40 mg Hydroxyurea (Hydrea) 1,000 mg PO TID [facility] Last Admin: 04/12/17 09:04 Dose: 1,000 mg Lactulose (Enulose) 20 gm PO DAILY [facility] Last Admin: 04/12/17 09:03 Dose: Not Given Magnesium Oxide (Mag-Ox) 400 mg PO BID [facility] Last Admin: 04/12/17 09:06 Dose: 400 mg Morphine Sulfate (Morphine Immediate Release Tab) 15 mg PO Q4 PRN PRN Reason: Pain, severe (8-10) Last Admin: 04/12/17 12:23 Dose: 15 mg Ondansetron HCl (Zofran Tab) 4 mg PO Q6 PRN PRN Reason: Nausea/Vomiting Last Admin: 04/07/17 09:05 Dose: 4 mg Polyethylene Glycol (Miralax) 17 gm PO BID [facility] Last Admin: 04/12/17 09:07 Dose: Not Given Sodium Phosphate (Fleet Enema) 135 ml [place] DAILY PRN PRN Reason: Constipation Last Admin: 04/08/17 15:26 Dose: 135 ml - Labs Labs: 04/11/17 07:10 04/08/17 06:20 - Eye Exam Eye Exam: Normal appearance - ENT Exam ENT Exam: Mucous Membranes Dry - Respiratory Exam Respiratory Exam: NORMAL BREATHING PATTERN - Cardiovascular Exam Cardiovascular Exam: +S1, +S2 - GI/Abdominal Exam GI & Abdominal Exam: Normal Bowel Sounds - Extremities Exam Extremities Exam: Normal Inspection Assessment and Plan (1) Essential thrombocythemia Assessment & Plan: will increase hydrea to 1000mg TID and plan to redose to outpatient dosing once plt count decreases justus Status: Acute (2) Leukocytosis Assessment & Plan: likely secondary to essential thrombocythemia Status: Acute
--- NOTE | 2017-04-12 15:23 | CP.PCM.PN ---
Subjective - Date & Time of Evaluation Date of Evaluation: 04/12/17 Time of Evaluation: 13:30 - Subjective Subjective: F/U S/P Craniotomy Pt c/o of Anxiety, headache, much better minimal R facial pain. Objective - Vital Signs/Intake and Output Vital Signs (last 24 hours): Temp Pulse Resp BP Pulse Ox 97.5 F L 97 H 18 118/70 99 04/12/17 08:52 04/12/17 08:52 04/12/17 08:52 04/12/17 09:05 04/12/17 08:52 - Medications Medications: Current Medications Acetaminophen (Tylenol 325mg Tab) 650 mg PO Q6 PRN PRN Reason: Pain, moderate (4-7) Last Admin: 04/11/17 11:00 Dose: 650 mg Alprazolam (Xanax) 0.25 mg PO BID PRN PRN Reason: Anxiety Stop: 04/19/17 14:15 Last Admin: 04/12/17 15:10 Dose: 0.25 mg Bacitracin (Bacitracin Oint) 1 applic TOP BID [facility] Last Admin: 04/12/17 09:03 Dose: 1 applic Clotrimazole (Lotrimin 1% Cream) 1 applic TOP DAILY [facility] Last Admin: 04/12/17 09:06 Dose: 1 applic Famotidine (Pepcid) 20 mg PO Q12 [facility] Last Admin: 04/12/17 09:08 Dose: 20 mg Furosemide (Lasix) 40 mg PO DAILY [facility] Last Admin: 04/12/17 09:05 Dose: 40 mg Hydroxyurea (Hydrea) 1,000 mg PO TID [facility] Last Admin: 04/12/17 13:54 Dose: 1,000 mg Lactulose (Enulose) 20 gm PO DAILY [facility] Last Admin: 04/12/17 09:03 Dose: Not Given Magnesium Oxide (Mag-Ox) 400 mg PO BID [facility] Last Admin: 04/12/17 09:06 Dose: 400 mg Morphine Sulfate (Morphine Immediate Release Tab) 15 mg PO Q4 PRN PRN Reason: pain 8-10 Ondansetron HCl (Zofran Tab) 4 mg PO Q6 PRN PRN Reason: Nausea/Vomiting Last Admin: 04/07/17 09:05 Dose: 4 mg Polyethylene Glycol (Miralax) 17 gm PO BID [facility] Last Admin: 04/12/17 09:07 Dose: Not Given Sodium Phosphate (Fleet Enema) 135 ml [place] DAILY PRN PRN Reason: Constipation Last Admin: 04/08/17 15:26 Dose: 135 ml - Labs Labs: 04/11/17 07:10 04/08/17 06:20 - Constitutional Appears: No Acute Distress, Chronically Ill - Head Exam Additional comments: R Craniotomy, incision healing well. - Eye Exam Eye Exam: PERRL - ENT Exam ENT Exam: Normal Oropharynx - Neck Exam Neck Exam: Normal Inspection - Respiratory Exam Respiratory Exam: NORMAL BREATHING PATTERN Additional comments: Rash in R chest - Cardiovascular Exam Cardiovascular Exam: REGULAR RHYTHM - GI/Abdominal Exam GI & Abdominal Exam: Soft, Normal Bowel Sounds - Extremities Exam Extremities Exam: Normal Inspection - Back Exam Back Exam: NORMAL INSPECTION - Neurological Exam Neurological Exam: Alert, Oriented x3 Additional comments: No focal motor sensory deficit. - Psychiatric Exam Psychiatric exam: Normal Mood - Skin Skin Exam: Warm Assessment and Plan (1) S/P evacuation of subdural hematoma Status: Acute (2) Essential thrombocythemia Status: Acute (3) Leukocytosis Status: Acute (4) Status post fall Status: Acute - Assessment and Plan (Free Text) Plan: Plt yesterday on 1720, Hydrea was increased to 1000 po tid, continue rest of Tx.
[2017-04-13] MEDS: Morphine 15 mg Immediate Release Tab PO PRN ×3 (07:05→16:06)
[2017-04-13 07:26] LABS: BASO # 0.1 K/uL (0.0-0.2); BASO % 0.4 % (0.0-2.0); EOS # 0.6 K/uL (0.0-0.7); EOS % 1.9 % (0.0-4.0); HEMOGLOBIN 11.4 g/dL (12.0-16.0); LYMPH # 1.1 K/uL (1.0-4.3); LYMPH % 3.4 % (20.0-40.0); MEAN CELL VOLUME 91.7 fl (81.0-99.0); MEAN CORPUSCULAR HEMOGLOBIN 28.2 pg (27.0-31.0); MEAN CORPUSCULAR HGB CONC 30.7 g/dL (33.0-37.0); MEAN PLATELET VOLUME 9.5 fl (7.2-11.7); MONO # 0.8 K/uL (0.0-0.8); MONO % 2.6 % (0.0-10.0); NEUT # 29.8 K/uL (1.8-7.0); NEUT % 91.7 % (50.0-75.0); NRBC % 11.7 % (0.0-0.0); RBC 4.03 Mil/uL (3.80-5.20); WHITE BLOOD COUNT 32.5 K/uL (4.8-10.8)
[2017-04-13 07:45] LABS: ALB/GLOB RATIO 1.2 (1.0-2.1); ALBUMIN 3.5 g/dL (3.5-5.0); ALT/SGPT 31 U/L (9-52); AST/SGOT 45 U/L (14-36); BLOOD UREA NITROGEN 13 mg/dl (7-17); CALCIUM 9.5 mg/dL (8.4-10.2); GFR AFRICAN-AMERICAN > 60; GFR NON-AFRICAN AMERICAN > 60
[2017-04-13] MEDS: Bacitracin OINT 15GM TOP SCH (09:00)
[2017-04-13] MEDS: POLYETHYLENE GLYCOL 3350 17 GM/Dose PACKET PO SCH (09:03)
[2017-04-13] MEDS: Magnesium Oxide 400 mg Tab UD PO SCH (09:04)
[2017-04-13 09:29] LABS: PLATELET COUNT 1761 K/uL (130-400)
[2017-04-13 09:45] VITALS: BP 116/65; PULSE 85; RESP 19; TEMP 97; O2SAT 95
[2017-04-13 09:56] LABS: ANISOCYTOSIS MODERATE; BASOPHIL 1 % (0-2); EOSINOPHIL 4 % (0-7); LYMPHOCYTE 4 % (20-50); MONOCYTE 3 % (0-10); NEUTROPHIL 88 % (42-75); NUCLEATED RED BLOOD CELL 15 % (0-0); OVALOCYTES SLIGHT; PLATELET ESTIMATE MARKEDLY INCREASED (NORMAL); POIKILOCYTOSIS MODERATE; STOMATOCYTES MODERATE; TOTAL CELLS COUNTED 100
[2017-04-13 09:57] LABS: GIANT PLATELETS PRESENT; LARGE PLATELETS PRESENT; TEARDROP CELLS SLIGHT
--- NOTE | 2017-04-13 12:31 | CP.PCM.PN ---
Subjective - Date & Time of Evaluation Date of Evaluation: 04/13/17 Time of Evaluation: 11:15 - Subjective Subjective: F/U S/P Craniotomy. Pt c/o of headache, R facial pain and anxiety Objective - Vital Signs/Intake and Output Vital Signs (last 24 hours): Temp Pulse Resp BP Pulse Ox 97.0 F L 85 19 116/65 95 04/13/17 09:44 04/13/17 09:44 04/13/17 09:44 04/13/17 09:44 04/13/17 09:44 - Medications Medications: Current Medications Acetaminophen (Tylenol 325mg Tab) 650 mg PO Q6 PRN PRN Reason: Pain, moderate (4-7) Last Admin: 04/11/17 11:00 Dose: 650 mg Alprazolam (Xanax) 0.25 mg PO BID PRN PRN Reason: Anxiety Stop: 04/19/17 14:15 Last Admin: 04/12/17 15:10 Dose: 0.25 mg Bacitracin (Bacitracin Oint) 1 applic TOP BID [facility] Last Admin: 04/13/17 09:00 Dose: 1 applic Clotrimazole (Lotrimin 1% Cream) 1 applic TOP DAILY [facility] Last Admin: 04/13/17 09:02 Dose: 1 applic Famotidine (Pepcid) 20 mg PO Q12 [facility] Last Admin: 04/13/17 09:00 Dose: 20 mg Furosemide (Lasix) 40 mg PO DAILY [facility] Last Admin: 04/13/17 09:00 Dose: 40 mg Hydroxyurea (Hydrea) 1,000 mg PO TID [facility] Last Admin: 04/13/17 12:13 Dose: 1,000 mg Lactulose (Enulose) 20 gm PO DAILY [facility] Last Admin: 04/13/17 09:01 Dose: Not Given Magnesium Oxide (Mag-Ox) 400 mg PO BID [facility] Last Admin: 04/13/17 09:04 Dose: 400 mg Morphine Sulfate (Morphine Immediate Release Tab) 15 mg PO Q4 PRN PRN Reason: pain 8-10 Last Admin: 04/13/17 12:12 Dose: 15 mg Ondansetron HCl (Zofran Tab) 4 mg PO Q6 PRN PRN Reason: Nausea/Vomiting Last Admin: 04/07/17 09:05 Dose: 4 mg Polyethylene Glycol (Miralax) 17 gm PO BID [facility] Last Admin: 04/13/17 09:03 Dose: Not Given Sodium Phosphate (Fleet Enema) 135 ml [place] DAILY PRN PRN Reason: Constipation Last Admin: 04/08/17 15:26 Dose: 135 ml - Labs Labs: 04/13/17 06:00 04/13/17 06:00 Assessment and Plan (1) S/P evacuation of subdural hematoma Status: Acute (2) Essential thrombocythemia Status: Acute (3) Leukocytosis Status: Acute (4) Status post fall Status: Acute - Assessment and Plan (Free Text) Plan: Pt to be transferred today to [facility] today, f/u with PMD and Hematology in this facility
--- NOTE | 2017-04-13 21:17 | CP.PCM.PN ---
Subjective - Date & Time of Evaluation Date of Evaluation: 04/12/17 Time of Evaluation: 12:30 - Subjective Subjective: no acute complaints at present Objective - Vital Signs/Intake and Output Vital Signs (last 24 hours): Temp Pulse Resp BP Pulse Ox 97.0 F L 85 19 116/65 95 04/13/17 09:44 04/13/17 09:44 04/13/17 09:44 04/13/17 09:44 04/13/17 09:44 - Labs Labs: 04/13/17 06:00 04/13/17 06:00 - Head Exam Head Exam: ATRAUMATIC, NORMAL INSPECTION, NORMOCEPHALIC - Eye Exam Eye Exam: EOMI, Normal appearance Pupil Exam: NORMAL ACCOMODATION, PERRL - ENT Exam ENT Exam: Mucous Membranes Moist, Normal Exam - Neck Exam Neck Exam: Normal Inspection - Respiratory Exam Respiratory Exam: Clear to Ausculation Bilateral, NORMAL BREATHING PATTERN - Cardiovascular Exam Cardiovascular Exam: REGULAR RHYTHM - GI/Abdominal Exam GI & Abdominal Exam: Soft, Normal Bowel Sounds - Rectal Exam Rectal Exam: NORMAL INSPECTION - Exam External exam: NORMAL EXTERNAL EXAM - Extremities Exam Extremities Exam: Full ROM, Normal Capillary Refill, Normal Inspection - Back Exam Back Exam: NORMAL INSPECTION - Neurological Exam Neurological Exam: Alert, Awake Neuro motor strength exam: Left Upper Extremity: 3, Right Upper Extremity: 3, Left Lower Extremity: 3, Right Lower Extremity: 3 - Psychiatric Exam Psychiatric exam: Normal Affect, Normal Mood - Skin Skin Exam: Dry, Intact, Normal Color Assessment and Plan (1) Abdominal pain Status: Acute (2) Altered mental status Status: Acute (3) Anemia Status: Acute (4) CHF (congestive heart failure) Status: Acute (5) Cellulitis Status: Acute (6) Cellulitis Status: Acute (7) Coagulopathy Status: Acute (8) DVT prophylaxis Status: Acute (9) Subdural hematoma Assessment & Plan: plan for physical, occupational, rec therapy and for subacute rehab program Status: Acute
== END 2017-04-13 16:20 | DRG 945 ==
PROVIDERS: ADMIT Internal Medicine Pulmonary Disease; ATTEND Internal Medicine Pulmonary Disease
PROC: F08Z4FZ Home Management Treatment using Assistive, Adaptive, Supportive or Protective Equipment (ICD-10-PCS; principal; 2017-04-01)
PROC: F07M6FZ Therapeutic Exercise Treatment of Musculoskeletal System - Whole Body using Assistive, Adaptive, Supportive or Protective Equipment (ICD-10-PCS; 2017-04-01)
DX: S06.5X9D Traumatic subdural hemorrhage with loss of consciousness of unspecified duration, subsequent encounter (principal); I81 Portal vein thrombosis; D68.9 Coagulation defect, unspecified; K76.6 Portal hypertension; D69.6 Thrombocytopenia, unspecified; I11.0 Hypertensive heart disease with heart failure; I50.9 Heart failure, unspecified; F33.1 Major depressive disorder, recurrent, moderate; L03.90 Cellulitis, unspecified; D47.3 Essential (hemorrhagic) thrombocythemia; W11.XXXD Fall on and from ladder, subsequent encounter; D63.8 Anemia in other chronic diseases classified elsewhere; F41.9 Anxiety disorder, unspecified; G89.29 Other chronic pain; K59.00 Constipation, unspecified; Z87.891 Personal history of nicotine dependence

== ENCOUNTER 2017-12-16 13:42 | Observation (INO) | payer MEDICARE ==
[2017-12-16 13:42] VITALS: BMI 25.4
--- NOTE | 2017-12-16 14:50 | RAD ---
HISTORY: COMPARISON: 04/02/2017. TECHNIQUE: Chest PA and lateral FINDINGS: LINES AND TUBES: None. LUNG AND PLEURA: The lungs are hyperinflated and there is peribronchial thickening with chronic changes in both lungs. No focal consolidation. There is scarring in the left lower lobe. HEART AND MEDIASTINUM: The heart is not enlarged. The hilar and mediastinal contours are within normal limits. SKELETAL STRUCTURES: The bony structures are within normal limits for the patient's age. VISUALIZED UPPER ABDOMEN: Normal. OTHER FINDINGS: There are multiple surgical clips in the left upper quadrant. IMPRESSION: No active pulmonary disease. COPD.
[2017-12-16 15:17] LABS: BASO # 0.1 K/uL (0.0-0.2); BASO % 0.2 % (0.0-2.0); EOS # 0.7 K/uL (0.0-0.7); EOS % 2.1 % (0.0-4.0); LYMPH # 11.9 K/uL (1.0-4.3); LYMPH % 37.6 % (20.0-40.0); MEAN CORPUSCULAR HGB CONC 28.9 g/dL (33.0-37.0); MEAN PLATELET VOLUME 9.8 fl (7.2-11.7); MONO # 0.9 K/uL (0.0-0.8); MONO % 2.8 % (0.0-10.0); NEUT # 18.2 K/uL (1.8-7.0); NEUT % 57.3 % (50.0-75.0); RBC 4.22 Mil/uL (3.80-5.20); RED CELL DISTRIBUTION WIDTH 26.3 % (11.5-14.5); WHITE BLOOD COUNT 31.7 K/uL (4.8-10.8)
[2017-12-16 15:38] LABS: ALT/SGPT 61 U/L (9-52); AST/SGOT 96 U/L (14-36); B-TYPE NATRIURETIC PEPTIDE 883 pg/ml (0-900); BLOOD UREA NITROGEN 12 mg/dl (7-17); CALCIUM 9.3 mg/dL (8.4-10.2); GFR AFRICAN-AMERICAN > 60; GFR NON-AFRICAN AMERICAN > 60
[2017-12-16 15:41] LABS: PLATELET COUNT 2110 K/uL (130-400)
[2017-12-16] MEDS ORDERED: Iodixanol 320 MG/ML 100 ML BOTTLE IV ONE (16:41)
--- NOTE | 2017-12-16 17:36 | CT ---
PROCEDURE: CT HEAD WITHOUT CONTRAST. HISTORY: dizzy h/o of sdh COMPARISON: None available. TECHNIQUE: Axial computed tomography images were obtained through the head/brain without intravenous contrast. Radiation dose: Total exam DLP = 821.95 mGy-cm. This CT exam was performed using one or more of the following dose reduction techniques: Automated exposure control, adjustment of the mA and/or kV according to patient size, and/or use of iterative reconstruction technique. FINDINGS: HEMORRHAGE: Trace chronic high right frontal convexity subdural, several mm in width. No acute hemorrhage. No parenchymal hemorrhage. BRAIN: No mass effect or edema. No atrophy or chronic microvascular ischemic changes. VENTRICLES: Unremarkable. No hydrocephalus. CALVARIUM: Right frontotemporal craniotomy. PARANASAL SINUSES: Unremarkable as visualized. No significant inflammatory changes. MASTOID AIR CELLS: Unremarkable as visualized. No inflammatory changes. OTHER FINDINGS: None. IMPRESSION: Trace chronic right frontal subdural collection. No acute hemorrhage. Old right frontotemporal craniotomy.
[2017-12-16 18:39] LABS: ANISOCYTOSIS SLIGHT; BANDS 2 % (0-2); BASOPHIL 1 % (0-2); EOSINOPHIL 3 % (0-7); LYMPHOCYTE 33 % (20-50); MONOCYTE 3 % (0-10); NEUTROPHIL 57 % (42-75); NUCLEATED RED BLOOD CELL 6 % (0-0); PLATELET ESTIMATE MARKEDLY INCREASED (NORMAL); REACTIVE LYMPHOCYTES 1 % (0-0); TOTAL CELLS COUNTED 100
[2017-12-16 18:40] LABS: GIANT PLATELETS PRESENT; HYPOCHROMIC SLIGHT; LARGE PLATELETS PRESENT; OVALOCYTES SLIGHT
--- NOTE | 2017-12-16 18:59 | CT ---
PROCEDURE: CT Chest with contrast (Pulmonary Angiogram) HISTORY: cp r/o pe COMPARISON: None available. TECHNIQUE: Axial computed tomography images were obtained of the chest in the pulmonary arterial phase of enhancement. Coronal and sagittal reformatted images were created and reviewed. Intravenous contrast dose: 65 cc Visipaque 320 Radiation dose: Total exam DLP = 151.29 mGy-cm. This CT exam was performed using one or more of the following dose reduction techniques: Automated exposure control, adjustment of the mA and/or kV according to patient size, and/or use of iterative reconstruction technique. FINDINGS: PULMONARY ARTERIES: Unremarkable. No pulmonary embolism. AORTA: No acute findings. No thoracic aortic aneurysm. LUNGS: There is small airways disease seen in the right middle lobe manifested as a tree-in-bud pattern. There is no zheng consolidation. This may reflect an infectious or inflammatory process. There is slight increase in the extent of soft tissue density abutting the base of the left major fissure, in the lingular segment of the left upper lobe. This is associated with minimal focal bronchiectasis new since prior CT. Uncertain significance. New 6 mm pleural-based nodule in the apical posterior left upper lobe (series 5, image 53). A 2nd 6 mm pleural-based nodule abuts the major fissure on image 56, again in the apical posterior segment. There is a somewhat elongated 7 mm pleural-based nodule seen in the left upper lobe more anteriorly, on image 54. These are all new since prior examination. There is no other pulmonary mass identified. PLEURAL SPACES: Unremarkable. No effusion or pneuomothorax. HEART: Unremarkable. No cardiomegaly. No significant pericardial effusion. LYMPH NODES: No lymphadenopathy. BONES, CHEST WALL: Unremarkable. No fracture or destructive lesion OTHER FINDINGS: Extensive surgical change about the pancreas and stomach of uncertain significance. There is some gastric mural thickening seen in the fundal region although the stomach is poorly distended. IMPRESSION: No evidence of pulmonary embolism. No acute infiltrate. Small airways disease in the right middle lobe common nonspecific. Small pleural-based nodules are noted in the left upper lobe, new since prior examination. Nonspecific finding. Consider follow-up noncontrast chest CT 6-12 months. No acute infiltrate.
--- NOTE | 2017-12-16 19:49 | ED PDOC ---
HPI: Chest Pain Time Seen by Provider: 12/16/17 14:25 Chief Complaint (Nursing): Chest Pain Chief Complaint (Provider): Chest pain - Intermittent for weeks History Per: Patient History/Exam Limitations: no limitations Onset/Duration Of Symptoms: Days Current Symptoms Are (Timing): Still Present Quality: Dull Additional Complaint(s): Pt states she has been having chest pain for evaluation of chest pain. 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 Her platelets were 2400 at that time. Pt states she has been having chest pain on/off for weeks and headache today. Pt hand not been taking her coumadin for the last week. PTs dose of Past Medical History Vital Signs: Last Vital Signs Temp 98.0 F 12/16/17 13:52 Pulse 98 H 12/16/17 13:52 Resp 20 12/16/17 13:52 BP 136/75 12/16/17 13:52 Pulse Ox 95 12/16/17 19:56 - Medical History PMH: Emphysema (per patient "mild emphysema") Denies: Chronic Kidney Disease - Surgical History Surgical History: Tonsillectomy - Family History Family History: States: Unknown Family Hx - Home Medications Home Medications: Ambulatory Orders Medication Instructions Recorded Furosemide [Lasix] 40 mg PO DAILY tab 04/01/17 Morphine [Morphine Immediate 30 mg PO Q8 PRN 04/01/17 Release Tab] Alprazolam [Xanax] 0.5 mg PO Q12 PRN 12/16/17 Morphine Sulfate [Morphine Sulfate 60 mg PO Q12 12/16/17 ER] Multivitamin [Multi-Vitamin Daily] 1 tab PO DAILY 12/16/17 Ruxolitinib Phosphate [Jakafi] 5 mg PO HS 12/16/17 Ruxolitinib Phosphate [Jakafi] 10 mg PO DAILY 12/16/17 - Allergies Allergies/Adverse Reactions: Allergies Allergy/AdvReac Type Severity Reaction Status Date / Time lansoprazole [From Prevacid] Allergy anxiety, Verified 12/16/17 13:52 shaking ranitidine [From Zantac] Allergy anxiety, Verified 12/16/17 13:52 shaking Review of Systems ROS Statement: Except As Marked, All Systems Reviewed And Found Negative Constitutional: Negative for: Fever, Chills Cardiovascular: Positive for: Chest Pain Respiratory: Positive for: Shortness of Breath - Laboratory Results Result Diagrams: 12/16/17 15:06 12/16/17 15:06 - ECG O2 Sat by Pulse Oximetry: 95 Medical Decision Making Medical Decision Making: Case discussed with Dr. Betancourt - Head CT and PE study ordered. PT to be admitted under observation for chest pain. Discussed with Dr. Tierney. Dr. Bernabe consulted on previous visit to ER. He will be consulted again. Dr. Bernabe - Would like hydroxyurea and aspirin. Disposition - Clinical Impression Clinical Impression: Chest pain - Patient ED Disposition Is Patient to be Admitted: Yes - Disposition Disposition Time: 20:00 Condition: STABLE Forms: [facility] ([place]) - Pt Status Changed To: Hospital Disposition Of: Observation - Admit Certification Admit to Inpatient:: Telemetry
[2017-12-16] MEDS ORDERED: Morphine 4 MG/ML VIAL IV ONE (20:56)
[2017-12-16] MEDS ORDERED: Morphine 4 MG/ML VIAL ONE (21:01)
[2017-12-16] MEDS ORDERED: Alum-Mag Hydrox-Simethicone Susp (30 mL) PO PRN (22:41)
[2017-12-17 05:41] LABS: HEMOGLOBIN 9.3 g/dL (12.0-16.0); MEAN CELL VOLUME 90.6 fl (81.0-99.0); MEAN CORPUSCULAR HEMOGLOBIN 25.9 pg (27.0-31.0); MEAN CORPUSCULAR HGB CONC 28.6 g/dL (33.0-37.0); RBC 3.6 Mil/uL (3.80-5.20); RED CELL DISTRIBUTION WIDTH 25.4 % (11.5-14.5); WHITE BLOOD COUNT 30.1 K/uL (4.8-10.8)
[2017-12-17 05:44] LABS: INR 1.2 (0.9-1.2); PARTIAL THROMBOPLASTIN TIME 34.2 Seconds (25.6-37.1)
[2017-12-17 06:48] LABS: ALBUMIN 3.1 g/dL (3.5-5.0); ALT/SGPT 49 U/L (9-52); AST/SGOT 110 U/L (14-36); BLOOD UREA NITROGEN 21 mg/dl (7-17); CALCIUM 8.7 mg/dL (8.4-10.2); GFR AFRICAN-AMERICAN > 60; GFR NON-AFRICAN AMERICAN > 60; HDL CHOLESTEROL 31 MG/DL (30-70); LDL CHOLESTEROL 98 mg/dL (0-129)
[2017-12-17] MEDS ORDERED: Patient's Own Med (Multivitamin [Multi-Vitamin Daily] 1 TAB) PO SCH (09:00)
[2017-12-17] MEDS: Multivitamin With Minerals Tab PO SCH (09:18)
--- NOTE | 2017-12-17 11:35 | CARD ---
APPROVED REPORT EKG Measurement Heart [id number] <Conclusion> Sinus tachycardia Possible Left atrial enlargement Nonspecific ST and T wave abnormality Abnormal ECG
--- NOTE | 2017-12-17 11:57 | CP.PCM.CON ---
History of Present Illness - History of Present Illness History of Present Illness: 57 year old female with a history of essential thrombocythemia on Jakafi and portal vein thrombosis on coumadin since 2002 complicated by subdural hematoma s /p fall from a ladder in 2017, admitted with chest pain, with thrombocytosis, leukocytosis, and anemia. The patient notes to an outpatient platelet count of 2.4 million. She had her Jakafi dose increased, but due to insurance issues, has not taken her medication for several days. She also is off coumadin due to easy bleeding for about 1 week. She notes to increasing chest pain which brought her to the ER. Past medical history: Essential thrombocythemia, portal vein thrombosis on coumadin. Past surgical history: Denies Family history: Denies hematologic and oncologic problems Social history: Denies tobacco, alcohol and illicit drug use. Allergies: Ranitidine, lansoprazole Review of systems: All remaining review of systems including HEENT, cardiovascular, respiratory, gastrointestinal, genitourinary, musculoskeletal, dermatologic, neurologic, and psychiatric are negative unless mentioned in the HPI Past Patient History - Infectious Disease Hx of Infectious Diseases: None - Tetanus Immunizations Tetanus Immunization: Unknown - Past Medical History & Family History Past Medical History?: Yes - Past Social History Smoking Status: Never Smoked - CARDIAC Hx Cardiac Disorders: No - PULMONARY Hx Emphysema: Yes (per patient "mild emphysema") - NEUROLOGICAL Hx Neurological Disorder: No - HEENT Hx HEENT Problems: No - RENAL Hx Chronic Kidney Disease: No - ENDOCRINE/METABOLIC Hx Endocrine Disorders: No - HEMATOLOGICAL/ONCOLOGICAL Hx Blood Disorders: Yes Hx AIDS: No Hx Human Immunodeficiency Virus (HIV): No Other/Comment: Essential Thrombocythemia - INTEGUMENTARY Hx Dermatological Problems: Yes Hx Cellulitis: Yes (BLE) - MUSCULOSKELETAL/RHEUMATOLOGICAL Hx Musculoskeletal Disorders: Yes Hx Falls: No - GASTROINTESTINAL Hx Gastrointestinal Disorders: Yes Hx Esophageal Varices: Yes (2003) Other/Comment: PORTAL VEIN HYPERTENSION, PORTAL VEIN THROMBOSES - GENITOURINARY/GYNECOLOGICAL Hx Genitourinary Disorders: No - PSYCHIATRIC Hx Psychophysiologic Disorder: Yes Hx Anxiety: Yes Hx Substance Use: No - SURGICAL HISTORY Hx Surgeries: Yes Hx Tonsillectomy: Yes Other/Comment: Craniotomy - ANESTHESIA Hx Anesthesia: Yes Hx Anesthesia Reactions: No Hx Malignant Hyperthermia: No Has any member of the family had a problem w/ anesthesia?: No Meds Allergies/Adverse Reactions: Allergies Allergy/AdvReac Type Severity Reaction Status Date / Time lansoprazole [From Prevacid] Allergy anxiety, Verified 12/16/17 13:52 shaking ranitidine [From Zantac] Allergy anxiety, Verified 12/16/17 13:52 shaking - Medications Medications: Current Medications Al Hydrox/Mg Hydrox/Simethicone (Maalox Plus 30 Ml) 30 ml PO Q4 PRN PRN Reason: Indigestion / Heartburn Alprazolam (Xanax) 0.5 mg PO Q12 PRN PRN Reason: Anxiety Furosemide (Lasix) 40 mg PO DAILY [facility] Last Admin: 12/17/17 09:19 Dose: Not Given Morphine Sulfate (Morphine Immediate Release Tab) 30 mg PO Q8 PRN PRN Reason: Pain, severe (8-10) Multivitamins/Minerals (Therapeutic-M Tab) 1 tab PO DAILY [facility] Last Admin: 12/17/17 09:18 Dose: 1 tab Physical Exam - Head Exam Head Exam: ATRAUMATIC - Eye Exam Eye Exam: Normal appearance - ENT Exam ENT Exam: Mucous Membranes Dry - Respiratory Exam Respiratory Exam: NORMAL BREATHING PATTERN - Cardiovascular Exam Cardiovascular Exam: +S1, +S2 - GI/Abdominal Exam GI & Abdominal Exam: Normal Bowel Sounds - Extremities Exam Extremities exam: Positive for: normal inspection - Neurological Exam Neurological exam: Oriented x3 - Psychiatric Exam Psychiatric exam: Normal Affect, Normal Mood - Skin Skin Exam: Warm Results - Vital Signs Recent Vital Signs: Last Vital Signs Temp 97.5 F L 12/17/17 09:00 Pulse 75 12/17/17 09:00 Resp 20 12/17/17 09:00 BP 92/68 L 12/17/17 09:19 Pulse Ox 93 L 12/17/17 09:00 - Labs Result Diagrams: 12/17/17 04:20 12/17/17 04:20 Labs: Laboratory Results - last 24 hr 12/16/17 12/16/17 12/17/17 15:06 15:06 04:20 WBC 31.7 H 30.1 H RBC 4.22 3.60 L Hgb 11.0 L 9.3 L Hct 38.0 32.6 L MCV 90.0 90.6 MCH 26.0 L 25.9 L MCHC 28.9 L 28.6 L RDW 26.3 H 25.4 H Plt Count 2110 H* D 1653 H* D MPV 9.8 Neut % (Auto) 57.3 Lymph % (Auto) 37.6 [place] % (Auto) 2.8 Eos % (Auto) 2.1 Baso % (Auto) 0.2 Neut # (Auto) 18.2 H Lymph # (Auto) 11.9 H [place] # (Auto) 0.9 H Eos # (Auto) 0.7 Baso # (Auto) 0.1 Neutrophils % (Manual) 57 Band Neutrophils % 2 Lymphocytes % (Manual) 33 Reactive Lymphs % 1 H Monocytes % (Manual) 3 Eosinophils % (Manual) 3 Basophils % (Manual) 1 Nucleated RBC % 6 H Platelet Estimate Markedly increased H Large Platelets Present Giant Platelets Present Hypochromasia (manual) Slight Anisocytosis (manual) Slight Ovalocytes Slight PT INR APTT Sodium 144 Potassium 4.0 Chloride 100 Carbon Dioxide 33 H Anion Gap 15 BUN 12 Creatinine 0.6 L Est GFR ( Amer) > 60 Est GFR (Non-Af Amer) > 60 Random Glucose 143 H Calcium 9.3 Total Bilirubin 0.8 AST 96 H ALT 61 H D Alkaline Phosphatase 322 H Troponin I < 0.0120 NT-Pro-B Natriuret Pep 883 Total Protein 7.9 Albumin 4.0 Globulin 3.9 Albumin/Globulin Ratio 1.0 Triglycerides Cholesterol LDL Cholesterol Direct HDL Cholesterol Thyroxine (T4) TSH 3rd Generation 12/17/17 12/17/17 04:20 04:20 WBC RBC Hgb Hct MCV MCH MCHC RDW Plt Count MPV Neut % (Auto) Lymph % (Auto) [place] % (Auto) Eos % (Auto) Baso % (Auto) Neut # (Auto) Lymph # (Auto) [place] # (Auto) Eos # (Auto) Baso # (Auto) Neutrophils % (Manual) Band Neutrophils % Lymphocytes % (Manual) Reactive Lymphs % Monocytes % (Manual) Eosinophils % (Manual) Basophils % (Manual) Nucleated RBC % Platelet Estimate Large Platelets Giant Platelets Hypochromasia (manual) Anisocytosis (manual) Ovalocytes PT 13.0 INR 1.2 APTT 34.2 Sodium 143 Potassium 3.7 Chloride 100 Carbon Dioxide 33 H Anion Gap 14 BUN 21 H Creatinine 0.7 Est GFR ( Amer) > 60 Est GFR (Non-Af Amer) > 60 Random Glucose 106 H Calcium 8.7 Total Bilirubin 0.4 AST 110 H ALT 49 Alkaline Phosphatase 253 H D Troponin I < 0.0120 NT-Pro-B Natriuret Pep Total Protein 6.4 Albumin 3.1 L D Globulin 3.2 Albumin/Globulin Ratio 1.0 Triglycerides 170 H D Cholesterol 187 LDL Cholesterol Direct 98 HDL Cholesterol 31 Thyroxine (T4) 9.30 TSH 3rd Generation 3.31 Assessment & Plan (1) Essential thrombocythemia Assessment and Plan: she has received aspirin and hydroxyurea with decrease in her platelet count daily aspirin hydroxyurea titration in an attempt to normalize the patients platelet count outpatient Alexisi with primary oncologist. Status: Chronic Priority: High (2) Leukocytosis Assessment and Plan: likely secondary to myeloproliferative disorder Status: Acute Priority: High (3) Anemia Assessment and Plan: chronic disease and myeloproliferative disorder Thank you for this interesting consult. Status: Acute Priority: High
[2017-12-17] MEDS: Enoxaparin 40 mg Syringe SC SCH (13:11)
--- NOTE | 2017-12-17 13:29 | CP.PCM.HP ---
History of Present Illness - History of Present Illness History of Present Illness: CC: Chest pain. 57 y/o F, Hx of Essential Thrombocythemia, came to ER [facility], [place], on 12/16/17 , tp be evaluated for L chest pain, intermittent, onset 3 weeks ago, increased on day [employer], with no relief, associated to moderate SOB. Pt states, she was seen by the [facility] Nurse day [employer] and was told to have the Plt in 2400, also that she is in compliance with the Coumadin. Worsening symptoms: Hx. Emphysema, Headache. Pt denied: Fever, chills, n/v/d, abdominal pain, palpitations, syncope, dizziness, cough, urinary symptoms, sick contact, recent travel out of [place]. PMHx: Essential Thrombocythemia in 1998, Portal vein thrombosis in 2001 on Coumadin, Portal vein HTN Mild Emphysema, Legs cellulitis ([facility] 03-13-17 to ), Esophageal Varices. Chest CT shows: No PE, no acute infiltrate, pleural-based nodules MONTEZ, airway disease R middle lobe. CXR: COPD. EKG: Sinus Tachycardia. Head CT: Trace chronic R frontal subdural collection. No hemorrhage. R frontotemporal craniotomy Plt count: Decreased from yesterday, today: 1653 WBC: 30.1 Hgb: 9.3 Present on Admission - Present on Admission Any Indicators Present on Admission: No Review of Systems - Constitutional Constitutional: Other (negative) - EENT Eyes: Requires Corrective Lenses Ears: Other (negative) Nose/Mouth/Throat: Other (negative) - Cardiovascular Cardiovascular: Chest Pain - Respiratory Respiratory: Dyspnea - Gastrointestinal Gastrointestinal: Other (negative) - Genitourinary Genitourinary: Other (negative) - Musculoskeletal Musculoskeletal: Other (negative) - Integumentary Integumentary: Other (redness lower extremities.) - Neurological Neurological: Headaches - Psychiatric Psychiatric: Anxiety - Endocrine Endocrine: Other (negative) - Hematologic/Lymphatic Hematologic: As Per HPI Past Patient History - Infectious Disease Hx of Infectious Diseases: None - Tetanus Immunizations Tetanus Immunization: Unknown - Past Medical History & Family History Past Medical History?: Yes Pertinent Family History: Unknown - Past Social History Smoking Status: Never Smoked Alcohol: None Drugs: Denies Home Situation {Lives}: Alone - CARDIAC Hx Cardiac Disorders: No - PULMONARY Hx Respiratory Disorders: Yes Hx Emphysema: Yes (per patient "mild emphysema") - NEUROLOGICAL Hx Neurological Disorder: No - HEENT Hx HEENT Problems: No - RENAL Hx Chronic Kidney Disease: No - ENDOCRINE/METABOLIC Hx Endocrine Disorders: No - HEMATOLOGICAL/ONCOLOGICAL Hx Blood Disorders: Yes Hx AIDS: No Hx Human Immunodeficiency Virus (HIV): No Other/Comment: Essential Thrombocythemia - INTEGUMENTARY Hx Dermatological Problems: Yes Hx Cellulitis: Yes (BLE) - MUSCULOSKELETAL/RHEUMATOLOGICAL Hx Musculoskeletal Disorders: Yes Hx Falls: No - GASTROINTESTINAL Hx Gastrointestinal Disorders: Yes Hx Esophageal Varices: Yes (2003) Other/Comment: PORTAL VEIN HYPERTENSION, PORTAL VEIN THROMBOSES - GENITOURINARY/GYNECOLOGICAL Hx Genitourinary Disorders: No - PSYCHIATRIC Hx Psychophysiologic Disorder: Yes Hx Anxiety: Yes Hx Substance Use: No - SURGICAL HISTORY Hx Surgeries: Yes Hx Tonsillectomy: Yes Other/Comment: Craniotomy - ANESTHESIA Hx Anesthesia: Yes Hx Anesthesia Reactions: No Hx Malignant Hyperthermia: No Has any member of the family had a problem w/ anesthesia?: No Meds Allergies/Adverse Reactions: Allergies Allergy/AdvReac Type Severity Reaction Status Date / Time lansoprazole [From Prevacid] Allergy anxiety, Verified 12/16/17 13:52 shaking ranitidine [From Zantac] Allergy anxiety, Verified 12/16/17 13:52 shaking Physical Exam - Constitutional Appears: No Acute Distress - Head Exam Head Exam: NORMAL INSPECTION - Eye Exam Eye Exam: PERRL - ENT Exam ENT Exam: Normal Exam - Neck Exam Neck exam: Positive for: Normal Inspection - Respiratory Exam Respiratory Exam: Decreased Breath Sounds (at bases) - Cardiovascular Exam Cardiovascular Exam: REGULAR RHYTHM - GI/Abdominal Exam GI & Abdominal Exam: Normal Bowel Sounds, Soft - Extremities Exam Additional comments: Redness b/l lower extremities. - Back Exam Back exam: NORMAL INSPECTION - Neurological Exam Neurological exam: Alert, Oriented x3 - Psychiatric Exam Psychiatric exam: Anxious - Skin Skin Exam: Warm Results - Vital Signs Recent Vital Signs: Last Vital Signs Temp 97.7 F 12/17/17 12:00 Pulse 93 H 12/17/17 12:00 Resp 20 12/17/17 12:00 BP 111/71 12/17/17 12:00 Pulse Ox 94 L 12/17/17 12:00 reviewed Amber - Labs Result Diagrams: 12/17/17 04:20 12/17/17 04:20 Labs: Laboratory Results - last 24 hr 12/16/17 12/16/17 12/17/17 15:06 15:06 04:20 WBC 31.7 H 30.1 H RBC 4.22 3.60 L Hgb 11.0 L 9.3 L Hct 38.0 32.6 L MCV 90.0 90.6 MCH 26.0 L 25.9 L MCHC 28.9 L 28.6 L RDW 26.3 H 25.4 H Plt Count 2110 H* D 1653 H* D MPV 9.8 Neut % (Auto) 57.3 Lymph % (Auto) 37.6 [place] % (Auto) 2.8 Eos % (Auto) 2.1 Baso % (Auto) 0.2 Neut # (Auto) 18.2 H Lymph # (Auto) 11.9 H Ramsey # (Auto) 0.9 H Eos # (Auto) 0.7 Baso # (Auto) 0.1 Neutrophils % (Manual) 57 Band Neutrophils % 2 Lymphocytes % (Manual) 33 Reactive Lymphs % 1 H Monocytes % (Manual) 3 Eosinophils % (Manual) 3 Basophils % (Manual) 1 Nucleated RBC % 6 H Platelet Estimate Markedly increased H Large Platelets Present Giant Platelets Present Hypochromasia (manual) Slight Anisocytosis (manual) Slight Ovalocytes Slight PT INR APTT Sodium 144 Potassium 4.0 Chloride 100 Carbon Dioxide 33 H Anion Gap 15 BUN 12 Creatinine 0.6 L Est GFR ( Amer) > 60 Est GFR (Non-Af Amer) > 60 Random Glucose 143 H Calcium 9.3 Total Bilirubin 0.8 AST 96 H ALT 61 H D Alkaline Phosphatase 322 H Troponin I < 0.0120 NT-Pro-B Natriuret Pep 883 Total Protein 7.9 Albumin 4.0 Globulin 3.9 Albumin/Globulin Ratio 1.0 Triglycerides Cholesterol LDL Cholesterol Direct HDL Cholesterol Thyroxine (T4) TSH 3rd Generation 12/17/17 12/17/17 12/17/17 04:20 04:20 12:20 WBC RBC Hgb Hct MCV MCH MCHC RDW Plt Count MPV Neut % (Auto) Lymph % (Auto) [place] % (Auto) Eos % (Auto) Baso % (Auto) Neut # (Auto) Lymph # (Auto) [place] # (Auto) Eos # (Auto) Baso # (Auto) Neutrophils % (Manual) Band Neutrophils % Lymphocytes % (Manual) Reactive Lymphs % Monocytes % (Manual) Eosinophils % (Manual) Basophils % (Manual) Nucleated RBC % Platelet Estimate Large Platelets Giant Platelets Hypochromasia (manual) Anisocytosis (manual) Ovalocytes PT 13.0 INR 1.2 APTT 34.2 Sodium 143 Potassium 3.7 Chloride 100 Carbon Dioxide 33 H Anion Gap 14 BUN 21 H Creatinine 0.7 Est GFR ( Amer) > 60 Est GFR (Non-Af Amer) > 60 Random Glucose 106 H Calcium 8.7 Total Bilirubin 0.4 AST 110 H ALT 49 Alkaline Phosphatase 253 H D Troponin I < 0.0120 < 0.0120 NT-Pro-B Natriuret Pep Total Protein 6.4 Albumin 3.1 L D Globulin 3.2 Albumin/Globulin Ratio 1.0 Triglycerides 170 H D Cholesterol 187 LDL Cholesterol Direct 98 HDL Cholesterol 31 Thyroxine (T4) 9.30 TSH 3rd Generation 3.31 reviewed J.P. - EKG Data EKG comments: reviewed J.P. - Imaging and Cardiology CT scan - chest Status: Report reviewed by me (Amber) Chest x-ray Status: Report reviewed by me (Amber) CT scan - head Status: Report reviewed by me (Amber) Assessment & Plan (1) Chest pain Status: Acute Priority: High (2) Essential thrombocythemia Status: Chronic Priority: High (3) Anemia Status: Acute Priority: High (4) Pleural nodules Status: Acute Priority: High Comment: Based, MONTEZ (5) Emphysema of lung Status: Chronic Priority: Medium (6) COPD (chronic obstructive pulmonary disease) Status: Acute Priority: Medium - Assessment and Plan (Free Text) Plan: Monitor Plt count continue with Lovenox, Lasix, Morphine and rest of Tx. Hematology consult appreciated, Cardiology consult. - Date & Time Date: 12/17/17 Time: 11:20
[2017-12-17] MEDS: POLYETHYLENE GLYCOL 3350 17 GM/Dose PACKET PO PRN (17:49)
[2017-12-17] MEDS: Morphine 30 mg Immediate Release Tab PO PRN (18:25)
--- NOTE | 2017-12-17 21:19 | CON ---
CARDIOLOGY CONSULTATION DATE: REASON FOR CONSULTATION: Chest pain. HISTORY OF PRESENT ILLNESS: The patient is a 57-year-old female who was diagnosed with thrombocytosis that was complicated by portal vein thrombosis in the past. The patient also carries a diagnosis of congestive heart failure. She denies any known coronary artery disease history. She presents because of chest discomfort on and off as well as headache. The patient is unable to characterize her chest pain and denies any radiation of her chest discomfort. The patient attributes the discomfort mainly to tightness in breathing. The patient denies any history of diaphoresis. SOCIAL HISTORY: Nonsmoker. MEDICATIONS: Lasix 20 mg once a day, Lovenox 40 mg subcutaneously once a day, morphine sulfate 30 mg p.o. every 8 hours p.r.n., multivitamin 1 tablet twice a day, and Xanax 0.5 mg twice a day. REVIEW OF SYSTEMS: No fever or chills. No history of cancer. No recent loss of weight. The patient did have upper GI bleeding in the past and at that time, she presented with melena and was told that she has variceal bleeding many years ago. PHYSICAL EXAMINATION: GENERAL: The patient is a middle-aged female who does not appear to be in any distress. VITAL SIGNS: Blood pressure , heart rate 93, temperature 97.7, and respirations 20. HEENT: Pale conjunctivae. CHEST: Clear. HEART: S1 and S2 regular. ABDOMEN: Soft. EXTREMITIES: 1+ pitting edema. LABORATORY DATA: Hemoglobin and hematocrit 9.3 and 32.6, white count 30.1, and platelet count 653,000. SMA-7; sodium 143, potassium 3.7, chloride 100, CO2 of 33, glucose 106, BUN 21, and creatinine 0.7. Three sets of troponins are negative. Triglycerides 170. Rest of lipid profiles are within normal limits. TSH level is within normal. PT, PTT, and INR are within normal limits. Echocardiographic study in February of last year revealed normal ejection fraction, moderate mitral insufficiency, and mild tricuspid insufficiency. EKG revealed normal sinus rhythm. Head CT scan without contrast; trace chronic frontal subdural collection. No acute hemorrhage, old right frontotemporal craniotomy. Chest CT scan/pulmonary angiogram revealed extensive the pancreas and stomach of uncertain significance. There is some gastric mural thickening seen in the fundus. Impressions; no evidence of pulmonary embolism. No acute infiltrates, small airway disease in the right middle lobe, and small pleural-based nodules. ASSESSMENT: 1. Chest pain, myocardial infarction is ruled out. 2. Primary thrombocytosis. 3. Mild anemia. 4. Leukocytosis. RECOMMENDATIONS: Continue current Lasix 40 mg once a day and Lovenox 40 mg subcutaneously daily. I did review the echocardiographic study, which revealed normal ejection fraction, mild mitral insufficiency, and mild pulmonary hypertension. Teofilo Akins MD
[2017-12-18 06:27] LABS: HEMOGLOBIN 10.2 g/dL (12.0-16.0); MEAN CELL VOLUME 90.5 fl (81.0-99.0); MEAN CORPUSCULAR HEMOGLOBIN 26.3 pg (27.0-31.0); RBC 3.88 Mil/uL (3.80-5.20); RED CELL DISTRIBUTION WIDTH 25.9 % (11.5-14.5)
[2017-12-18] MEDS: Morphine 30 mg Immediate Release Tab PO PRN (08:47)
[2017-12-18] MEDS: Enoxaparin 40 mg Syringe SC SCH (08:50)
[2017-12-18] MEDS: Multivitamin With Minerals Tab PO SCH (08:50)
[2017-12-18] MEDS: POLYETHYLENE GLYCOL 3350 17 GM/Dose PACKET PO PRN (08:52)
--- NOTE | 2017-12-18 12:21 | CARD ---
APPROVED REPORT EXAM: Two-dimensional and M-mode echocardiogram with Doppler and color Doppler. Other Information Quality : GoodRhythm : NSR INDICATION Chest Pain 2D DIMENSIONS IVSd0.47 (0.7-1.1cm)LVDd5.13 (3.9-5.9cm) LVOT Diameter1.81 (1.8-2.4cm)PWd0.66 (0.7-1.1cm) IVSs0.72 (0.8-1.2cm)LVDs3.43 (2.5-4.0cm) FS (%) 33.1 %PWs0.93 (0.8-1.2cm) M-Mode DIMENSIONS Left Atrium (MM)3.78 (2.5-4.0cm)IVSd0.59 (0.7-1.1cm) Aortic Root2.81 (2.2-3.7cm)LVDd6.10 (4.0-5.6cm) Aortic Cusp Exc.2.06 (1.5-2.0cm)PWd0.82 (0.7-1.1cm) IVSs0.93 cmFS (%) 35 % LVDs3.94 (2.0-3.8cm)PWs1.00 cm Mitral Valve MV E Eaykipyr21.3cm/sMV DECEL [id number] A Obvenzut74.7cm/s MV DXS64lyV/A ratio1.3MVA (PHT)3.21cm2 TDI Lateral E' Peak V13.12cm/sMedial E' Peak V10.92cm/sE/Lateral E'6.7 E/Medial E'8.0 Pulmonary Valve PV Peak Gvjuzryu32.5cm/s Tricuspid Valve TR Peak Qhownhvd060pc/sRAP YOTCCBKO34lfVkDX Peak Gr.26mmHg [id number] LEFT VENTRICLE The left ventricle is normal size. There is normal left ventricular wall thickness. The left ventricular function is normal. The left ventricular ejection fraction is 60% There is normal LV segmental wall motion. The left ventricular diastolic function is normal. No left ventricle thrombus noted on this study. There is no ventricular septal defect visualized. There is no left ventricular aneurysm. There is no mass noted in the left ventricle. RIGHT VENTRICLE The right ventricle is normal size. There is normal right ventricular wall thickness. The right ventricular systolic function is normal. ATRIA The left atrium size is normal. The right atrium size is normal. The interatrial septum is intact with no evidence for an atrial septal defect. AORTIC VALVE The aortic valve is normal in structure. No aortic regurgitation is present. There is no aortic valvular stenosis. There is no aortic valvular vegetation. MITRAL VALVE The mitral valve is normal in structure. There is no evidence of mitral valve prolapse. There is no mitral valve stenosis. Mitral regurgitation is mild to moderate. TRICUSPID VALVE The tricuspid valve is normal in structure. There is moderate tricuspid regurgitation. Right ventricular systolic pressure is estimated at 30-40 mmHg. There is no tricuspid valve prolapse or vegetation. There is no tricuspid valve stenosis. PULMONIC VALVE The pulmonary valve is normal in structure. There is no pulmonic valvular regurgitation. There is no pulmonic valvular stenosis. GREAT VESSELS The aortic root is normal in size. The ascending aorta is normal in size. The IVC is normal in size and collapses >50% with inspiration. PERICARDIAL EFFUSION The pericardium appears normal. There is no pleural effusion. <Conclusion> Normal LV systolic function Mild to Moderate Mitral Regurgitation Moderate Tricuspid Regurgitation with normal PAP
[2017-12-18 12:37] VITALS: BP 112/73; PULSE 98; RESP 18; TEMP 98.6; O2SAT 95
--- NOTE | 2017-12-18 12:42 | CP.PCM.PN ---
Subjective - Date & Time of Evaluation Date of Evaluation: 12/18/17 Time of Evaluation: 12:00 - Subjective Subjective: No complaints, feeling better. Objective - Vital Signs/Intake and Output Vital Signs (last 24 hours): Temp Pulse Resp BP Pulse Ox 98.6 F 98 H 18 112/73 95 12/18/17 12:00 12/18/17 12:00 12/18/17 12:00 12/18/17 12:00 12/18/17 12:00 - Medications Medications: Current Medications Acetaminophen (Tylenol 325mg Tab) 650 mg PO Q4 PRN PRN Reason: Pain, Mild (1-3) Last Admin: 12/17/17 22:53 Dose: 650 mg Al Hydrox/Mg Hydrox/Simethicone (Maalox Plus 30 Ml) 30 ml PO Q4 PRN PRN Reason: Indigestion / Heartburn Alprazolam (Xanax) 0.5 mg PO Q12 PRN PRN Reason: Anxiety Last Admin: 12/18/17 08:54 Dose: 0.5 mg Aspirin (Aspirin) 325 mg PO DAILY [facility] Enoxaparin Sodium (Lovenox) 40 mg SC DAILY [facility] PRN Reason: Protocol Last Admin: 12/18/17 08:50 Dose: 40 mg Furosemide (Lasix) 40 mg PO DAILY [facility] Last Admin: 12/18/17 08:50 Dose: 40 mg Hydroxyurea (Hydrea) 1,500 mg PO DAILY [facility] Morphine Sulfate (Morphine Immediate Release Tab) 30 mg PO Q8 PRN PRN Reason: Pain, severe (8-10) Last Admin: 12/18/17 08:47 Dose: 30 mg Multivitamins/Minerals (Therapeutic-M Tab) 1 tab PO DAILY [facility] Last Admin: 12/18/17 08:50 Dose: 1 tab Polyethylene Glycol (Miralax) 17 gm PO DAILY PRN PRN Reason: Constipation Last Admin: 12/18/17 08:52 Dose: 17 gm - Labs Labs: 12/18/17 05:35 12/17/17 04:20 PT 13.0 Seconds (9.8-13.1) 12/17/17 04:20 INR 1.2 (0.9-1.2) 12/17/17 04:20 APTT 34.2 Seconds (25.6-37.1) 04/04/18 04:20 - Head Exam Head Exam: ATRAUMATIC - Eye Exam Eye Exam: Normal appearance - ENT Exam ENT Exam: Mucous Membranes Dry - Respiratory Exam Respiratory Exam: NORMAL BREATHING PATTERN - Cardiovascular Exam Cardiovascular Exam: +S1, +S2 - GI/Abdominal Exam GI & Abdominal Exam: Normal Bowel Sounds Assessment and Plan (1) Essential thrombocythemia Assessment & Plan: platelet count improved cont hydroxyurea 1500mg daily on aspirin restart coumadin outpatient f/u with primary oncologist Dr. Cowart Status: Chronic (2) Leukocytosis Assessment & Plan: secondary to myeloproliferative disorder Status: Acute (3) Anemia Status: Acute
--- NOTE | 2017-12-18 14:36 | PQF GENQUE ---
Dr. Tierney, Etiology of Chest Pain?: if known OR:Unable to determine Cardiology consult: Impression: 1. Chest pain, myocardial infarction is ruled out. 2. Primary thrombocytosis. 3. Mild anemia. 4. Leukocytosis. This form is a permanent part of the medical record Clarification of your documentation is requested to better reflect the severity of illness and intensity of treatment of your patient. Indicators present [] Specify: [] [] Specify: [] [] Specify: [] [] Specify: [] Location in the medical record that reflects the above clinical findings: [] Treatment Provided: [] PHYSICIAN'S RESPONSE Based on your medical judgment of the clinical indicators outlined above please clarify the following: [] Practitioner response [] If unable to determine, please check the box, sign and date. Present On Admission (POA) Indicator: [] Present at the time of admission [] Not present at the time of admission [] Clinically Undetermined In responding to this query, please exercise your independent professional judgment. The fact that a question is asked does not imply that any particular answer is desired or expected. Thank you for your clarification on this documentation. If you have any questions please call. * Thank you, Marisa Negro RN ext. #[phone] MTDD
--- NOTE | 2017-12-18 14:48 | PQF GENQUE ---
Dr. Tierney, Please specify type of COPD: i.e.-Stable With acute exacerbation Other:(please specify) Clinically unable to determine Unknown H and P: Respiratory Exam: Decreased Breath Sounds (at bases) Diagnoses include: COPD ; Status: Acute Priority: Medium This form is a permanent part of the medical record Clarification of your documentation is requested to better reflect the severity of illness and intensity of treatment of your patient. Indicators present [] Specify: [] [] Specify: [] [] Specify: [] [] Specify: [] Location in the medical record that reflects the above clinical findings: [] Treatment Provided: [] PHYSICIAN'S RESPONSE Based on your medical judgment of the clinical indicators outlined above please clarify the following: [] Practitioner response [] If unable to determine, please check the box, sign and date. Present On Admission (POA) Indicator: [] Present at the time of admission [] Not present at the time of admission [] Clinically Undetermined In responding to this query, please exercise your independent professional judgment. The fact that a question is asked does not imply that any particular answer is desired or expected. Thank you for your clarification on this documentation. If you have any questions please call. * Thank you, Marisa Negro RN ext. #[phone] MTDD
--- NOTE | 2017-12-18 15:47 | PN ---
DATE: SUBJECTIVE: The patient denies chest pain or shortness of breath at this time. PHYSICAL EXAMINATION: VITAL SIGNS: Blood pressure of 112/74, heart rate of 92, temperature of 98.4, and respirations of 20. HEENT: Normocephalic. CHEST: Clear. HEART: S1 and S2 regular. EXTREMITIES: No edema. LABORATORY DATA: Hemoglobin and hematocrit are 10.1 and 35.1, white count 28, and platelet count is 1 million 745 Troponins are negative. Official echocardiography study report, normal left ventricular systolic function, [id number] mitral insufficiency, moderate tricuspid insufficiency, and normal pulmonary artery pressure. EKG revealed normal sinus rhythm. ASSESSMENT: 1. Chest pain, myocardial infarction is ruled out. 2. Rule out infarction. 3. Primary thrombocytosis. RECOMMENDATIONS: Continue current aspirin, hydroxyurea, and subcutaneous Lovenox. Obtain chest CT angio to rule out pulmonary embolus. Teofilo Akins MD
--- NOTE | 2017-12-18 20:16 | CP.PCM.DIS ---
Provider - Provider Date of Admission: 12/16/17 20:20 Attending physician: Stiven Tierney MD Diagnosis - Discharge Diagnosis (1) Chest pain Status: Acute Priority: High (2) Essential thrombocythemia Status: Chronic Priority: High (3) Anemia Status: Acute Priority: High (4) Pleural nodules Status: Acute Priority: High (5) Emphysema of lung Status: Chronic Priority: Medium (6) COPD (chronic obstructive pulmonary disease) Status: Acute Priority: Medium Hospital Course - Lab Results Lab Results: Most Recent Lab Values WBC 28.0 K/uL (4.8-10.8) H 12/18/17 05:35 RBC 3.88 Mil/uL (3.80-5.20) 12/18/17 05:35 Hgb 10.2 g/dL (12.0-16.0) L 12/18/17 05:35 Hct 35.1 % (34.0-47.0) 12/18/17 05:35 MCV 90.5 fl (81.0-99.0) 12/18/17 05:35 MCH 26.3 pg (27.0-31.0) L 12/18/17 05:35 MCHC 29.0 g/dL (33.0-37.0) L 12/18/17 05:35 RDW 25.9 % (11.5-14.5) H 12/18/17 05:35 Plt Count 1745 K/uL (130-400) H* 12/18/17 05:35 MPV 9.8 fl (7.2-11.7) 12/16/17 15:06 Neut % (Auto) 57.3 % (50.0-75.0) 12/16/17 15:06 Lymph % (Auto) 37.6 % (20.0-40.0) 12/16/17 15:06 [place] % (Auto) 2.8 % (0.0-10.0) 12/16/17 15:06 Eos % (Auto) 2.1 % (0.0-4.0) 12/16/17 15:06 Baso % (Auto) 0.2 % (0.0-2.0) 12/16/17 15:06 Neut # (Auto) 18.2 K/uL (1.8-7.0) H 12/16/17 15:06 Lymph # (Auto) 11.9 K/uL (1.0-4.3) H 12/16/17 15:06 [place] # (Auto) 0.9 K/uL (0.0-0.8) H 12/16/17 15:06 Eos # (Auto) 0.7 K/uL (0.0-0.7) 12/16/17 15:06 Baso # (Auto) 0.1 K/uL (0.0-0.2) 12/16/17 15:06 Neutrophils % (Manual) 57 % (42-75) 12/16/17 15:06 Band Neutrophils % 2 % (0-2) 12/16/17 15:06 Lymphocytes % (Manual) 33 % (20-50) 12/16/17 15:06 Reactive Lymphs % 1 % (0-0) H 12/16/17 15:06 Monocytes % (Manual) 3 % (0-10) 12/16/17 15:06 Eosinophils % (Manual) 3 % (0-7) 12/16/17 15:06 Basophils % (Manual) 1 % (0-2) 12/16/17 15:06 Nucleated RBC % 6 % (0-0) H 12/16/17 15:06 Platelet Estimate Markedly increased (NORMAL) H 12/16/17 15:06 Large Platelets Present 12/16/17 15:06 Giant Platelets Present 12/16/17 15:06 Hypochromasia (manual) Slight 12/16/17 15:06 Anisocytosis (manual) Slight 12/16/17 15:06 Ovalocytes Slight 12/16/17 15:06 PT 13.0 Seconds (9.8-13.1) 12/17/17 04:20 INR 1.2 (0.9-1.2) 12/17/17 04:20 APTT 34.2 Seconds (25.6-37.1) 12/17/17 04:20 Sodium 143 mmol/l (132-148) 12/17/17 04:20 Potassium 3.7 MMOL/L (3.6-5.0) 12/17/17 04:20 Chloride 100 mmol/L (98-107) 12/17/17 04:20 Carbon Dioxide 33 mmol/L (22-30) H 12/17/17 04:20 Anion Gap 14 (10-20) 12/17/17 04:20 BUN 21 mg/dl (7-17) H 12/17/17 04:20 Creatinine 0.7 mg/dl (0.7-1.2) 12/17/17 04:20 Est GFR ( Amer) > 60 12/17/17 04:20 Est GFR (Non-Af Amer) > 60 12/17/17 04:20 Random Glucose 106 mg/dL (65-105) H 12/17/17 04:20 Calcium 8.7 mg/dL (8.4-10.2) 12/17/17 04:20 Total Bilirubin 0.4 mg/dl (0.2-1.3) 12/17/17 04:20 AST 110 U/L (14-36) H 12/17/17 04:20 ALT 49 U/L (9-52) 12/17/17 04:20 Alkaline Phosphatase 253 U/L (38-126) H D 12/17/17 04:20 Troponin I < 0.0120 ng/mL (0.00-0.120) 12/17/17 20:30 NT-Pro-B Natriuret Pep 883 pg/ml (0-900) 12/16/17 15:06 Total Protein 6.4 G/DL (6.3-8.2) 12/17/17 04:20 Albumin 3.1 g/dL (3.5-5.0) L D 12/17/17 04:20 Globulin 3.2 gm/dL (2.2-3.9) 12/17/17 04:20 Albumin/Globulin Ratio 1.0 (1.0-2.1) 12/17/17 04:20 Triglycerides 170 mg/DL (0-149) H D 12/17/17 04:20 Cholesterol 187 mg/dL (0-199) 12/17/17 04:20 LDL Cholesterol Direct 98 mg/dL (0-129) 12/17/17 04:20 HDL Cholesterol 31 MG/DL (30-70) 12/17/17 04:20 Thyroxine (T4) 9.30 ug/dl (5.5-11.0) 12/17/17 04:20 TSH 3rd Generation 3.31 mIU/ML (0.46-4.68) 12/17/17 04:20 Discharge Exam - Head Exam Head Exam: ATRAUMATIC Discharge Plan - Discharge Medications Prescriptions: Warfarin [Coumadin] 6 mg PO 1800 #30 tab - Follow Up Plan Condition: STABLE Disposition: HOME/ ROUTINE Instructions: Thrombocytosis, Chest Pain (DC), Exacerbation of COPD (DC) Additional Instructions: follow up with in 1 week follow up with pmd in 1 week Referrals: Chris Cowart MD [Medical Doctor] - Teofilo Akins MD [Staff Provider] - Amina Robins MD [Family Provider] -
--- NOTE | 2017-12-19 18:27 | CARD ---
APPROVED REPORT EKG Measurement Heart [id number] VT [id number] <Conclusion> Normal sinus rhythm Normal ECG
== END 2017-12-18 15:55 | disposition home or self-care (01) ==
LOC: H.ER 13:42 → H.ERHOLD 20:20 → H.TEL 23:35 → INTOOBSV 12-17 11:55 → OBSVTOIN 12-17 11:55
PROVIDERS: ADMIT Internal Medicine Pulmonary Disease; ATTEND Internal Medicine Pulmonary Disease
DX: R07.9 Chest pain, unspecified (principal); D47.3 Essential (hemorrhagic) thrombocythemia; C94.6 Myelodysplastic disease, not elsewhere classified; D72.828 Other elevated white blood cell count; I34.0 Nonrheumatic mitral (valve) insufficiency; J43.9 Emphysema, unspecified; I50.9 Heart failure, unspecified; D64.9 Anemia, unspecified; Z79.01 Long term (current) use of anticoagulants; F41.9 Anxiety disorder, unspecified
CPT/HCPCS: 36415; 70450; 71046; 71275; 80053; 80061; 83880; 84436; 84443; 84484; 85025; 85027; 85610; 85730; 93005; 93306; 99285; G0378; J1650; J2270; Q9967